=== PATIENT | female | born 1935 | race Hispanic/Latino ===

== ENCOUNTER 2017-09-21 12:01 | Inpatient (IN) | payer OTHER ==
[~2017-09-21] VITALS: Ht 160 cm; Wt 84.8 kg
[2017-09-21] VITALS (33 sets, daily range): BP systolic 59–105; BP diastolic 36–57
[~2017-09-21 12:01] MED LIST: ADVAIR; ADVAIR 250-501 EACH; ALAVERT10 MG PO; AMOXICILLIN500 MG PO; CELEBREX200 MG PO; DILTIAZEM ER240 MG PO; DIOVAN; DIOVAN320 MG PO; FUROSEMIDE20 MG PO; LYRICA; LYRICA150 MG PO; METOPROLOL; METOPROLOL SUC100 MG; METOPROLOL SUCC50 MG PO; MONTELUKAST SOD10 MG; MONTELUKAST SOD10 MG PO; NASONEX17 GM; NORCO 10MG-325MG1 EA PO; PENICILLIN PO; POTASSIUM CHLO10 MEQ PO
--- OUTSIDE RECORDS SUMMARY | 2017-09-21 12:05 | XMS REPORT | Clinical Summary ---
Author Author [facility] [facility] Address Unknown Phone Unavailable Care Team Providers Care Submersible Pilot Name Role Phone Francis Hernandez MD PCP Allergies Active Allergy Reactions Severity Noted Date Comments Ciprofloxacin Rash High 02/20/2016 Current Medications Prescription Sig. Disp. Refills Start End Date Status Date metoprolol tartrate Take 50 mg by mouth 2 Active (LOPRESSOR) 50 MG tablet (two) times a day. pregabalin (LYRICA) 150 Take 150 mg by mouth Active MG capsule once. valsartan (DIOVAN) 320 MG Take 320 mg by mouth Active tablet daily. fluticasone-salmeterol Inhale 1 puff 2 (two) Active (ADVAIR) 100-50 mcg/dose times a day. DISKUS mometasone (NASONEX) 50 2 sprays into each Active mcg/actuation nasal spray nostril daily. montelukast (SINGULAIR) Take 10 mg by mouth Active 10 mg tablet nightly. diltiazem CD (CardIZEM Take 240 mg by mouth Active CD) 240 MG 24 hr capsule daily. Active Problems Problem Noted Date Colon polyps 02/20/2016 Family History Medical History Relation Name Comments Heart disease Mother Relation Name Status Comments Mother Social History Tobacco Use Types Packs/Day Years Used Date Never Smoker Alcohol Use Drinks/Week oz/Week Comments No Sex Assigned at Date Recorded Not on file Last Filed Vital Signs Not on file Plan of Treatment Not on file Implants Implanted Type Area Ambulatory Technologist Device Expiration Model / Identifier Date Serial / Lot Epifix Xl 4 X 10 - [id number] Surgical N/A: N/A [employer] 2020 XL 5410 / Implanted: 02/20/2016 (Quantity not Implants; INC / on file) Expanders; [id number] Extenders; [id number] Surgical Wires Epifix Xl 4 X 10 - [id number] Surgical N/A: N/A [employer] 2020 XL 5410 / Implanted: 02/20/2016 (Quantity not Implants; INC / on file) Expanders; [id number] Extenders; 521-006 Surgical Wires Epifix Xl 4 X 10 - [id number] Surgical N/A: N/A [employer] 2020 XL 5410 / Implanted: 02/20/2016 (Quantity not Implants; INC / on file) Expanders; [id number] Extenders; 384-003 Surgical Wires Results Not on fileafter 09/20/2016 Insurance Payer Benefit Subscriber ID Type Phone Address Plan / Group [employer] TEX[employer] xxxxxxxxx O [facility] [place] [address]
[2017-09-21] MEDS ORDERED: SODIUM CHLORIDE 0.9% 1000ML 1,000 ML IV STA (12:20)
[2017-09-21 12:56] LABS: BASOPHILS % 0.2 % (0.0-1.0); HEMOGLOBIN 12.2 g/dL (12.0-16.0); LYMPHOCYTES # (AUTO) 0.8 (1.0-3.2); MEAN CORPUSCULAR HEMOGLOBIN 27.5 pg (28-32); MEAN CORPUSCULAR HGB CONC 32.1 g/dL (31-35); MEAN CORPUSCULAR VOLUME 85.6 fL (81-99); MONOCYTES # (AUTO) 0.9 (0.2-0.8); MONOCYTES % 4.5 % (4.4-11.3); NEUTROPHILS # (AUTO) 17.9 (2.1-6.9); NEUTROPHILS % 90.8 % (38.7-80.0); PLATELET COUNT 146 x10e3/uL (140-360); RED BLOOD COUNT 4.44 x10e6/uL (3.6-5.1); RED CELL DISTRIBUTION WIDTH 15.7 % (11.7-14.4)
[2017-09-21 13:00] LABS: COLOR,URINE YELLOW (YELLOW)
[2017-09-21 13:01] LABS: BILIRUBIN,URINE NEGATIVE (NEGATIVE); CLARITY,URINE SL CLOUDY (CLEAR); KETONES,URINE NEGATIVE (NEGATIVE); LEUKOCYTE ESTERASE ,URINE NEGATIVE (NEGATIVE); NITRITE,URINE NEGATIVE (NEGATIVE); PROTEIN,URINE DIPSTICK 1+ (NEGATIVE); URINE UROBILINOGEN 0.2 mg/dL (0.2 - 1)
[2017-09-21] MEDS ORDERED: SODIUM CHLORIDE 0.9% 1000ML 1,000 ML ONE (13:06)
[2017-09-21 13:14] LABS: EPITHELIAL CELLS,URINE FEW /LPF; RBC,URINE 0-5 /HPF (0-5); WBC,URINE (MAN) 0-5 /HPF (0-5)
[2017-09-21] MEDS ORDERED: SODIUM CHLORIDE 0.9% 1000ML 1,000 ML IV ONE ×2 (13:15→14:30)
[2017-09-21 13:20] LABS: ALBUMIN/GLOBULIN RATIO 0.9 (0.8-2.0); ANION GAP 13.3 mmol/L (8-16); CALCIUM 8.6 mg/dL (8.4-10.2); CREATININE, SERUM 1.92 mg/dL (0.57-1.11); POTASSIUM 3.3 mmol/L (3.5-5.1)
[2017-09-21 13:27] LABS: CREATINE KINASE MB 1.4 ng/mL (0-5.0)
[2017-09-21] MEDS ORDERED: DIATRIZOATE MEGL/DIATRIZOA SOD 30 ML BTL PO ONE (13:28)
[2017-09-21 13:35] LABS: BAND NEUTROPHILS % (MANUAL) 25 %; MONOCYTES % (MANUAL) 3 % (3.4-9.0); NEUTROPHILS % (MANUAL) 72 % (40-74)
[2017-09-21 13:36] LABS: PLATELET ESTIMATE ADEQUATE; PLATELET MORPHOLOGY COMMENT NORMAL; RBC MORPHOLOGY COMMENT NORMAL
--- NOTE | 2017-09-21 13:41 | Diagnostic Imaging Report ---
EXAMINATION: CHEST SINGLE (PORTABLE) INDICATION: Shortness of breath COMPARISON: None FINDINGS: AP view TUBES and LINES: None. LUNGS: The lungs are mildly hypoinflated in the emphysematous lungs. Left basilar platelike atelectasis. There is no evidence of pneumonia or pulmonary edema. PLEURA: No pleural effusion or pneumothorax. HEART AND MEDIASTINUM: The cardiomediastinal silhouette is unremarkable. BONES AND SOFT TISSUES: No acute osseous lesion. Soft tissues are unremarkable. UPPER ABDOMEN: No free air under the diaphragm. IMPRESSION: No acute thoracic abnormality. Signed by: Dr. Chang Prado M.D. on 09/21/2017 1:37 PM
[2017-09-21] MEDS ORDERED: FENTANYL CITRATE/PF 100MCG/2 ML INJ ONE (14:48)
[2017-09-21] MEDS ORDERED: PIPER-TAZ 3.375 GM 50 ML IV STA (15:23)
--- NOTE | 2017-09-21 15:43 | Diagnostic Imaging Report ---
ADDENDUM #1 Addendum: 1. 2.6 cm right adrenal nodule with density of 9 HU, consistent with benign adenoma. 2. Punctate calcification in the tail of the pancreas, likely prior chronic pancreatitis. Signed by: Dr. Chang Prado M.D. on 09/21/2017 4:18 PM ORIGINAL REPORT EXAM: CT Abdomen and Pelvis WITHOUT contrast INDICATION: \S\ABD PAIN FEVER, DIARRHEA. History of diverticulitis and surgeries. Left lower quadrant abdominal pain. Started 6 weeks ago. COMPARISON: None. TECHNIQUE: Abdomen and pelvis were scanned utilizing a multidetector helical scanner from the lung base to the pubic symphysis without administration of IV contrast. Absence of intravenous contrast decreases sensitivity for detection of focal lesions and vascular pathology. Coronal and sagittal reformations were obtained. Routine protocol was performed. IV CONTRAST: None ORAL CONTRAST: Readicat COMPLICATIONS: None RADIATION DOSE: Total DLP: 666.54 mGy*cm Estimated effective dose: (DLP x 0.015 x size factor) mSv CTDIvol has been reviewed. It is below the limits set by the Radiation Protocol Committee (RPC). FINDINGS: LINES and TUBES: None. LOWER THORAX: Mitral valve annular calcifications. Small sliding hiatal hernia is unchanged. HEPATOBILIARY: New extensive portal venous gas extending to the periphery within the liver. No focal hepatic lesions. There is intra- and extra- hepatic biliary dilation likely post cholecystectomy resevoir effect. GALLBLADDER: There are cholecystectomy clips. SPLEEN: No splenomegaly. PANCREAS: No focal masses or ductal dilatation. ADRENALS: No adrenal nodules KIDNEYS/URETERS: No hydronephrosis. No cystic or solid mass lesions. No stones. GI TRACT: Postoperative changes of right hemicolectomy with ileal transverse anastomosis. There is a significant pneumatosis at the cecum with involvement of the adjacent terminal ileum. The wall thickening extends to the mid transverse colon. There are surrounding inflammatory changes and trace free fluid. Additional small bowel anastomosis in the deep pelvis and in the left abdomen. There are diverticula within the colon without evidence of diverticulitis. PELVIC ORGANS/BLADDER: Sanchez catheter is in place. Uterus is surgically absent. Both ovaries are not well visualized. LYMPH NODES: No lymphadenopathy. VESSELS: There is mild atherosclerotic disease in the aorta and major arterial branches. PERITONEUM / RETROPERITONEUM: Trace free fluid around the transverse colon and intermesenteric fluid. BONES: There are degenerative changes in the lumbar spine. SOFT TISSUES: Unremarkable. IMPRESSION: Right hemicolectomy with ileotransverse anastomosis. Significant pneumatosis involving the bowel loops in this region with surrounding fluid. Extensive portal venous gas within the liver. Recommend surgical consultation. Results were discussed with Dr. Kulkarni by Dr. Prado on 09/21/2017 at 3:33 PM Signed by: Dr. Chang Prado M.D. on 09/21/2017 3:40 PM
[2017-09-21] MEDS ORDERED: SODIUM CHLORIDE 0.9% 1000ML 1,000 ML IV SCH ×2 (15:45→16:21)
[2017-09-21] MEDS ORDERED: METRONIDAZOLE 500MG/NS 100ML 100 ML IV ONE (16:15)
[2017-09-21 16:23] LABS: OCCULT BLOOD STOOL POSITIVE (NEGATIVE)
[2017-09-21] MEDS ORDERED: ONDANSETRON HCL INJ 2 MG/ML VIAL IV PRN (16:30)
[2017-09-21] MEDS ORDERED: HYDROMORPHONE 1MG/1ML INJ IV PRN (16:30)
[2017-09-21] MEDS ORDERED: HYDROMORPHONE 2MG/ML 2 MG/ML ML IV PRN ×2 (16:45→22:30)
[2017-09-21] MEDS ORDERED: ONDANSETRON HCL 4 MG ORAL DISINTEGRATING TAB SL PRN (16:45)
--- OUTSIDE RECORDS SUMMARY | 2017-09-21 17:37 | XMS REPORT ---
[facility] Address Unknown Phone Unavailable Care Team Providers Care Cherry Picker Operator Name Role Phone MARBELLA PEG Unavailable Unavailable Problems This patient has no known problems. Allergies, Adverse Reactions, Alerts This patient has no known allergies or adverse reactions. Medications This patient has no known medications. Results Test Description Test Time Test Comments Text Results Atomic Results Result Comments CT ABDOMEN/PELVIS WO [place] [address] Patient Name: WYATT SHAW MR #: [id number] : 1935 Age/Sex: 81/F Req #: [id number] Adm Physician: Ordered by: CINDY CAZARES MD Report #: [id number] Location: ER Room/Bed: Procedure: [id number] CT/CT ABDOMEN/PELVIS WO Exam Date: 09/21/17 Exam Time: 1441 REPORT STATUS: Signed ADDENDUM #1 Addendum: 1. 2.6 cm right adrenal nodule with density of 9 HU, consistent with benign adenoma. 2. Punctate calcification in the tail of the pancreas, likely prior chronic pancreatitis. Signed by : Dr. Rich Abebe M.D. on 09/21/2017 4:18 PM ORIGINAL REPORT EXAM: CT Abdomen and Pelvis WITHOUT contrast INDICATION: S ABD PAIN FEVER, DIARRHEA. History of diverticulitis and surgeries. Left lower quadrant abdominal pain. Started 6 weeks ago. COMPARISON: None. TECHNIQUE: Abdomen and pelvis were scanned utilizing a multidetector helical scanner from the lung base to the pubic symphysis without administration of IV contrast. Absence of intravenous contrast decreases sensitivity for detection of focal lesions and vascular pathology. Coronal and sagittal reformations were obtained. Routine protocol was performed. IV CONTRAST: None ORAL CONTRAST: Readicat COMPLICATIONS: None RADIATION DOSE : Total DLP: 666.54 mGy*cm Estimated effective dose: (DLP x 0.015 x size factor) mSv CTDIvol has been reviewed. It is below the limits set by the Radiation Protocol Committee (RPC). FINDINGS: LINES and TUBES : None. LOWER THORAX: Mitral valve annular calcifications. Small sliding hiatal hernia is unchanged. HEPATOBILIARY: New extensive portal venous gas extending to the periphery within the liver. No focal hepatic lesions. There is intra- and extra- hepatic biliary dilation likely post cholecystectomy resevoir effect. GALLBLADDER: There are cholecystectomy clips. SPLEEN: No splenomegaly. PANCREAS: No focal masses or ductal dilatation. ADRENALS: No adrenal nodules KIDNEYS/URETERS : No hydronephrosis. No cystic or solid mass lesions. No stones. GI TRACT: Postoperative changes of right hemicolectomy with ileal transverse anastomosis. There is a significant pneumatosis at the cecum with involvement of the adjacent terminal ileum. The wall thickening extends to the mid transverse colon. There are surrounding inflammatory changes and trace free fluid. Additional small bowel anastomosis in the deep pelvis and in the left abdomen. There are diverticula within the colon without evidence of diverticulitis. PELVIC ORGANS/BLADDER: Sanchez catheter is in place. Uterus is surgically absent. Both ovaries are not well visualized. LYMPH NODES: No lymphadenopathy. VESSELS: There is mild atherosclerotic disease in the aorta and major arterial branches. PERITONEUM / RETROPERITONEUM: Trace free fluid around the transverse colon and intermesenteric fluid. BONES: There are degenerative changes in the lumbar spine. SOFT TISSUES: Unremarkable. IMPRESSION: Right hemicolectomy with ileotransverse anastomosis. Significant pneumatosis involving the bowel loops in this region with surrounding fluid. Extensive portal venous gas within the liver. Recommend surgical consultation. Results were discussed with Dr. Cazares by Dr. Abebe on 09/21/2017 at 3:33 PM Signed by: Dr. Rich Abebe M.D. on 3:40 PM Dictated By: RICH ABEBE MD [id number] Transcribed By: AARON on 09/21/17 1540 COPY TO : CINDY CAZARES MD CHEST SINGLE (PORTABLE) [place] [address] Patient Name: WYATT SHAW MR #: [id number] : 1935 Age/Sex: 81/F Req #: [id number] Adm Physician: Ordered by: CINDY CAZARES MD Report #: [id number] Location: ER Room/Bed: Procedure: [id number] DX/CHEST SINGLE (PORTABLE) Exam Date: 09/21/17 Exam Time: 1300 REPORT STATUS: Signed EXAMINATION: CHEST SINGLE (PORTABLE) INDICATION: Shortness of breath COMPARISON: None FINDINGS: AP view TUBES and LINES: None. LUNGS: The lungs are mildly hypoinflated in the emphysematous lungs. Left basilar platelike atelectasis. There is no evidence of pneumonia or pulmonary edema. PLEURA: No pleural effusion or pneumothorax. HEART AND MEDIASTINUM: The cardiomediastinal silhouette is unremarkable. BONES AND SOFT TISSUES: No acute osseous lesion. Soft tissues are unremarkable. UPPER ABDOMEN: No free air under the diaphragm. IMPRESSION: No acute thoracic abnormality. Signed by: Dr. Rich Abebe M.D. on 09/21/2017 1:37 PM Dictated By: RICH ABEBE MD [id number] Transcribed By: AARON on 09/21/17 1337 COPY TO: CINDY CAZARES MD
--- OUTSIDE RECORDS SUMMARY | 2017-09-21 17:37 | XMS REPORT | Clinical Summary ---
Author Author [facility] Address Unknown Phone Unavailable Care Team Providers Care Optical Coating Technician Name Role Phone Francis Hernandez MD PCP [...] Not on file Implants Implanted Type Area Type Proof Reproducer Device Expiration Model / Identifier Date Serial / Lot Epifix Xl 4 X 10 - [id number] Surgical N/A: N/A [employer] 2020 XL 5410 / Implanted: 02/20/2016 (Quantity not Implants; INC / on file) Expanders; [id number] Extenders; [id number] Surgical Wires Epifix Xl 4 X 10 - [id number] Surgical N/A: N/A [employer] 2020 XL 5410 / Implanted: 02/20/2016 (Quantity not Implants; INC / on file) Expanders; [id number] Extenders; [id number] Surgical Wires Epifix Xl 4 X 10 - [id number] Surgical N/A: N/A [employer] 2020 XL 5410 / Implanted: 02/20/2016 (Quantity not Implants; INC / on file) Expanders; [id number] Extenders; [id number] Surgical Wires Results Not on fileafter 09/20/2016 Insurance Payer Benefit Subscriber ID Type Phone Address Plan / Group [employer] TEX[employer] xxxxxxxxx [place] [facility] [place] [address]
[2017-09-21] MEDS ORDERED: PIPER-TAZ 3.375 GM / NS 50ML IV SCH (18:00)
[2017-09-21] MEDS ORDERED: METRONIDAZOLE 500MG/NS 100ML IV SCH (18:00)
[2017-09-21] MEDS ORDERED: ACETAMINOPHEN 1000 MG/100 ML 100 ML IV ONE (18:23)
[2017-09-21] MEDS ORDERED: ACETAMINOPHEN 1000 MG/100 ML IV STA (18:24)
--- OUTSIDE RECORDS SUMMARY | 2017-09-21 18:31 | XMS REPORT | Clinical Summary ---
Author Author [facility] [facility] [facility] [employer] Address Unknown Phone Unavailable Care Team Providers Care Associate Director Of Development Name Role Phone Francis Hernandez MD PCP [...] Not on file Implants Implanted Type Area Bakery Worker Conveyor Line Device Expiration Model / Identifier Date Serial / Lot Epifix Xl 4 X 10 - [id number] Surgical N/A: N/A [employer] 2020 XL 5410 / Implanted: 02/20/2016 (Quantity not Implants; INC / on file) Expanders; [id number] Extenders; [id number] Surgical Wires Epifix Xl 4 X 10 - [id number] Surgical N/A: N/A [employer] 2020 XL 5410 / Implanted: 02/20/2016 (Quantity not Implants; INC / on file) Expanders; [id number] Extenders; 521-006 Surgical Wires Epifix Xl 4 X 10 - [id number] Surgical N/A: N/A [employer] 2020 XL 5410 / Implanted: 02/20/2016 (Quantity not Implants; INC / on file) Expanders; [id number] Extenders; 384-003 Surgical Wires Results Not on fileafter 09/20/2016 Insurance Payer Benefit Subscriber ID Type Phone Address Plan / Group [employer] TEX[employer] xxxxxxxxx O [facility] [place] [address]
[2017-09-21] MEDS ORDERED: HEPARIN SOD/SOD CHLORIDE 1,000 ML ONE (19:02)
[2017-09-21] MEDS ORDERED: SUCCINYLCHOLINE 200 MG/10 ML SYR ONE (19:48)
[2017-09-21] MEDS ORDERED: SEVOFLURANE INHAL SOLN 250 ML PEN BTL ONE (19:48)
[2017-09-21] MEDS ORDERED: ROCURONIUM BROMIDE 10 MG/ML 5ML VIAL ONE (19:48)
[2017-09-21] MEDS ORDERED: PROPOFOL IV EMULSION 10 MG/ML 20 ML VIAL ONE (19:48)
[2017-09-21] MEDS ORDERED: PHENYLEPHRINE HCL 1% 10 MG/ML VIAL ONE (19:48)
[2017-09-21] MEDS ORDERED: PROPOFOL IV EMULSION 10MG/ML 100 ML ONE (19:56)
[2017-09-21] MEDS ORDERED: ACETAMINOPHEN 1000 MG/100 ML IV PRN (22:30)
--- OUTSIDE RECORDS SUMMARY | 2017-09-21 22:37 | XMS REPORT | Clinical Summary ---
Author Author [facility] [employer] [facility] Address Unknown Phone Unavailable Care Team Providers Care Alteration Workroom Supervisor Name Role Phone Francis Hernandez MD PCP [...] Not on file Implants Implanted Type Area Proposal Editor Device Expiration Model / Identifier Date Serial / Lot Epifix Xl 4 X 10 - [id number] Surgical N/A: N/A [employer] 2020 XL 5410 / Implanted: 02/20/2016 (Quantity not Implants; INC / on file) Expanders; [id number] Extenders; [id number] Surgical Wires Epifix Xl 4 X 10 - [id number] Surgical N/A: N/A [employer] 2020 XL 5410 / Implanted: 02/20/2016 (Quantity not Implants; INC / on file) Expanders; [id number] Extenders; 521-006 Surgical Wires Epifix Xl 4 X 10 - [id number] Surgical N/A: N/A [employer] 2020 XL 5410 / Implanted: 02/20/2016 (Quantity not Implants; INC / on file) Expanders; [id number] Extenders; 384-003 Surgical Wires Results Not on fileafter 09/20/2016 Insurance Payer Benefit Subscriber ID Type Phone Address Plan / Group [employer] xxxxxxxxx O [facility] [place] [address]
[2017-09-21] MEDS ORDERED: SODIUM CHLORIDE 0.9% 250ML 250 ML IV ONE (23:15)
--- NOTE | 2017-09-21 23:47 | Diagnostic Imaging Report ---
CHEST SINGLE (PORTABLE), 09/21/2017 10:53 PM Technique: CHEST SINGLE (PORTABLE) Comparison: 09/21/2017 Clinical history: \S\Intubated and central line placement \S\[id number] \S\2309 Findings: See Impression Impression: 1. Lines/Tubes: Placement of ET tube about 5.1 cm above the vanessa. NG tube extends subdiaphragmatically. Right IJ CVC overlies the SVC. 2. Stable prominent cardiomediastinal silhouette. 3. Mild bibasilar opacities may reflect atelectasis/vascular crowding. Attention on follow-up. 4. No pneumothorax. Signed by: Dr Radha Munguia MD on 09/21/2017 11:44 PM
[2017-09-21] MEDS: NITROGLYCERIN 2% OINT 1 GM PKT TOP SCH (23:56)
[2017-09-22] VITALS (170 sets, daily range): BP systolic 47–222; BP diastolic 28–71
[2017-09-22] MEDS ORDERED: PROPOFOL IV EMULSION 10MG/ML 100 ML IV PRN
[2017-09-22] MEDS ORDERED: PROPOFOL IV EMULSION 10 MG/ML 50 ML VIAL IV PRN
[2017-09-22] MEDS: SODIUM CHLORIDE 0.9% 1000ML 1,000 ML IV SCH ×2 (01:40→05:10)
[2017-09-22] MEDS: SODIUM CHLORIDE 0.9% 250ML IRRIG IR SCH ×7 (01:40→22:20)
[2017-09-22] MEDS ORDERED: PIPER-TAZ 3.375 GM 100 ML ONE (01:56)
[2017-09-22] MEDS ORDERED: METRONIDAZOLE 500MG/NS 100ML 100 ML IV ONE (01:56)
[2017-09-22] MEDS: PANTOPRAZOLE 40 MG 10ML VIAL IV SCH ×2 (02:29→23:17)
[2017-09-22] MEDS: PIPER-TAZ 3.375 GM / NS 50ML IV SCH ×5 (05:30→23:17)
[2017-09-22] MEDS: NITROGLYCERIN 2% OINT 1 GM PKT TOP SCH (06:00)
[2017-09-22] MEDS: METRONIDAZOLE 500MG/NS 100ML IV SCH ×4 (06:31→18:00)
--- NOTE | 2017-09-22 06:38 | Diagnostic Imaging Report ---
CHEST SINGLE (PORTABLE), 09/22/2017 5:05 AM Technique: CHEST SINGLE (PORTABLE) Comparison: 09/21/2017 Clinical history: Follow-up Findings: See Impression. Portal venous gas seen on CT not appreciated on limited portable technique. Impression: 1. Lines/Tubes: Placement of ET tube about 3.8 cm above the vanessa. NG tube extends subdiaphragmatically. Right IJ CVC overlies the SVC. 2. Stable prominent cardiomediastinal silhouette. 3. Mild bibasilar opacities, increased at the left lung base, possibly due to atelectasis, aspiration or infection. 4. Small effusions. Signed by: Dr Radha Munguia MD on 09/22/2017 6:35 AM
[2017-09-22 08:09] LABS: BASOPHILS # (AUTO) 0.1 (0.0-0.1); BASOPHILS % 0.5 % (0.0-1.0); HEMOGLOBIN 12.5 g/dL (12.0-16.0); LYMPHOCYTES # (AUTO) 0.4 (1.0-3.2); LYMPHOCYTES % 2.6 % (18.0-39.1); MEAN CORPUSCULAR HEMOGLOBIN 28.2 pg (28-32); MEAN CORPUSCULAR HGB CONC 32.9 g/dL (31-35); MEAN CORPUSCULAR VOLUME 85.8 fL (81-99); MONOCYTES # (AUTO) 0.6 (0.2-0.8); MONOCYTES % 3.7 % (4.4-11.3); NEUTROPHILS # (AUTO) 14.9 (2.1-6.9); NEUTROPHILS % 92.9 % (38.7-80.0); PLATELET COUNT 117 x10e3/uL (140-360); RED BLOOD COUNT 4.43 x10e6/uL (3.6-5.1); RED CELL DISTRIBUTION WIDTH 15.9 % (11.7-14.4)
[2017-09-22 08:22] LABS: ALBUMIN 1.9 g/dL (3.5-5.0); ALBUMIN/GLOBULIN RATIO 0.8 (0.8-2.0); ANION GAP 10.9 mmol/L (8-16); CREATININE, SERUM 1.19 mg/dL (0.57-1.11)
[2017-09-22 08:24] LABS: CALCIUM 6.4 mg/dL (8.4-10.2); POTASSIUM 2.9 mmol/L (3.5-5.1)
[2017-09-22 08:46] LABS: BAND NEUTROPHILS % (MANUAL) 26 %; LYMPHOCYTES % (MANUAL) 2 % (19-48); METAMYELOCYTES % (MANUAL) 6 % (0-0); MONOCYTES % (MANUAL) 5 % (3.4-9.0); NEUTROPHILS % (MANUAL) 61 % (40-74); PLATELET ESTIMATE SLIGHTLY DECREASED; PLATELET MORPHOLOGY COMMENT NORMAL; RBC MORPHOLOGY COMMENT NORMAL
[2017-09-22] MEDS ORDERED: ACETAMINOPHEN 1000 MG/100 ML IV PRN (09:00)
[2017-09-22] MEDS ORDERED: METOPROLOL TARTRATE INJ 1 MG/ML VIAL IV SCH (09:00)
--- NOTE | 2017-09-22 09:54 | History and Physical ---
PCP: Dr. Lila White DOCUMENT IMAGING MANAGER: Dr. Tad Chauhan and Dr. Lew Sofia. CHIEF COMPLAINT: Acute peritonitis associated with ischemic bowel. HISTORY: A 81-year-old female now admitted to the hospital. She is on ventilator support. Patient is status post right hemicolectomy with extensive adhesiolysis. When she came in, her white cell count was 20,000. Patient has acute renal failure with BUN and creatinine of 44 and 1.9. Imaging on the abdominal and pelvic CT showed right hemicolectomy with ileotransverse anastomosis, significant pneumatosis involving the bowel loops in this region with surrounded fluid and extensive portal venous gas within the liver. Consultation with Dr. Tad Chauhan was obtained. She is status post exploratory laparotomy with extensive right colectomy and extensive lysis of adhesions. Procedure was done on September 21, 2017, at 11 p.m. Patient currently on vent support. She is stable at this time. PAST MEDICAL HISTORY: History of right hemicolectomy, left knee replacement, hypertension, asthma, recurrent bronchitis. PAST SURGICAL HISTORY: As above. SOCIAL HISTORY: Patient does not smoke or use alcohol. No regular drugs. ALLERGIES: CIPRO. HOME MEDICATIONS: List reviewed. Diltiazem, Advair, Lasix, Claritin, metoprolol succinate, Singulair, Lyrica, and Valsartan. REVIEW OF SYSTEMS: Unable to obtain. Patient is on vent support. PHYSICAL EXAMINATION VITAL SIGNS: Temperature is 98, blood pressure 128/62, pulse rate 105, respirations 20. GENERAL: The patient is on vent support AC assist control. HEENT: Normocephalic, atraumatic and anicteric. NG tube in place and oral tube. NECK: Supple. PULMONARY: Diminished breath sounds bilaterally. CARDIOVASCULAR: Tachycardia. ABDOMEN: Status post surgery. EXTREMITIES: No cyanosis or edema. NEUROLOGIC: There is no gross focal deficit. Patient is awake and eyes open. LABORATORY: Sodium 138, potassium 2.9, chloride 117, bicarb 13, BUN 29, creatinine 1.1, glucose 149. WBC is 16, hemoglobin 12.5, hematocrit 38, and platelets is 117,000. IMPRESSION 1. Postoperative day late last night and now is day # of extensive further right colon resection with adhesiolysis which are extensive. 2. Acute ischemic bowel with peritonitis. 3. Multiple baseline problems. PLAN: IV fluid support. IV antibiotics. Postoperative care. Replace electrolytes. Ventilator support. Continue with current management. Job#: [id number] RI cc:LILA WHITE MD
[2017-09-22] MEDS: KCL 20MEQ/.9 SOD CHL 1,000 ML IV SCH ×2 (10:00→20:13)
--- NOTE | 2017-09-22 10:13 | Consultation ---
DATE OF CONSULTATION: PULMONARY CRITICAL CARE CONSULTATION REASON FOR CONSULT: ICU management, vent management and history of asthma. CHIEF COMPLAINT: Patient came in with abdominal pain and was found to have ischemic colitis. Underwent right colectomy and extensive lysis of the adhesions by Dr. Chauhan. HPI: Ms. Odom is a 81-year-old female who presented with abdominal pain to the emergency room. Patient was taken to surgery and was found to have ischemic colitis. Patient underwent laparotomy with right colectomy and lysis of the adhesions. Postoperatively, the patient remains intubated. She is on dopamine for blood pressure support. I reviewed her chest x-ray. It is not showing any evidence of pneumonia. It showing some atelectasis on the left lower lobe. She is awake. She is arousable and following commands. On FIO2 of 50%. REVIEW OF SYSTEMS: Unable to elicit any as the patient is intubated and is on sedation. PAST MEDICAL HISTORY: Per the granddaughter, history of hypertension, previous history of knee surgery. Also, has history of asthma. The patient was on Advair. FAMILY AND SOCIAL HISTORY: She does not smoke. Does not drink. PHYSICAL EXAMINATION VITAL SIGNS: Temperature 98, pulse of 102, blood pressure 128/62, respiratory rate of 18, O2 sat 99% on 50% FIO2. HEENT: Atraumatic and normocephalic. NECK: Supple. No JVD. CHEST: Clear to auscultation bilaterally. Occasional wheezing. HEART: S1 and S2 audible. ABDOMEN: Dressed and soft. EXTREMITIES: No pedal edema. NEUROLOGIC: Arousable. Following commands. LABS: White count was 19,000 when she came and now is 16,000, hemoglobin 12.5, platelets 117,000. Chemistries: Sodium 138, potassium 2.9, chloride 117, BUN 29, creatinine 1.19. CT of the abdomen and pelvis done in the emergency room is showing evidence of right hemicolectomy with anastomosis, significant pneumatosis involving the bowel loops. ASSESSMENT AND PLAN: Ms. Odom is a 81-year-old female with a previous history of surgeries presented with ischemic colitis, status post colectomy with colostomy, now on mechanical ventilator. History of asthma. She is in circulatory shock likely septic due to ischemic colitis. CURRENT PROBLEMS 1. Circulatory shock, likely septic: Dopamine is being tapered off. 2. Acute respiratory failure postoperatively: Currently, on FIO2 of 50%. Will gradually wean her from the ventilator. 3. Continue the IV antibiotics per surgery's recommendations. 4. Dilaudid for pain control. Potassium has been replaced. 5. Acute kidney injury, which is resolving: Creatinine is now 1.19. Patient is on intravenous IV hydration, which will be continued. 6. Deep venous thrombosis prophylaxis when okay with surgery. Critical care time spent 45 minutes. Job#: [id number] [facility]
[2017-09-22] MEDS ORDERED: HYDROMORPHONE 2MG/ML 2 MG/ML ML IV PRN (10:30)
[2017-09-22 11:22] LABS: C DIFFICILE TOXIN A&B AMP PROB NEGATIVE (NEGATIVE)
[2017-09-22] MEDS ORDERED: HYDROMORPHONE 0.2MG/ML-SOD CHL 30ML PCA SYRINGE IV PRN (12:00)
[2017-09-22] MEDS ORDERED: NALOXONE HCL INJ 0.4 MG/ML AMP IV PRN (12:00)
[2017-09-22] MEDS ORDERED: HYDROMORPHONE 20MG/ NS 100ML IV PRN (12:15)
--- NOTE | 2017-09-22 15:46 | Operative Report ---
DATE OF PROCEDURE: September 21, 2017 PREOPERATIVE DIAGNOSES 1. Gangrenous bowel with peritonitis. 2. Acute surgical abdomen. POSTOPERATIVE DIAGNOSES 1. Gangrenous colon with peritonitis. 2. Extensive intra-abdominal adhesions. OPERATIONS PERFORMED 1. Exploratory laparotomy. 2. Extended right hemicolectomy. 3. Extensive lysis of adhesions. ANESTHESIA: General. COMPLICATIONS: None. ESTIMATED BLOOD LOSS: 400 mL. DESCRIPTION OF PROCEDURE: With the patient lying in bed in the supine position, under good general endotracheal anesthesia, the abdomen was prepped with Betadine solution and draped in the usual manner. An elliptical incision was made to include all of the previous midline incisions that the patient had and that included the umbilicus. The incision was deepened through the subcutaneous tissue and all of the skin with old scars were resected. The midline fascia was then opened and the abdomen was entered. Immediately upon entering the abdominal cavity, massive adhesions were encountered. The small bowel and colon were massively stuck in all quadrants of the intra-abdominal cavity. Immediately upon opening the abdominal cavity, some blood-tinged fluid was encountered and a typical smell of bowel could be smelt. We then slowly and carefully managed to free the bowel from the anterior abdominal wall so that we could have access to the abdominal wall and it was clear that necrotic bowel was the right colon with extension all the way into the proximal transverse colon. An extensive lysis of adhesion was carried out which probably took at least an hour and a half of adhesions just to be able to free up all of the matted small bowel that the patient had. It was totally sucked in, particularly in the pelvis from the multiple previous surgeries that the patient had had. We had to free up all of the adhesions because we could not tell what part of the bowel was involved and if the small bowel was also involved. So, all of the small bowel had to be freed up except small amount of small bowel that was stuck to the left lateral gutter at the site of a previous anastomosis and we decided to leave this alone. We managed to free up all the small bowel from the pelvis and brought it up. At this point, the splenic flexure of the colon was then mobilized and the colon was brought medially and we could see a line of demarcation of the necrotic bowel to be about the level of the proximal transverse colon. So, we went ahead and divided the colon at the level of the distal transverse colon with an application of the STANTON-75 stapler. The mesentery of the colon was then from the stomach and the lesser sac was entered. The right colon was then mobilized medially with the terminal ileum and the mesentery of the right colon was then slowly and carefully divided with the Enseal device all the way down to the terminal ileum and the terminal ileum was then divided with an application of the STANTON-75 stapler and the specimen was sent for pathological examination. The entire cecum and ascending colon was necrotic. There was good blood flow with arterial bleeding at both ends of the staple line. Once this was done, we had to further mobilize the small bowel to make sure that it reached all the way up into the left upper quadrant and this was slowly and carefully mobilized, taking down some more of the adhesions. Once this was done, we then went ahead and proceeded to do an anastomosis bringing the distal terminal ileum to the distal transverse colon. Another application of STANTON-75 stapler was done. Again, there was bleeding from the staple line. The mucosa of the colon had some mild duskiness, but the colon was briskly bleeding at the staple line. The remaining opening was then closed with an application of the TA-60 stapler. Gloves and instruments were then changed, and the anastomosis was further reinforced with interrupted sutures of 3-0 silk. The mesenteric rent was closed with a running suture of 2-0 Vicryl and the omentum was then used to wrap the anastomosis and it was fixed using interrupted sutures of 3-0 Vicryl totally covering up the ileocolic anastomosis. The abdomen was then copiously irrigated with many liters of saline solution and all of the excess fluid was aspirated. Hemostasis was ascertained. After this was done, the abdomen was then closed in layers. The peritoneum was closed with a running suture of #1 Vicryl. The midline fascia was closed with a running suture of #1 PDS. A 1/4-inch Sawyer drain was left in the subcutaneous tissue. The subcutaneous tissue was approximated with 2-0 chromic and the skin was closed with clips. Dressings were applied. The sponge, lap, and needle counts were correct. The patient tolerated the procedure well and returned to the intensive care unit in critical but stable condition. Job#: [id number] CF
[2017-09-22] MEDS: HYDROMORPHONE 100 ML IV PRN (18:30)
[2017-09-22] MEDS ORDERED: POTASSIUM CHLORIDE 10MEQ/100ML 100 ML IV ONE (19:00)
[2017-09-23] VITALS (91 sets, daily range): BP systolic 73–158; BP diastolic 34–85
[2017-09-23] MEDS: METRONIDAZOLE 500MG/NS 100ML IV SCH ×5 (00:50→23:07)
[2017-09-23] MEDS: SODIUM CHLORIDE 0.9% 250ML IRRIG IR SCH ×6 (02:27→23:14)
[2017-09-23] MEDS: MIDAZOLAM HCL 25 MG in SODIUM CHLORIDE 0.9% 50ML 45 ML IV PRN ×3 (04:11→20:41)
[2017-09-23] MEDS: KCL 20MEQ/.9 SOD CHL 1,000 ML IV SCH ×2 (05:00→08:02)
[2017-09-23] MEDS: PIPER-TAZ 3.375 GM / NS 50ML IV SCH ×3 (05:19→18:16)
[2017-09-23 06:06] LABS: BASOPHILS # (AUTO) 0.1 (0.0-0.1); BASOPHILS % 0.3 % (0.0-1.0); HEMOGLOBIN 11.1 g/dL (12.0-16.0); LYMPHOCYTES # (AUTO) 0.4 (1.0-3.2); LYMPHOCYTES % 2.5 % (18.0-39.1); MEAN CORPUSCULAR HEMOGLOBIN 27.8 pg (28-32); MEAN CORPUSCULAR HGB CONC 33.6 g/dL (31-35); MEAN CORPUSCULAR VOLUME 82.5 fL (81-99); MONOCYTES # (AUTO) 0.9 (0.2-0.8); MONOCYTES % 5.4 % (4.4-11.3); NEUTROPHILS # (AUTO) 15.2 (2.1-6.9); NEUTROPHILS % 91.4 % (38.7-80.0); PLATELET COUNT 115 x10e3/uL (140-360); RED CELL DISTRIBUTION WIDTH 15.9 % (11.7-14.4)
[2017-09-23 06:26] LABS: ALBUMIN 1.8 g/dL (3.5-5.0); ALBUMIN/GLOBULIN RATIO 0.6 (0.8-2.0); ANION GAP 12.3 mmol/L (8-16); CHOL/HDL RATIO 3.7 (3.0-3.6); CREATININE, SERUM 0.91 mg/dL (0.57-1.11); MAGNESIUM 1.3 MG/DL (1.3-2.1); PHOSPHORUS 1.4 MG/DL (2.3-4.7); POTASSIUM 3.3 mmol/L (3.5-5.1)
[2017-09-23 06:30] LABS: CALCIUM 6.8 mg/dL (8.4-10.2)
--- NOTE | 2017-09-23 06:36 | Diagnostic Imaging Report ---
EXAMINATION: CHEST SINGLE (PORTABLE) INDICATION: On ventilation. COMPARISON: 09/22/2017 FINDINGS: TUBES and LINES: Endotracheal, NG tube and right IJ central line catheter are stable in good position. LUNGS: Lungs are not well inflated. There are bibasilar atelectasis. There is mild prominence of the central pulmonary vasculature, consistent with pulmonary venous congestion. PLEURA: No pleural effusion or pneumothorax. HEART AND MEDIASTINUM: The cardiomediastinal silhouette is unremarkable. There are atherosclerotic calcifications within the aorta. BONES AND SOFT TISSUES: No acute osseous lesion. Soft tissues are unremarkable. UPPER ABDOMEN: No free air under the diaphragm. IMPRESSION: 1. Stable chest with evidence of bibasilar atelectasis. 2. Tubes and lines are in good position. Signed by: Dr. Jack Romero M.D. on 09/23/2017 6:33 AM
[2017-09-23 06:48] LABS: THYROID STIMULATING HORMONE 0.102 uIU/mL (0.350-4.940)
[2017-09-23 07:06] LABS: FOLATE 8.4 ng/mL (7.0-15.4)
[2017-09-23 07:46] LABS: ANISOCYTOSIS SLIGHT; BAND NEUTROPHILS % (MANUAL) 6 %; LYMPHOCYTES % (MANUAL) 2 % (19-48); MONOCYTES % (MANUAL) 4 % (3.4-9.0); NEUTROPHILS % (MANUAL) 88 % (40-74); PLATELET ESTIMATE SLIGHTLY DECREASED; PLATELET MORPHOLOGY COMMENT NORMAL; RBC MORPHOLOGY COMMENT NORMAL
[2017-09-23] MEDS ORDERED: CALCIUM GLUCONATE 10% INJ 4.65 MEQ in SODIUM CHLORIDE 0.9% 50ML 50 ML IV PRN (08:30)
[2017-09-23] MEDS ORDERED: POTASSIUM CHLORIDE 20MEQ/100ML 100 ML IV ONE ×2 (08:30→13:30)
[2017-09-23] MEDS ORDERED: POTASSIUM PHOSPHATE 20 MM in SODIUM CHLORIDE 0.9% 250ML 250 ML IV SCH ×2 (08:45→09:00)
[2017-09-23] MEDS ORDERED: MAGNESIUM SULFATE 2GM/50ML IV ONE ×2 (08:45→13:30)
[2017-09-23] MEDS ORDERED: CALCIUM CHLORIDE IV PRN (09:15)
[2017-09-23] MEDS ORDERED: SODIUM CHLORIDE 0.9% IV PRN (09:15)
[2017-09-23] MEDS: LEVALBUTEROL HCL SOLN NEBU 1.25 MG/3 ML NEB INH SCH ×2 (10:30→20:30)
[2017-09-23] MEDS: SODIUM CHLORIDE 0.45% 1,000 ML IV SCH ×2 (14:08→18:30)
[2017-09-23] MEDS: HYDROMORPHONE 100 ML IV PRN (18:29)
[2017-09-23] MEDS: PANTOPRAZOLE 40 MG 10ML VIAL IV SCH (23:07)
[2017-09-24] VITALS (84 sets, daily range): BP systolic 93–127; BP diastolic 45–99
[2017-09-24] MEDS: PIPER-TAZ 3.375 GM / NS 50ML IV SCH ×4 (00:22→17:57)
[2017-09-24] MEDS: LEVALBUTEROL HCL SOLN NEBU 1.25 MG/3 ML NEB INH SCH ×4 (02:30→18:40)
[2017-09-24] MEDS: SODIUM CHLORIDE 0.9% 250ML IRRIG IR SCH ×6 (02:53→22:30)
[2017-09-24] MEDS: SODIUM CHLORIDE 0.45% 1,000 ML IV SCH ×2 (04:22→18:16)
[2017-09-24] MEDS: METRONIDAZOLE 500MG/NS 100ML IV SCH ×3 (05:05→17:57)
[2017-09-24 06:27] LABS: ALANINE AMINOTRANSFERASE 13 IU/L (0-55); ALBUMIN 1.6 g/dL (3.5-5.0); ALBUMIN/GLOBULIN RATIO 0.5 (0.8-2.0); ALKALINE PHOSPHATASE 43 IU/L (40-150); AMYLASE 40 U/L (25-125); ANION GAP 10.3 mmol/L (8-16); BLOOD UREA NITROGEN 24 mg/dL (7-26); BUN/CREATININE RATIO 27 (6-25); CARBON DIOXIDE 16 mmol/L (22-29); CHLORIDE 119 mmol/L (98-107); CREATININE, SERUM 0.88 mg/dL (0.57-1.11); EST GLOMERULAR FILTRATION RATE > 60 ML/MIN (60-); GLUCOSE 132 mg/dL (74-118); MAGNESIUM 2.8 MG/DL (1.3-2.1); PHOSPHORUS 1.9 MG/DL (2.3-4.7); POTASSIUM 3.3 mmol/L (3.5-5.1); SODIUM 142 mmol/L (136-145)
[2017-09-24] MEDS ORDERED: FUROSEMIDE INJ 10 MG/ML 2 ML VIAL IV ONE (09:15)
[2017-09-24 09:26] LABS: BASOPHILS % 0.2 % (0.0-1.0); HEMATOCRIT 31.3 % (34.2-44.1); HEMOGLOBIN 10.5 g/dL (12.0-16.0); LYMPHOCYTES # (AUTO) 0.6 (1.0-3.2); LYMPHOCYTES % 3.4 % (18.0-39.1); MEAN CORPUSCULAR HEMOGLOBIN 28.3 pg (28-32); MEAN CORPUSCULAR HGB CONC 33.5 g/dL (31-35); MEAN CORPUSCULAR VOLUME 84.4 fL (81-99); MONOCYTES # (AUTO) 0.7 (0.2-0.8); MONOCYTES % 3.9 % (4.4-11.3); NEUTROPHILS # (AUTO) 16.5 (2.1-6.9); NEUTROPHILS % 91.9 % (38.7-80.0); PLATELET COUNT 121 x10e3/uL (140-360); RED BLOOD COUNT 3.71 x10e6/uL (3.6-5.1); RED CELL DISTRIBUTION WIDTH 16.1 % (11.7-14.4)
[2017-09-24] MEDS ORDERED: POTASSIUM PHOSPHATE IV SCH ×2 (09:30→09:45)
[2017-09-24] MEDS ORDERED: SODIUM CHLORIDE IV SCH ×2 (09:30→09:45)
[2017-09-24] MEDS ORDERED: POTASSIUM CHLORIDE 20MEQ/100ML 200 ML IV ONE ×2 (09:30→11:30)
--- NOTE | 2017-09-24 09:58 | Diagnostic Imaging Report ---
PROCEDURE:CHEST SINGLE (PORTABLE) TECHNIQUE:Portable AP chest INDICATION:Intubation COMPARISON:[facility], , CHEST SINGLE (PORTABLE), 09/23/2017, 5:32. FINDINGS: See conclusion. CONCLUSION: 1. Endotracheal tube tip about 4 cm from the vanessa. 2. Right internal jugular central venous catheter tip at the mid SVC. 3. Nasogastric tube tip crossing the diaphragm. 4. Mild cardiomegaly with progressive pulmonary edema and vascular congestion relative to September 23. 5. Trace right and small left pleural effusion. 6. Intact skeleton. Dictated by: Waldemar Meade M.D. on 09/24/2017 at 10:00 Electronically approved by: Waldemar Meade M.D. on 09/24/2017 at 10:00
[2017-09-24 10:49] LABS: BAND NEUTROPHILS % (MANUAL) 7 %; LYMPHOCYTES % (MANUAL) 2 % (19-48); METAMYELOCYTES % (MANUAL) 1 % (0-0); MONOCYTES % (MANUAL) 4 % (3.4-9.0); NEUTROPHILS % (MANUAL) 86 % (40-74)
[2017-09-24 10:50] LABS: ANISOCYTOSIS SLIGHT; BURR CELLS SLIGHT; HYPOCHROMASIA SLIGHT; PLATELET ESTIMATE SLIGHTLY DECREASED; RBC MORPHOLOGY COMMENT NORMAL
[2017-09-24 10:51] LABS: PLATELET MORPHOLOGY COMMENT FEW GIANT
[2017-09-24 12:07] LABS: ABG HCO3 16 mmol/L (23-28); ABG PCO2 25 mmHg (41-51); ABG PO2 120 mmHg (80-105)
[2017-09-24] MEDS ORDERED: POTASSIUM CHLORIDE 20MEQ/100ML 200 ML ONE (14:54)
[2017-09-24] MEDS ORDERED: ONDANSETRON HCL INJ 2 MG/ML VIAL IV ONE (19:00)
[2017-09-24] MEDS ORDERED: MORPHINE SULFATE INJ 4 MG/ML INJ IV PRN (19:15)
[2017-09-24] MEDS ORDERED: PROMETHAZINE 12.5MG/ NACL 0.9% 12.5 MG/50 ML BAG IV PRN (19:15)
[2017-09-24] MEDS: MORPHINE SULFATE 2 MG/ML SYR IV PRN (20:06)
[2017-09-24] MEDS: BISACODYL 10 MG SUPP PR SCH (21:01)
[2017-09-24] MEDS ORDERED: AMIODARONE HCL 150MG 100 ML IV SCH (22:30)
[2017-09-24] MEDS ORDERED: AMIODARONE HCL 360MG 200 ML IV SCH (22:30)
[2017-09-24] MEDS ORDERED: DIPHENHYDRAMINE HCL INJ 50 MG/ML VIAL IV PRN (22:35)
[2017-09-25] VITALS (58 sets, daily range): BP systolic 85–127; BP diastolic 44–85
[2017-09-25] MEDS ORDERED: AMIODARONE HCL 360MG 200 ML IV SCH
[2017-09-25] MEDS: PANTOPRAZOLE 40 MG 10ML VIAL IV SCH ×2 (00:30→23:19)
[2017-09-25] MEDS: METRONIDAZOLE 500MG/NS 100ML IV SCH ×4 (00:30→17:54)
[2017-09-25] MEDS: PIPER-TAZ 3.375 GM / NS 50ML IV SCH ×4 (00:30→17:54)
[2017-09-25] MEDS: MORPHINE SULFATE 2 MG/ML SYR IV PRN ×2 (00:36→07:30)
[2017-09-25] MEDS: LEVALBUTEROL HCL SOLN NEBU 1.25 MG/3 ML NEB INH SCH ×4 (01:00→18:23)
[2017-09-25] MEDS: SODIUM CHLORIDE 0.9% 250ML IRRIG IR SCH ×4 (02:30→17:54)
[2017-09-25 05:55] LABS: BASOPHILS % 0.1 % (0.0-1.0); HEMATOCRIT 32.5 % (34.2-44.1); LYMPHOCYTES # (AUTO) 0.7 (1.0-3.2); LYMPHOCYTES % 4.4 % (18.0-39.1); MEAN CORPUSCULAR HEMOGLOBIN 28.1 pg (28-32); MEAN CORPUSCULAR HGB CONC 33.8 g/dL (31-35); MEAN CORPUSCULAR VOLUME 83.1 fL (81-99); MONOCYTES # (AUTO) 0.8 (0.2-0.8); MONOCYTES % 5.1 % (4.4-11.3); NEUTROPHILS # (AUTO) 13.3 (2.1-6.9); NEUTROPHILS % 89.5 % (38.7-80.0); PLATELET COUNT 110 x10e3/uL (140-360); RED BLOOD COUNT 3.91 x10e6/uL (3.6-5.1)
[2017-09-25 06:27] LABS: ANION GAP 10.6 mmol/L (8-16); BLOOD UREA NITROGEN 25 mg/dL (7-26); BUN/CREATININE RATIO 30 (6-25); CALCIUM 7.3 mg/dL (8.4-10.2); CARBON DIOXIDE 17 mmol/L (22-29); CHLORIDE 121 mmol/L (98-107); CREATININE, SERUM 0.82 mg/dL (0.57-1.11); EST GLOMERULAR FILTRATION RATE > 60 ML/MIN (60-); GLUCOSE 102 mg/dL (74-118); PHOSPHORUS 1.7 MG/DL (2.3-4.7); POTASSIUM 3.6 mmol/L (3.5-5.1); SODIUM 145 mmol/L (136-145)
[2017-09-25] MEDS ORDERED: LEVALBUTEROL HCL SOLN NEBU 1.25 MG/3 ML NEB INH PRN (09:30)
[2017-09-25] MEDS ORDERED: FUROSEMIDE INJ 10 MG/ML 4 ML VIAL IV ONE (10:00)
[2017-09-25] MEDS ORDERED: HYDROMORPHONE 1MG/1ML INJ IV PRN (10:00)
[2017-09-25] MEDS: HYDROMORPHONE 2MG/ML 2 MG/ML ML IV PRN ×3 (10:18→22:40)
[2017-09-25] MEDS: KETOROLAC TROMETHAMINE 30 MG/ML VIAL IV PRN ×2 (11:06→21:54)
[2017-09-25] MEDS ORDERED: BISACODYL 10 MG SUPP PR ONE ×2 (15:31→15:32)
[2017-09-25] MEDS: BISACODYL 10 MG SUPP PR SCH (15:52)
[2017-09-25] MEDS ORDERED: DEXTROSE 5%/LACTATED RINGERS 1,000 ML IV ONE (18:39)
[2017-09-25] MEDS: DEXTROSE 5%/LACTATED RINGERS 1,000 ML IV SCH (18:49)
[2017-09-26] VITALS (19 sets, daily range): BP systolic 93–124; BP diastolic 48–64
[2017-09-26] MEDS: PIPER-TAZ 3.375 GM / NS 50ML IV SCH ×4 (00:02→17:04)
[2017-09-26] MEDS: METRONIDAZOLE 500MG/NS 100ML IV SCH ×4 (00:02→18:31)
[2017-09-26] MEDS: LEVALBUTEROL HCL SOLN NEBU 1.25 MG/3 ML NEB INH SCH ×4 (02:34→19:00)
[2017-09-26] MEDS: HYDROMORPHONE 2MG/ML 2 MG/ML ML IV PRN ×5 (02:50→21:01)
[2017-09-26] MEDS: DEXTROSE 5%/LACTATED RINGERS 1,000 ML IV SCH ×2 (05:00→14:45)
[2017-09-26] MEDS: KETOROLAC TROMETHAMINE 30 MG/ML VIAL IV PRN (13:18)
[2017-09-26] MEDS: SOD CHL 0.45%/POT CHL 20MEQ 1,000 ML IV SCH (17:04)
[2017-09-26] MEDS: PANTOPRAZOLE 40 MG 10ML VIAL IV SCH (22:57)
[2017-09-27] VITALS (7 sets, daily range): BP systolic 96–114; BP diastolic 51–59
[2017-09-27] MEDS: METRONIDAZOLE 500MG/NS 100ML IV SCH ×2 (00:07→06:38)
[2017-09-27] MEDS: PIPER-TAZ 3.375 GM / NS 50ML IV SCH ×5 (01:09→23:21)
[2017-09-27] MEDS: HYDROMORPHONE 2MG/ML 2 MG/ML ML IV PRN ×2 (01:19→12:00)
[2017-09-27] MEDS: SOD CHL 0.45%/POT CHL 20MEQ 1,000 ML IV SCH ×4 (05:01→18:10)
[2017-09-27] MEDS: HYDROCODONE/APAP 7.5MG-325MG 1 EA TAB PO PRN ×3 (05:23→21:35)
[2017-09-27 06:58] LABS: BASOPHILS # (AUTO) 0.1 (0.0-0.1); BASOPHILS % 0.3 % (0.0-1.0); HEMATOCRIT 32.1 % (34.2-44.1); HEMOGLOBIN 10.5 g/dL (12.0-16.0); LYMPHOCYTES # (AUTO) 0.3 (1.0-3.2); LYMPHOCYTES % 2.4 % (18.0-39.1); MEAN CORPUSCULAR HEMOGLOBIN 27.4 pg (28-32); MEAN CORPUSCULAR HGB CONC 32.7 g/dL (31-35); MEAN CORPUSCULAR VOLUME 83.8 fL (81-99); MONOCYTES # (AUTO) 0.4 (0.2-0.8); MONOCYTES % 2.9 % (4.4-11.3); NEUTROPHILS # (AUTO) 13.4 (2.1-6.9); NEUTROPHILS % 93.5 % (38.7-80.0); PLATELET COUNT 108 x10e3/uL (140-360); RED BLOOD COUNT 3.83 x10e6/uL (3.6-5.1); RED CELL DISTRIBUTION WIDTH 15.8 % (11.7-14.4)
[2017-09-27 07:24] LABS: ALBUMIN 1.4 g/dL (3.5-5.0); ALBUMIN/GLOBULIN RATIO 0.5 (0.8-2.0); ANION GAP 11.6 mmol/L (8-16); CALCIUM 7.7 mg/dL (8.4-10.2); CREATININE, SERUM 1.5 mg/dL (0.57-1.11); POTASSIUM 3.6 mmol/L (3.5-5.1)
[2017-09-27] MEDS: LEVALBUTEROL HCL SOLN NEBU 1.25 MG/3 ML NEB INH SCH ×4 (07:38→19:05)
[2017-09-27] MEDS ORDERED: SODIUM CHLORIDE 0.9% 1000ML 1,000 ML IV ONE (08:15)
[2017-09-27 10:46] LABS: ANISOCYTOSIS SLIG; BAND NEUTROPHILS % (MANUAL) 2 %; BURR CELLS SLIGHT; LYMPHOCYTES % (MANUAL) 2 % (19-48); METAMYELOCYTES % (MANUAL) 1 % (0-0); MONOCYTES % (MANUAL) 1 % (3.4-9.0); NEUTROPHILS % (MANUAL) 93 % (40-74); PLATELET ESTIMATE ADEQUATE; PLATELET MORPHOLOGY COMMENT FEW LARGE; POIKILOCYTOSIS SLIGHT; RBC MORPHOLOGY COMMENT NORMAL
[2017-09-27] MEDS: PROMETHAZINE 12.5MG/ NACL 0.9% 50 ML IV PRN (11:06)
[2017-09-27] MEDS ORDERED: METRONIDAZOLE 500MG/NS 100ML IV SCH (12:00)
[2017-09-27] MEDS ORDERED: BISACODYL 10 MG SUPP PR NR (14:00)
[2017-09-27 14:59] LABS: BILIRUBIN,URINE 3+ (NEGATIVE); CLARITY,URINE SL CLOUDY (CLEAR); COLOR,URINE AMBER (YELLOW); KETONES,URINE 1+ (NEGATIVE); LEUKOCYTE ESTERASE ,URINE NEGATIVE (NEGATIVE); NITRITE,URINE NEGATIVE (NEGATIVE); PROTEIN,URINE DIPSTICK 2+ (NEGATIVE); URINE UROBILINOGEN 1 mg/dL (0.2 - 1)
[2017-09-27 15:11] LABS: AMORPHOUS SEDIMENT,URINE MODERATE (FEW); BACTERIA,URINE MANY /HPF; EPITHELIAL CELLS,URINE FEW /LPF
[2017-09-27] MEDS ORDERED: BISACODYL 10 MG SUPP PR ONE (17:56)
[2017-09-27] MEDS: PANTOPRAZOLE 40 MG 10ML VIAL IV SCH (23:21)
[2017-09-28] VITALS (12 sets, daily range): BP systolic 77–140; BP diastolic 42–65
[2017-09-28] MEDS: LEVALBUTEROL HCL SOLN NEBU 1.25 MG/3 ML NEB INH SCH ×4 (00:05→20:08)
[2017-09-28] MEDS: HYDROCODONE/APAP 7.5MG-325MG 1 EA TAB PO PRN ×5 (01:12→22:46)
[2017-09-28] MEDS: SOD CHL 0.45%/POT CHL 20MEQ 1,000 ML IV SCH (04:04)
[2017-09-28] MEDS: HYDROMORPHONE 2MG/ML 2 MG/ML ML IV PRN ×5 (04:36→23:50)
[2017-09-28] MEDS: PIPER-TAZ 3.375 GM / NS 50ML IV SCH (06:33)
[2017-09-28 07:10] LABS: BASOPHILS # (AUTO) 0.1 (0.0-0.1); BASOPHILS % 0.3 % (0.0-1.0); EOSINOPHILS % 0.1 % (0.0-6.0); HEMATOCRIT 30.7 % (34.2-44.1); HEMOGLOBIN 10.2 g/dL (12.0-16.0); LYMPHOCYTES # (AUTO) 0.5 (1.0-3.2); LYMPHOCYTES % 2.5 % (18.0-39.1); MEAN CORPUSCULAR HGB CONC 33.2 g/dL (31-35); MEAN CORPUSCULAR VOLUME 84.3 fL (81-99); MONOCYTES # (AUTO) 0.6 (0.2-0.8); MONOCYTES % 3.2 % (4.4-11.3); NEUTROPHILS # (AUTO) 17.6 (2.1-6.9); NEUTROPHILS % 93.3 % (38.7-80.0); PLATELET COUNT 69 x10e3/uL (140-360); RED BLOOD COUNT 3.64 x10e6/uL (3.6-5.1); RED CELL DISTRIBUTION WIDTH 16.5 % (11.7-14.4)
[2017-09-28 07:23] LABS: ALBUMIN 1.3 g/dL (3.5-5.0); ALBUMIN/GLOBULIN RATIO 0.5 (0.8-2.0); ANION GAP 11.3 mmol/L (8-16); CALCIUM 7.5 mg/dL (8.4-10.2); CREATININE, SERUM 1.77 mg/dL (0.57-1.11); MAGNESIUM 1.8 MG/DL (1.3-2.1); PHOSPHORUS 2.8 MG/DL (2.3-4.7); POTASSIUM 4.3 mmol/L (3.5-5.1)
--- NOTE | 2017-09-28 08:40 | Diagnostic Imaging Report ---
CT Abdomen And Pelvis Without IV Contrast INDICATION: Renal insufficiency; history of large bowel ischemia TECHNIQUE: 5 mm collimation axial images obtained from the diaphragm to the level of the pubic symphysis without nonionic intravenous contrast. RADIATION DOSE: Total DLP: 815.4 mGy*cm Estimated effective dose: (DLP x 0.015 x size factor) mSv CTDIvol has been reviewed. It is below the limits set by the Radiation Protocol Committee (RPC). COMPARISON: CT abdomen/pelvis 09/21/2017. ABDOMEN FINDINGS: Lung Bases: Bilateral pleural effusions have developed. Left pleural effusion measures 3.4 cm. Right pleural effusion measures less than 10 mm. There is bibasilar atelectasis. Pericardial effusion measures 7 mm. The distal esophagus is dilated with fluid. Peritoneum: Diffuse pneumoperitoneum. Liver: Mildly decreased in attenuation. No mass. Portal venous air has resolved. Gallbladder: Not visualized and is likely absent. No biliary ductal dilatation. Pancreas: Atrophic. No soft tissue mass or ductal dilatation. Punctate calcification in the tail is stable. Spleen: Normal in size. No mass. Adrenal Glands: Right adrenal adenoma is stable. Left adrenal gland is normal. Kidneys: Right Kidney: No renal calculus. No cortical mass or hydronephrosis. Left Kidney: No renal calculus. No cortical mass or hydronephrosis. Lymph Nodes: No lymphadenopathy. Aorta: Normal in diameter with scattered calcifications. Free fluid throughout the abdomen along the right paracolic gutter and surrounding the spleen. PELVIS FINDINGS: Bowel: Stomach: No dilatation. Small Bowel: 2 areas of chain sutures in the mid small bowel are stable. No significantly dilated small bowel loops. Large Bowel: Postoperative changes from right hemicolectomy. Descending colon is collapsed with scattered diverticula. Bladder: Collapsed around a Sanchez catheter with nondependent air. No ureteral dilatation. Lymph Nodes: No lymphadenopathy. Moderate to large amount of pelvic ascites. Bones: No focal osseous lesion. Soft tissues: Midline abdominal wall rodolfo are present. There is diffuse subcutaneous edema. IMPRESSION: 1. Diffuse pneumoperitoneum, likely postoperative from right hemicolectomy. However, staple line disruption cannot be excluded given the absence of enteric contrast. 2. Moderate to large amount of abdominopelvic ascites. Again, this may be postoperative. Abscess cannot be excluded without the benefit of intravenous contrast. 3. Fluid distention of the distal esophagus may be secondary to vomiting. No evidence of small bowel obstruction. 4. Mild hepatic steatosis. 5. Resolved portal venous air. 6. New small pleural effusions and bibasilar atelectasis. 7. Stable right adrenal adenoma. 8. No evidence of renal calculus or obstructive uropathy. Signed by: Dr. Albina Shah MD on 09/28/2017 8:36 AM
[2017-09-28 10:13] LABS: BAND NEUTROPHILS % (MANUAL) 21 %; LYMPHOCYTES % (MANUAL) 4 % (19-48); MONOCYTES % (MANUAL) 3 % (3.4-9.0); NEUTROPHILS % (MANUAL) 72 % (40-74)
[2017-09-28 10:14] LABS: PLATELET ESTIMATE SLIGHTLY DECREASED; PLATELET MORPHOLOGY COMMENT NORMAL; RBC MORPHOLOGY COMMENT NORMAL
[2017-09-28] MEDS ORDERED: SODIUM BICARBONATE 8.4% 75 ML in DEXTROSE 5% 1,000 ML IV ONE (11:00)
[2017-09-28] MEDS: ALBUMIN 25% 12.5GM 0.25 GM/ML BTL IV SCH ×2 (11:47→22:46)
[2017-09-28] MEDS ORDERED: MEROPENEM 500MG 500 MG in SODIUM CHLORIDE 0.9% 50ML 50 ML IV SCH (14:00)
--- NOTE | 2017-09-28 15:01 | Consultation ---
DATE OF CONSULTATION: September 28, 2017 NEPHROLOGY CONSULTATION REASON FOR CONSULTATION: Acute kidney injury. HISTORY OF PRESENT ILLNESS: This is a pleasant 81-year-old female with a past medical history of hypertension, knee surgery, was admitted for abdominal pain. She was noted to have intestinal ischemia for which she underwent laparotomy with right hemicolectomy and lysis of adhesions. She was doing fair in the last 5 days or so, but then yesterday her serum creatinine went up to 1.5 from 0.8 on September 25, 2017, for which nephrology consultation was obtained for further evaluation and management. At the time of my examination, the patient did not appear to be in any acute distress, and denied any significant headache, blurring of vision, chest pain, shortness of breath, cough, phlegm, or any focal weakness. She did complain of some nausea and abdominal discomfort. PAST MEDICAL AND SURGICAL HISTORY: As above. PERSONAL/SOCIAL HISTORY: No history of alcohol or tobacco. MEDICATIONS: See the medication sheet that was reviewed. She was on ketorolac among other medications, which was discontinued a couple of days ago. I's and O's 3 L in and 350 out. Since this morning, she has made only 50 mL of urine. PHYSICAL EXAMINATION VITALS: Blood pressure was 117/54, respirations 20, heart rate 108, temperature 97.4. HEENT: Head was atraumatic and normocephalic. Pupils reactive to light. Mouth: Oral mucosa was extremely dry. NECK: Supple. There was no significant lymphadenopathy. CHEST: Revealed fair air entry with a few basilar crackles. HEART: S1 and S2 with tachycardia. ABDOMEN: Obese but bandaged. Bowel sounds positive. EXTREMITIES: She had some tissue edema of 1+. SKIN: No redness or rash. CONSULTING SOFTWARE ENGINEER: She was awake, alert and oriented times 3. Cranial nerves were intact. There was no gross motor deficit noted. LABS: Sodium 144, potassium 4.3, chloride 122, CO2 15 and it was 17 yesterday, anion gap 11, BUN 15, creatinine 1.8 from 1.5 yesterday. Albumin 1.3. Magnesium and phosphorus were within the normal range. White cell count 18.8 up from 14 yesterday, hemoglobin 10.2, hematocrit 30.7, and platelets 69,000. Urinalysis with specific gravity 1.020, pH 5, 2+ protein, ketones 1+, blood 1+, 3+ bilirubin, 6-10 rbcs, many bacteria. IMAGING: CT of the abdomen and pelvis without contrast done yesterday did not show any acute pathology or any hydronephrosis of the kidneys. It did show a moderate to large amount of abdominal pelvic ascites. IMPRESSION 1. Acute kidney injury, most likely secondary to prerenal azotemia with an element of acute tubular necrosis thought to be secondary to sepsis/hypotension/decreased p.o. intake: She is oligoanuric now. 2. Normal anion gap metabolic acidosis secondary to acute kidney injury. 3. Intestinal ischemia: Status post right hemicolectomy almost a week ago. 4. Tissue edema with severe hypoalbuminemia. PLAN: Strict I's and O's. Avoid nonsteroidal anti-inflammatory drugs and BAYLEE inhibitors, and IV dye and ARB. CBC, magnesium, phosphorus in a.m. Give albumin 12.5 g IV q.8 h. times 3 and change IV fluids to D5W with 75 mcg of sodium bicarb at 75 mL an hour. No acute indication for dialysis today. I had a long discussion with the family, and informed them that we will be monitoring the kidney function very closely. If urine output does not fruit picker and/or if the creatinine does not improve with worsening of acidosis, she will need dialysis hopefully just temporarily. I answered all of their questions. Further recommendations to follow. Thank you for the consultation. Job#: [id number] [facility]
[2017-09-28] MEDS: MEROPENEM 500 MG VIAL IV SCH ×2 (15:39→22:46)
[2017-09-28] MEDS ORDERED: PIPER-TAZ 3.375 GM 100 ML IV SCH (21:00)
[2017-09-28] MEDS ORDERED: PIPER-TAZ 3.375 GM / NS 50ML IV SCH (21:00)
[2017-09-28] MEDS: PANTOPRAZOLE 40 MG 10ML VIAL IV SCH (22:46)
[2017-09-29] VITALS (42 sets, daily range): BP systolic 69–136; BP diastolic 28–80
[2017-09-29] MEDS: HYDROCODONE/APAP 7.5MG-325MG 1 EA TAB PO PRN (02:42)
[2017-09-29] MEDS ORDERED: SODIUM CHLORIDE 0.9% 50ML 50 ML ONE (05:38)
[2017-09-29] MEDS: ALBUMIN 25% 12.5GM 0.25 GM/ML BTL IV SCH (05:46)
[2017-09-29] MEDS: HYDROMORPHONE 2MG/ML 2 MG/ML ML IV PRN ×2 (05:46→10:24)
[2017-09-29] MEDS: MEROPENEM 500 MG VIAL IV SCH ×2 (05:46→18:00)
[2017-09-29 06:10] LABS: BASOPHILS # (AUTO) 0.1 (0.0-0.1); BASOPHILS % 0.3 % (0.0-1.0); EOSINOPHILS % 0.2 % (0.0-6.0); HEMATOCRIT 28.6 % (34.2-44.1); HEMOGLOBIN 9.3 g/dL (12.0-16.0); LYMPHOCYTES # (AUTO) 0.4 (1.0-3.2); LYMPHOCYTES % 2.5 % (18.0-39.1); MEAN CORPUSCULAR HEMOGLOBIN 27.6 pg (28-32); MEAN CORPUSCULAR HGB CONC 32.5 g/dL (31-35); MEAN CORPUSCULAR VOLUME 84.9 fL (81-99); MONOCYTES # (AUTO) 0.7 (0.2-0.8); MONOCYTES % 3.9 % (4.4-11.3); NEUTROPHILS # (AUTO) 16.3 (2.1-6.9); RED BLOOD COUNT 3.37 x10e6/uL (3.6-5.1); RED CELL DISTRIBUTION WIDTH 16.6 % (11.7-14.4)
[2017-09-29 06:14] LABS: PLATELET COUNT 47 x10e3/uL (140-360)
[2017-09-29 06:36] LABS: ALBUMIN 1.7 g/dL (3.5-5.0); ALBUMIN/GLOBULIN RATIO 0.6 (0.8-2.0); ANION GAP 14.1 mmol/L (8-16); CALCIUM 7.8 mg/dL (8.4-10.2); CREATININE, SERUM 2.07 mg/dL (0.57-1.11); MAGNESIUM 1.8 MG/DL (1.3-2.1); PHOSPHORUS 2.9 MG/DL (2.3-4.7); POTASSIUM 4.1 mmol/L (3.5-5.1)
[2017-09-29] MEDS: LEVALBUTEROL HCL SOLN NEBU 1.25 MG/3 ML NEB INH SCH ×3 (06:36→22:00)
[2017-09-29 07:54] LABS: BAND NEUTROPHILS % (MANUAL) 7 %; EOSINOPHILS % (MANUAL) 2 % (0-7); LYMPHOCYTES % (MANUAL) 3 % (19-48); NEUTROPHILS % (MANUAL) 88 % (40-74)
[2017-09-29 07:56] LABS: RBC MORPHOLOGY COMMENT NORMAL
[2017-09-29 07:57] LABS: ANISOCYTOSIS SLIGHT; HYPOCHROMASIA SLIGHT; PLATELET ESTIMATE MARKEDLY DECREASED; PLATELET MORPHOLOGY COMMENT FEW GIANT
[2017-09-29] MEDS ORDERED: SODIUM BICARBONATE 8.4% INJ 50 ML SYR IV STA (08:45)
[2017-09-29] MEDS ORDERED: SODIUM BICARBONATE 8.4% SYRING 50 ML ONE (08:46)
[2017-09-29 08:51] LABS: ABG PCO2 25 mmHg (41-51); ABG PH 7.35 (7.31-7.41); ABG PO2 90 mmHg (80-105)
[2017-09-29] MEDS ORDERED: NOREPINEPHRINE 8 MG/D5W 250 ML 250 ML ONE (08:51)
[2017-09-29 08:52] LABS: ABG HCO3 14 mmol/L (23-28)
[2017-09-29] MEDS: SODIUM CHLORIDE 0.9% 250ML IRRIG IR SCH ×5 (09:00→22:30)
[2017-09-29] MEDS: NOREPINEPHRINE 8 MG/D5W 250 ML 250 ML IV SCH (09:00)
[2017-09-29] MEDS: FLUCONAZOLE 200 MG/100 ML 100 ML IV SCH (10:45)
--- NOTE | 2017-09-29 11:10 | Diagnostic Imaging Report ---
PROCEDURE: A single AP view of the chest. COMPARISON: 09/24/17 INDICATIONS: SHORTNESS OF BREATH, POST ABDOMINAL SURGERY. FINDINGS: Lines/tubes: Interval extubation and removal of NG tube. Right IJ central line in place with tip overlying the inferior SVC. Lungs: Limited by body habitus and low lung volumes. Mild central vascular congestion. Pleura: There is no pneumothorax. Small left and trace right pleural effusions. Heart and mediastinum: Prominent cardiomediastinal silhouette on this AP view. Bones: No acute bony abnormality. IMPRESSION: Mild central vascular congestion. Small left and trace right pleural effusions. Dictated by: Gary Elise M.D. on 09/29/2017 at 11:13 Electronically approved by: Gary Elise M.D. on 09/29/2017 at 11:13
--- NOTE | 2017-09-29 14:14 | Diagnostic Imaging Report ---
EXAM: Renal Ultrasound INDICATION: \S\atn COMPARISON: None TECHNIQUE: Transverse and longitudinal images of the kidneys and bladder were obtained. FINDINGS: Patient could not follow the breathing instructions, limiting evaluation. Right Kidney: Size: 10 cm Echogenicity: Normal Parenchymal thickness: Normal Collecting system: No hydronephrosis Stones: None Cyst/Mass: None Left Kidney: Size: 10.9 cm Echogenicity: Normal Parenchymal thickness: Normal Collecting system: No hydronephrosis Stones: None Cyst/Mass: None Bladder: Decompressed by a Sanchez catheter, limiting evaluation. IMPRESSION: Normal renal ultrasound exam. Signed by: Dr. Gary Elise MD on 09/29/2017 2:10 PM
[2017-09-29] MEDS: SODIUM BICARBONATE 8.4% SYRING 150 ML in DEXTROSE 5% 1,000 ML IV SCH ×2 (14:15→23:30)
[2017-09-29 14:27] LABS: BODY FLUID TYPE PERITONEAL
[2017-09-29 14:28] LABS: BODY FLUID APPEARANCE TURBID; BODY FLUID COLOR GREEN
[2017-09-29] MEDS ORDERED: SODIUM CHLORIDE 0.9% 500ML 500 ML ONE (14:49)
[2017-09-29] MEDS ORDERED: HEPARIN SOD (PORCINE) 1000 UNIT/ML SDV ONE ×2 (14:50→16:56)
[2017-09-29 15:03] LABS: RBC,BODY FLUID 297 cells/uL; WBC,BODY FLUID 2124 cells/uL
[2017-09-29] MEDS ORDERED: VANCOMYCIN 1GM/NS 250 ML 250 ML IV SCH ×2 (15:30→18:00)
[2017-09-29 15:33] LABS: LYMPHOCYTES,BODY FLUID 84 %; MONO/MACROPHG,BODY FLUID 9 %; NEUTROPHILS,BODY FLUID 7 %
[2017-09-29] MEDS ORDERED: GENTAMICIN 80MG/NS 100 ML 100 ML IV PRN ×2 (15:45→16:00)
[2017-09-29] MEDS ORDERED: VANCOMYCIN 1GM/NS 250 ML 250 ML IV PRN ×3 (15:45→16:15)
--- NOTE | 2017-09-29 16:39 | Consultation ---
DATE OF CONSULTATION: REASON FOR CONSULTATION: Sepsis and septic shock. HISTORY OF PRESENT ILLNESS: This patient is a 81-year-old female who was admitted originally on September 21, 2017, with abdominal pain. The patient originally thought she had gastroenteritis. She was admitted on September 26 with abdominal pain. She was found to have peritonitis. Underwent right hemicolectomy with extensive adhesiolysis. When she came, her white count was 20,000. She had creatinine of 1.9. CAT scan showed right hemicolectomy with ileotransverse anastomosis. The patient underwent exploratory laparotomy and extended right hemicolectomy on September 21 and was transferred to the floor. She has been in the intensive care unit since then. Apparently, the patient is getting septic. She is going into renal failure. She is going to surgery today. Infectious disease was consulted urgently. The patient is currently alert and complaining of abdominal pain. Her family is at the bedside. PAST HISTORY: Patient has history of hypertension, osteoarthritis, knee surgeries, abdominal pain, intestinal ischemia. ALLERGIES: NKA. SOCIAL HISTORY: There is no smoking, drug abuse or alcohol abuse. FAMILY HISTORY: Hypertension. REVIEW OF SYSTEMS GENERAL: Currently is complaining of abdominal pain, not feeling well. HEENT: Negative. PULMONARY: Negative. CARDIAC: Negative. LABORATORY DATA: Reviewed. The urine had yeast. Her cultures showed no salmonella or shigella. PHYSICAL EXAMINATION GENERAL: She is currently alert and oriented. VITAL SIGNS: Afebrile now. She had fever approximately HEENT: She is not icteric. NECK: Supple. CHEST: Clear. ABDOMEN: Soft, distended. EXTREMITIES: Some edema. IMPRESSION: Sepsis and septic shock. Ischemic colon. Patient is going for exploratory laparotomy. She has a drain in the abdomen which is showing stools and fecal type of material. She is going for hemodialysis. I would recommend to put her on vancomycin and meropenem. Will give her a dose after dialysis. This is her 1st dialysis. Continue with Diflucan. Then after the surgery, will continue with vancomycin 1 g after each hemodialysis and meropenem 500 daily. Will reassess again in the morning. The prognosis is guarded. Will follow with you. Job#: [id number]
[2017-09-29] MEDS ORDERED: MIDAZOLAM HCL 25 MG in SODIUM CHLORIDE 0.9% 50ML 45 ML IV PRN (18:30)
[2017-09-29] MEDS ORDERED: ALBUMIN 25% 12.5GM 50 ML IV ONE (19:22)
[2017-09-29] MEDS ORDERED: CALCIUM CHLORIDE 10% SYRINGE 10 ML IV ONE (19:28)
[2017-09-29] MEDS ORDERED: ACETAMINOPHEN 1000 MG/100 ML IV PRN (22:00)
[2017-09-29 23:52] LABS: BASOPHILS # (AUTO) 0.1 (0.0-0.1); BASOPHILS % 0.5 % (0.0-1.0); EOSINOPHILS % 0.2 % (0.0-6.0); HEMATOCRIT 31.7 % (34.2-44.1); HEMOGLOBIN 10.5 g/dL (12.0-16.0); LYMPHOCYTES # (AUTO) 0.4 (1.0-3.2); LYMPHOCYTES % 3.3 % (18.0-39.1); MEAN CORPUSCULAR HGB CONC 33.1 g/dL (31-35); MEAN CORPUSCULAR VOLUME 84.5 fL (81-99); MONOCYTES # (AUTO) 0.6 (0.2-0.8); MONOCYTES % 4.6 % (4.4-11.3); NEUTROPHILS # (AUTO) 11.9 (2.1-6.9); NEUTROPHILS % 90.3 % (38.7-80.0); PLATELET COUNT 67 x10e3/uL (140-360); RED BLOOD COUNT 3.75 x10e6/uL (3.6-5.1); RED CELL DISTRIBUTION WIDTH 15.5 % (11.7-14.4)
[2017-09-30] VITALS (106 sets, daily range): BP systolic 69–146; BP diastolic 43–84
[2017-09-30 00:19] LABS: ALBUMIN 1.9 g/dL (3.5-5.0); ALBUMIN/GLOBULIN RATIO 0.9 (0.8-2.0); ANION GAP 13.3 mmol/L (8-16); CALCIUM 8.3 mg/dL (8.4-10.2); CREATININE, SERUM 1.41 mg/dL (0.57-1.11); POTASSIUM 4.3 mmol/L (3.5-5.1)
--- NOTE | 2017-09-30 00:24 | Diagnostic Imaging Report ---
EXAM: CHEST SINGLE (PORTABLE), AP 1 view INDICATION: Not provided COMPARISON: None FINDINGS: LINES/TUBES: Endotracheal tube terminates 2.4 cm above the vanessa. Nasogastric/orogastric tube courses below the diaphragm out of field of view Right internal jugular vein central line and temporary hemodialysis catheters terminate in expected location of the distal superior vena cava. LUNGS: No consolidations or edema. PLEURA: No effusions or pneumothorax. HEART AND MEDIASTINUM: Normal size and contour. BONES AND SOFT TISSUES: No acute findings. IMPRESSION: Lines and tubes as above. Normal appearance of the heart and lungs. Signed by: Dr. Brianna Bowen M.D. on 09/30/2017 12:20 AM
[2017-09-30 00:56] LABS: ABG PCO2 12 mmHg (41-51); ABG PH 7.24 (7.31-7.41); ABG PO2 242 mmHg (80-105)
[2017-09-30 00:57] LABS: ABG HCO3 5 mmol/L (23-28)
[2017-09-30] MEDS ORDERED: SODIUM BICARBONATE 8.4% INJ 50 ML SYR IV STA (00:58)
[2017-09-30] MEDS ORDERED: SODIUM CHLORIDE 0.9% 1000ML 1,000 ML IV SCH (01:00)
[2017-09-30] MEDS: SODIUM CHLORIDE 0.9% 250ML IRRIG IR SCH ×7 (01:00→22:19)
[2017-09-30] MEDS ORDERED: SODIUM CHLORIDE 0.9% 1000ML 1,000 ML ONE ×2 (01:12→09:39)
[2017-09-30] MEDS ORDERED: SODIUM BICARBONATE 8.4% SYRING 100 ML ONE (01:13)
[2017-09-30 02:29] LABS: BAND NEUTROPHILS % (MANUAL) 18 %; LYMPHOCYTES % (MANUAL) 4 % (19-48); METAMYELOCYTES % (MANUAL) 1 % (0-0); MONOCYTES % (MANUAL) 4 % (3.4-9.0); MYELOCYTES % (MANUAL) 2 % (0-0); NEUTROPHILS % (MANUAL) 71 % (40-74)
[2017-09-30 02:30] LABS: ANISOCYTOSIS SLIGHT; PLATELET ESTIMATE MODERATELY DECREASED; PLATELET MORPHOLOGY COMMENT FEW LARGE; RBC MORPHOLOGY COMMENT NORMAL
[2017-09-30] MEDS: LEVALBUTEROL HCL SOLN NEBU 1.25 MG/3 ML NEB INH SCH ×5 (02:45→19:15)
[2017-09-30] MEDS: MEROPENEM 500 MG VIAL IV SCH (06:00)
[2017-09-30 06:09] LABS: BASOPHILS # (AUTO) 0.1 (0.0-0.1); BASOPHILS % 0.4 % (0.0-1.0); EOSINOPHILS % 0.3 % (0.0-6.0); HEMATOCRIT 27.6 % (34.2-44.1); HEMOGLOBIN 9.5 g/dL (12.0-16.0); LYMPHOCYTES # (AUTO) 0.5 (1.0-3.2); LYMPHOCYTES % 4.4 % (18.0-39.1); MEAN CORPUSCULAR HEMOGLOBIN 27.9 pg (28-32); MEAN CORPUSCULAR HGB CONC 34.4 g/dL (31-35); MEAN CORPUSCULAR VOLUME 81.2 fL (81-99); MONOCYTES # (AUTO) 0.6 (0.2-0.8); NEUTROPHILS # (AUTO) 10.3 (2.1-6.9); NEUTROPHILS % 88.1 % (38.7-80.0); RED CELL DISTRIBUTION WIDTH 15.5 % (11.7-14.4)
[2017-09-30 06:28] LABS: PLATELET COUNT 45 x10e3/uL (140-360)
[2017-09-30 07:07] LABS: ANION GAP 15.9 mmol/L (8-16); CALCIUM 7.6 mg/dL (8.4-10.2); CREATININE, SERUM 1.32 mg/dL (0.57-1.11); POTASSIUM 3.9 mmol/L (3.5-5.1)
[2017-09-30 08:14] LABS: BAND NEUTROPHILS % (MANUAL) 12 %; LYMPHOCYTES % (MANUAL) 4 % (19-48); MONOCYTES % (MANUAL) 4 % (3.4-9.0); NEUTROPHILS % (MANUAL) 77 % (40-74); PLATELET ESTIMATE MODERATELY DECREASED; PLATELET MORPHOLOGY COMMENT FEW LARGE
[2017-09-30 08:16] LABS: ANISOCYTOSIS SLIGHT; HYPOCHROMASIA SLIGHT; RBC MORPHOLOGY COMMENT NORMAL
[2017-09-30] MEDS ORDERED: ALBUMIN 25% 12.5GM 100 ML IV ONE (09:38)
[2017-09-30] MEDS ORDERED: HEPARIN SOD (PORCINE) 1000 UNIT/ML SDV ONE (09:38)
[2017-09-30] MEDS: SODIUM BICARBONATE 8.4% SYRING 150 ML in DEXTROSE 5% 1,000 ML IV SCH ×2 (10:03→22:00)
[2017-09-30] MEDS: FLUCONAZOLE 200 MG/100 ML 100 ML IV SCH (13:30)
[2017-09-30] MEDS: BUMETANIDE INJ 0.25MG/ML 4ML VIAL IV SCH ×2 (15:52→22:19)
--- NOTE | 2017-09-30 17:52 | Diagnostic Imaging Report ---
PROCEDURE: A single AP view of the chest. COMPARISON: [facility], DX, CHEST SINGLE (PORTABLE), 09/29/2017, 23:22. INDICATIONS: S/P INTUBATION, NG TUBE PLACEMENT FINDINGS: Exam limited by rotation. See impression.. IMPRESSION: 1. endotracheal tube has distal tip projecting approximately 3.5 cm above the vanessa. Enteric tube is seen below the left hemidiaphragm, with distal tip projecting at the level of the stomach fundus. Stable right internal jugular vein central line and temporary hemodialysis catheter. 2. Stable left retrocardiac density, likely reflecting atelectasis and less likely consolidation or effusion. 3. Mild central pulmonary venous congestion. Lee Skinner M.D. Dictated by: Lee Skinner M.D. on 09/30/2017 at 17:54 Electronically approved by: Lee Skinner M.D. on 09/30/2017 at 17:54
[2017-09-30] MEDS ORDERED: SUCCINYLCHOLINE 200 MG/10 ML SYR ONE (19:14)
[2017-09-30] MEDS ORDERED: VASOPRESSIN INJ 20 UNIT/ML VIAL ONE (19:14)
[2017-09-30] MEDS ORDERED: PROPOFOL IV EMULSION 10 MG/ML 20 ML VIAL ONE (19:14)
[2017-09-30] MEDS ORDERED: ROCURONIUM BROMIDE 10 MG/ML 5ML VIAL ONE (19:14)
[2017-09-30] MEDS: PANTOPRAZOLE 40 MG 10ML VIAL IV SCH ×2 (22:19)
[2017-10-01] VITALS (95 sets, daily range): BP systolic 80–129; BP diastolic 29–78
[2017-10-01] MEDS: LEVALBUTEROL HCL SOLN NEBU 1.25 MG/3 ML NEB INH SCH ×5 (00:15→19:00)
[2017-10-01] MEDS: NOREPINEPHRINE 8 MG/D5W 250 ML 250 ML IV SCH ×2 (01:07→08:45)
[2017-10-01] MEDS: SODIUM CHLORIDE 0.9% 250ML IRRIG IR SCH ×6 (02:00→21:59)
--- NOTE | 2017-10-01 06:36 | Diagnostic Imaging Report ---
EXAM: CHEST SINGLE (PORTABLE), AP 1 view INDICATION: Postop COMPARISON: AP view of the chest September 29, 2017 FINDINGS: LINES/TUBES: Stable position of lines and tubes. LUNGS: Increasing bibasilar atelectasis. PLEURA: No effusions or pneumothorax. HEART AND MEDIASTINUM: Stable appearance. BONES AND SOFT TISSUES: No acute findings. IMPRESSION: Increasing bibasilar atelectasis. Signed by: Dr. Brianna Bowen M.D. on 10/01/2017 6:32 AM
[2017-10-01] MEDS: BUMETANIDE INJ 0.25MG/ML 4ML VIAL IV SCH ×3 (06:40→21:59)
[2017-10-01 06:42] LABS: BASOPHILS % 0.1 % (0.0-1.0); EOSINOPHILS # (AUTO) 0.1 (0.0-0.4); EOSINOPHILS % 0.8 % (0.0-6.0); HEMATOCRIT 24.8 % (34.2-44.1); HEMOGLOBIN 8.6 g/dL (12.0-16.0); LYMPHOCYTES # (AUTO) 0.8 (1.0-3.2); LYMPHOCYTES % 7.3 % (18.0-39.1); MEAN CORPUSCULAR HEMOGLOBIN 28.2 pg (28-32); MEAN CORPUSCULAR HGB CONC 34.7 g/dL (31-35); MEAN CORPUSCULAR VOLUME 81.3 fL (81-99); MONOCYTES # (AUTO) 0.5 (0.2-0.8); MONOCYTES % 4.5 % (4.4-11.3); NEUTROPHILS # (AUTO) 8.9 (2.1-6.9); NEUTROPHILS % 85.3 % (38.7-80.0); PLATELET COUNT 60 x10e3/uL (140-360); RED BLOOD COUNT 3.05 x10e6/uL (3.6-5.1); RED CELL DISTRIBUTION WIDTH 15.1 % (11.7-14.4)
[2017-10-01 06:55] LABS: ALBUMIN 1.7 g/dL (3.5-5.0); ALBUMIN/GLOBULIN RATIO 0.7 (0.8-2.0); ANION GAP 13.9 mmol/L (8-16); CALCIUM 7.7 mg/dL (8.4-10.2); CREATININE, SERUM 1.02 mg/dL (0.57-1.11); MAGNESIUM 1.3 MG/DL (1.3-2.1); PHOSPHORUS 2.3 MG/DL (2.3-4.7)
[2017-10-01 06:59] LABS: POTASSIUM 2.9 mmol/L (3.5-5.1)
--- NOTE | 2017-10-01 07:25 | Diagnostic Imaging Report ---
Date and Time: 09/29/2017 Procedure: Temporary hemodialysis catheter placement chlorinator operator: Dr. Fields Pre-operative diagnosis: Acute kidney injury Post-operative diagnosis: Acute kidney injury Conscious Sedation: None Additional Medications: Lidocaine 1% for local anesthesia Fluoroscopy time: 0 Dose-area Product: 0 mGycm2. Frontal Air Kerma: 0 Contrast used: 0 Estimated blood loss: Minimal Specimens: None Implants: 13 [place] 15 cm triple-lumen hi flow central venous catheter DISCUSSION: Informed consent was obtained from the next of kin and documented in the medical record. The patient was placed in the supine position. Preliminary sonographic evaluation of the right internal jugular vein confirmed patency evidenced by compressibility. The right cervical region and existing right internal jugular central venous catheter were prepped and draped in standard sterile fashion. A suitable percutaneous approach was identified inferolateral to the indwelling line. 1% lidocaine was infiltrated into the skin and subcutaneous tissues for local anesthesia. Then under continuous sonographic guidance an 18-gauge singlewall needle was advanced into the right internal jugular vein. A 0.0 3 5-in. wire was advanced centrally to a depth of 25 cm with continuous cardiac rhythm monitoring. The needle was then exchanged for a 13 [place], 15 cm triple-lumen hi flow central venous catheter using standard Seldinger technique after tract dilatation. The wire was removed. Each lumen was tested and showed adequate bidirectional flow. The catheter was flushed with sterile saline and secured to the skin with monofilament nylon suture. A sterile dressing was applied. A frontal chest radiograph obtained immediately after the procedure confirmed appropriate line positioning, with the catheter tip at the low superior vena cava. The patient tolerated the procedure well without immediate complication. FINDINGS: Patent right internal jugular vein. IMPRESSION: Successful placement of a 13 [place], 15 cm triple-lumen hi flow central venous catheter by a right internal jugular approach. Signed by: Dr. Lew Fields M.D. on 10/01/2017 7:21 AM
--- NOTE | 2017-10-01 07:25 | Diagnostic Imaging Report ---
Date and Time: 09/29/2017 Procedure: Temporary hemodialysis catheter placement cloth dye range operator: Dr. Fields Pre-operative diagnosis: Acute kidney injury Post-operative diagnosis: Acute kidney injury Conscious Sedation: None Additional Medications: Lidocaine 1% for local anesthesia Fluoroscopy time: 0 Dose-area Product: 0 mGycm2. Frontal Air Kerma: 0 Contrast used: 0 Estimated blood loss: Minimal Specimens: None Implants: 13 Citizen Of [place] 15 cm triple-lumen hi flow central venous catheter DISCUSSION: Informed consent was obtained from the next of kin and documented in the medical record. The patient was placed in the supine position. Preliminary sonographic evaluation of the right internal jugular vein confirmed patency evidenced by compressibility. The right cervical region and existing right internal jugular central venous catheter were prepped and draped in standard sterile fashion. A suitable percutaneous approach was identified inferolateral to the indwelling line. 1% lidocaine was infiltrated into the skin and subcutaneous tissues for local anesthesia. Then under continuous sonographic guidance an 18-gauge singlewall needle was advanced into the right internal jugular vein. A 0.0 3 5-in. wire was advanced centrally to a depth of 25 cm with continuous cardiac rhythm monitoring. The needle was then exchanged for a 13 Citizen [place], 15 cm triple-lumen hi flow central venous catheter using standard Seldinger technique after tract dilatation. The wire was removed. Each lumen was tested and showed adequate bidirectional flow. The catheter was flushed with sterile saline and secured to the skin with monofilament nylon suture. A sterile dressing was applied. A frontal chest radiograph obtained immediately after the procedure confirmed appropriate line positioning, with the catheter tip at the low superior vena cava. The patient tolerated the procedure well without immediate complication. FINDINGS: Patent right internal jugular vein. IMPRESSION: Successful placement of a 13 Citizen [place], 15 cm triple-lumen hi flow central venous catheter by a right internal jugular approach. Signed by: Dr. Lew Fields M.D. on 10/01/2017 7:21 AM
--- NOTE | 2017-10-01 07:30 | Diagnostic Imaging Report ---
Date and Time: 09/29/2017 Procedure: Ultrasound-guided percutaneous drainage of right midabdominal fluid collection hydro operator: Dr. Fields Pre-operative diagnosis: Abdominal fluid collection status post exploratory laparotomy Post-operative diagnosis: Abdominal fluid collection status post exploratory laparotomy Conscious Sedation: None The patient's heart rate and pulse oximetry were continuously monitored by the ICU nurse. Blood pressure was monitored at 5 minute intervals. Additional Medications: Lidocaine 1% for local anesthesia Fluoroscopy time: 0 Dose-area Product: 0 mGycm2. Frontal Air Kerma: 0 Contrast used: 0 Estimated blood loss: Minimal Specimens: 1 L brown, debris laden fluid Implants: 12 Greenlandic locking loop drainage catheter DISCUSSION: Informed consent was obtained from the next of kin and documented in the medical record. The right abdominal wall was prepped and draped in the standard sterile fashion. A suitable percutaneous approach to the complex fluid collection in the right mid abdomen was identified and 1% lidocaine was infiltrated into the skin and subcutaneous tissues for local anesthesia. A 5 Greenlandic MediciNova needle catheter system was advanced into the collection. The catheter was advanced off the wire and brown, debris laden fluid was aspirated. A 0.0 3 5-in. Amplatz wire was advanced through the catheter. The catheter was removed over the wire and the tract was dilated. Then, a 12 Greenlandic locking loop all purpose catheter was advanced over the wire and into the fluid collection with position confirmed by sonography. The wire and cannula of the drain were removed and the locking loop was formed. The catheter was connected to accordion drainage with subsequent evacuation of approximately 1 L of brown debris laden fluid. The catheter was secured to the skin with monofilament nylon suture and a sterile dressing was applied. The patient tolerated the procedure without immediate complication. FINDINGS: Right abdominal complex fluid collection. IMPRESSION: Successful ultrasound-guided percutaneous drainage of a complex right abdominal fluid collection. A specimen of aspirated fluid was submitted to the laboratory for Gram stain, aerobic, and anaerobic cultures. Findings were discussed with Dr. Sebastian Chauhan of the surgical service upon completion of the procedure. Signed by: Dr. Lew Fields M.D. on 10/01/2017 7:27 AM
[2017-10-01] MEDS ORDERED: PROPOFOL IV EMULSION 10MG/ML 100 ML IV PRN (08:00)
[2017-10-01] MEDS ORDERED: POTASSIUM CHLORIDE 20MEQ/100ML 300 ML IV ONE (08:30)
[2017-10-01] MEDS ORDERED: MAGNESIUM SULFATE 2GM/50ML 50 ML IV ONE (08:30)
[2017-10-01 08:32] LABS: BAND NEUTROPHILS % (MANUAL) 7 %; LYMPHOCYTES % (MANUAL) 4 % (19-48); MONOCYTES % (MANUAL) 3 % (3.4-9.0); NEUTROPHILS % (MANUAL) 84 % (40-74)
[2017-10-01 08:33] LABS: ANISOCYTOSIS SLIGHT; PLATELET ESTIMATE MODERATELY DECREASED; PLATELET MORPHOLOGY COMMENT NORMAL; RBC MORPHOLOGY COMMENT NORMAL
[2017-10-01] MEDS: MEROPENEM 500 MG VIAL IV SCH (09:19)
[2017-10-01] MEDS: FLUCONAZOLE 200 MG/100 ML 100 ML IV SCH (09:19)
[2017-10-01] MEDS: SODIUM BICARBONATE 8.4% SYRING 150 ML in DEXTROSE 5% 1,000 ML IV SCH (09:29)
[2017-10-01] MEDS: ACETAMINOPHEN 1000 MG/100 ML IV PRN ×2 (15:57→22:00)
[2017-10-01] MEDS ORDERED: HYDROMORPHONE 1MG/1ML INJ IV PRN (17:45)
[2017-10-01] MEDS: CENTRAL TPN FORMULA 1 BAG IV SCH (20:46)
[2017-10-01] MEDS: PANTOPRAZOLE 40 MG 10ML VIAL IV SCH (21:59)
[2017-10-01] MEDS: HYDROMORPHONE 2MG/ML 2 MG/ML ML IV PRN (22:56)
[2017-10-02] VITALS (100 sets, daily range): BP systolic 61–140; BP diastolic 39–96
[2017-10-02] MEDS: SODIUM CHLORIDE 0.9% 250ML IRRIG IR SCH ×6 (02:06→22:21)
[2017-10-02] MEDS: LEVALBUTEROL HCL SOLN NEBU 1.25 MG/3 ML NEB INH SCH ×4 (02:35→18:50)
[2017-10-02] MEDS: BUMETANIDE INJ 0.25MG/ML 4ML VIAL IV SCH ×2 (05:45→22:21)
[2017-10-02] MEDS: ACETAMINOPHEN 1000 MG/100 ML IV PRN ×3 (05:45→23:15)
[2017-10-02 06:21] LABS: BASOPHILS % 0.2 % (0.0-1.0); EOSINOPHILS # (AUTO) 0.3 (0.0-0.4); EOSINOPHILS % 2.6 % (0.0-6.0); HEMATOCRIT 25.8 % (34.2-44.1); HEMOGLOBIN 8.6 g/dL (12.0-16.0); LYMPHOCYTES # (AUTO) 0.7 (1.0-3.2); LYMPHOCYTES % 6.2 % (18.0-39.1); MEAN CORPUSCULAR HEMOGLOBIN 27.9 pg (28-32); MEAN CORPUSCULAR HGB CONC 33.3 g/dL (31-35); MEAN CORPUSCULAR VOLUME 83.8 fL (81-99); MONOCYTES # (AUTO) 0.4 (0.2-0.8); MONOCYTES % 3.1 % (4.4-11.3); NEUTROPHILS # (AUTO) 9.9 (2.1-6.9); NEUTROPHILS % 86.4 % (38.7-80.0); PLATELET COUNT 117 x10e3/uL (140-360); RED BLOOD COUNT 3.08 x10e6/uL (3.6-5.1); RED CELL DISTRIBUTION WIDTH 14.9 % (11.7-14.4)
[2017-10-02 06:40] LABS: INR 1.4; PROTHROMBIN TIME 16.1 seconds (11.9-14.5)
[2017-10-02 06:41] LABS: PARTIAL THROMBOPLASTIN TIME 29.2 seconds (23.8-35.5)
[2017-10-02 06:45] LABS: ANION GAP 15.3 mmol/L (8-16); CALCIUM 7.8 mg/dL (8.4-10.2); CREATININE, SERUM 0.91 mg/dL (0.57-1.11); MAGNESIUM 1.5 MG/DL (1.3-2.1); PHOSPHORUS 3.3 MG/DL (2.3-4.7); POTASSIUM 3.3 mmol/L (3.5-5.1)
--- NOTE | 2017-10-02 06:54 | Diagnostic Imaging Report ---
EXAM: CHEST SINGLE (PORTABLE), AP 1 view INDICATION: Postop, intubated COMPARISON: AP view of the chest October 01, 2017 FINDINGS: LINES/TUBES: Stable position endotracheal tube, nasal/oral gastric tube, right internal jugular vein central line and temporary hemodialysis catheter. LUNGS: Stable bibasilar atelectasis. PLEURA: Possible small bilateral pleural effusions. HEART AND MEDIASTINUM: Stable appearance. BONES AND SOFT TISSUES: No acute findings. IMPRESSION: Possible small bilateral pleural effusions, otherwise no significant interval change in appearance of the chest. Signed by: Dr. Brianna Bowen M.D. on 10/02/2017 6:51 AM
[2017-10-02 07:32] LABS: FERRITIN 303.58 ng/mL (4.63-204.00)
[2017-10-02 07:53] LABS: BAND NEUTROPHILS % (MANUAL) 8 %; EOSINOPHILS % (MANUAL) 3 % (0-7); LYMPHOCYTES % (MANUAL) 6 % (19-48); MONOCYTES % (MANUAL) 2 % (3.4-9.0); NEUTROPHILS % (MANUAL) 80 % (40-74)
[2017-10-02 07:59] LABS: ANISOCYTOSIS SLIGHT; HYPOCHROMASIA SLIGHT; PLATELET ESTIMATE SLIGHTLY DECREASED; PLATELET MORPHOLOGY COMMENT FEW GIANT; RBC MORPHOLOGY COMMENT NORMAL
[2017-10-02] MEDS ORDERED: POTASSIUM CHLORIDE 20MEQ/100ML 200 ML IV ONE (08:00)
[2017-10-02 08:10] LABS: FOLATE 15.4 ng/mL (7.0-15.4)
[2017-10-02] MEDS ORDERED: DEXTROSE 5% 1,000 ML IV ONE (08:15)
[2017-10-02] MEDS ORDERED: MAGNESIUM SULFATE 2GM/50ML 50 ML IV ONE (08:30)
[2017-10-02] MEDS ORDERED: POTASSIUM CHLORIDE 20MEQ/100ML 100 ML ONE (08:43)
[2017-10-02] MEDS: NOREPINEPHRINE 8 MG/D5W 250 ML 250 ML IV SCH ×2 (08:45→13:39)
[2017-10-02] MEDS: FLUCONAZOLE 200 MG/100 ML 100 ML IV SCH (09:59)
[2017-10-02] MEDS: MEROPENEM 500 MG VIAL IV SCH (09:59)
[2017-10-02] MEDS ORDERED: VANCOMYCIN 1GM/NS 250 ML 250 ML IV ONE (10:45)
[2017-10-02] MEDS ORDERED: DEXTROSE 50% SYRINGE 50 ML IV PRN (13:30)
[2017-10-02] MEDS ORDERED: ALBUMIN 5% 500 ML IV SCH (16:00)
[2017-10-02] MEDS ORDERED: INSULIN LISPRO 100 UNIT/1 ML 3ML VIAL SQ SCH (16:30)
[2017-10-02] MEDS: INSULIN LISPRO 100 UNIT/1 ML 3ML VIAL SQ SCH (17:57)
[2017-10-02] MEDS: HYDROMORPHONE 2MG/ML 2 MG/ML ML IV PRN (18:14)
[2017-10-02] MEDS: CENTRAL TPN FORMULA 1 BAG IV SCH (20:00)
[2017-10-02] MEDS: PANTOPRAZOLE 40 MG 10ML VIAL IV SCH (22:22)
[2017-10-03] VITALS (84 sets, daily range): BP systolic 77–139; BP diastolic 38–81
[2017-10-03] MEDS: HYDROMORPHONE 2MG/ML 2 MG/ML ML IV PRN ×4 (01:40→22:55)
[2017-10-03] MEDS: SODIUM CHLORIDE 0.9% 250ML IRRIG IR SCH ×6 (02:30→23:39)
[2017-10-03] MEDS: LEVALBUTEROL HCL SOLN NEBU 1.25 MG/3 ML NEB INH SCH ×5 (02:50→19:18)
[2017-10-03] MEDS: BUMETANIDE INJ 0.25MG/ML 4ML VIAL IV SCH ×3 (05:53→22:52)
[2017-10-03 06:09] LABS: BASOPHILS % 0.2 % (0.0-1.0); EOSINOPHILS # (AUTO) 0.4 (0.0-0.4); EOSINOPHILS % 3.3 % (0.0-6.0); HEMOGLOBIN 7.6 g/dL (12.0-16.0); LYMPHOCYTES # (AUTO) 0.9 (1.0-3.2); LYMPHOCYTES % 7.1 % (18.0-39.1); MEAN CORPUSCULAR HEMOGLOBIN 28.5 pg (28-32); MEAN CORPUSCULAR HGB CONC 33.3 g/dL (31-35); MEAN CORPUSCULAR VOLUME 85.4 fL (81-99); MONOCYTES # (AUTO) 0.6 (0.2-0.8); MONOCYTES % 4.8 % (4.4-11.3); NEUTROPHILS # (AUTO) 10.4 (2.1-6.9); NEUTROPHILS % 82.1 % (38.7-80.0); PLATELET COUNT 170 x10e3/uL (140-360); RED BLOOD COUNT 2.67 x10e6/uL (3.6-5.1); RED CELL DISTRIBUTION WIDTH 15.1 % (11.7-14.4)
[2017-10-03 06:12] LABS: HEMATOCRIT 22.8 % (34.2-44.1)
--- NOTE | 2017-10-03 06:21 | Diagnostic Imaging Report ---
EXAM: CHEST SINGLE (PORTABLE), AP 1 view INDICATION: Postop COMPARISON: AP view of the chest October 02, 2017 FINDINGS: LINES/TUBES: Stable support lines and tubes LUNGS: Stable bibasilar atelectasis. PLEURA: Suspected small bilateral pleural effusions. HEART AND MEDIASTINUM: Stable appearance. BONES AND SOFT TISSUES: No acute findings. IMPRESSION: Stable appearance of the chest. Signed by: Dr. Brianna Bowen M.D. on 10/03/2017 6:17 AM
[2017-10-03] MEDS: INSULIN LISPRO 100 UNIT/1 ML 3ML VIAL SQ SCH ×4 (06:34→21:14)
[2017-10-03 06:40] LABS: ALANINE AMINOTRANSFERASE 7 IU/L (0-55); ALBUMIN 1.7 g/dL (3.5-5.0); ALBUMIN/GLOBULIN RATIO 0.6 (0.8-2.0); ALKALINE PHOSPHATASE 61 IU/L (40-150); ANION GAP 12.2 mmol/L (8-16); BLOOD UREA NITROGEN 28 mg/dL (7-26); BUN/CREATININE RATIO 33 (6-25); CALCIUM 7.7 mg/dL (8.4-10.2); CARBON DIOXIDE 35 mmol/L (22-29); CHLORIDE 94 mmol/L (98-107); CREATININE, SERUM 0.85 mg/dL (0.57-1.11); EST GLOMERULAR FILTRATION RATE > 60 ML/MIN (60-); GLUCOSE 233 mg/dL (74-118); POTASSIUM 3.2 mmol/L (3.5-5.1); SODIUM 138 mmol/L (136-145)
[2017-10-03] MEDS ORDERED: MICAFUNGIN SODIUM 50 MG/50 ML BAG IV SCH (09:00)
[2017-10-03] MEDS: MEROPENEM 500 MG VIAL IV SCH ×3 (09:23→22:52)
[2017-10-03] MEDS: MICAFUNGIN SODIUM 100 ML IV SCH (09:23)
[2017-10-03] MEDS ORDERED: SODIUM CHLORIDE 0.9% 250ML 250 ML IV ONE (09:30)
[2017-10-03] MEDS ORDERED: POTASSIUM CHLORIDE 20MEQ/100ML 200 ML IV ONE (09:30)
[2017-10-03] MEDS ORDERED: MAGNESIUM SULFATE 2GM/50ML 50 ML IV ONE (09:30)
[2017-10-03] MEDS ORDERED: FUROSEMIDE INJ 10 MG/ML 2 ML VIAL IV ONE ×2 (09:30→13:00)
[2017-10-03] MEDS ORDERED: DIATRIZOATE MEGL/DIATRIZOA SOD 30 ML BTL PO ONE (10:27)
[2017-10-03] MEDS ORDERED: MEROPENEM 500MG 500 MG in SODIUM CHLORIDE 0.9% 50ML 50 ML IV SCH (12:00)
[2017-10-03] MEDS: NOREPINEPHRINE 8 MG/D5W 250 ML 250 ML IV SCH (13:00)
--- NOTE | 2017-10-03 14:18 | Diagnostic Imaging Report ---
EXAM: CT Abdomen and Pelvis WITHOUT contrast INDICATION: \S\oral contrast, concern leakage \[id number] \S\1320 \S\Y COMPARISON: CT dated 09/28/2017 TECHNIQUE: Abdomen and pelvis were scanned utilizing a multidetector helical scanner from the lung base to the pubic symphysis without administration of IV contrast. Absence of intravenous contrast decreases sensitivity for detection of focal lesions and vascular pathology. Coronal and sagittal reformations were obtained. Routine protocol was performed. IV CONTRAST: None ORAL CONTRAST: Gastroview COMPLICATIONS: None RADIATION DOSE: Total DLP: 838.97 mGy*cm Estimated effective dose: (DLP x 0.015 x size factor) mSv CTDIvol has been reviewed. It is below the limits set by the Radiation Protocol Committee (RPC). FINDINGS: LINES and TUBES: Nasogastric tube terminating in gastric body. Bilateral abdominal surgical drains in place terminating in the left upper quadrant and right lower abdomen. LOWER THORAX: Unchanged small bilateral pleural effusions, left more to right, with adjacent compressive atelectasis. Hypodense blood pool, indicative of anemia. Severe calcification of mitral valve. HEPATOBILIARY: Subtle area of high density anterior to the left hepatic lobe (series 2, image 15). Otherwise, unenhanced liver is unremarkable. No biliary ductal dilation. GALLBLADDER: Not visualized. SPLEEN: No splenomegaly. PANCREAS: Atrophic pancreas. Tail calcification, could be vascular. No focal masses or ductal dilatation. ADRENALS: Unchanged right adrenal adenoma. No left adrenal nodule. KIDNEYS/URETERS: No hydronephrosis. No cystic or solid mass lesions. No stones. GI TRACT: Right hemicolectomy. There is sclerosis of the remainder of the colon without evidence of diverticulitis. Oral contrast reaches the rectum without evidence of bowel obstruction. 5.3 x 6.8 cm area of contrast recommendation in mid lower abdomen (series 302, image 47) communicates with small bowel. The right abdominal drain terminates adjacent to this collection (series 2, image 74). Wall thickening of small bowel loops, especially in lower abdomen. PELVIC ORGANS/BLADDER: Bladder is collapsed with Sanchez catheter in place, containing gas bubbles. Hysterectomy. LYMPH NODES: No lymphadenopathy. VESSELS: Limited evaluation without intravenous contrast. Collapsed IVC. No abdominal aortic aneurysm. PERITONEUM / RETROPERITONEUM: Markedly decreased pneumoperitoneum and abdominal situs when compared to prior CT. Interloop mesenteric edema. BONES: Degenerative changes of spine. SOFT TISSUES: Areas of subcutaneous edema. Anterior abdominal wall surgical scar with skin rodolfo in place. IMPRESSION: 1. Significant interval decrease in pneumoperitoneum and abdominal ascites when compared to CT dated 09/28/2017. 2. Not significantly changed bilateral small pleural effusions, left more than right, with adjacent compressive atelectasis. 3. Lower mid abdomen area of contained oral contrast accumulation, communicating with small bowel, may represent a dilated segment of small bowel. The right abdominal drain tip terminates adjacent to this area. Recommend attention on follow-up examination. 4. Oral contrast reaches the rectum without evidence of bowel obstruction or free peritoneal/retroperitoneal leak. 5. Subtle area of hyperdensity, abutting the anterior left hepatic lobe, may represent subcapsular hematoma. Recommend attention on follow-up examination. Signed by: Dr. Gary Elise MD on 10/03/2017 2:14 PM
[2017-10-03] MEDS: VANCOMYCIN 1GM/NS 250 ML 250 ML IV SCH ×2 (14:36→23:39)
[2017-10-03] MEDS ORDERED: ACETAMINOPHEN 1000 MG/100 ML IV PRN (15:30)
[2017-10-03] MEDS ORDERED: SODIUM CHLORIDE 0.9% 250ML 250 ML ONE (19:37)
[2017-10-03] MEDS ORDERED: CENTRAL TPN FORMULA 1 BAG IV SCH (20:00)
[2017-10-03] MEDS: PANTOPRAZOLE 40 MG 10ML VIAL IV SCH (23:43)
[2017-10-04] VITALS (98 sets, daily range): BP systolic 73–138; BP diastolic 43–124
[2017-10-04] MEDS: INSULIN LISPRO 100 UNIT/1 ML 3ML VIAL SQ SCH ×5 (00:07→23:46)
[2017-10-04] MEDS: LEVALBUTEROL HCL SOLN NEBU 1.25 MG/3 ML NEB INH SCH ×4 (01:10→18:50)
[2017-10-04] MEDS: SODIUM CHLORIDE 0.9% 250ML IRRIG IR SCH ×5 (02:00→22:15)
[2017-10-04] MEDS: HYDROMORPHONE 2MG/ML 2 MG/ML ML IV PRN ×3 (02:23→14:24)
[2017-10-04] MEDS: MEROPENEM 500 MG VIAL IV SCH ×4 (03:44→20:32)
[2017-10-04 05:28] LABS: BASOPHILS % 0.1 % (0.0-1.0); EOSINOPHILS # (AUTO) 0.4 (0.0-0.4); EOSINOPHILS % 2.4 % (0.0-6.0); HEMATOCRIT 28.4 % (34.2-44.1); HEMOGLOBIN 9.4 g/dL (12.0-16.0); LYMPHOCYTES % 6.6 % (18.0-39.1); MEAN CORPUSCULAR HEMOGLOBIN 28.1 pg (28-32); MEAN CORPUSCULAR HGB CONC 33.1 g/dL (31-35); MEAN CORPUSCULAR VOLUME 84.8 fL (81-99); MONOCYTES # (AUTO) 0.7 (0.2-0.8); MONOCYTES % 4.8 % (4.4-11.3); NEUTROPHILS # (AUTO) 12.3 (2.1-6.9); NEUTROPHILS % 83.1 % (38.7-80.0); PLATELET COUNT 215 x10e3/uL (140-360); RED BLOOD COUNT 3.35 x10e6/uL (3.6-5.1); RED CELL DISTRIBUTION WIDTH 14.8 % (11.7-14.4)
[2017-10-04 05:49] LABS: ALANINE AMINOTRANSFERASE 10 IU/L (0-55); ALBUMIN 1.5 g/dL (3.5-5.0); ALBUMIN/GLOBULIN RATIO 0.5 (0.8-2.0); ALKALINE PHOSPHATASE 72 IU/L (40-150); ANION GAP 10.7 mmol/L (8-16); BLOOD UREA NITROGEN 24 mg/dL (7-26); BUN/CREATININE RATIO 30 (6-25); CALCIUM 7.8 mg/dL (8.4-10.2); CARBON DIOXIDE 31 mmol/L (22-29); CHLORIDE 93 mmol/L (98-107); CREATININE, SERUM 0.81 mg/dL (0.57-1.11); EST GLOMERULAR FILTRATION RATE > 60 ML/MIN (60-); GLUCOSE 209 mg/dL (74-118); POTASSIUM 3.7 mmol/L (3.5-5.1); SODIUM 131 mmol/L (136-145)
[2017-10-04 05:58] LABS: MAGNESIUM 1.4 MG/DL (1.3-2.1); PHOSPHORUS 4.4 MG/DL (2.3-4.7)
[2017-10-04] MEDS: BUMETANIDE INJ 0.25MG/ML 4ML VIAL IV SCH ×3 (06:25→22:15)
[2017-10-04] MEDS ORDERED: MAGNESIUM SULF 1GRAM/DEXTROSE 100 ML IV ONE (07:15)
[2017-10-04] MEDS: MICAFUNGIN SODIUM 100 ML IV SCH (09:00)
[2017-10-04 10:38] LABS: BAND NEUTROPHILS % (MANUAL) 1 %; EOSINOPHILS % (MANUAL) 4 % (0-7); LYMPHOCYTES % (MANUAL) 9 % (19-48); MONOCYTES % (MANUAL) 4 % (3.4-9.0); NEUTROPHILS % (MANUAL) 82 % (40-74); PLATELET ESTIMATE ADEQUATE; PLATELET MORPHOLOGY COMMENT NORMAL; RBC MORPHOLOGY COMMENT NORMAL
[2017-10-04] MEDS: VANCOMYCIN 1GM/NS 250 ML 250 ML IV SCH ×2 (12:16→21:00)
--- NOTE | 2017-10-04 16:19 | Progress Note ---
DATE: Ms. Odom was admitted to the ICU, intubated and sedated on vasopressors. PHYSICAL EXAMINATION GENERAL: Intubated, sedated, comfortable on vasopressors. HEENT: She is not icteric. NECK: Supple. CHEST: A few crackles. COR: S1 and S2, no murmur. ABDOMEN: Soft, obese. IMPRESSION AND PLAN 1. Sepsis and peritonitis. The patient is on vancomycin, micafungin, and meropenem. The plan is to continue with that. Her prognosis remains guarded. 2. Obesity. 3. Respiratory failure. 4. Will follow. Job#: [id number]
[2017-10-04] MEDS: NOREPINEPHRINE 8 MG/D5W 250 ML 250 ML IV SCH (18:22)
[2017-10-04] MEDS ORDERED: CENTRAL TPN FORMULA 1 BAG IV SCH (20:00)
[2017-10-04] MEDS: ACETAMINOPHEN 1000 MG/100 ML IV PRN (20:47)
[2017-10-04] MEDS: PANTOPRAZOLE 40 MG 10ML VIAL IV SCH (22:15)
[2017-10-05] VITALS (93 sets, daily range): BP systolic 72–140; BP diastolic 41–91
[2017-10-05] MEDS: SODIUM CHLORIDE 0.9% 250ML IRRIG IR SCH ×6 (02:00→21:40)
[2017-10-05] MEDS: LEVALBUTEROL HCL SOLN NEBU 1.25 MG/3 ML NEB INH SCH ×4 (02:40→19:39)
[2017-10-05] MEDS: ACETAMINOPHEN 1000 MG/100 ML IV PRN ×2 (02:45→20:20)
[2017-10-05] MEDS: MEROPENEM 500 MG VIAL IV SCH ×4 (03:00→21:39)
[2017-10-05] MEDS: BUMETANIDE INJ 0.25MG/ML 4ML VIAL IV SCH ×3 (05:42→21:40)
[2017-10-05] MEDS: INSULIN LISPRO 100 UNIT/1 ML 3ML VIAL SQ SCH ×3 (05:43→17:14)
[2017-10-05 06:30] LABS: ALANINE AMINOTRANSFERASE 12 IU/L (0-55); ALBUMIN 1.4 g/dL (3.5-5.0); ALBUMIN/GLOBULIN RATIO 0.4 (0.8-2.0); ALKALINE PHOSPHATASE 85 IU/L (40-150); ANION GAP 12.4 mmol/L (8-16); BLOOD UREA NITROGEN 26 mg/dL (7-26); BUN/CREATININE RATIO 29 (6-25); CARBON DIOXIDE 27 mmol/L (22-29); CHLORIDE 98 mmol/L (98-107); CREATININE, SERUM 0.89 mg/dL (0.57-1.11); EST GLOMERULAR FILTRATION RATE > 60 ML/MIN (60-); GLUCOSE 343 mg/dL (74-118); POTASSIUM 4.4 mmol/L (3.5-5.1); SODIUM 133 mmol/L (136-145)
--- NOTE | 2017-10-05 06:33 | Diagnostic Imaging Report ---
EXAM: CHEST SINGLE (PORTABLE), AP 1 view INDICATION: Intubated COMPARISON: AP view of the chest October 03, 2017 FINDINGS: LINES/TUBES: Stable support lines and tubes LUNGS: Stable bibasilar atelectasis. PLEURA: Suspected small bilateral pleural effusions. HEART AND MEDIASTINUM: Stable appearance. BONES AND SOFT TISSUES: No acute findings. IMPRESSION: No interval change. Signed by: Dr. Brianna Bowen M.D. on 10/05/2017 6:30 AM
[2017-10-05 07:39] LABS: BASOPHILS % 0.2 % (0.0-1.0); EOSINOPHILS # (AUTO) 0.2 (0.0-0.4); EOSINOPHILS % 1.5 % (0.0-6.0); HEMATOCRIT 27.2 % (34.2-44.1); HEMOGLOBIN 8.8 g/dL (12.0-16.0); LYMPHOCYTES # (AUTO) 0.9 (1.0-3.2); LYMPHOCYTES % 7.2 % (18.0-39.1); MEAN CORPUSCULAR HEMOGLOBIN 28.5 pg (28-32); MEAN CORPUSCULAR HGB CONC 32.4 g/dL (31-35); MONOCYTES # (AUTO) 0.7 (0.2-0.8); MONOCYTES % 5.4 % (4.4-11.3); NEUTROPHILS # (AUTO) 10.7 (2.1-6.9); NEUTROPHILS % 82.8 % (38.7-80.0); PLATELET COUNT 321 x10e3/uL (140-360); RED BLOOD COUNT 3.09 x10e6/uL (3.6-5.1); RED CELL DISTRIBUTION WIDTH 14.5 % (11.7-14.4)
[2017-10-05] MEDS: NOREPINEPHRINE 8 MG/D5W 250 ML 250 ML IV SCH (08:45)
[2017-10-05] MEDS: HYDROMORPHONE 2MG/ML 2 MG/ML ML IV PRN ×3 (08:58→22:37)
[2017-10-05] MEDS: MICAFUNGIN SODIUM 100 ML IV SCH (09:03)
[2017-10-05 09:13] LABS: MAGNESIUM 1.7 MG/DL (1.3-2.1)
[2017-10-05] MEDS ORDERED: VANCOMYCIN 750MG/NS 150ML IVPB 150 ML IV SCH (10:00)
[2017-10-05 11:35] LABS: BAND NEUTROPHILS % (MANUAL) 1 %; EOSINOPHILS % (MANUAL) 7 % (0-7); LYMPHOCYTES % (MANUAL) 7 % (19-48); MONOCYTES % (MANUAL) 8 % (3.4-9.0); NEUTROPHILS % (MANUAL) 76 % (40-74); PLATELET ESTIMATE ADEQUATE; PLATELET MORPHOLOGY COMMENT NORMAL; RBC MORPHOLOGY COMMENT NORMAL
[2017-10-05 11:55] LABS: INR 1.43; PROTHROMBIN TIME 16.4 seconds (11.9-14.5)
[2017-10-05 11:56] LABS: PARTIAL THROMBOPLASTIN TIME 38.9 seconds (23.8-35.5)
--- NOTE | 2017-10-05 13:50 | Progress Note ---
DATE: SUBJECTIVE: Ms. Odom is doing better. Today, her overall vitals are better and her requirement from vent is better. She remains on meropenem and insulin. LABORATORY DATA: White count 12.9 and hemoglobin 8.8. Sodium 133, potassium 4.4, and creatinine 0.89. MEDICATIONS: She is on insulin, meropenem, micafungin, Xopenex, Protonix, and vancomycin. Her level was noted and adjusted. Please refer to the orders. PHYSICAL EXAMINATION GENERAL: She is sedated and intubated. VITAL SIGNS: Stable, currently afebrile. HEENT: She is not icteric. NECK: Supple. CHEST: Clear. COR: No murmur. ABDOMEN: Soft. IMPRESSION AND PLAN: Sepsis peritonitis, seems to be slowly better. Continue the current choice of antibiotic adjusting vancomycin as ordered since the trough was high. We will follow. Job#: [id number] MEET
[2017-10-05] MEDS: NYSTATIN 15 GM POWDER UD BTL TOP SCH (17:00)
[2017-10-05] MEDS ORDERED: SODIUM CHLORIDE 0.9% 100 ML ONE (17:02)
[2017-10-05] MEDS: VANCOMYCIN 1GM/NS 250 ML 250 ML IV SCH (17:32)
[2017-10-05] MEDS ORDERED: CENTRAL TPN FORMULA 1 BAG IV SCH (20:00)
[2017-10-05] MEDS: ARGATROBAN 250 MG in SODIUM CHLORIDE 0.9% 250ML 247.5 ML IV SCH (20:30)
[2017-10-05] MEDS: PANTOPRAZOLE 40 MG 10ML VIAL IV SCH (21:40)
[2017-10-06] VITALS (75 sets, daily range): BP systolic 84–155; BP diastolic 43–81
[2017-10-06] MEDS: SODIUM CHLORIDE 0.9% 250ML IRRIG IR SCH ×4 (02:00→14:00)
[2017-10-06] MEDS: LEVALBUTEROL HCL SOLN NEBU 1.25 MG/3 ML NEB INH SCH ×4 (02:24→18:52)
[2017-10-06] MEDS: MEROPENEM 500 MG VIAL IV SCH ×4 (03:00→22:00)
[2017-10-06] MEDS: BUMETANIDE INJ 0.25MG/ML 4ML VIAL IV SCH ×3 (06:01→22:00)
[2017-10-06] MEDS: INSULIN LISPRO 100 UNIT/1 ML 3ML VIAL SQ SCH ×4 (06:08→18:00)
[2017-10-06 06:14] LABS: BASOPHILS % 0.3 % (0.0-1.0); EOSINOPHILS # (AUTO) 0.3 (0.0-0.4); EOSINOPHILS % 2.4 % (0.0-6.0); HEMATOCRIT 25.8 % (34.2-44.1); HEMOGLOBIN 8.4 g/dL (12.0-16.0); LYMPHOCYTES # (AUTO) 1.1 (1.0-3.2); LYMPHOCYTES % 8.5 % (18.0-39.1); MEAN CORPUSCULAR HEMOGLOBIN 28.6 pg (28-32); MEAN CORPUSCULAR HGB CONC 32.6 g/dL (31-35); MEAN CORPUSCULAR VOLUME 87.8 fL (81-99); MONOCYTES # (AUTO) 1.1 (0.2-0.8); NEUTROPHILS # (AUTO) 10.3 (2.1-6.9); NEUTROPHILS % 78.3 % (38.7-80.0); PLATELET COUNT 337 x10e3/uL (140-360); RED BLOOD COUNT 2.94 x10e6/uL (3.6-5.1); RED CELL DISTRIBUTION WIDTH 14.6 % (11.7-14.4)
--- NOTE | 2017-10-06 06:29 | Diagnostic Imaging Report ---
EXAM: CHEST SINGLE (PORTABLE), AP 1 view INDICATION: Intubated, altered mental status COMPARISON: AP view of the chest October 05, 2017 FINDINGS: LINES/TUBES: Stable lines and tubes. LUNGS: Bibasilar atelectasis. PLEURA: Small bilateral pleural effusions. HEART AND MEDIASTINUM: Stable BONES AND SOFT TISSUES: No acute findings. IMPRESSION: No interval change. Signed by: Dr. Brianna Bowen M.D. on 10/06/2017 6:20 AM
[2017-10-06 06:38] LABS: ALANINE AMINOTRANSFERASE 17 IU/L (0-55); ALBUMIN 1.4 g/dL (3.5-5.0); ALBUMIN/GLOBULIN RATIO 0.4 (0.8-2.0); ALKALINE PHOSPHATASE 99 IU/L (40-150); ANION GAP 12.8 mmol/L (8-16); BLOOD UREA NITROGEN 28 mg/dL (7-26); BUN/CREATININE RATIO 35 (6-25); CALCIUM 8.1 mg/dL (8.4-10.2); CARBON DIOXIDE 27 mmol/L (22-29); CHLORIDE 103 mmol/L (98-107); CREATININE, SERUM 0.79 mg/dL (0.57-1.11); EST GLOMERULAR FILTRATION RATE > 60 ML/MIN (60-); GLUCOSE 167 mg/dL (74-118); MAGNESIUM 1.8 MG/DL (1.3-2.1); PHOSPHORUS 4.7 MG/DL (2.3-4.7); POTASSIUM 4.8 mmol/L (3.5-5.1); SODIUM 138 mmol/L (136-145)
[2017-10-06 07:43] LABS: EOSINOPHILS % (MANUAL) 2 % (0-7); LYMPHOCYTES % (MANUAL) 3 % (19-48); MONOCYTES % (MANUAL) 3 % (3.4-9.0); NEUTROPHILS % (MANUAL) 90 % (40-74); PLATELET ESTIMATE ADEQUATE; PLATELET MORPHOLOGY COMMENT NORMAL; RBC MORPHOLOGY COMMENT NORMAL
[2017-10-06] MEDS ORDERED: SODIUM CHLORIDE 0.9% 50ML 50 ML ONE (08:02)
[2017-10-06] MEDS: NOREPINEPHRINE 8 MG/D5W 250 ML 250 ML IV SCH (08:45)
[2017-10-06] MEDS: NYSTATIN 15 GM POWDER UD BTL TOP SCH ×2 (09:10→16:50)
[2017-10-06] MEDS: MICAFUNGIN SODIUM 100 ML IV SCH (09:10)
[2017-10-06] MEDS: ACETAMINOPHEN 1000 MG/100 ML IV PRN (09:11)
[2017-10-06 09:18] LABS: ABG PCO2 34 mmHg (41-51); ABG PH 7.52 (7.31-7.41); ABG PO2 85 mmHg (80-105)
[2017-10-06 09:19] LABS: ABG HCO3 28 mmol/L (23-28)
[2017-10-06] MEDS: VANCOMYCIN 1GM/NS 250 ML 250 ML IV SCH (16:50)
[2017-10-06] MEDS ORDERED: SODIUM CHLORIDE 0.9% 100 ML ONE (19:33)
[2017-10-06] MEDS: PROMETHAZINE 12.5MG/ NACL 0.9% 50 ML IV PRN (19:45)
[2017-10-06] MEDS ORDERED: CENTRAL TPN FORMULA 1 BAG IV SCH (20:00)
[2017-10-06] MEDS: ARGATROBAN 250 MG in SODIUM CHLORIDE 0.9% 250ML 247.5 ML IV SCH (20:30)
[2017-10-06] MEDS: PANTOPRAZOLE 40 MG 10ML VIAL IV SCH (22:00)
[2017-10-07] VITALS (44 sets, daily range): BP systolic 85–133; BP diastolic 51–89
[2017-10-07] MEDS: INSULIN LISPRO 100 UNIT/1 ML 3ML VIAL SQ SCH ×5 (00:14→23:25)
[2017-10-07] MEDS: LEVALBUTEROL HCL SOLN NEBU 1.25 MG/3 ML NEB INH SCH ×4 (02:20→18:30)
[2017-10-07] MEDS: MEROPENEM 500 MG VIAL IV SCH ×4 (03:07→20:49)
[2017-10-07] MEDS: HYDROMORPHONE 2MG/ML 2 MG/ML ML IV PRN ×3 (03:15→22:08)
[2017-10-07] MEDS: BUMETANIDE INJ 0.25MG/ML 4ML VIAL IV SCH ×3 (05:42→21:24)
[2017-10-07 06:15] LABS: BASOPHILS # (AUTO) 0.1 (0.0-0.1); BASOPHILS % 0.4 % (0.0-1.0); EOSINOPHILS # (AUTO) 0.1 (0.0-0.4); EOSINOPHILS % 1.1 % (0.0-6.0); HEMATOCRIT 25.3 % (34.2-44.1); LYMPHOCYTES # (AUTO) 1.2 (1.0-3.2); LYMPHOCYTES % 9.6 % (18.0-39.1); MEAN CORPUSCULAR HEMOGLOBIN 27.9 pg (28-32); MEAN CORPUSCULAR HGB CONC 31.6 g/dL (31-35); MEAN CORPUSCULAR VOLUME 88.2 fL (81-99); MONOCYTES # (AUTO) 1.4 (0.2-0.8); NEUTROPHILS # (AUTO) 9.6 (2.1-6.9); NEUTROPHILS % 76.3 % (38.7-80.0); PLATELET COUNT 419 x10e3/uL (140-360); RED BLOOD COUNT 2.87 x10e6/uL (3.6-5.1); RED CELL DISTRIBUTION WIDTH 14.8 % (11.7-14.4)
[2017-10-07 06:40] LABS: % IRON SATURATION 7 % (15-50); ALANINE AMINOTRANSFERASE 26 IU/L (0-55); ALBUMIN 1.5 g/dL (3.5-5.0); ALBUMIN/GLOBULIN RATIO 0.3 (0.8-2.0); ALKALINE PHOSPHATASE 106 IU/L (40-150); ANION GAP 13.5 mmol/L (8-16); BLOOD UREA NITROGEN 31 mg/dL (7-26); BUN/CREATININE RATIO 39 (6-25); CALCIUM 8.2 mg/dL (8.4-10.2); CARBON DIOXIDE 26 mmol/L (22-29); CHLORIDE 106 mmol/L (98-107); CREATININE, SERUM 0.79 mg/dL (0.57-1.11); EST GLOMERULAR FILTRATION RATE > 60 ML/MIN (60-); GLUCOSE 152 mg/dL (74-118); IRON 11 ug/dL (50-170); MAGNESIUM 1.8 MG/DL (1.3-2.1); PHOSPHORUS 5.6 MG/DL (2.3-4.7); POTASSIUM 4.5 mmol/L (3.5-5.1); SODIUM 141 mmol/L (136-145); TOTAL IRON BINDING CAPACITY 157 ug/dL (261-478); TRANSFERRIN 112 mg/dL (180-382)
[2017-10-07] MEDS: NOREPINEPHRINE 8 MG/D5W 250 ML 250 ML IV SCH (06:54)
[2017-10-07 07:51] LABS: BAND NEUTROPHILS % (MANUAL) 2 %; BLAST CELLS % MANUAL 2; LYMPHOCYTES % (MANUAL) 4 % (19-48); MONOCYTES % (MANUAL) 10 % (3.4-9.0); MYELOCYTES % (MANUAL) 1 % (0-0); NEUTROPHILS % (MANUAL) 74 % (40-74)
[2017-10-07 07:53] LABS: HYPOCHROMASIA MODERATE; PLATELET ESTIMATE SLIGHTLY INCREASED; PLATELET MORPHOLOGY COMMENT NORMAL; RBC MORPHOLOGY COMMENT NORMAL
[2017-10-07 07:54] LABS: ANISOCYTOSIS SLIGHT
[2017-10-07] MEDS: NYSTATIN 15 GM POWDER UD BTL TOP SCH ×2 (09:00→17:00)
[2017-10-07] MEDS: MICAFUNGIN SODIUM 100 ML IV SCH (09:00)
[2017-10-07] MEDS ORDERED: SODIUM CHLORIDE 0.9% 250ML 250 ML ONE (11:31)
[2017-10-07] MEDS ORDERED: CENTRAL TPN FORMULA 1 BAG IV SCH (12:53)
[2017-10-07] MEDS: ACETAMINOPHEN 1000 MG/100 ML IV PRN (15:44)
[2017-10-07] MEDS: VANCOMYCIN 1GM/NS 250 ML 250 ML IV SCH (17:00)
[2017-10-07] MEDS: IRON SUCROSE 200 MG in SODIUM CHLORIDE 0.9% 100 ML 100 ML IV SCH (20:50)
[2017-10-07] MEDS: ARGATROBAN 250 MG in SODIUM CHLORIDE 0.9% 250ML 247.5 ML IV SCH (20:50)
[2017-10-07] MEDS: PANTOPRAZOLE 40 MG 10ML VIAL IV SCH (21:24)
[2017-10-08] VITALS (42 sets, daily range): BP systolic 117–151; BP diastolic 56–112
[2017-10-08] MEDS: LEVALBUTEROL HCL SOLN NEBU 1.25 MG/3 ML NEB INH SCH ×4 (00:40→19:17)
[2017-10-08] MEDS: MEROPENEM 500 MG VIAL IV SCH ×4 (02:05→21:21)
[2017-10-08] MEDS: BUMETANIDE INJ 0.25MG/ML 4ML VIAL IV SCH ×3 (05:39→21:21)
[2017-10-08] MEDS: HYDROMORPHONE 2MG/ML 2 MG/ML ML IV PRN ×2 (05:42→16:24)
[2017-10-08 06:14] LABS: BASOPHILS # (AUTO) 0.1 (0.0-0.1); BASOPHILS % 0.5 % (0.0-1.0); EOSINOPHILS # (AUTO) 0.2 (0.0-0.4); EOSINOPHILS % 1.9 % (0.0-6.0); LYMPHOCYTES % 8.1 % (18.0-39.1); MEAN CORPUSCULAR HEMOGLOBIN 28.3 pg (28-32); MEAN CORPUSCULAR VOLUME 88.3 fL (81-99); MONOCYTES # (AUTO) 1.1 (0.2-0.8); MONOCYTES % 9.4 % (4.4-11.3); NEUTROPHILS # (AUTO) 9.3 (2.1-6.9); NEUTROPHILS % 78.4 % (38.7-80.0); PLATELET COUNT 454 x10e3/uL (140-360); RED BLOOD COUNT 2.83 x10e6/uL (3.6-5.1); RED CELL DISTRIBUTION WIDTH 14.8 % (11.7-14.4)
[2017-10-08 06:39] LABS: ANION GAP 12.6 mmol/L (8-16); BLOOD UREA NITROGEN 32 mg/dL (7-26); BUN/CREATININE RATIO 46 (6-25); CALCIUM 8.3 mg/dL (8.4-10.2); CARBON DIOXIDE 25 mmol/L (22-29); CHLORIDE 109 mmol/L (98-107); CREATININE, SERUM 0.69 mg/dL (0.57-1.11); EST GLOMERULAR FILTRATION RATE > 60 ML/MIN (60-); GLUCOSE 137 mg/dL (74-118); POTASSIUM 4.6 mmol/L (3.5-5.1); SODIUM 142 mmol/L (136-145)
[2017-10-08 06:44] LABS: MAGNESIUM 1.9 MG/DL (1.3-2.1); PHOSPHORUS 4.9 MG/DL (2.3-4.7)
[2017-10-08] MEDS: INSULIN LISPRO 100 UNIT/1 ML 3ML VIAL SQ SCH ×3 (06:49→18:00)
[2017-10-08 08:13] LABS: BAND NEUTROPHILS % (MANUAL) 2 %; HYPOCHROMASIA MODERATE; LYMPHOCYTES % (MANUAL) 6 % (19-48); MONOCYTES % (MANUAL) 6 % (3.4-9.0); MYELOCYTES % (MANUAL) 1 % (0-0); NEUTROPHILS % (MANUAL) 81 % (40-74); RBC MORPHOLOGY COMMENT NORMAL
[2017-10-08 08:14] LABS: ANISOCYTOSIS SLIGHT; PLATELET ESTIMATE SLIGHTLY INCREASED; PLATELET MORPHOLOGY COMMENT NORMAL
[2017-10-08] MEDS: NOREPINEPHRINE 8 MG/D5W 250 ML 250 ML IV SCH (08:45)
[2017-10-08] MEDS: MICAFUNGIN SODIUM 100 ML IV SCH (09:32)
[2017-10-08] MEDS: ACETAMINOPHEN 1000 MG/100 ML IV PRN ×2 (10:09→17:00)
[2017-10-08] MEDS: NYSTATIN 15 GM POWDER UD BTL TOP SCH ×2 (10:37→18:17)
[2017-10-08] MEDS ORDERED: CENTRAL TPN FORMULA 1 BAG IV SCH (13:49)
[2017-10-08] MEDS: VANCOMYCIN 1GM/NS 250 ML 250 ML IV SCH (18:20)
[2017-10-08] MEDS: ARGATROBAN 250 MG in SODIUM CHLORIDE 0.9% 250ML 247.5 ML IV SCH (20:30)
[2017-10-08] MEDS: PANTOPRAZOLE 40 MG 10ML VIAL IV SCH (21:21)
[2017-10-08] MEDS: IRON SUCROSE 200 MG in SODIUM CHLORIDE 0.9% 100 ML 100 ML IV SCH (21:21)
[2017-10-09] VITALS (47 sets, daily range): BP systolic 111–166; BP diastolic 59–105
[2017-10-09] MEDS: INSULIN LISPRO 100 UNIT/1 ML 3ML VIAL SQ SCH ×4 (00:03→18:00)
[2017-10-09] MEDS: LEVALBUTEROL HCL SOLN NEBU 1.25 MG/3 ML NEB INH SCH ×4 (03:30→18:30)
[2017-10-09] MEDS: MEROPENEM 500 MG VIAL IV SCH ×5 (03:42→21:30)
[2017-10-09] MEDS: ACETAMINOPHEN 1000 MG/100 ML IV PRN ×2 (05:14→13:39)
[2017-10-09] MEDS: BUMETANIDE INJ 0.25MG/ML 4ML VIAL IV SCH ×3 (05:29→21:30)
[2017-10-09 06:00] LABS: BASOPHILS # (AUTO) 0.1 (0.0-0.1); BASOPHILS % 0.4 % (0.0-1.0); EOSINOPHILS # (AUTO) 0.3 (0.0-0.4); EOSINOPHILS % 2.1 % (0.0-6.0); HEMATOCRIT 26.7 % (34.2-44.1); HEMOGLOBIN 8.4 g/dL (12.0-16.0); LYMPHOCYTES # (AUTO) 1.1 (1.0-3.2); LYMPHOCYTES % 8.3 % (18.0-39.1); MEAN CORPUSCULAR HGB CONC 31.5 g/dL (31-35); MONOCYTES # (AUTO) 1.4 (0.2-0.8); MONOCYTES % 10.3 % (4.4-11.3); NEUTROPHILS # (AUTO) 10.5 (2.1-6.9); NEUTROPHILS % 77.4 % (38.7-80.0); PLATELET COUNT 545 x10e3/uL (140-360); RED CELL DISTRIBUTION WIDTH 15.1 % (11.7-14.4)
[2017-10-09 06:23] LABS: ALANINE AMINOTRANSFERASE 60 IU/L (0-55); ALBUMIN 1.7 g/dL (3.5-5.0); ALBUMIN/GLOBULIN RATIO 0.4 (0.8-2.0); ALKALINE PHOSPHATASE 147 IU/L (40-150); ANION GAP 14.3 mmol/L (8-16); BLOOD UREA NITROGEN 30 mg/dL (7-26); BUN/CREATININE RATIO 39 (6-25); CALCIUM 8.6 mg/dL (8.4-10.2); CARBON DIOXIDE 23 mmol/L (22-29); CHLORIDE 110 mmol/L (98-107); CREATININE, SERUM 0.76 mg/dL (0.57-1.11); EST GLOMERULAR FILTRATION RATE > 60 ML/MIN (60-); GLUCOSE 145 mg/dL (74-118); MAGNESIUM 2.1 MG/DL (1.3-2.1); PHOSPHORUS 4.5 MG/DL (2.3-4.7); POTASSIUM 4.3 mmol/L (3.5-5.1); SODIUM 143 mmol/L (136-145)
[2017-10-09] MEDS: NOREPINEPHRINE 8 MG/D5W 250 ML 250 ML IV SCH (08:42)
[2017-10-09] MEDS: NYSTATIN 15 GM POWDER UD BTL TOP SCH ×2 (08:43→17:00)
[2017-10-09] MEDS: HYDROMORPHONE 2MG/ML 2 MG/ML ML IV PRN ×3 (08:45→22:07)
[2017-10-09] MEDS: MICAFUNGIN SODIUM 100 ML IV SCH (09:15)
[2017-10-09] MEDS: LINEZOLID 600 MG/D5W 300ML 300 ML IV SCH ×2 (09:45→21:42)
[2017-10-09 09:48] LABS: EOSINOPHILS % (MANUAL) 1 % (0-7); LYMPHOCYTES % (MANUAL) 7 % (19-48); MONOCYTES % (MANUAL) 9 % (3.4-9.0); MYELOCYTES % (MANUAL) 1 % (0-0); NEUTROPHILS % (MANUAL) 82 % (40-74)
[2017-10-09 09:51] LABS: HYPOCHROMASIA SLIGHT; PLATELET ESTIMATE ADEQUATE; PLATELET MORPHOLOGY COMMENT MANY LARGE
[2017-10-09 09:52] LABS: POIKILOCYTOSIS SLIGHT; RBC MORPHOLOGY COMMENT NORMAL
[2017-10-09] MEDS: METRONIDAZOLE 500MG/NS 100ML 100 ML IV SCH ×2 (10:18→18:35)
[2017-10-09] MEDS: PROMETHAZINE 12.5MG/ NACL 0.9% 50 ML IV PRN (13:16)
[2017-10-09 18:01] LABS: INR 1.93; PROTHROMBIN TIME 20.7 seconds (11.9-14.5)
[2017-10-09] MEDS: CENTRAL TPN FORMULA 1 BAG IV SCH (20:00)
[2017-10-09] MEDS: PANTOPRAZOLE 40 MG 10ML VIAL IV SCH (21:30)
[2017-10-09] MEDS: ARGATROBAN 250 MG in SODIUM CHLORIDE 0.9% 250ML 247.5 ML IV SCH (21:41)
[2017-10-09] MEDS: IRON SUCROSE 200 MG in SODIUM CHLORIDE 0.9% 100 ML 100 ML IV SCH (21:44)
[2017-10-10] VITALS (48 sets, daily range): BP systolic 112–165; BP diastolic 65–103
[2017-10-10] MEDS: INSULIN LISPRO 100 UNIT/1 ML 3ML VIAL SQ SCH ×5 (00:30→23:40)
[2017-10-10] MEDS: LEVALBUTEROL HCL SOLN NEBU 1.25 MG/3 ML NEB INH SCH ×4 (01:50→19:11)
[2017-10-10] MEDS: MEROPENEM 500 MG VIAL IV SCH ×2 (02:11→09:25)
[2017-10-10] MEDS: METRONIDAZOLE 500MG/NS 100ML 100 ML IV SCH ×3 (02:11→18:22)
[2017-10-10] MEDS: PROMETHAZINE 12.5MG/ NACL 0.9% 50 ML IV PRN (02:33)
[2017-10-10] MEDS: BUMETANIDE INJ 0.25MG/ML 4ML VIAL IV SCH ×3 (05:53→21:03)
[2017-10-10 06:12] LABS: BASOPHILS # (AUTO) 0.1 (0.0-0.1); BASOPHILS % 0.7 % (0.0-1.0); EOSINOPHILS # (AUTO) 0.5 (0.0-0.4); EOSINOPHILS % 3.4 % (0.0-6.0); HEMATOCRIT 27.8 % (34.2-44.1); HEMOGLOBIN 8.8 g/dL (12.0-16.0); LYMPHOCYTES # (AUTO) 1.3 (1.0-3.2); MEAN CORPUSCULAR HEMOGLOBIN 28.4 pg (28-32); MEAN CORPUSCULAR HGB CONC 31.7 g/dL (31-35); MEAN CORPUSCULAR VOLUME 89.7 fL (81-99); MONOCYTES # (AUTO) 1.3 (0.2-0.8); MONOCYTES % 9.1 % (4.4-11.3); NEUTROPHILS # (AUTO) 10.7 (2.1-6.9); NEUTROPHILS % 76.3 % (38.7-80.0); PLATELET COUNT 587 x10e3/uL (140-360); RED CELL DISTRIBUTION WIDTH 15.1 % (11.7-14.4)
[2017-10-10 06:39] LABS: ANION GAP 13.1 mmol/L (8-16); BLOOD UREA NITROGEN 27 mg/dL (7-26); BUN/CREATININE RATIO 38 (6-25); CALCIUM 8.7 mg/dL (8.4-10.2); CARBON DIOXIDE 23 mmol/L (22-29); CHLORIDE 110 mmol/L (98-107); CREATININE, SERUM 0.71 mg/dL (0.57-1.11); EST GLOMERULAR FILTRATION RATE > 60 ML/MIN (60-); GLUCOSE 101 mg/dL (74-118); POTASSIUM 4.1 mmol/L (3.5-5.1); SODIUM 142 mmol/L (136-145)
[2017-10-10 08:32] LABS: EOSINOPHILS % (MANUAL) 1 % (0-7); LYMPHOCYTES % (MANUAL) 3 % (19-48); MONOCYTES % (MANUAL) 9 % (3.4-9.0); NEUTROPHILS % (MANUAL) 87 % (40-74); PLATELET ESTIMATE SLIGHTLY INCREASED; PLATELET MORPHOLOGY COMMENT NORMAL; RBC MORPHOLOGY COMMENT NORMAL
[2017-10-10] MEDS: NOREPINEPHRINE 8 MG/D5W 250 ML 250 ML IV SCH (08:45)
[2017-10-10] MEDS: NYSTATIN 15 GM POWDER UD BTL TOP SCH ×2 (09:25→18:22)
[2017-10-10] MEDS: VANCOMYCIN 1GM/NS 250 ML 250 ML IV SCH (09:31)
--- NOTE | 2017-10-10 10:31 | Diagnostic Imaging Report ---
PROCEDURE:X-RAY ABDOMEN - KUB COMPARISON:CT abdomen and pelvis without contrast 10/03/2017. INDICATIONS:ABDOMEN PAIN, SEPSIS FINDINGS: The bowel gas pattern shows no dilated, air-filled loops of bowel. Changes related to midline laparotomy with left mid abdominal and right upper quadrant surgical drains. No cherry pneumoperitoneum. Regional skeletal structures are intact. CONCLUSION: Nonobstructive bowel gas pattern. Postsurgical changes of the abdomen. Dictated by: Lew Fields M.D. on 10/10/2017 at 10:34 Electronically approved by: Lew Fields M.D. on 10/10/2017 at 10:34
--- NOTE | 2017-10-10 12:56 | Diagnostic Imaging Report ---
PROCEDURE:ULTRASOUND GUIDANCE FOR VASCULAR ACCESS COMPARISON:None. INDICATIONS:CENTRAL LINE FINDINGS:Left internal jugular vein is noted to be patent. Ultrasound guidance was utilized for access for left internal jugular central line placement. CONCLUSION:Patent left internal jugular vein. Successful ultrasound guidance for central line placement. Dictated by: Lew Fields M.D. on 10/10/2017 at 12:59 Electronically approved by: Lew Fields M.D. on 10/10/2017 at 12:59
--- NOTE | 2017-10-10 12:56 | Diagnostic Imaging Report ---
PROCEDURE:NON-TUNNELLED CVC CATH PLACMNT COMPARISON:None. INDICATIONS: Poor intravenous access, need for total parenteral nutrition COMPLICATIONS: No immediate MEDICATIONS: Lidocaine 1% for local anesthesia BLOOD LOSS: Minimal Blood administered: None Fluoroscopy time: 0.6 minutes Air Kerma: 6.51 mGy PROCEDURE: Informed consent was obtained and documented the medical record. The patient was placed in the supine position on the fluoroscopic table. Preliminary sonographic evaluation confirmed patency of the left internal jugular vein, evidenced by compressibility. One percent lidocaine was infiltrated into the skin and subcutaneous tissues for local anesthesia. Then under continuous sonographic guidance, an 18 gauge single wall needle was used to access the left internal jugular vein. A permanent sonographic image was stored in the medical record. A 0.035 inch J-wire was advanced centrally into the inferior vena cava under fluoroscopic guidance. The needle was then exchanged for a 7 Bangladeshi 20 cm triple-lumen central venous catheter using standard Seldinger technique. Each lumen showed adequate bidirectional flow and the catheter was secured to the skin with monofilament nylon suture after the tip was positioned at the superior cavoatrial junction. A sterile dressing was applied. Patient tolerated the procedure well without immediate complication. Findings: Patent left internal jugular vein. CONCLUSION: Successful placement of a 7 Bangladeshi, 20 cm triple-lumen central venous catheter via a left internal jugular approach under sonographic and fluoroscopic guidance. Dictated by: Lew Fields M.D. on 10/10/2017 at 12:59 Electronically approved by: Lew Fields M.D. on 10/10/2017 at 12:59
[2017-10-10] MEDS: HYDROMORPHONE 2MG/ML 2 MG/ML ML IV PRN ×2 (14:45→23:18)
[2017-10-10] MEDS ORDERED: SODIUM CHLORIDE 0.9% 250ML 250 ML ONE (18:57)
[2017-10-10] MEDS: ACETAMINOPHEN 1000 MG/100 ML IV PRN (19:03)
[2017-10-10] MEDS: ARGATROBAN 250 MG in SODIUM CHLORIDE 0.9% 250ML 247.5 ML IV SCH (20:06)
[2017-10-10] MEDS: CENTRAL TPN FORMULA 1 BAG IV SCH (20:15)
[2017-10-10] MEDS: IRON SUCROSE 200 MG in SODIUM CHLORIDE 0.9% 100 ML 100 ML IV SCH (20:22)
[2017-10-10] MEDS: PANTOPRAZOLE 40 MG 10ML VIAL IV SCH (21:03)
[2017-10-11] VITALS (41 sets, daily range): BP systolic 122–211; BP diastolic 65–139
[2017-10-11] MEDS: PROMETHAZINE 12.5MG/ NACL 0.9% 50 ML IV PRN (01:39)
[2017-10-11] MEDS: METRONIDAZOLE 500MG/NS 100ML 100 ML IV SCH ×3 (02:07→18:00)
[2017-10-11 05:51] LABS: BASOPHILS # (AUTO) 0.1 (0.0-0.1); BASOPHILS % 0.4 % (0.0-1.0); EOSINOPHILS # (AUTO) 1.2 (0.0-0.4); EOSINOPHILS % 8.7 % (0.0-6.0); HEMATOCRIT 28.1 % (34.2-44.1); HEMOGLOBIN 8.6 g/dL (12.0-16.0); LYMPHOCYTES # (AUTO) 1.2 (1.0-3.2); LYMPHOCYTES % 8.7 % (18.0-39.1); MEAN CORPUSCULAR HEMOGLOBIN 28.6 pg (28-32); MEAN CORPUSCULAR HGB CONC 30.6 g/dL (31-35); MEAN CORPUSCULAR VOLUME 93.4 fL (81-99); MONOCYTES # (AUTO) 1.4 (0.2-0.8); MONOCYTES % 9.8 % (4.4-11.3); NEUTROPHILS # (AUTO) 10.2 (2.1-6.9); NEUTROPHILS % 71.3 % (38.7-80.0); PLATELET COUNT 579 x10e3/uL (140-360); RED BLOOD COUNT 3.01 x10e6/uL (3.6-5.1); RED CELL DISTRIBUTION WIDTH 15.4 % (11.7-14.4)
[2017-10-11] MEDS: BUMETANIDE INJ 0.25MG/ML 4ML VIAL IV SCH ×3 (05:51→21:04)
[2017-10-11] MEDS: INSULIN LISPRO 100 UNIT/1 ML 3ML VIAL SQ SCH ×4 (06:00→23:19)
[2017-10-11 06:15] LABS: ALANINE AMINOTRANSFERASE 41 IU/L (0-55); ALBUMIN 1.8 g/dL (3.5-5.0); ALBUMIN/GLOBULIN RATIO 0.4 (0.8-2.0); ALKALINE PHOSPHATASE 151 IU/L (40-150); BLOOD UREA NITROGEN 35 mg/dL (7-26); BUN/CREATININE RATIO 45 (6-25); CALCIUM 8.7 mg/dL (8.4-10.2); CARBON DIOXIDE 23 mmol/L (22-29); CHLORIDE 118 mmol/L (98-107); CREATININE, SERUM 0.77 mg/dL (0.57-1.11); EST GLOMERULAR FILTRATION RATE > 60 ML/MIN (60-); GLUCOSE 134 mg/dL (74-118); MAGNESIUM 2.1 MG/DL (1.3-2.1); SODIUM 149 mmol/L (136-145)
[2017-10-11] MEDS: HYDROMORPHONE 2MG/ML 2 MG/ML ML IV PRN ×2 (06:53→19:32)
[2017-10-11] MEDS: LEVALBUTEROL HCL SOLN NEBU 1.25 MG/3 ML NEB INH SCH ×3 (07:05→19:22)
[2017-10-11] MEDS: NOREPINEPHRINE 8 MG/D5W 250 ML 250 ML IV SCH (07:56)
[2017-10-11] MEDS: NYSTATIN 15 GM POWDER UD BTL TOP SCH ×2 (09:01→15:29)
[2017-10-11] MEDS: VANCOMYCIN 1GM/NS 250 ML 250 ML IV SCH (09:01)
[2017-10-11] MEDS: MEROPENEM 500MG 500 MG in SODIUM CHLORIDE 0.9% 50ML 50 ML IV SCH ×3 (12:00→23:21)
[2017-10-11] MEDS ORDERED: ONDANSETRON HCL 4 MG ORAL DISINTEGRATING TAB PO PRN (17:30)
[2017-10-11] MEDS: IRON SUCROSE 200 MG in SODIUM CHLORIDE 0.9% 100 ML 100 ML IV SCH (20:36)
[2017-10-11] MEDS: CENTRAL TPN FORMULA 1 BAG IV SCH (20:40)
[2017-10-11] MEDS: PANTOPRAZOLE 40 MG 10ML VIAL IV SCH (21:04)
[2017-10-11] MEDS: ARGATROBAN 250 MG in SODIUM CHLORIDE 0.9% 250ML 247.5 ML IV SCH (23:22)
[2017-10-12] VITALS (47 sets, daily range): BP systolic 98–160; BP diastolic 68–121
[2017-10-12] MEDS: LEVALBUTEROL HCL SOLN NEBU 1.25 MG/3 ML NEB INH SCH ×4 (01:15→18:30)
[2017-10-12] MEDS: METRONIDAZOLE 500MG/NS 100ML 100 ML IV SCH ×3 (01:48→17:51)
[2017-10-12] MEDS: INSULIN LISPRO 100 UNIT/1 ML 3ML VIAL SQ SCH ×4 (05:11→23:31)
[2017-10-12] MEDS: MEROPENEM 500MG 500 MG in SODIUM CHLORIDE 0.9% 50ML 50 ML IV SCH ×4 (06:03→23:46)
[2017-10-12] MEDS: BUMETANIDE INJ 0.25MG/ML 4ML VIAL IV SCH (06:03)
[2017-10-12 06:15] LABS: BASOPHILS # (AUTO) 0.1 (0.0-0.1); BASOPHILS % 0.4 % (0.0-1.0); EOSINOPHILS # (AUTO) 0.7 (0.0-0.4); EOSINOPHILS % 4.3 % (0.0-6.0); HEMATOCRIT 30.6 % (34.2-44.1); HEMOGLOBIN 9.4 g/dL (12.0-16.0); LYMPHOCYTES # (AUTO) 1.6 (1.0-3.2); LYMPHOCYTES % 9.7 % (18.0-39.1); MEAN CORPUSCULAR HEMOGLOBIN 28.5 pg (28-32); MEAN CORPUSCULAR HGB CONC 30.7 g/dL (31-35); MEAN CORPUSCULAR VOLUME 92.7 fL (81-99); MONOCYTES # (AUTO) 1.5 (0.2-0.8); MONOCYTES % 8.8 % (4.4-11.3); NEUTROPHILS # (AUTO) 12.6 (2.1-6.9); NEUTROPHILS % 75.4 % (38.7-80.0); PLATELET COUNT 633 x10e3/uL (140-360); RED CELL DISTRIBUTION WIDTH 16.4 % (11.7-14.4)
[2017-10-12 06:33] LABS: ANION GAP 13.1 mmol/L (8-16); BLOOD UREA NITROGEN 36 mg/dL (7-26); BUN/CREATININE RATIO 43 (6-25); CARBON DIOXIDE 20 mmol/L (22-29); CHLORIDE 125 mmol/L (98-107); CREATININE, SERUM 0.84 mg/dL (0.57-1.11); EST GLOMERULAR FILTRATION RATE > 60 ML/MIN (60-); GLUCOSE 151 mg/dL (74-118); POTASSIUM 4.1 mmol/L (3.5-5.1); SODIUM 154 mmol/L (136-145)
[2017-10-12] MEDS: NOREPINEPHRINE 8 MG/D5W 250 ML 250 ML IV SCH (08:45)
[2017-10-12] MEDS: VANCOMYCIN 1GM/NS 250 ML 250 ML IV SCH (09:00)
[2017-10-12] MEDS: NYSTATIN 15 GM POWDER UD BTL TOP SCH (09:00)
[2017-10-12] MEDS: HYDROMORPHONE 2MG/ML 2 MG/ML ML IV PRN ×3 (09:05→23:48)
[2017-10-12] MEDS ORDERED: SODIUM CHLORIDE 0.9% 250ML 250 ML ONE (10:36)
[2017-10-12] MEDS ORDERED: SODIUM CHLORIDE 0.45% 1,000 ML IV ONE (11:30)
[2017-10-12] MEDS ORDERED: HYDROCORTISONE 1% CREAM 30 GM TUBE TOP PRN (12:15)
[2017-10-12] MEDS: DEXTROSE 5% 1,000 ML IV SCH (14:45)
[2017-10-12] MEDS: CENTRAL TPN FORMULA 1 BAG IV SCH (19:49)
[2017-10-12] MEDS: ARGATROBAN 250 MG in SODIUM CHLORIDE 0.9% 250ML 247.5 ML IV SCH (20:10)
[2017-10-12] MEDS: ACETAMINOPHEN 1000 MG/100 ML IV PRN (20:17)
[2017-10-12] MEDS: PANTOPRAZOLE 40 MG 10ML VIAL IV SCH (21:33)
[2017-10-13] VITALS (46 sets, daily range): BP systolic 76–166; BP diastolic 62–109
[2017-10-13] MEDS: LEVALBUTEROL HCL SOLN NEBU 1.25 MG/3 ML NEB INH SCH ×4 (00:05→18:52)
[2017-10-13] MEDS: METRONIDAZOLE 500MG/NS 100ML 100 ML IV SCH ×2 (01:38→10:00)
[2017-10-13] MEDS: DEXTROSE 5% 1,000 ML IV SCH ×3 (04:11→23:21)
[2017-10-13] MEDS: ACETAMINOPHEN 1000 MG/100 ML IV PRN (04:11)
[2017-10-13] MEDS: ONDANSETRON HCL INJ 2 MG/ML VIAL IV PRN ×2 (04:11→07:57)
[2017-10-13 05:48] LABS: BASOPHILS # (AUTO) 0.1 (0.0-0.1); BASOPHILS % 0.3 % (0.0-1.0); EOSINOPHILS # (AUTO) 0.3 (0.0-0.4); LYMPHOCYTES # (AUTO) 1.8 (1.0-3.2); LYMPHOCYTES % 11.7 % (18.0-39.1); MEAN CORPUSCULAR HEMOGLOBIN 28.9 pg (28-32); MEAN CORPUSCULAR VOLUME 96.5 fL (81-99); MONOCYTES # (AUTO) 1.3 (0.2-0.8); MONOCYTES % 8.7 % (4.4-11.3); NEUTROPHILS # (AUTO) 11.2 (2.1-6.9); NEUTROPHILS % 73.9 % (38.7-80.0); PLATELET COUNT 587 x10e3/uL (140-360); RED BLOOD COUNT 3.11 x10e6/uL (3.6-5.1); RED CELL DISTRIBUTION WIDTH 17.5 % (11.7-14.4)
[2017-10-13] MEDS: INSULIN LISPRO 100 UNIT/1 ML 3ML VIAL SQ SCH ×3 (06:00→18:00)
[2017-10-13] MEDS: MEROPENEM 500MG 500 MG in SODIUM CHLORIDE 0.9% 50ML 50 ML IV SCH ×2 (06:06→12:30)
[2017-10-13 06:16] LABS: ALANINE AMINOTRANSFERASE 25 IU/L (0-55); ALBUMIN 1.8 g/dL (3.5-5.0); ALBUMIN/GLOBULIN RATIO 0.4 (0.8-2.0); ALKALINE PHOSPHATASE 134 IU/L (40-150); ANION GAP 10.6 mmol/L (8-16); BLOOD UREA NITROGEN 42 mg/dL (7-26); BUN/CREATININE RATIO 51 (6-25); CALCIUM 8.8 mg/dL (8.4-10.2); CARBON DIOXIDE 17 mmol/L (22-29); CHLORIDE 127 mmol/L (98-107); CREATININE, SERUM 0.83 mg/dL (0.57-1.11); EST GLOMERULAR FILTRATION RATE > 60 ML/MIN (60-); GLUCOSE 143 mg/dL (74-118); POTASSIUM 4.6 mmol/L (3.5-5.1); SODIUM 150 mmol/L (136-145)
[2017-10-13] MEDS: HYDROMORPHONE 2MG/ML 2 MG/ML ML IV PRN ×3 (06:28→17:14)
[2017-10-13 07:42] LABS: EOSINOPHILS % (MANUAL) 2 % (0-7); LYMPHOCYTES % (MANUAL) 9 % (19-48); MONOCYTES % (MANUAL) 5 % (3.4-9.0); NEUTROPHILS % (MANUAL) 84 % (40-74); NUCLEATED RED BLOOD CELLS 1; PLATELET ESTIMATE SLIGHTLY INCREASED; RBC MORPHOLOGY COMMENT NORMAL
[2017-10-13 07:43] LABS: ANISOCYTOSIS MODERATE; HOWELL-JOLLY BODIES FEW; HYPOCHROMASIA SLIGHT; PLATELET MORPHOLOGY COMMENT FEW GIANT; POIKILOCYTOSIS SLIGHT
[2017-10-13] MEDS ORDERED: [UNRECOGNIZED DRUG - OTHER] IV SCH (10:30)
[2017-10-13] MEDS ORDERED: VANCOMYCIN HCL 1.25 GM in SODIUM CHLORIDE 0.9% 250ML 250 ML IV SCH (10:30)
[2017-10-13] MEDS ORDERED: VANCOMYCIN IV SCH (10:30)
[2017-10-13] MEDS ORDERED: VANCOMYCIN HCL 1.25 GM in SODIUM CHLORIDE 0.9% 250ML 300 ML IV SCH ×2 (11:00→13:00)
--- NOTE | 2017-10-13 11:08 | Diagnostic Imaging Report ---
PROCEDURE:ABDOMEN-1VIEW (KUB) TECHNIQUE:Portable supine AP abdomen INDICATION:Nausea postsurgical. COMPARISON:None. FINDINGS: Normal bowel gas pattern. Indwelling multi-fenestrated surgical drains. No gross evidence of ascites. CONCLUSION: No acute abnormality. Dictated by: Waldemar Meade M.D. on 10/13/2017 at 11:11 Electronically approved by: Waldemar Meade M.D. on 10/13/2017 at 11:11
[2017-10-13] MEDS: DIPHENHYDRAMINE HCL INJ 50 MG/ML VIAL IV PRN ×2 (14:35→19:30)
[2017-10-13] MEDS ORDERED: DEXTROSE 5% 1,000 ML IV ONE (18:45)
[2017-10-13] MEDS: CENTRAL TPN FORMULA 1 BAG IV SCH (22:05)
[2017-10-13] MEDS: ARGATROBAN 250 MG in SODIUM CHLORIDE 0.9% 250ML 247.5 ML IV SCH (23:30)
[2017-10-13] MEDS: PANTOPRAZOLE 40 MG 10ML VIAL IV SCH (23:38)
[2017-10-14] VITALS (40 sets, daily range): BP systolic 95–162; BP diastolic 63–153
[2017-10-14] MEDS: INSULIN LISPRO 100 UNIT/1 ML 3ML VIAL SQ SCH ×4 (00:56→17:44)
[2017-10-14] MEDS: LEVALBUTEROL HCL SOLN NEBU 1.25 MG/3 ML NEB INH SCH ×4 (02:30→19:52)
[2017-10-14] MEDS: HYDROMORPHONE 2MG/ML 2 MG/ML ML IV PRN ×2 (02:30→12:25)
[2017-10-14 06:13] LABS: BASOPHILS # (AUTO) 0.1 (0.0-0.1); BASOPHILS % 0.5 % (0.0-1.0); EOSINOPHILS # (AUTO) 0.1 (0.0-0.4); EOSINOPHILS % 0.8 % (0.0-6.0); HEMATOCRIT 31.7 % (34.2-44.1); HEMOGLOBIN 9.3 g/dL (12.0-16.0); LYMPHOCYTES # (AUTO) 2.6 (1.0-3.2); LYMPHOCYTES % 15.2 % (18.0-39.1); MEAN CORPUSCULAR HEMOGLOBIN 28.8 pg (28-32); MEAN CORPUSCULAR HGB CONC 29.3 g/dL (31-35); MEAN CORPUSCULAR VOLUME 98.1 fL (81-99); MONOCYTES # (AUTO) 1.4 (0.2-0.8); MONOCYTES % 8.1 % (4.4-11.3); NEUTROPHILS # (AUTO) 11.8 (2.1-6.9); NEUTROPHILS % 70.1 % (38.7-80.0); PLATELET COUNT 560 x10e3/uL (140-360); RED BLOOD COUNT 3.23 x10e6/uL (3.6-5.1); RED CELL DISTRIBUTION WIDTH 18.2 % (11.7-14.4)
[2017-10-14 06:42] LABS: ALANINE AMINOTRANSFERASE 19 IU/L (0-55); ALBUMIN 1.9 g/dL (3.5-5.0); ALBUMIN/GLOBULIN RATIO 0.4 (0.8-2.0); ALKALINE PHOSPHATASE 122 IU/L (40-150); BLOOD UREA NITROGEN 35 mg/dL (7-26); BUN/CREATININE RATIO 43 (6-25); CALCIUM 8.5 mg/dL (8.4-10.2); CARBON DIOXIDE 15 mmol/L (22-29); CHLORIDE 120 mmol/L (98-107); CREATININE, SERUM 0.82 mg/dL (0.57-1.11); EST GLOMERULAR FILTRATION RATE > 60 ML/MIN (60-); GLUCOSE 112 mg/dL (74-118); MAGNESIUM 2.4 MG/DL (1.3-2.1); PHOSPHORUS 4.1 MG/DL (2.3-4.7)
[2017-10-14 06:44] LABS: SODIUM 141 mmol/L (136-145)
[2017-10-14 08:41] LABS: LYMPHOCYTES % (MANUAL) 14 % (19-48); METAMYELOCYTES % (MANUAL) 2 % (0-0); MONOCYTES % (MANUAL) 9 % (3.4-9.0); MYELOCYTES % (MANUAL) 3 % (0-0); NEUTROPHILS % (MANUAL) 67 % (40-74); PLATELET ESTIMATE SLIGHTLY INCREASED; PLATELET MORPHOLOGY COMMENT FEW GIANT; RBC MORPHOLOGY COMMENT NORMAL
[2017-10-14 08:42] LABS: ANISOCYTOSIS SLIGHT; HYPOCHROMASIA SLIGHT; POLYCHROMASIA FEW
--- NOTE | 2017-10-14 11:14 | Diagnostic Imaging Report ---
PROCEDURE:NON-TUNNELLED CVC CATH PLACMNT COMPARISON:None. INDICATIONS: Poor intravenous access, need for total parenteral nutrition COMPLICATIONS: No immediate MEDICATIONS: Lidocaine 1% for local anesthesia BLOOD LOSS: Minimal Blood administered: None Fluoroscopy time: 0.6 minutes Air Kerma: 6.51 mGy PROCEDURE: Informed consent was obtained and documented the medical record. The patient was placed in the supine position on the fluoroscopic table. Preliminary sonographic evaluation confirmed patency of the left internal jugular vein, evidenced by compressibility. One percent lidocaine was infiltrated into the skin and subcutaneous tissues for local anesthesia. Then under continuous sonographic guidance, an 18 gauge single wall needle was used to access the left internal jugular vein. A permanent sonographic image was stored in the medical record. A 0.035 inch J-wire was advanced centrally into the inferior vena cava under fluoroscopic guidance. The needle was then exchanged for a 7 [place] Islander 20 cm triple-lumen central venous catheter using standard Seldinger technique. Each lumen showed adequate bidirectional flow and the catheter was secured to the skin with monofilament nylon suture after the tip was positioned at the superior cavoatrial junction. A sterile dressing was applied. Patient tolerated the procedure well without immediate complication. Findings: Patent left internal jugular vein. CONCLUSION: Successful placement of a 7 [place] Islander, 20 cm triple-lumen central venous catheter via a left internal jugular approach under sonographic and fluoroscopic guidance. Dictated by: Lew Fields M.D. on 10/10/2017 at 12:59 Electronically approved by: Lew Fields M.D. on 10/10/2017 at 12:59
[2017-10-14] MEDS ORDERED: SALINE 0.65% NAS SOLN 1 SPRAY BTL PRN (12:00)
[2017-10-14] MEDS: DEXTROSE 5% 1,000 ML IV SCH (12:00)
[2017-10-14] MEDS: SODIUM BICARBONATE 8.4% SYRING 150 ML in DEXTROSE 5% 1,000 ML IV SCH (13:30)
[2017-10-14] MEDS ORDERED: CENTRAL TPN FORMULA 1 BAG IV SCH (20:00)
[2017-10-14] MEDS: ARGATROBAN 250 MG in SODIUM CHLORIDE 0.9% 250ML 247.5 ML IV SCH (20:32)
[2017-10-14] MEDS: FLUTICASONE PROPIONATE NASAL SPRAY NS SCH (21:00)
[2017-10-14] MEDS: PANTOPRAZOLE 40 MG 10ML VIAL IV SCH (22:30)
[2017-10-15] VITALS (46 sets, daily range): BP systolic 85–157; BP diastolic 60–84
[2017-10-15] MEDS: INSULIN LISPRO 100 UNIT/1 ML 3ML VIAL SQ SCH ×5 (00:30→23:20)
[2017-10-15] MEDS: VANCOMYCIN 250MG/5ML ORAL SOLN PO SCH ×4 (00:31→18:00)
[2017-10-15] MEDS: ONDANSETRON HCL INJ 2 MG/ML VIAL IV PRN ×2 (00:40→10:05)
[2017-10-15] MEDS: LEVALBUTEROL HCL SOLN NEBU 1.25 MG/3 ML NEB INH SCH ×4 (03:02→19:06)
[2017-10-15] MEDS: HYDROMORPHONE 2MG/ML 2 MG/ML ML IV PRN ×2 (03:15→11:36)
[2017-10-15] MEDS: SODIUM BICARBONATE 8.4% SYRING 150 ML in DEXTROSE 5% 1,000 ML IV SCH (05:50)
[2017-10-15 05:58] LABS: BASOPHILS % 0.2 % (0.0-1.0); EOSINOPHILS # (AUTO) 0.1 (0.0-0.4); EOSINOPHILS % 0.6 % (0.0-6.0); HEMATOCRIT 27.7 % (34.2-44.1); HEMOGLOBIN 8.5 g/dL (12.0-16.0); LYMPHOCYTES # (AUTO) 2.4 (1.0-3.2); LYMPHOCYTES % 19.4 % (18.0-39.1); MEAN CORPUSCULAR HEMOGLOBIN 28.6 pg (28-32); MEAN CORPUSCULAR HGB CONC 30.7 g/dL (31-35); MEAN CORPUSCULAR VOLUME 93.3 fL (81-99); MONOCYTES # (AUTO) 0.9 (0.2-0.8); MONOCYTES % 6.8 % (4.4-11.3); NEUTROPHILS # (AUTO) 8.5 (2.1-6.9); NEUTROPHILS % 68.6 % (38.7-80.0); PLATELET COUNT 466 x10e3/uL (140-360); RED BLOOD COUNT 2.97 x10e6/uL (3.6-5.1); RED CELL DISTRIBUTION WIDTH 18.8 % (11.7-14.4)
[2017-10-15 06:22] LABS: ALANINE AMINOTRANSFERASE 14 IU/L (0-55); ALBUMIN 1.7 g/dL (3.5-5.0); ALBUMIN/GLOBULIN RATIO 0.4 (0.8-2.0); ALKALINE PHOSPHATASE 94 IU/L (40-150); ANION GAP 11.2 mmol/L (8-16); BLOOD UREA NITROGEN 31 mg/dL (7-26); BUN/CREATININE RATIO 37 (6-25); CALCIUM 8.1 mg/dL (8.4-10.2); CARBON DIOXIDE 20 mmol/L (22-29); CHLORIDE 113 mmol/L (98-107); CREATININE, SERUM 0.83 mg/dL (0.57-1.11); EST GLOMERULAR FILTRATION RATE > 60 ML/MIN (60-); GLUCOSE 155 mg/dL (74-118); MAGNESIUM 1.7 MG/DL (1.3-2.1); PHOSPHORUS 4.4 MG/DL (2.3-4.7); POTASSIUM 4.2 mmol/L (3.5-5.1); SODIUM 140 mmol/L (136-145)
--- NOTE | 2017-10-15 06:49 | Diagnostic Imaging Report ---
EXAMINATION: CHEST SINGLE (PORTABLE) INDICATION: Cough. COMPARISON: 10/06/2017 FINDINGS: TUBES and LINES: Interval placement of left IJ central line catheter with tip at the atriocaval junction LUNGS: Lungs are not well inflated. There are bibasilar atelectasis. Consolidation in the left lower lobe may represent atelectasis or developing pneumonia PLEURA: Questionable left pleural effusion HEART AND MEDIASTINUM: The cardiomediastinal silhouette is unremarkable. BONES AND SOFT TISSUES: No acute osseous lesion. Soft tissues are unremarkable. UPPER ABDOMEN: No free air under the diaphragm. IMPRESSION: Consolidation in the left lower lobe is suspicious for atelectasis versus pneumonia associated with small left pleural effusion Signed by: Dr. Jack Romero M.D. on 10/15/2017 6:45 AM
[2017-10-15] MEDS ORDERED: CHLORASEPTIC SPRAY 177 ML BTL MM PRN (07:00)
[2017-10-15 07:52] LABS: ANISOCYTOSIS SLIGHT; HYPOCHROMASIA SLIGHT; LYMPHOCYTES % (MANUAL) 16 % (19-48); METAMYELOCYTES % (MANUAL) 3 % (0-0); MONOCYTES % (MANUAL) 6 % (3.4-9.0); NEUTROPHILS % (MANUAL) 73 % (40-74); RBC MORPHOLOGY COMMENT NORMAL
[2017-10-15 07:53] LABS: PLATELET ESTIMATE SLIGHTLY INCREASED; PLATELET MORPHOLOGY COMMENT FEW GIANT
[2017-10-15] MEDS: CHOLESTYRAMINE 4 GM PACKET PO SCH ×2 (09:00→17:00)
[2017-10-15] MEDS: PROMETHAZINE 12.5MG/ NACL 0.9% 50 ML IV PRN (11:40)
[2017-10-15] MEDS ORDERED: CENTRAL TPN FORMULA 1 BAG IV SCH ×2 (14:13→20:00)
[2017-10-15] MEDS: ARGATROBAN 250 MG in SODIUM CHLORIDE 0.9% 250ML 247.5 ML IV SCH (21:17)
[2017-10-15] MEDS: DIPHENOXYLATE/ATROPINE TAB PO SCH (21:22)
[2017-10-15] MEDS: FLUTICASONE PROPIONATE NASAL SPRAY NS SCH (21:22)
[2017-10-15] MEDS: PANTOPRAZOLE 40 MG 10ML VIAL IV SCH (21:22)
[2017-10-16] VITALS (28 sets, daily range): BP systolic 114–146; BP diastolic 53–79
[2017-10-16] MEDS: LEVALBUTEROL HCL SOLN NEBU 1.25 MG/3 ML NEB INH SCH ×4 (03:10→19:25)
[2017-10-16] MEDS: INSULIN LISPRO 100 UNIT/1 ML 3ML VIAL SQ SCH ×3 (06:00→18:00)
[2017-10-16 07:10] LABS: ALANINE AMINOTRANSFERASE 13 IU/L (0-55); ALBUMIN 1.7 g/dL (3.5-5.0); ALBUMIN/GLOBULIN RATIO 0.5 (0.8-2.0); ALKALINE PHOSPHATASE 97 IU/L (40-150); ANION GAP 10.6 mmol/L (8-16); BLOOD UREA NITROGEN 24 mg/dL (7-26); BUN/CREATININE RATIO 32 (6-25); CALCIUM 7.6 mg/dL (8.4-10.2); CARBON DIOXIDE 24 mmol/L (22-29); CHLORIDE 109 mmol/L (98-107); CREATININE, SERUM 0.74 mg/dL (0.57-1.11); EST GLOMERULAR FILTRATION RATE > 60 ML/MIN (60-); GLUCOSE 95 mg/dL (74-118); MAGNESIUM 1.7 MG/DL (1.3-2.1); PHOSPHORUS 4.1 MG/DL (2.3-4.7); POTASSIUM 3.6 mmol/L (3.5-5.1); SODIUM 140 mmol/L (136-145)
[2017-10-16 07:14] LABS: EOSINOPHILS % 1.8 % (0.0-6.0); HEMATOCRIT 24.9 % (34.2-44.1); HEMOGLOBIN 7.8 g/dL (12.0-16.0); LYMPHOCYTES % 19.3 % (18.0-39.1); MEAN CORPUSCULAR HEMOGLOBIN 29.3 pg (28-32); MEAN CORPUSCULAR HGB CONC 31.3 g/dL (31-35); MEAN CORPUSCULAR VOLUME 93.6 fL (81-99); MONOCYTES % 8.9 % (4.4-11.3); NEUTROPHILS % 65.5 % (38.7-80.0); PLATELET COUNT 374 x10e3/uL (140-360); RED BLOOD COUNT 2.66 x10e6/uL (3.6-5.1)
[2017-10-16 07:15] LABS: BASOPHILS % 0.2 % (0.0-1.0); EOSINOPHILS # (AUTO) 0.2 (0.0-0.4); LYMPHOCYTES # (AUTO) 2.1 (1.0-3.2); NEUTROPHILS # (AUTO) 7.1 (2.1-6.9)
[2017-10-16] MEDS: DIPHENOXYLATE/ATROPINE TAB PO SCH ×3 (09:11→20:34)
[2017-10-16] MEDS: ONDANSETRON HCL INJ 2 MG/ML VIAL IV PRN (09:11)
[2017-10-16] MEDS: HYDROCODONE/APAP 7.5MG-325MG 1 EA TAB PO PRN ×2 (09:37→20:43)
[2017-10-16] MEDS: APIXABAN 5 MG TABLET PO SCH (15:47)
[2017-10-16] MEDS: HYDROMORPHONE 2MG/ML 2 MG/ML ML IV PRN (15:56)
[2017-10-16] MEDS: FLUTICASONE PROPIONATE NASAL SPRAY NS SCH (20:34)
[2017-10-16] MEDS: PANTOPRAZOLE 40 MG 10ML VIAL IV SCH (23:02)
[2017-10-17] VITALS (7 sets, daily range): BP systolic 117–138; BP diastolic 56–69
[2017-10-17] MEDS: HYDROMORPHONE 2MG/ML 2 MG/ML ML IV PRN (02:50)
[2017-10-17 06:05] LABS: BASOPHILS % 0.2 % (0.0-1.0); EOSINOPHILS # (AUTO) 0.4 (0.0-0.4); EOSINOPHILS % 3.7 % (0.0-6.0); HEMATOCRIT 25.4 % (34.2-44.1); HEMOGLOBIN 7.8 g/dL (12.0-16.0); LYMPHOCYTES # (AUTO) 1.3 (1.0-3.2); LYMPHOCYTES % 13.4 % (18.0-39.1); MEAN CORPUSCULAR HEMOGLOBIN 29.4 pg (28-32); MEAN CORPUSCULAR HGB CONC 30.7 g/dL (31-35); MEAN CORPUSCULAR VOLUME 95.8 fL (81-99); MONOCYTES # (AUTO) 0.7 (0.2-0.8); MONOCYTES % 7.8 % (4.4-11.3); NEUTROPHILS # (AUTO) 6.9 (2.1-6.9); NEUTROPHILS % 72.4 % (38.7-80.0); PLATELET COUNT 325 x10e3/uL (140-360); RED BLOOD COUNT 2.65 x10e6/uL (3.6-5.1); RED CELL DISTRIBUTION WIDTH 20.5 % (11.7-14.4)
[2017-10-17 07:01] LABS: ANION GAP 6.2 mmol/L (8-16); BLOOD UREA NITROGEN 15 mg/dL (7-26); BUN/CREATININE RATIO 22 (6-25); CALCIUM 7.7 mg/dL (8.4-10.2); CARBON DIOXIDE 27 mmol/L (22-29); CHLORIDE 106 mmol/L (98-107); CREATININE, SERUM 0.68 mg/dL (0.57-1.11); EST GLOMERULAR FILTRATION RATE > 60 ML/MIN (60-); GLUCOSE 73 mg/dL (74-118); POTASSIUM 3.2 mmol/L (3.5-5.1); SODIUM 136 mmol/L (136-145)
[2017-10-17] MEDS: LEVALBUTEROL HCL SOLN NEBU 1.25 MG/3 ML NEB INH SCH ×4 (07:09→19:06)
[2017-10-17] MEDS: INSULIN LISPRO 100 UNIT/1 ML 3ML VIAL SQ SCH ×5 (07:30→20:45)
[2017-10-17 08:18] LABS: ANISOCYTOSIS SLIGHT; BAND NEUTROPHILS % (MANUAL) 1 %; EOSINOPHILS % (MANUAL) 6 % (0-7); HYPOCHROMASIA MODERATE; LYMPHOCYTES % (MANUAL) 10 % (19-48); MONOCYTES % (MANUAL) 6 % (3.4-9.0); NEUTROPHILS % (MANUAL) 76 % (40-74); POLYCHROMASIA FEW; PROMYELOCYTES % (MANUAL) 1 % (0-0)
[2017-10-17 08:19] LABS: PLATELET ESTIMATE ADEQUATE; PLATELET MORPHOLOGY COMMENT NORMAL; RBC MORPHOLOGY COMMENT NORMAL
[2017-10-17] MEDS: DIPHENOXYLATE/ATROPINE TAB PO SCH ×3 (08:50→20:50)
[2017-10-17] MEDS: APIXABAN 5 MG TABLET PO SCH ×2 (08:50→15:47)
[2017-10-17] MEDS: ONDANSETRON HCL INJ 2 MG/ML VIAL IV PRN (08:50)
[2017-10-17] MEDS ORDERED: POTASSIUM CHLORIDE 20 MEQ TAB CR PO NR (10:00)
[2017-10-17] MEDS: ACETAMINOPHEN 325 MG TAB PO PRN (12:02)
[2017-10-17] MEDS ORDERED: POTASSIUM CHLORIDE 10MEQ/100ML 200 ML IV ONE (15:45)
[2017-10-17] MEDS: HYDROCODONE/APAP 7.5MG-325MG 1 EA TAB PO PRN (19:19)
[2017-10-17] MEDS: FLUTICASONE PROPIONATE NASAL SPRAY NS SCH (20:50)
[2017-10-17] MEDS: PANTOPRAZOLE 40 MG 10ML VIAL IV SCH (23:43)
[2017-10-18] VITALS (8 sets, daily range): BP systolic 105–127; BP diastolic 52–67
[2017-10-18] MEDS: LEVALBUTEROL HCL SOLN NEBU 1.25 MG/3 ML NEB INH SCH ×4 (01:50→19:05)
[2017-10-18] MEDS: HYDROCODONE/APAP 7.5MG-325MG 1 EA TAB PO PRN ×3 (02:40→16:24)
[2017-10-18 06:03] LABS: BASOPHILS % 0.4 % (0.0-1.0); EOSINOPHILS # (AUTO) 0.3 (0.0-0.4); EOSINOPHILS % 4.2 % (0.0-6.0); HEMATOCRIT 25.5 % (34.2-44.1); HEMOGLOBIN 7.8 g/dL (12.0-16.0); LYMPHOCYTES # (AUTO) 1.3 (1.0-3.2); LYMPHOCYTES % 15.8 % (18.0-39.1); MEAN CORPUSCULAR HEMOGLOBIN 29.2 pg (28-32); MEAN CORPUSCULAR HGB CONC 30.6 g/dL (31-35); MEAN CORPUSCULAR VOLUME 95.5 fL (81-99); MONOCYTES # (AUTO) 0.7 (0.2-0.8); MONOCYTES % 8.6 % (4.4-11.3); NEUTROPHILS # (AUTO) 5.5 (2.1-6.9); NEUTROPHILS % 69.5 % (38.7-80.0); PLATELET COUNT 294 x10e3/uL (140-360); RED BLOOD COUNT 2.67 x10e6/uL (3.6-5.1); RED CELL DISTRIBUTION WIDTH 20.7 % (11.7-14.4)
[2017-10-18 06:30] LABS: ALANINE AMINOTRANSFERASE 12 IU/L (0-55); ALBUMIN 1.6 g/dL (3.5-5.0); ALBUMIN/GLOBULIN RATIO 0.5 (0.8-2.0); ALKALINE PHOSPHATASE 88 IU/L (40-150); ANION GAP 7.8 mmol/L (8-16); BLOOD UREA NITROGEN 12 mg/dL (7-26); BUN/CREATININE RATIO 18 (6-25); CALCIUM 7.7 mg/dL (8.4-10.2); CARBON DIOXIDE 24 mmol/L (22-29); CHLORIDE 111 mmol/L (98-107); CREATININE, SERUM 0.68 mg/dL (0.57-1.11); EST GLOMERULAR FILTRATION RATE > 60 ML/MIN (60-); GLUCOSE 80 mg/dL (74-118); MAGNESIUM 1.4 MG/DL (1.3-2.1); POTASSIUM 3.8 mmol/L (3.5-5.1); SODIUM 139 mmol/L (136-145)
[2017-10-18] MEDS: INSULIN LISPRO 100 UNIT/1 ML 3ML VIAL SQ SCH ×4 (07:30→20:40)
[2017-10-18] MEDS: APIXABAN 5 MG TABLET PO SCH ×2 (08:16→16:25)
[2017-10-18] MEDS: FERROUS SULFATE 325 MG TAB PO SCH ×3 (08:16→21:43)
[2017-10-18] MEDS: DIPHENOXYLATE/ATROPINE TAB PO SCH ×3 (08:16→21:43)
[2017-10-18] MEDS: BALSAM PERU/CASTOR OIL 60 GM OINT...G. TP SCH ×2 (10:37→21:43)
--- NOTE | 2017-10-18 15:07 | Progress Note ---
DATE: INFECTIOUS DISEASE PROGRESS NOTE SUBJECTIVE: Ms. Odom is feeling better. There is no new complaint. REVIEW OF SYSTEMS: Otherwise unremarkable. __PHYSICAL EXAMINATION GENERAL: She is currently alert, oriented, does not seem to be in acute distress. VITAL SIGNS: Stable. Afebrile. HEENT: She does not appear icteric. NECK: Supple. CHEST: Clear. HEART: S1 and S2. No S3 or S4, no murmur. ABDOMEN: Soft. Bowel sounds present. No tenderness. EXTREMITIES: No edema. Her laboratory data reviewed. Her white count is 7.9, hemoglobin 7.8, platelet of 294. Sodium 139, potassium 3.8. No new cultures. __PHYSICAL EXAMINATION GENERAL: She is currently alert, oriented, does not seem to be in acute distress. VITAL SIGNS: Stable. Currently afebrile. HEENT: She does not appear icteric. NECK: Supple. CHEST: Clear. HEART: S1 and S2. No S3 or S4, no murmur. ABDOMEN: Soft. IMPRESSION 1. Status post sepsis, status post peritonitis. Stable off antibiotic. 2. Debilitated. Continue with PT/OT. Will follow. Job#: [id number] EV
[2017-10-18] MEDS: FLUTICASONE PROPIONATE NASAL SPRAY NS SCH (21:00)
[2017-10-18] MEDS: PANTOPRAZOLE 40 MG 10ML VIAL IV SCH (21:43)
[2017-10-18] MEDS: HYDROMORPHONE 2MG/ML 2 MG/ML ML IV PRN (21:43)
[2017-10-19] VITALS (8 sets, daily range): BP systolic 113–138; BP diastolic 58–75
[2017-10-19] MEDS: LEVALBUTEROL HCL SOLN NEBU 1.25 MG/3 ML NEB INH SCH ×4 (01:45→19:05)
[2017-10-19] MEDS: ONDANSETRON HCL INJ 2 MG/ML VIAL IV PRN ×2 (03:12→20:42)
[2017-10-19 06:36] LABS: BASOPHILS % 0.4 % (0.0-1.0); EOSINOPHILS # (AUTO) 0.4 (0.0-0.4); EOSINOPHILS % 5.2 % (0.0-6.0); HEMATOCRIT 27.1 % (34.2-44.1); HEMOGLOBIN 8.1 g/dL (12.0-16.0); LYMPHOCYTES # (AUTO) 1.2 (1.0-3.2); LYMPHOCYTES % 17.3 % (18.0-39.1); MEAN CORPUSCULAR HEMOGLOBIN 28.8 pg (28-32); MEAN CORPUSCULAR HGB CONC 29.9 g/dL (31-35); MEAN CORPUSCULAR VOLUME 96.4 fL (81-99); MONOCYTES # (AUTO) 0.7 (0.2-0.8); MONOCYTES % 10.1 % (4.4-11.3); NEUTROPHILS # (AUTO) 4.6 (2.1-6.9); NEUTROPHILS % 66.1 % (38.7-80.0); PLATELET COUNT 263 x10e3/uL (140-360); RED BLOOD COUNT 2.81 x10e6/uL (3.6-5.1); RED CELL DISTRIBUTION WIDTH 19.9 % (11.7-14.4)
[2017-10-19 06:56] LABS: ANION GAP 8.6 mmol/L (8-16); BLOOD UREA NITROGEN 9 mg/dL (7-26); BUN/CREATININE RATIO 15 (6-25); CALCIUM 7.9 mg/dL (8.4-10.2); CARBON DIOXIDE 24 mmol/L (22-29); CHLORIDE 113 mmol/L (98-107); CREATININE, SERUM 0.61 mg/dL (0.57-1.11); EST GLOMERULAR FILTRATION RATE > 60 ML/MIN (60-); GLUCOSE 82 mg/dL (74-118); POTASSIUM 3.6 mmol/L (3.5-5.1); SODIUM 142 mmol/L (136-145)
[2017-10-19 07:06] LABS: MAGNESIUM 1.3 MG/DL (1.3-2.1)
[2017-10-19] MEDS: INSULIN LISPRO 100 UNIT/1 ML 3ML VIAL SQ SCH ×4 (07:30→20:43)
[2017-10-19] MEDS: APIXABAN 5 MG TABLET PO SCH ×2 (08:45→16:00)
[2017-10-19] MEDS: DIPHENOXYLATE/ATROPINE TAB PO SCH ×3 (08:45→21:00)
[2017-10-19] MEDS: FERROUS SULFATE 325 MG TAB PO SCH ×3 (08:45→20:42)
[2017-10-19] MEDS: HYDROMORPHONE 1MG/1ML INJ IV PRN ×2 (08:50→14:50)
[2017-10-19] MEDS ORDERED: HYDROMORPHONE 1MG/1ML INJ ONE (08:54)
[2017-10-19] MEDS: BALSAM PERU/CASTOR OIL 60 GM OINT...G. TP SCH ×2 (09:30→20:42)
[2017-10-19] MEDS: NYSTATIN 15 GM POWDER UD BTL TOP SCH (09:30)
[2017-10-19] MEDS: ACETAMINOPHEN 325 MG TAB PO PRN (20:42)
[2017-10-19] MEDS: FLUTICASONE PROPIONATE NASAL SPRAY NS SCH (23:02)
[2017-10-19] MEDS: PANTOPRAZOLE 40 MG 10ML VIAL IV SCH (23:02)
[2017-10-20] VITALS (8 sets, daily range): BP systolic 103–140; BP diastolic 56–73
[2017-10-20] MEDS: LEVALBUTEROL HCL SOLN NEBU 1.25 MG/3 ML NEB INH SCH ×4 (01:55→19:15)
[2017-10-20 06:08] LABS: BASOPHILS % 0.6 % (0.0-1.0); EOSINOPHILS # (AUTO) 0.3 (0.0-0.4); EOSINOPHILS % 3.8 % (0.0-6.0); HEMATOCRIT 26.7 % (34.2-44.1); HEMOGLOBIN 8.1 g/dL (12.0-16.0); LYMPHOCYTES # (AUTO) 1.3 (1.0-3.2); LYMPHOCYTES % 19.8 % (18.0-39.1); MEAN CORPUSCULAR HEMOGLOBIN 29.3 pg (28-32); MEAN CORPUSCULAR HGB CONC 30.3 g/dL (31-35); MEAN CORPUSCULAR VOLUME 96.7 fL (81-99); MONOCYTES # (AUTO) 0.6 (0.2-0.8); MONOCYTES % 9.5 % (4.4-11.3); NEUTROPHILS # (AUTO) 4.3 (2.1-6.9); NEUTROPHILS % 65.5 % (38.7-80.0); PLATELET COUNT 241 x10e3/uL (140-360); RED BLOOD COUNT 2.76 x10e6/uL (3.6-5.1)
[2017-10-20 06:39] LABS: ANION GAP 9.4 mmol/L (8-16); BLOOD UREA NITROGEN 9 mg/dL (7-26); BUN/CREATININE RATIO 15 (6-25); CALCIUM 7.7 mg/dL (8.4-10.2); CARBON DIOXIDE 24 mmol/L (22-29); CHLORIDE 110 mmol/L (98-107); EST GLOMERULAR FILTRATION RATE > 60 ML/MIN (60-); GLUCOSE 82 mg/dL (74-118); POTASSIUM 3.4 mmol/L (3.5-5.1); SODIUM 140 mmol/L (136-145)
[2017-10-20] MEDS: INSULIN LISPRO 100 UNIT/1 ML 3ML VIAL SQ SCH ×4 (07:30→20:50)
[2017-10-20] MEDS: FERROUS SULFATE 325 MG TAB PO SCH ×3 (08:30→20:50)
[2017-10-20] MEDS: DIPHENOXYLATE/ATROPINE TAB PO SCH (08:30)
[2017-10-20] MEDS: HYDROMORPHONE 1MG/1ML INJ IV PRN ×2 (08:30→12:43)
[2017-10-20] MEDS: APIXABAN 5 MG TABLET PO SCH ×2 (08:30→16:15)
[2017-10-20] MEDS: NYSTATIN 15 GM POWDER UD BTL TOP SCH (11:23)
[2017-10-20] MEDS: BALSAM PERU/CASTOR OIL 60 GM OINT...G. TP SCH ×2 (11:23→12:40)
[2017-10-20] MEDS: VANCOMYCIN 250MG/5ML ORAL SOLN PO SCH ×3 (12:40→23:58)
[2017-10-20] MEDS: CHOLESTYRAMINE 4 GM PACKET PO PRN (14:22)
[2017-10-20] MEDS ORDERED: POTASSIUM CHLORIDE 10 MEQ TABCR PO ONE (15:45)
[2017-10-20] MEDS: HYDROCODONE/APAP 10MG-325MG TAB PO PRN ×2 (16:15→21:33)
[2017-10-20] MEDS: OMEPRAZOLE 20 MG CAP PO SCH (17:28)
[2017-10-20] MEDS: FLUTICASONE PROPIONATE NASAL SPRAY NS SCH (20:50)
[2017-10-21] MEDS: LEVALBUTEROL HCL SOLN NEBU 1.25 MG/3 ML NEB INH SCH ×4 (01:02→19:25)
[2017-10-21 04:00] VITALS: BP 122/67
[2017-10-21] MEDS: VANCOMYCIN 250MG/5ML ORAL SOLN PO SCH ×3 (05:27→18:07)
[2017-10-21] MEDS: INSULIN LISPRO 100 UNIT/1 ML 3ML VIAL SQ SCH ×4 (07:30→20:35)
[2017-10-21] MEDS: FERROUS SULFATE 325 MG TAB PO SCH ×3 (08:26→21:11)
[2017-10-21] MEDS: APIXABAN 5 MG TABLET PO SCH ×2 (08:26→16:48)
[2017-10-21] MEDS: OMEPRAZOLE 20 MG CAP PO SCH ×2 (08:26→16:48)
[2017-10-21] MEDS: NYSTATIN 15 GM POWDER UD BTL TOP SCH (08:39)
[2017-10-21] MEDS: BALSAM PERU/CASTOR OIL 60 GM OINT...G. TP SCH ×2 (08:39→21:11)
[2017-10-21 09:08] VITALS: BP 123/60
[2017-10-21 09:56] VITALS: BP 123/60
[2017-10-21] MEDS: HYDROCODONE/APAP 10MG-325MG TAB PO PRN ×2 (10:40→22:51)
[2017-10-21 12:00] VITALS: BP 107/65
[2017-10-21 12:54] LABS: ALBUMIN 2.1 g/dL (3.5-5.0); BILIRUBIN,DIRECT 0.3 mg/dL (0.0-0.5)
[2017-10-21] MEDS ORDERED: POTASSIUM CHLORIDE 20MEQ/100ML 200 ML IV ONE (15:00)
[2017-10-21 16:00] VITALS: BP 129/63
[2017-10-21] MEDS: ONDANSETRON HCL INJ 2 MG/ML VIAL IV PRN ×2 (16:54→22:51)
--- NOTE | 2017-10-21 17:37 | Diagnostic Imaging Report ---
PROCEDURE:ABDOMINAL ULTRASOUND COMPARISON:[facility], CT, CT ABDOMEN/PELVIS WO, 10/03/2017, 13:20. INDICATIONS:LUQ ABDOMEN PAIN for one year TECHNIQUE: Dickson-scale and color sonographic images were obtained of the abdomen in transverse and sagittal planes. FINDINGS: Exam limited by patient's large body habitus, overlying bowel gas and multiple post surgical bandages which cover the anterior abdomen. Liver: 17.2 in length in right midclavicular line. Increased echogenicity. 3.0 x 2.8 x 3.2 cm heterogeneously hypoechoic structure anterior to the left hepatic lobe, corresponds to the previously visualized hyperdense lesion which may represent a hematoma. No other focal lesions. Main portal vein: 0.8 cm, hepatopetal flow Gallbladder: Absent Common Bile Duct: 1.1 cm, dilated. No intraluminal filling defects Sonographic Poole's sign: Negative Right kidney: 10.8 cm. Left kidney: 10.2 cm. Normal bilateral renal cortical echogenicity. No hydronephrosis, stones, or solid masses. 1.8 x 1.2 x 2.4 cm solid structure anterior to the right kidney, isoechoic to liver, corresponds to the previously visualized right adrenal lipid rich adenoma Spleen: 8.3 cm. No focal lesions. Pancreas: The visualized portions are unremarkable. Inferior vena cava: Patent Aorta: Distal portion is obstructed by bandages. Ascites: None CONCLUSION: 1. Limited exam, as detailed above. 2. Hepatomegaly with fatty infiltration. 3.2 cm heterogeneously hypoechoic structure anterior to the left hepatic lobe likely corresponds to the previously visualized hyperdense lesion on CT, which may represent a subcapsular hematoma. 3. 2.4 cm solid structure anterior to the right kidney corresponds to the previously visualized right adrenal lipid rich adenoma. 4. Dilated common bile duct. No obstructing stone or intrahepatic bile duct dilation is noted. This may be secondary to post cholecystectomy status. Lee Skinner M.D. Dictated by: Lee Skinner M.D. on 10/21/2017 at 17:39 Electronically approved by: Lee Skinner M.D. on 10/21/2017 at 17:39
[2017-10-21 20:12] VITALS: BP 138/65
[2017-10-21] MEDS: FLUTICASONE PROPIONATE NASAL SPRAY NS SCH (21:10)
[2017-10-22] VITALS (7 sets, daily range): BP systolic 108–139; BP diastolic 53–65
[2017-10-22] MEDS: LEVALBUTEROL HCL SOLN NEBU 1.25 MG/3 ML NEB INH SCH ×4 (01:15→19:00)
[2017-10-22] MEDS: ACETAMINOPHEN 325 MG TAB PO PRN (05:06)
[2017-10-22] MEDS: VANCOMYCIN 250MG/5ML ORAL SOLN PO SCH ×4 (05:06→17:37)
[2017-10-22 06:11] LABS: BASOPHILS % 0.7 % (0.0-1.0); EOSINOPHILS # (AUTO) 0.2 (0.0-0.4); EOSINOPHILS % 3.5 % (0.0-6.0); HEMATOCRIT 27.6 % (34.2-44.1); HEMOGLOBIN 8.2 g/dL (12.0-16.0); LYMPHOCYTES # (AUTO) 1.4 (1.0-3.2); LYMPHOCYTES % 24.9 % (18.0-39.1); MEAN CORPUSCULAR HEMOGLOBIN 29.1 pg (28-32); MEAN CORPUSCULAR HGB CONC 29.7 g/dL (31-35); MEAN CORPUSCULAR VOLUME 97.9 fL (81-99); MONOCYTES # (AUTO) 0.4 (0.2-0.8); MONOCYTES % 8.1 % (4.4-11.3); NEUTROPHILS # (AUTO) 3.4 (2.1-6.9); NEUTROPHILS % 62.4 % (38.7-80.0); PLATELET COUNT 209 x10e3/uL (140-360); RED BLOOD COUNT 2.82 x10e6/uL (3.6-5.1); RED CELL DISTRIBUTION WIDTH 19.8 % (11.7-14.4)
[2017-10-22 06:44] LABS: ANION GAP 8.1 mmol/L (8-16); BLOOD UREA NITROGEN 9 mg/dL (7-26); BUN/CREATININE RATIO 15 (6-25); CALCIUM 7.8 mg/dL (8.4-10.2); CARBON DIOXIDE 24 mmol/L (22-29); CHLORIDE 112 mmol/L (98-107); CREATININE, SERUM 0.62 mg/dL (0.57-1.11); EST GLOMERULAR FILTRATION RATE > 60 ML/MIN (60-); GLUCOSE 84 mg/dL (74-118); POTASSIUM 4.1 mmol/L (3.5-5.1); SODIUM 140 mmol/L (136-145)
[2017-10-22] MEDS: INSULIN LISPRO 100 UNIT/1 ML 3ML VIAL SQ SCH ×4 (07:30→21:00)
[2017-10-22] MEDS: OMEPRAZOLE 20 MG CAP PO SCH ×2 (08:00→16:30)
[2017-10-22] MEDS: BALSAM PERU/CASTOR OIL 60 GM OINT...G. TP SCH ×2 (09:41→21:00)
[2017-10-22] MEDS: APIXABAN 5 MG TABLET PO SCH ×2 (09:41→17:00)
[2017-10-22] MEDS: FERROUS SULFATE 325 MG TAB PO SCH ×3 (09:41→21:20)
[2017-10-22] MEDS: NYSTATIN 15 GM POWDER UD BTL TOP SCH (09:41)
[2017-10-22] MEDS: HYDROCODONE/APAP 10MG-325MG TAB PO PRN (13:09)
[2017-10-22] MEDS: MUPIROCIN 2% OINT 22 GM TUBE TOP SCH (17:00)
[2017-10-22] MEDS: FLUTICASONE PROPIONATE NASAL SPRAY NS SCH (21:20)
[2017-10-23] VITALS: BP 121/58
[2017-10-23] MEDS: VANCOMYCIN 250MG/5ML ORAL SOLN PO SCH ×4 (00:50→17:03)
[2017-10-23] MEDS: LEVALBUTEROL HCL SOLN NEBU 1.25 MG/3 ML NEB INH SCH ×4 (01:00→19:20)
[2017-10-23 04:00] VITALS: BP 136/65
[2017-10-23] MEDS: INSULIN LISPRO 100 UNIT/1 ML 3ML VIAL SQ SCH ×3 (07:16→16:24)
[2017-10-23] MEDS: OMEPRAZOLE 20 MG CAP PO SCH ×2 (07:30→16:30)
[2017-10-23 07:37] VITALS: BP 129/70
[2017-10-23 09:00] VITALS: BP 129/70
[2017-10-23] MEDS: NYSTATIN 15 GM POWDER UD BTL TOP SCH (09:00)
[2017-10-23] MEDS: MUPIROCIN 2% OINT 22 GM TUBE TOP SCH ×2 (09:00→17:03)
[2017-10-23] MEDS: FERROUS SULFATE 325 MG TAB PO SCH ×3 (09:00→22:01)
[2017-10-23] MEDS: BALSAM PERU/CASTOR OIL 60 GM OINT...G. TP SCH ×2 (09:00→22:02)
[2017-10-23] MEDS: APIXABAN 5 MG TABLET PO SCH ×2 (09:00→17:03)
[2017-10-23 16:10] VITALS: BP 123/76
[2017-10-23 20:00] VITALS: BP 130/63
[2017-10-23] MEDS: FLUTICASONE PROPIONATE NASAL SPRAY NS SCH (22:01)
[2017-10-23] MEDS: ACETAMINOPHEN 325 MG TAB PO PRN (22:50)
[2017-10-24] VITALS: BP 119/57
[2017-10-24] MEDS: LEVALBUTEROL HCL SOLN NEBU 1.25 MG/3 ML NEB INH SCH ×3 (01:00→12:34)
[2017-10-24] MEDS: VANCOMYCIN 250MG/5ML ORAL SOLN PO SCH ×4 (01:00→18:19)
[2017-10-24 04:00] VITALS: BP 119/57
[2017-10-24 06:17] LABS: BASOPHILS % 0.7 % (0.0-1.0); EOSINOPHILS # (AUTO) 0.2 (0.0-0.4); EOSINOPHILS % 3.9 % (0.0-6.0); HEMATOCRIT 26.2 % (34.2-44.1); HEMOGLOBIN 8.3 g/dL (12.0-16.0); LYMPHOCYTES # (AUTO) 1.7 (1.0-3.2); LYMPHOCYTES % 31.3 % (18.0-39.1); MEAN CORPUSCULAR HEMOGLOBIN 29.2 pg (28-32); MEAN CORPUSCULAR HGB CONC 31.7 g/dL (31-35); MEAN CORPUSCULAR VOLUME 92.3 fL (81-99); MONOCYTES # (AUTO) 0.5 (0.2-0.8); MONOCYTES % 8.5 % (4.4-11.3); PLATELET COUNT 185 x10e3/uL (140-360); RED BLOOD COUNT 2.84 x10e6/uL (3.6-5.1); RED CELL DISTRIBUTION WIDTH 19.5 % (11.7-14.4)
[2017-10-24 06:41] LABS: ANION GAP 7.5 mmol/L (8-16); BLOOD UREA NITROGEN 9 mg/dL (7-26); BUN/CREATININE RATIO 16 (6-25); CALCIUM 7.5 mg/dL (8.4-10.2); CARBON DIOXIDE 23 mmol/L (22-29); CHLORIDE 111 mmol/L (98-107); CREATININE, SERUM 0.57 mg/dL (0.57-1.11); EST GLOMERULAR FILTRATION RATE > 60 ML/MIN (60-); GLUCOSE 79 mg/dL (74-118); POTASSIUM 3.5 mmol/L (3.5-5.1); SODIUM 138 mmol/L (136-145)
[2017-10-24 08:01] VITALS: BP 123/65
[2017-10-24 08:03] LABS: EOSINOPHILS % (MANUAL) 2 % (0-7); LYMPHOCYTES % (MANUAL) 8 % (19-48); METAMYELOCYTES % (MANUAL) 2 % (0-0); MONOCYTES % (MANUAL) 7 % (3.4-9.0); NEUTROPHILS % (MANUAL) 79 % (40-74); PLATELET ESTIMATE ADEQUATE; PLATELET MORPHOLOGY COMMENT NORMAL; RBC MORPHOLOGY COMMENT NORMAL
[2017-10-24] MEDS: MUPIROCIN 2% OINT 22 GM TUBE TOP SCH ×2 (09:22→16:05)
[2017-10-24] MEDS: APIXABAN 5 MG TABLET PO SCH ×2 (09:22→16:25)
[2017-10-24] MEDS: OMEPRAZOLE 20 MG CAP PO SCH ×2 (09:22→16:25)
[2017-10-24] MEDS: BALSAM PERU/CASTOR OIL 60 GM OINT...G. TP SCH (09:22)
[2017-10-24] MEDS: FERROUS SULFATE 325 MG TAB PO SCH ×2 (09:22→16:25)
[2017-10-24] MEDS: HYDROCODONE/APAP 10MG-325MG TAB PO PRN ×2 (09:22→18:19)
[2017-10-24] MEDS: NYSTATIN 15 GM POWDER UD BTL TOP SCH (09:22)
[2017-10-24 09:30] VITALS: BP 123/65
[2017-10-24] MEDS: CHOLESTYRAMINE 4 GM PACKET PO PRN (10:35)
[2017-10-24 12:32] VITALS: BP 116/70
[2017-10-24 16:00] VITALS: BP 123/64
--- NOTE | 2017-12-05 10:01 | Consultation ---
DATE OF CONSULTATION: SURGICAL CONSULTATION REASON FOR CONSULTATION: Peritonitis. HPI: This 81-year-old female was admitted to the hospital presenting in the emergency room complaining of severe dull abdominal pain that had been going on for several days, and had become progressively worse to the point that she could no longer stand it. Therefore, she came to the emergency room. The pain encompassed the entire abdominal cavity. This was associated with nausea and vomiting. PAST MEDICAL HISTORY: Remarkable for COPD and hypertension. Patient also has an extensive history of previous abdominal surgeries, including several bowel resections. ALLERGIES: NONE. MEDICATIONS: Please refer to MAR. REVIEW OF SYSTEMS: Otherwise unremarkable. PHYSICAL EXAMINATION GENERAL: At time that we saw the patient revealed a female lying in bed in acute distress complaining of abdominal pain. VITALS: She was afebrile. She tachycardic and hypotensive. HEENT: Showed no acute inflammation. NECK: No nodes, masses or bruits. LUNGS: Clear to auscultation. HEART: Regular rate and rhythm. ABDOMEN: Was distended and diffusely tender with positive guarding and rebound and rigidity. There were no bowel sounds. EXTREMITIES: Good pulses bilaterally. ASSESSMENT: Peritonitis. Rule out bowel. PLAN: Will be aggressive IV hydration, antibiotics and emergency laparotomy. Thank you very much for asking me to see this patient. Job#: [id number] CHECO
--- NOTE | 2017-12-05 10:02 | Operative Report ---
DATE OF PROCEDURE: September 21, 2017 PREOPERATIVE DIAGNOSIS: Peritonitis, rule out bowel. POSTOPERATIVE DIAGNOSIS: Peritonitis secondary to necrotic right colon. OPERATIONS PERFORMED 1. Exploratory laparotomy. 2. Extensive lysis of adhesions. 3. Extended right colectomy. ANESTHESIA: General endotracheal. COMPLICATIONS: None. ESTIMATED BLOOD LOSS: 400 mL. DESCRIPTION OF PROCEDURE: With the patient lying in bed in the supine position, under good general endotracheal anesthesia, the abdomen was prepped with Betadine solution and draped in the usual manner. A midline incision was made. It was carried down through the subcutaneous tissue down to the midline fascia. The fascia was opened, the peritoneum was opened, and the abdomen was entered. Upon entering the abdominal cavity, very extensive adhesions were encountered. Bowel and colon were all stuck to the anterior abdominal wall on the left lower quadrant. The bowel was also all stuck to the lateral gutter. The patient had had multiple previous surgeries. All of the adhesions were slowly and carefully taken down. We slowly got access to the intra-abdominal cavity. At this point, it became evident the right colon was distended and ischemic and necrotic. We decided to go ahead and proceed with resection. The right colon was then mobilized over the lateral gutter and brought medially. The transverse colon was also mobilized by opening up the lesser sac and bringing it down. At this point, the terminal ileum was then divided with an application of STANTON 75 stapler. The mesentery of the right colon was slowly and carefully taken down using the In-Seal device all the way past the midline of the transverse colon to the point where there appeared to be some colon that was viable which was at the level of the distal transverse colon. At this point, the colon was again divided with an application of STANTON 75 stapler and the specimen was sent for pathological examination. The anastomosis was then performed with an application of STANTON 75 stapler and remaining opening was closed with a TA-60 stapler. Gloves and instruments were then changed. The mesenteric rent was closed with 2-0 Vicryl. There were also some other extensive adhesions on the left side that had to be slowly and carefully taken down where the colon was totally plastered in the left lower quadrant. Once all of this was done, the whole area was thoroughly irrigated. Perfect hemostasis was ascertained. The abdomen was then closed in layers. The peritoneum was closed with running suture of #1 Vicryl. The midline fascia was closed with a running suture of #1 PDS and the skin was closed with clips. A dressing was applied. The sponge, lap, and needle counts were correct. The patient tolerated the procedure well and returned to the recovery room in stable condition. Job#: [id number] CF
== END 2017-10-24 19:16 | DRG 853 ==
LOC: ER 12:01 → ERHOLD 17:34 → UNDOADMIN 17:34 → ER 18:27 → ICU 22:33 → MED/SURG 09-26 13:11 → ICU 09-29 08:40 → MED/SURG2 10-16 16:11 → ACU 10-20 10:40 → MED/SURG2 10-20 10:41
PROVIDERS: ADMIT Internal Medicine; ATTEND Internal Medicine
PROC: 0DN80ZZ Release Small Intestine, Open Approach (ICD-10-PCS; 2017-09-21)
PROC: 30233N1 Transfusion of Nonautologous Red Blood Cells into Peripheral Vein, Percutaneous Approach (ICD-10-PCS; 2017-09-21)
PROC: 0DTF0ZZ Resection of Right Large Intestine, Open Approach (ICD-10-PCS; principal; 2017-09-21 18:00)
PROC: 02HV33Z Insertion of Infusion Device into Superior Vena Cava, Percutaneous Approach (ICD-10-PCS; 2017-09-29)
PROC: 5A1D70Z Performance of Urinary Filtration, Intermittent, Less than 6 Hours Per Day (ICD-10-PCS; 2017-09-29)
PROC: 30233R1 Transfusion of Nonautologous Platelets into Peripheral Vein, Percutaneous Approach (ICD-10-PCS; 2017-09-29)
PROC: 5A1955Z Respiratory Ventilation, Greater than 96 Consecutive Hours (ICD-10-PCS; 2017-09-29)
PROC: 0W9G0ZZ Drainage of Peritoneal Cavity, Open Approach (ICD-10-PCS; 2017-09-29)
PROC: 0DT80ZZ Resection of Small Intestine, Open Approach (ICD-10-PCS; 2017-09-29)
PROC: 02HV33Z Insertion of Infusion Device into Superior Vena Cava, Percutaneous Approach (ICD-10-PCS; 2017-10-10)
PROC: 3E0436Z Introduction of Nutritional Substance into Central Vein, Percutaneous Approach (ICD-10-PCS; 2017-10-14)
DX: A41.9 Sepsis, unspecified organism (principal); K55.049 Acute infarction of large intestine, extent unspecified; R65.21 Severe sepsis with septic shock; N17.0 Acute kidney failure with tubular necrosis; K65.9 Peritonitis, unspecified; K65.1 Peritoneal abscess; J95.821 Acute postprocedural respiratory failure; K55.039 Acute (reversible) ischemia of large intestine, extent unspecified; K56.52 Intestinal adhesions [bands] with complete obstruction; B37.49 Other urogenital candidiasis; J90 Pleural effusion, not elsewhere classified; R18.8 Other ascites; D68.59 Other primary thrombophilia; I82.C11 Acute embolism and thrombosis of right internal jugular vein; E87.0 Hyperosmolality and hypernatremia; K91.2 Postsurgical malabsorption, not elsewhere classified; E66.9 Obesity, unspecified; D69.6 Thrombocytopenia, unspecified; I95.9 Hypotension, unspecified; B96.89 Other specified bacterial agents as the cause of diseases classified elsewhere; Z16.12 Extended spectrum beta lactamase (ESBL) resistance; B96.20 Unspecified Escherichia coli [E. coli] as the cause of diseases classified elsewhere; B95.2 Enterococcus as the cause of diseases classified elsewhere; D64.9 Anemia, unspecified; A41.81 Sepsis due to Enterococcus; Z68.31 Body mass index [BMI] 31.0-31.9, adult
CPT/HCPCS: 36415; 36430; 36556; 36600; 49083; 51700; 71045; 74018; 74176; 74470; 76700; 76770; 76937; 77001; 80048; 80053; 80061; 80076; 80202; 81001; 81241; 81400; 82150; 82270; 82330; 82533; 82550; 82553; 82607; 82728; 82746; 82805; 82948; 83540; 83605; 83690; 83735; 84100; 84132; 84443; 84466; 84484; 85025; 85303; 85306; 85379; 85384; 85597; 85610; 85613; 85730; 86022; 86039; 86146; 86147; 86431; 86704; 86706; 86850; 86900; 86920; 87040; 87045; 87070; 87071; 87075; 87086; 87186; 87205; 87340; 87493; 88307; 89051; 90962; 93005; 93971; 94002; 94003; 94640; 96361; 96365; 96366; 96372; 97139; 99284; C1729; C1751; J0610; J1170; J1200; J1450; J1580; J1644; J1756; J1885; J1940; J2020; J2185; J2248; J2250; J2270; J2370; J2405; J2543; J2550; J3370; J3475; J3480; J7030; J7040; J7050; J7070; J7120; P9016; P9034

== ENCOUNTER 2017-12-13 23:20 | Inpatient (IN) | payer OTHER ==
[~2017-12-13] VITALS: Ht 162.6 cm; Wt 79.9 kg
[2017-12-13] MEDS ORDERED: DIATRIZOATE MEGL/DIATRIZOA SOD 30 ML BTL PO ONE (23:41)
[2017-12-13] MEDS ORDERED: OMEPRAZOLE40 MG PO (23:58)
[2017-12-13] MEDS ORDERED: ELIQUIS PO (23:58)
[2017-12-13] MEDS ORDERED: MIRTAZAPINE15 MG PO (23:58)
[2017-12-14 00:02] LABS: BASOPHILS % 0.3 % (0.0-1.0); EOSINOPHILS # (AUTO) 0.1 (0.0-0.4); EOSINOPHILS % 1.4 % (0.0-6.0); HEMATOCRIT 36.6 % (34.2-44.1); LYMPHOCYTES # (AUTO) 3.4 (1.0-3.2); LYMPHOCYTES % 46.1 % (18.0-39.1); MEAN CORPUSCULAR HEMOGLOBIN 29.8 pg (28-32); MEAN CORPUSCULAR HGB CONC 32.8 g/dL (31-35); MEAN CORPUSCULAR VOLUME 90.8 fL (81-99); MONOCYTES # (AUTO) 0.8 (0.2-0.8); MONOCYTES % 10.6 % (4.4-11.3); NEUTROPHILS % 41.5 % (38.7-80.0); PLATELET COUNT 257 x10e3/uL (140-360); RED BLOOD COUNT 4.03 x10e6/uL (3.6-5.1); RED CELL DISTRIBUTION WIDTH 16.2 % (11.7-14.4)
[2017-12-14 00:20] LABS: ALANINE AMINOTRANSFERASE 16 IU/L (0-55); ALBUMIN 2.2 g/dL (3.5-5.0); ALBUMIN/GLOBULIN RATIO 0.5 (0.8-2.0); ALKALINE PHOSPHATASE 92 IU/L (40-150); AMYLASE 20 U/L (25-125); ANION GAP 11.5 mmol/L (8-16); BLOOD UREA NITROGEN 7 mg/dL (7-26); BUN/CREATININE RATIO 13 (6-25); CALCIUM 8.3 mg/dL (8.4-10.2); CARBON DIOXIDE 21 mmol/L (22-29); CHLORIDE 105 mmol/L (98-107); CREATININE, SERUM 0.55 mg/dL (0.57-1.11); EST GLOMERULAR FILTRATION RATE > 60 ML/MIN (60-); GLUCOSE 97 mg/dL (74-118); LIPASE 14 U/L (8-78); POTASSIUM 3.5 mmol/L (3.5-5.1); SODIUM 134 mmol/L (136-145)
[2017-12-14] MEDS ORDERED: SODIUM CHLORIDE 0.9% 50ML 50 ML ONE (01:57)
[2017-12-14] MEDS ORDERED: IOPAMIDOL 370 MG/ML 200 ML INFUS..BTL INJ ONE (01:58)
--- NOTE | 2017-12-14 02:28 | Diagnostic Imaging Report ---
EXAM: CT ABDOMEN/PELVIS W DATE: 12/13/2017 11:32 PM INDICATION: Abdominal pain, no abdominal wall drainage COMPARISON: 10/03/2017 TECHNIQUE: The abdomen and pelvis were scanned using a multidetector helical scanner. Coronal and sagittal reformations were obtained. IV Contrast: 100 ml Isovue 300/370 FINDINGS: LOWER THORAX: Small left greater than right pleural effusions with associated atelectasis, similar to prior LIVER/BILIARY: Severe hepatic steatosis. Previously seen high density along the anterior left liver has significantly decreased, presumably resolving hematoma. GALLBLADDER: Cholecystectomy SPLEEN: Unremarkable PANCREAS: Unremarkable ADRENALS: Stable right adrenal adenoma. Clips are seen in the region of the left adrenal. KIDNEYS: No suspicious renal masses. No hydronephrosis. GI TRACT: Status post extended right hemicolectomy. Moderate bowel wall thickening with adjacent inflammatory phlegmonous change and mild fluid is seen along small bowel anastomotic suture, which is closely opposed to the anterior abdominal wall. Several contained foci of gas appear extraluminal (axial image 56), likely contained fistula. No extravasated administered oral contrast. VESSELS: Moderate atherosclerotic changes PERITONEUM/RETROPERITONEUM: See above. LYMPH NODES: No lymphadenopathy REPRODUCTIVE ORGANS/BLADDER: Small to moderate gas within the wall of the bladder. No oral contrast within the bladder to suggest fistula. Mild layering debris. SOFT TISSUES: Rim enhancing hazy fat along the midline incision measuring 1.4 x 1.8 x 20 cm, likely evolving postsurgical fat necrosis/changes; no reported drainage to the skin per ordering clinician. BONES: Multilevel degenerative changes. IMPRESSION: 1. Emphysematous cystitis. 2. 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 No drainable collection. Discussed with Dr. Grace at 2:20 AM on 12/14/2017. Signed by: Dr Radha Munguia MD on 12/14/2017 2:25 AM
--- NOTE | 2017-12-14 02:30 | Diagnostic Imaging Report ---
CHEST SINGLE (PORTABLE), 12/13/2017 11:32 PM Technique: CHEST SINGLE (PORTABLE) Comparison: 10/15/2017, 10/06/2017 Clinical history: Pain with breathing Findings: See Impression Impression: Limited by portable technique and body habitus 1. Stable cardiomediastinal silhouette. 2. Stable small left effusion with associated atelectasis. Trace right effusion. Signed by: Dr Radha Munguia MD on 12/14/2017 2:27 AM
[2017-12-14 02:44] LABS: CLARITY,URINE SL CLOUDY (CLEAR); COLOR,URINE COLORLESS (YELLOW); LEUKOCYTE ESTERASE ,URINE NEGATIVE (NEGATIVE)
[2017-12-14 02:45] LABS: BILIRUBIN,URINE NEGATIVE (NEGATIVE); KETONES,URINE NEGATIVE (NEGATIVE); NITRITE,URINE NEGATIVE (NEGATIVE); PROTEIN,URINE DIPSTICK NEGATIVE (NEGATIVE); URINE UROBILINOGEN 0.2 mg/dL (0.2 - 1)
[2017-12-14 02:55] LABS: BACTERIA,URINE MODERATE /HPF; EPITHELIAL CELLS,URINE MANY /LPF; RBC,URINE 0-5 /HPF (0-5); TRANSITIONAL EPI CELLS,URINE RARE
[2017-12-14] MEDS ORDERED: ONDANSETRON HCL INJ 2 MG/ML VIAL IV PRN (03:00)
[2017-12-14] MEDS: CEFTRIAXONE SOD 1 GM VIAL IV SCH ×2 (03:41→15:00)
[2017-12-14] MEDS: SODIUM CHLORIDE 0.9% 1000ML 1,000 ML IV SCH ×2 (03:41→11:05)
[2017-12-14] MEDS: MORPHINE SULFATE 2 MG/ML SYR IV PRN ×2 (03:41→11:05)
[2017-12-14 07:30] VITALS: BP 139/63
[2017-12-14] MEDS ORDERED: LEVAQUIN500 MG PO (07:57)
[2017-12-14 08:19] VITALS: BP 139/63
[2017-12-14] MEDS ORDERED: DILTIAZEM HCL 60 MG TAB PO SCH (09:00)
[2017-12-14] MEDS ORDERED: DILTIAZEM HCL PO SCH (09:00)
[2017-12-14] MEDS: SALMETEROL/FLUTICASONE 250/50 INH SCH ×2 (09:00→17:00)
[2017-12-14] MEDS ORDERED: ACETAMINOPHEN325 M1 PO (09:04)
[2017-12-14] MEDS: DILTIAZEM HCL LA 120MG 120 MG CAP PO SCH (09:54)
[2017-12-14] MEDS ORDERED: ACETAMINOPHEN 325 MG TAB PO PRN (11:00)
[2017-12-14 11:52] VITALS: BP 142/67
--- NOTE | 2017-12-14 14:48 | History and Physical ---
PRIMARY CARE PHYSICIAN: Dr. Lila Cary. BATTERY RECHARGER: Dr. Tad Chauhan. CHIEF COMPLAINT: Abdominal pain. HISTORY: A 81-year-old female with extensive, complicated abdominal surgery. Patient saw Dr. Chauhan last . She complained of some abdominal pain when she had increasing exertion. The patient does have an open wound adhesion in the abdominal area that is stable. No significant drainage. No bleeding. The patient had a normal white cell count of 7300. Chemistry, renal function is stable. Patient is afebrile. On admission, CT scan of the abdomen and pelvis confirmed previous cholecystectomy and extensive abdominal surgery with a right hemicolectomy. The impression is emphysematous cystitis. The clinical is that the patient is urinating well. Urinalysis otherwise unremarkable. There is some urinary bacteria with epithelial cells many, wbc's 10,000, and leukocyte esterase negative. 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 No drainable collection, however. The patient is stable at this time. PAST MEDICAL HISTORY: As above. Complicated abdominal surgery, hypo-coagulation, anticoagulant therapy with Eliquis. SOCIAL HISTORY: Patient does not smoke or use alcohol. No recreational drugs. ALLERGIES: CIPRO. HOME MEDICATIONS: List is reviewed. REVIEW OF SYSTEMS: As mentioned. PHYSICAL EXAMINATION VITAL SIGNS: Temperature is 98, blood pressure 139/63, pulse rate is 72, respirations 18. GENERAL: At this time, the patient is not in acute distress. She is awake. HEENT: Normocephalic, atraumatic. Anicteric. NECK: Supple grossly. PULMONARY: Clear. CARDIOVASCULAR: Regular rate and rhythm. ABDOMEN: Soft. Surgical scar mostly healed. There is a very small area of opening. There is no drainable abscess. There is no redness surrounding the open wound. This is soft and no distention. EXTREMITIES: No cyanosis or edema. NEUROLOGIC: There is no gross focal deficit. LABORATORY DATA: Otherwise unremarkable. IMPRESSION 1. Abdominal pain, most likely chronic. 2. 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 This is still needing further workup or repeat CT scan in the near future. No acute abdomen. 3. Emphysematous cystitis. Patient has pretty much normal urinalysis. No fever. No leukocytosis. May need to continue to monitor closely. PLAN: Hold the Eliquis just in case Dr. Chauhan want to do any other procedures. For now, the patient keep n.p.o. until Dr. Chauhan see the patient today. Continue with IV fluid. Otherwise, the patient is stable. Patient may go home if no surgical intervention. We will discuss with Dr. Chauhan upon his re-evaluation of the patient since last he saw the patient. Job#: [id number] BELL
[2017-12-14 16:09] VITALS: BP 123/63
[2017-12-14 19:55] VITALS: BP 141/61
[2017-12-14 20:00] VITALS: BP 119/58
[2017-12-14] MEDS ORDERED: MIRTAZAPINE 15 MG TAB PO SCH (21:00)
[2017-12-15 00:24] VITALS: BP 119/58
[2017-12-15] MEDS: SODIUM CHLORIDE 0.9% 1000ML 1,000 ML IV SCH ×2 (00:32→13:50)
[2017-12-15] MEDS: CEFTRIAXONE SOD 1 GM VIAL IV SCH ×2 (04:40→17:28)
[2017-12-15 05:04] LABS: BASOPHILS % 0.4 % (0.0-1.0); EOSINOPHILS # (AUTO) 0.2 (0.0-0.4); EOSINOPHILS % 2.7 % (0.0-6.0); HEMATOCRIT 33.5 % (34.2-44.1); HEMOGLOBIN 10.6 g/dL (12.0-16.0); LYMPHOCYTES # (AUTO) 3.4 (1.0-3.2); LYMPHOCYTES % 59.7 % (18.0-39.1); MEAN CORPUSCULAR HEMOGLOBIN 29.5 pg (28-32); MEAN CORPUSCULAR HGB CONC 31.6 g/dL (31-35); MEAN CORPUSCULAR VOLUME 93.3 fL (81-99); MONOCYTES # (AUTO) 0.5 (0.2-0.8); MONOCYTES % 8.7 % (4.4-11.3); NEUTROPHILS # (AUTO) 1.6 (2.1-6.9); NEUTROPHILS % 28.3 % (38.7-80.0); PLATELET COUNT 181 x10e3/uL (140-360); RED BLOOD COUNT 3.59 x10e6/uL (3.6-5.1)
[2017-12-15 05:31] LABS: ALANINE AMINOTRANSFERASE 15 IU/L (0-55); ALBUMIN 1.7 g/dL (3.5-5.0); ALBUMIN/GLOBULIN RATIO 0.6 (0.8-2.0); ALKALINE PHOSPHATASE 74 IU/L (40-150); ANION GAP 10.6 mmol/L (8-16); BLOOD UREA NITROGEN < 5 mg/dL (7-26); CALCIUM 7.8 mg/dL (8.4-10.2); CARBON DIOXIDE 21 mmol/L (22-29); CHLORIDE 110 mmol/L (98-107); CREATININE, SERUM 0.47 mg/dL (0.57-1.11); EST GLOMERULAR FILTRATION RATE > 60 ML/MIN (60-); GLUCOSE 92 mg/dL (74-118); SODIUM 139 mmol/L (136-145)
[2017-12-15 05:57] VITALS: BP 115/53
[2017-12-15 05:59] LABS: BUN/CREATININE RATIO 11 (6-25)
[2017-12-15 06:00] LABS: POTASSIUM 2.6 mmol/L (3.5-5.1)
[2017-12-15] MEDS ORDERED: POTASSIUM CHLORIDE 20 MEQ TAB CR PO ONE ×2 (06:35→11:00)
[2017-12-15 06:49] LABS: PHOSPHORUS 3.3 MG/DL (2.3-4.7)
[2017-12-15] MEDS ORDERED: MAGNESIUM SULFATE 2GM/50ML 50 ML IV ONE ×2 (07:30→12:00)
[2017-12-15] MEDS ORDERED: PANTOPRAZOLE SOD 40 MG TABEC PO SCH (07:30)
[2017-12-15] MEDS ORDERED: MORPHINE SULFATE INJ 4 MG/ML INJ IV PRN (07:30)
[2017-12-15 08:00] VITALS: BP 116/56
[2017-12-15 08:07] VITALS: BP 116/56
[2017-12-15] MEDS: SALMETEROL/FLUTICASONE 250/50 INH SCH ×2 (09:00→17:28)
[2017-12-15] MEDS: MAGNESIUM OXIDE 400 MG TAB PO SCH ×3 (09:21→17:28)
[2017-12-15] MEDS: APIXABAN 5 MG TABLET PO SCH ×2 (09:21→17:28)
[2017-12-15] MEDS: DILTIAZEM HCL LA 120MG 120 MG CAP PO SCH (10:23)
[2017-12-15 12:15] VITALS: BP 126/59
[2017-12-15 14:02] LABS: ANION GAP 10.6 mmol/L (8-16); BLOOD UREA NITROGEN < 5 mg/dL (7-26); CALCIUM 8.1 mg/dL (8.4-10.2); CARBON DIOXIDE 21 mmol/L (22-29); CHLORIDE 109 mmol/L (98-107); CREATININE, SERUM 0.61 mg/dL (0.57-1.11); EST GLOMERULAR FILTRATION RATE > 60 ML/MIN (60-); GLUCOSE 172 mg/dL (74-118); POTASSIUM 3.6 mmol/L (3.5-5.1); SODIUM 137 mmol/L (136-145)
[2017-12-15 14:03] LABS: BUN/CREATININE RATIO 8 (6-25)
[2017-12-15 15:54] VITALS: BP 111/53
[2017-12-15] MEDS ORDERED: K DUR10 MEQ PO (18:28)
[2017-12-15] MEDS ORDERED: MAGNESIUM OXID400 MG PO (18:29)
[2017-12-15] MEDS ORDERED: KEFLEX500 MG (18:32)
[2017-12-16] MEDS ORDERED: DILTIAZEM HCL 120 MG CAP CD PO SCH (09:00)
== END 2017-12-15 19:36 | disposition home or self-care (01) | DRG 395 ==
LOC: ER 23:20 → ERHOLD 12-14 03:02 → MED/SURG 12-14 06:57
PROVIDERS: ADMIT Internal Medicine; ATTEND Internal Medicine
DX: K63.2 Fistula of intestine (principal); N30.80 Other cystitis without hematuria
CPT/HCPCS: 36415; 71045; 74177; 80048; 80053; 81001; 82150; 83690; 83735; 84100; 85025; 87086; 99284; J0696; J2270; J2405; J7030; Q9967

== ENCOUNTER 2017-12-31 13:53 | Inpatient (IN) | payer OTHER ==
[~2017-12-31] VITALS: Ht 162.6 cm; Wt 77.1 kg
[~2017-12-31 13:53] MED LIST changes: +ACETAMINOPHEN325 M1 PO; +ELIQUIS PO; +K DUR10 MEQ PO; +KEFLEX500 MG; +LEVAQUIN500 MG PO; +MAGNESIUM OXID400 MG PO; +MIRTAZAPINE15 MG PO; +OMEPRAZOLE40 MG PO
[2017-12-31] MEDS ORDERED: VANCOMYCIN 1GM/NS 250 ML 250 ML IV STA (14:15)
[2017-12-31] MEDS ORDERED: MORPHINE SULFATE INJ 4 MG/ML INJ IV STA (14:15)
[2017-12-31] MEDS ORDERED: ONDANSETRON HCL INJ 2 MG/ML VIAL IV STA (14:15)
[2017-12-31] MEDS ORDERED: SODIUM CHLORIDE 0.9% 1000ML 1,000 ML IV STA (14:15)
[2017-12-31] MEDS ORDERED: METRONIDAZOLE 500MG/NS 100ML 100 ML IV STA (14:37)
[2017-12-31] MEDS ORDERED: PIPER-TAZ 3.375 GM 50 ML IV STA (14:37)
[2017-12-31 14:46] LABS: BASOPHILS % 0.1 % (0.0-1.0); EOSINOPHILS % 0.1 % (0.0-6.0); HEMOGLOBIN 12.1 g/dL (12.0-16.0); LYMPHOCYTES # (AUTO) 3.1 (1.0-3.2); LYMPHOCYTES % 33.2 % (18.0-39.1); MEAN CORPUSCULAR HEMOGLOBIN 29.7 pg (28-32); MEAN CORPUSCULAR HGB CONC 32.7 g/dL (31-35); MEAN CORPUSCULAR VOLUME 90.7 fL (81-99); MONOCYTES # (AUTO) 0.8 (0.2-0.8); MONOCYTES % 8.7 % (4.4-11.3); NEUTROPHILS # (AUTO) 5.3 (2.1-6.9); NEUTROPHILS % 57.5 % (38.7-80.0); PLATELET COUNT 234 x10e3/uL (140-360); RED BLOOD COUNT 4.08 x10e6/uL (3.6-5.1)
[2017-12-31 15:07] LABS: ALANINE AMINOTRANSFERASE 18 IU/L (0-55); ALBUMIN 2.3 g/dL (3.5-5.0); ALBUMIN/GLOBULIN RATIO 0.6 (0.8-2.0); ALKALINE PHOSPHATASE 102 IU/L (40-150); ANION GAP 12.4 mmol/L (8-16); BLOOD UREA NITROGEN 12 mg/dL (7-26); BUN/CREATININE RATIO 18 (6-25); CALCIUM 8.3 mg/dL (8.4-10.2); CARBON DIOXIDE 20 mmol/L (22-29); CHLORIDE 106 mmol/L (98-107); CREATININE, SERUM 0.65 mg/dL (0.57-1.11); EST GLOMERULAR FILTRATION RATE > 60 ML/MIN (60-); GLUCOSE 113 mg/dL (74-118); LIPASE 16 U/L (8-78); POTASSIUM 3.4 mmol/L (3.5-5.1); SODIUM 135 mmol/L (136-145)
[2017-12-31] MEDS ORDERED: DIATRIZOATE MEGL/DIATRIZOA SOD 30 ML BTL PO ONE (15:57)
--- NOTE | 2017-12-31 18:31 | Diagnostic Imaging Report ---
PROCEDURE:CT ABDOMEN AND PELVIS WITH CONTRAST COMPARISON:[facility], CT, CT ABDOMEN/PELVIS W, 04/18/2016, 9:59. [facility], CT, CT ABDOMEN/PELVIS W, 12/14/2017, 1:22. INDICATIONS:POST SURGICAL INFECTION, SURGICAL SITE DRAINING TECHNIQUE: Multidetector CT scanning of the abdomen and pelvis was performed after the administration of 100 cc of nonionic contrast. Coronal and sagittal reformations were obtained. Routine protocol performed. Radiation dose: Total DLP: 470.21 mGy-cm Estimated effective dose: (DLP x 0.015 x size factor) mSV CTDIvol has been reviewed. It is below the limits set by the radiation protocol committee (RPC) FINDINGS: Lung bases: A small left pleural effusion. Bibasilar atelectasis. Visualized portion of the mediastinum demonstrates a low attenuating lesion, likely lymph node, adjacent to the distal esophagus measuring 2 cm. This is stable. There is a small hiatal hernia. Liver: Significant hepatic steatosis. No hepatic mass. Biliary: The gallbladder is absent. The common bile duct measures 2 mm the pancreas head without intraluminal filling defect. This is stable. Spleen: Normal size and attenuation. No mass Pancreas: Diffuse atrophy without soft tissue mass or ductal dilatation. A punctate calcification in the tail is stable. Adrenal Glands: Nodule in the right adrenal gland measures 2 cm and is stable. The left adrenal gland is absent. Kidneys: Symmetric enhancement of the parenchyma without mass or hydronephrosis. Gastrointestinal: There is enteric contrast in the stomach and small bowel. Chain sutures in several mid small bowel loops are stable. Small bowel loops in the midabdomen are distended, measuring up to 4.2 cm. The transition point is posterior to the umbilicus where there is peritoneal inflammation extending to the anterior abdominal wall towards a fluid collection at the base of the umbilicus containing multiple droplets of air. This air can be traced back to the small bowel on coronal image 31. There is no enteric contrast extending to the fluid collection but there are several droplets of air (axial image 49). Enteric contrast extends past this area into the large bowel. A right hemicolectomy is present with primary anastomosis. The descending colon contains several noninflamed diverticula. Vasculature: Well-opacified and normal in diameter. There are calcifications throughout the aorta and iliac arteries Peritoneum/Retroperitoneum: No intraperitoneal free fluid or fluid collection. Bladder: The small amount of intraluminal air at the dome. No mural thickening. The nondependent air identified the bladder are previous exams no longer visualized. The fistulous communication to the bladder is not identified. Reproductive organs: The uterus is absent. There are no adnexal masses. Musculoskeletal: Air-fluid collection at the umbilicus extends along the linea alba 415.3 cm in craniocaudal dimension. Widest AP dimension is superior to the umbilicus and measures 1.6 x 4.3 cm. The fluid collection at the umbilicus measures 1.4 x 2.0 cm and is associated with peritoneal inflammation as posterior aspect extending to the small bowel mentioned above. Stable degenerative changes of the spine. No lytic or blastic lesions. CONCLUSION: 1. Inflammatory changes surrounding the postoperative mid small bowel extending towards the umbilicus containing several droplets of air. A fistula from the small bowel is suspected but there is no extravasation of enteric contrast at this time. 2. Fluid and air-containing collections along the linea alba including the umbilicus with the largest amount of inflammation at the umbilicus as mentioned above. 3. Small amount of air in the bladder dome. The other air collections the bladder are no longer present. 4. Small left pleural effusion. 5. Stable common bile duct dilatation. 6. Profound steatosis. 7. Stable right adrenal nodule. Dictated by: Albina Shah M.D. on 12/31/2017 at 18:37 Electronically approved by: Albina Shah M.D. on 12/31/2017 at 18:37
[2017-12-31] MEDS ORDERED: LOSARTAN POTASS25 MG PO (19:59)
[2017-12-31] MEDS ORDERED: IOPAMIDOL 370 MG/ML 200 ML INFUS..BTL INJ ONE (22:24)
[2017-12-31] MEDS ORDERED: SODIUM CHLORIDE 0.9% 50ML 50 ML ONE (22:24)
[2017-12-31] MEDS ORDERED: SODIUM CHLORIDE 0.9% 1000ML 1,000 ML IV SCH (23:06)
[2017-12-31] MEDS ORDERED: MORPHINE SULFATE 2 MG/ML SYR IV PRN (23:15)
[2017-12-31] MEDS ORDERED: ONDANSETRON HCL INJ 2 MG/ML VIAL IV PRN (23:15)
[2018-01-01] VITALS (7 sets, daily range): BP systolic 108–153; BP diastolic 57–77
[2018-01-01] MEDS: PIPER-TAZ 3.375 GM 50 ML IV SCH ×4 (00:44→17:38)
[2018-01-01] MEDS: METRONIDAZOLE 500MG/NS 100ML IV SCH ×5 (00:45→23:36)
[2018-01-01 02:02] LABS: CREATINE KINASE 22 IU/L (29-168)
[2018-01-01 05:15] LABS: BASOPHILS % 0.5 % (0.0-1.0); EOSINOPHILS # (AUTO) 0.1 (0.0-0.4); EOSINOPHILS % 1.7 % (0.0-6.0); HEMATOCRIT 31.4 % (34.2-44.1); LYMPHOCYTES # (AUTO) 1.7 (1.0-3.2); LYMPHOCYTES % 28.4 % (18.0-39.1); MEAN CORPUSCULAR HEMOGLOBIN 29.3 pg (28-32); MEAN CORPUSCULAR HGB CONC 31.8 g/dL (31-35); MEAN CORPUSCULAR VOLUME 92.1 fL (81-99); MONOCYTES # (AUTO) 0.6 (0.2-0.8); MONOCYTES % 9.8 % (4.4-11.3); NEUTROPHILS # (AUTO) 3.5 (2.1-6.9); NEUTROPHILS % 59.3 % (38.7-80.0); PLATELET COUNT 187 x10e3/uL (140-360); RED BLOOD COUNT 3.41 x10e6/uL (3.6-5.1); RED CELL DISTRIBUTION WIDTH 14.8 % (11.7-14.4)
[2018-01-01 05:42] LABS: ALANINE AMINOTRANSFERASE 13 IU/L (0-55); ALBUMIN 1.7 g/dL (3.5-5.0); ALBUMIN/GLOBULIN RATIO 0.6 (0.8-2.0); ALKALINE PHOSPHATASE 73 IU/L (40-150); ANION GAP 11.8 mmol/L (8-16); BLOOD UREA NITROGEN 7 mg/dL (7-26); BUN/CREATININE RATIO 13 (6-25); CALCIUM 7.5 mg/dL (8.4-10.2); CARBON DIOXIDE 20 mmol/L (22-29); CHLORIDE 109 mmol/L (98-107); CREATINE KINASE 14 IU/L (29-168); CREATININE, SERUM 0.54 mg/dL (0.57-1.11); EST GLOMERULAR FILTRATION RATE > 60 ML/MIN (60-); GLUCOSE 77 mg/dL (74-118); SODIUM 138 mmol/L (136-145)
[2018-01-01 05:55] LABS: POTASSIUM 2.8 mmol/L (3.5-5.1)
[2018-01-01] MEDS ORDERED: POTASSIUM CHLORIDE 10 MEQ TABCR PO NR (10:30)
[2018-01-01] MEDS: PANTOPRAZOLE SOD 40 MG TABEC PO SCH ×2 (10:30→17:38)
[2018-01-01] MEDS: ENOXAPARIN SOD INJ 60 MG/0.6 ML SYR SC SCH ×2 (12:00→20:51)
[2018-01-01] MEDS: LOSARTAN POTASSIUM 25 MG TAB PO SCH (12:00)
[2018-01-01 13:54] LABS: CREATINE KINASE 14 IU/L (29-168)
--- NOTE | 2018-01-01 16:51 | Consultation ---
DATE OF CONSULTATION: REASON FOR CONSULTATION: Abdominal wall cellulitis, recommendation antibiotic, concerned fistula. HISTORY OF PRESENT ILLNESS: This patient who is a 82-year-old female with history of hemicolectomy, left knee replacement, hypertension, asthma. The patient apparently presented back in September 21, 2017 with acute peritonitis. She was found to have ischemic colon. The patient was admitted. She was on a ventilator. At that time, she was septic. The CAT scan showed pneumatosis involving the bowel in the region. Dr. Tad Chauhan saw the patient, underwent exploratory laparotomy, extensive right colectomy, lyses of adhesions. Procedure was done on September 21, 2017 at 11 pm. The patient on December 14, 2017, came back to the hospital with abdominal pain and the patient had a CAT scan showed post surgical changes, small bowel fistula associated with anastomosis. Patient was admitted and apparently was discharged home. Patient is coming now with worsening drainage. According to family, she was draining clear serosanguineous, now is becoming bad odor with more amount of drainage coming from her abdominal wound that is also do not seem to be red. Patient is being admitted. LABORATORY DATA: White count is 5.9, hemoglobin of 10, hematocrit 31. Sodium 138, potassium 2.8, creatinine 0.54. Liver enzymes are within normal limit. Patient is currently on metronidazole and Zosyn. PHYSICAL EXAMINATION GENERAL: She is currently alert, oriented. Does not seem to be in acute distress. VITALS: Stable, currently afebrile. HEENT: She is not icteric. Normocephalic. NECK: Supple. No JVD. No lymphadenopathy. No thyromegaly. CHEST: Clear bilateral. COR: S1 and S2. No S3, S4, or murmur. ABDOMEN: Soft. She did have a drainage coming from midline of the abdomen, seems like clear liquid stool. There is erythema surrounding the fistula. IMPRESSION: Localized cellulitis from chemical irritation from the stool. Fistula in the patient who had colon surgery, ischemic bowel before. There is inflammation in the mid small bowel, but there is no extravasation. She is currently on Zosyn and Flagyl. Continue with the same. We will suggest local care and perhaps we will discuss with surgery if we can put colostomy bag. She may need gut rest. We will discuss with surgery. Job#: [id number] VAS
[2018-01-01] MEDS: MAGNESIUM OXIDE 400 MG TAB PO SCH (17:38)
[2018-01-01] MEDS: ACETAMINOPHEN 325 MG TAB PO PRN (18:35)
[2018-01-01] MEDS: MIRTAZAPINE 15 MG TAB PO SCH (20:51)
[2018-01-02] VITALS (8 sets, daily range): BP systolic 110–133; BP diastolic 60–69
[2018-01-02] MEDS: PIPER-TAZ 3.375 GM 50 ML IV SCH ×4 (00:42→17:34)
[2018-01-02 05:22] LABS: BASOPHILS % 0.5 % (0.0-1.0); EOSINOPHILS # (AUTO) 0.2 (0.0-0.4); EOSINOPHILS % 3.6 % (0.0-6.0); HEMATOCRIT 33.9 % (34.2-44.1); HEMOGLOBIN 10.9 g/dL (12.0-16.0); LYMPHOCYTES # (AUTO) 1.5 (1.0-3.2); LYMPHOCYTES % 37.3 % (18.0-39.1); MEAN CORPUSCULAR HEMOGLOBIN 29.6 pg (28-32); MEAN CORPUSCULAR HGB CONC 32.2 g/dL (31-35); MEAN CORPUSCULAR VOLUME 92.1 fL (81-99); MONOCYTES # (AUTO) 0.5 (0.2-0.8); MONOCYTES % 12.6 % (4.4-11.3); NEUTROPHILS # (AUTO) 1.9 (2.1-6.9); NEUTROPHILS % 45.8 % (38.7-80.0); PLATELET COUNT 200 x10e3/uL (140-360); RED BLOOD COUNT 3.68 x10e6/uL (3.6-5.1); RED CELL DISTRIBUTION WIDTH 14.7 % (11.7-14.4)
[2018-01-02] MEDS: METRONIDAZOLE 500MG/NS 100ML IV SCH ×4 (05:46→23:49)
[2018-01-02 05:58] LABS: ALANINE AMINOTRANSFERASE 14 IU/L (0-55); ALBUMIN 1.7 g/dL (3.5-5.0); ALBUMIN/GLOBULIN RATIO 0.6 (0.8-2.0); ALKALINE PHOSPHATASE 72 IU/L (40-150); ANION GAP 10.9 mmol/L (8-16); BLOOD UREA NITROGEN 5 mg/dL (7-26); BUN/CREATININE RATIO 9 (6-25); CALCIUM 7.7 mg/dL (8.4-10.2); CARBON DIOXIDE 19 mmol/L (22-29); CHLORIDE 112 mmol/L (98-107); CREATININE, SERUM 0.57 mg/dL (0.57-1.11); EST GLOMERULAR FILTRATION RATE > 60 ML/MIN (60-); GLUCOSE 77 mg/dL (74-118); SODIUM 139 mmol/L (136-145)
[2018-01-02 06:02] LABS: POTASSIUM 2.9 mmol/L (3.5-5.1)
[2018-01-02 06:12] LABS: THYROID STIMULATING HORMONE 1.502 uIU/mL (0.350-4.940)
[2018-01-02] MEDS: PANTOPRAZOLE SOD 40 MG TABEC PO SCH ×2 (07:43→16:47)
[2018-01-02] MEDS ORDERED: POTASSIUM CHLORIDE 10 MEQ TABCR PO SCH (09:00)
[2018-01-02] MEDS: LOSARTAN POTASSIUM 25 MG TAB PO SCH (09:08)
[2018-01-02] MEDS: ENOXAPARIN SOD INJ 60 MG/0.6 ML SYR SC SCH ×2 (09:09→21:00)
[2018-01-02] MEDS: MAGNESIUM OXIDE 400 MG TAB PO SCH ×2 (09:09→16:47)
[2018-01-02] MEDS: POTASSIUM CHLORIDE 10 MEQ TABCR PO SCH ×2 (11:11→14:32)
[2018-01-02] MEDS: MIRTAZAPINE 15 MG TAB PO SCH (21:00)
[2018-01-03] VITALS (10 sets, daily range): BP systolic 94–141; BP diastolic 50–65
[2018-01-03] MEDS ORDERED: SODIUM CHLORIDE 0.9% 250ML 250 ML ONE (00:09)
[2018-01-03 05:47] LABS: ANION GAP 8.5 mmol/L (8-16); BLOOD UREA NITROGEN < 5 mg/dL (7-26); CALCIUM 7.6 mg/dL (8.4-10.2); CARBON DIOXIDE 19 mmol/L (22-29); CHLORIDE 115 mmol/L (98-107); CREATININE, SERUM 0.52 mg/dL (0.57-1.11); EST GLOMERULAR FILTRATION RATE > 60 ML/MIN (60-); GLUCOSE 84 mg/dL (74-118); SODIUM 139 mmol/L (136-145)
[2018-01-03 05:53] LABS: BUN/CREATININE RATIO 10 (6-25); POTASSIUM 3.5 mmol/L (3.5-5.1)
[2018-01-03 05:55] LABS: MAGNESIUM 1.1 MG/DL (1.3-2.1)
[2018-01-03] MEDS: METRONIDAZOLE 500MG/NS 100ML IV SCH ×3 (05:58→18:24)
[2018-01-03] MEDS: PIPER-TAZ 3.375 GM 50 ML IV SCH ×5 (06:00→23:11)
[2018-01-03] MEDS ORDERED: MAGNESIUM SULFATE 2GM/50ML 50 ML IV ONE ×2 (07:15→12:00)
[2018-01-03] MEDS: PANTOPRAZOLE SOD 40 MG TABEC PO SCH ×2 (08:54→17:11)
[2018-01-03] MEDS: LOSARTAN POTASSIUM 25 MG TAB PO SCH (09:00)
[2018-01-03] MEDS ORDERED: POTASSIUM CHLORIDE 20 MEQ TAB CR PO SCH (09:00)
[2018-01-03] MEDS: POTASSIUM CHLORIDE 10 MEQ TABCR PO SCH (09:51)
[2018-01-03] MEDS: ENOXAPARIN SOD INJ 60 MG/0.6 ML SYR SC SCH ×2 (09:51→20:27)
[2018-01-03] MEDS: MAGNESIUM OXIDE 400 MG TAB PO SCH ×2 (09:51→17:11)
[2018-01-03] MEDS: MIRTAZAPINE 15 MG TAB PO SCH (20:27)
[2018-01-04] VITALS (8 sets, daily range): BP systolic 87–118; BP diastolic 45–77
[2018-01-04] MEDS: METRONIDAZOLE 500MG/NS 100ML IV SCH ×4 (00:20→21:28)
[2018-01-04] MEDS: ACETAMINOPHEN 325 MG TAB PO PRN ×2 (02:30→21:28)
[2018-01-04 05:35] LABS: ANION GAP 9.7 mmol/L (8-16); BLOOD UREA NITROGEN < 5 mg/dL (7-26); CALCIUM 7.6 mg/dL (8.4-10.2); CARBON DIOXIDE 19 mmol/L (22-29); CHLORIDE 112 mmol/L (98-107); CREATININE, SERUM 0.57 mg/dL (0.57-1.11); EST GLOMERULAR FILTRATION RATE > 60 ML/MIN (60-); GLUCOSE 96 mg/dL (74-118); POTASSIUM 3.7 mmol/L (3.5-5.1); SODIUM 137 mmol/L (136-145)
[2018-01-04 05:38] LABS: BUN/CREATININE RATIO 9 (6-25)
[2018-01-04] MEDS: PIPER-TAZ 3.375 GM 50 ML IV SCH ×4 (05:39→22:50)
[2018-01-04] MEDS: PANTOPRAZOLE SOD 40 MG TABEC PO SCH ×2 (07:30→17:30)
[2018-01-04] MEDS: LOSARTAN POTASSIUM 25 MG TAB PO SCH (09:00)
[2018-01-04] MEDS: POTASSIUM CHLORIDE 10 MEQ TABCR PO SCH (09:24)
[2018-01-04] MEDS: ENOXAPARIN SOD INJ 60 MG/0.6 ML SYR SC SCH ×2 (09:24→21:28)
[2018-01-04] MEDS: MAGNESIUM OXIDE 400 MG TAB PO SCH ×2 (09:24→17:30)
[2018-01-04] MEDS: MIRTAZAPINE 15 MG TAB PO SCH (21:28)
[2018-01-05 00:15] VITALS: BP 103/69
[2018-01-05 05:17] LABS: ANION GAP 7.5 mmol/L (8-16); BLOOD UREA NITROGEN < 5 mg/dL (7-26); CALCIUM 7.8 mg/dL (8.4-10.2); CARBON DIOXIDE 19 mmol/L (22-29); CHLORIDE 114 mmol/L (98-107); CREATININE, SERUM 0.54 mg/dL (0.57-1.11); EST GLOMERULAR FILTRATION RATE > 60 ML/MIN (60-); GLUCOSE 97 mg/dL (74-118); POTASSIUM 3.5 mmol/L (3.5-5.1); SODIUM 137 mmol/L (136-145)
[2018-01-05 05:18] VITALS: BP 140/73
[2018-01-05 05:24] LABS: BUN/CREATININE RATIO 9 (6-25)
[2018-01-05 05:30] LABS: MAGNESIUM 1.7 MG/DL (1.3-2.1); PHOSPHORUS 2.5 MG/DL (2.3-4.7)
[2018-01-05] MEDS ORDERED: SODIUM CHLORIDE 0.9% 250ML 250 ML ONE (05:41)
[2018-01-05] MEDS: PIPER-TAZ 3.375 GM 50 ML IV SCH ×3 (05:47→18:47)
[2018-01-05] MEDS: METRONIDAZOLE 500MG/NS 100ML IV SCH (06:18)
[2018-01-05] MEDS: PANTOPRAZOLE SOD 40 MG TABEC PO SCH ×2 (07:48→16:40)
[2018-01-05] MEDS: LOSARTAN POTASSIUM 25 MG TAB PO SCH (08:35)
[2018-01-05] MEDS: MAGNESIUM OXIDE 400 MG TAB PO SCH ×2 (08:35→16:40)
[2018-01-05] MEDS: POTASSIUM CHLORIDE 10 MEQ TABCR PO SCH (08:35)
[2018-01-05] MEDS: ENOXAPARIN SOD INJ 60 MG/0.6 ML SYR SC SCH ×2 (08:36→22:20)
[2018-01-05 09:48] VITALS: BP 153/72
[2018-01-05 12:00] VITALS: BP 178/77
[2018-01-05 17:29] VITALS: BP 119/63
[2018-01-05] MEDS: MIRTAZAPINE 15 MG TAB PO SCH (22:20)
[2018-01-06] VITALS: BP 121/59
[2018-01-06] MEDS: PIPER-TAZ 3.375 GM 50 ML IV SCH ×4 (00:55→18:03)
[2018-01-06] MEDS: ACETAMINOPHEN 325 MG TAB PO PRN (02:10)
[2018-01-06] MEDS: PANTOPRAZOLE SOD 40 MG TABEC PO SCH ×2 (07:55→18:02)
[2018-01-06 08:00] VITALS: BP 106/64
[2018-01-06] MEDS: MAGNESIUM OXIDE 400 MG TAB PO SCH ×2 (08:22→18:02)
[2018-01-06] MEDS: POTASSIUM CHLORIDE 10 MEQ TABCR PO SCH (08:22)
[2018-01-06] MEDS: LOSARTAN POTASSIUM 25 MG TAB PO SCH (08:22)
[2018-01-06] MEDS: ENOXAPARIN SOD INJ 60 MG/0.6 ML SYR SC SCH ×2 (08:23→20:50)
[2018-01-06 12:00] VITALS: BP 123/65
[2018-01-06 12:05] VITALS: BP 106/64
[2018-01-06 16:00] VITALS: BP 114/65
[2018-01-06] MEDS ORDERED: ACETAMIN/BUTALBITAL/CAFFEINE TAB PO PRN (16:30)
[2018-01-06] MEDS ORDERED: POTASSIUM CHLORIDE 10 MEQ TABCR PO NR (16:30)
[2018-01-06] MEDS ORDERED: ALBUTEROL/IPRATROPIUM 3 ML NEB NEB PRN (16:30)
[2018-01-06] MEDS: LORATADINE 10 MG TAB PO SCH (18:02)
[2018-01-06] MEDS: FLUTICASONE PROPIONATE NASAL SPRAY NS SCH (18:02)
[2018-01-06 20:48] VITALS: BP 142/83
[2018-01-06] MEDS: MIRTAZAPINE 15 MG TAB PO SCH (20:50)
[2018-01-06] MEDS ORDERED: MONTELUKAST SODIUM 10 MG TAB PO SCH (21:00)
[2018-01-07] VITALS (7 sets, daily range): BP systolic 107–142; BP diastolic 59–74
[2018-01-07] MEDS: PIPER-TAZ 3.375 GM 50 ML IV SCH ×4 (01:00→17:35)
[2018-01-07 05:30] LABS: ANION GAP 10.9 mmol/L (8-16); BLOOD UREA NITROGEN < 5 mg/dL (7-26); CARBON DIOXIDE 20 mmol/L (22-29); CHLORIDE 112 mmol/L (98-107); CREATININE, SERUM 0.55 mg/dL (0.57-1.11); EST GLOMERULAR FILTRATION RATE > 60 ML/MIN (60-); GLUCOSE 72 mg/dL (74-118); POTASSIUM 3.9 mmol/L (3.5-5.1); SODIUM 139 mmol/L (136-145)
[2018-01-07 05:33] LABS: BUN/CREATININE RATIO 9 (6-25)
[2018-01-07] MEDS: PANTOPRAZOLE SOD 40 MG TABEC PO SCH ×2 (07:30→16:51)
[2018-01-07] MEDS: LOSARTAN POTASSIUM 25 MG TAB PO SCH (09:09)
[2018-01-07] MEDS: POTASSIUM CHLORIDE 10 MEQ TABCR PO SCH (09:09)
[2018-01-07] MEDS: ENOXAPARIN SOD INJ 60 MG/0.6 ML SYR SC SCH (09:09)
[2018-01-07] MEDS: LORATADINE 10 MG TAB PO SCH (09:09)
[2018-01-07] MEDS: FLUTICASONE PROPIONATE NASAL SPRAY NS SCH ×2 (09:09→16:51)
[2018-01-07] MEDS: MAGNESIUM OXIDE 400 MG TAB PO SCH ×2 (09:09→16:51)
== END 2018-01-07 19:22 | disposition home health service (06) | DRG 394 ==
LOC: ER 13:53 → ERHOLD 23:24 → MED/SURG2 01-01 00:40
PROVIDERS: ADMIT Internal Medicine; ATTEND Internal Medicine
DX: K63.2 Fistula of intestine (principal); L03.311 Cellulitis of abdominal wall; K21.9 Gastro-esophageal reflux disease without esophagitis; R53.81 Other malaise; I10 Essential (primary) hypertension; J45.909 Unspecified asthma, uncomplicated; Z90.49 Acquired absence of other specified parts of digestive tract; E87.8 Other disorders of electrolyte and fluid balance, not elsewhere classified; L59.8 Other specified disorders of the skin and subcutaneous tissue related to radiation
CPT/HCPCS: 36415; 74177; 80048; 80053; 82550; 82553; 82607; 83036; 83605; 83690; 83735; 84100; 84443; 84484; 85025; 99284; J1650; J2270; J2405; J2543; J3370; J7030; J7050; Q9967

== ENCOUNTER 2018-01-10 17:17 | Inpatient (IN) | payer OTHER ==
[~2018-01-10] VITALS: Ht 152.4 cm; Wt 74.6 kg
[~2018-01-10 17:17] MED LIST changes: +LOSARTAN POTASS25 MG PO
[2018-01-10] MEDS ORDERED: SODIUM CHLORIDE 0.9% 1000ML 1,000 ML IV ONE (19:15)
[2018-01-10 19:18] LABS: BASOPHILS % 0.1 % (0.0-1.0); HEMATOCRIT 39.4 % (34.2-44.1); HEMOGLOBIN 13.1 g/dL (12.0-16.0); LYMPHOCYTES # (AUTO) 4.2 (1.0-3.2); LYMPHOCYTES % 24.1 % (18.0-39.1); MEAN CORPUSCULAR HEMOGLOBIN 29.4 pg (28-32); MEAN CORPUSCULAR HGB CONC 33.2 g/dL (31-35); MEAN CORPUSCULAR VOLUME 88.3 fL (81-99); MONOCYTES # (AUTO) 1.2 (0.2-0.8); MONOCYTES % 6.7 % (4.4-11.3); NEUTROPHILS # (AUTO) 11.9 (2.1-6.9); NEUTROPHILS % 68.8 % (38.7-80.0); PLATELET COUNT 382 x10e3/uL (140-360); RED BLOOD COUNT 4.46 x10e6/uL (3.6-5.1); RED CELL DISTRIBUTION WIDTH 16.1 % (11.7-14.4)
[2018-01-10] MEDS ORDERED: DIATRIZOATE MEGL/DIATRIZOA SOD 30 ML BTL PO ONE (19:23)
[2018-01-10] MEDS ORDERED: MEROPENEM 1GRAM 1 GM in SODIUM CHLORIDE 0.9% 100 ML 100 ML IV SCH (19:30)
[2018-01-10 19:34] LABS: ALANINE AMINOTRANSFERASE 11 IU/L (0-55); ALBUMIN 2.2 g/dL (3.5-5.0); ALBUMIN/GLOBULIN RATIO 0.5 (0.8-2.0); ALKALINE PHOSPHATASE 131 IU/L (40-150); AMYLASE 18 U/L (25-125); BLOOD UREA NITROGEN 8 mg/dL (7-26); BUN/CREATININE RATIO 12 (6-25); CALCIUM 8.3 mg/dL (8.4-10.2); CARBON DIOXIDE 17 mmol/L (22-29); CHLORIDE 102 mmol/L (98-107); CREATININE, SERUM 0.68 mg/dL (0.57-1.11); EST GLOMERULAR FILTRATION RATE > 60 ML/MIN (60-); GLUCOSE 119 mg/dL (74-118); LIPASE 12 U/L (8-78); SODIUM 132 mmol/L (136-145)
[2018-01-10] MEDS ORDERED: ACETAMINOPHEN 1000 MG/100 ML IV ONE (20:00)
[2018-01-10] MEDS ORDERED: SODIUM CHLORIDE 0.9% 50ML 50 ML ONE (20:05)
--- NOTE | 2018-01-10 21:48 | Diagnostic Imaging Report ---
EXAM: CT ABDOMEN AND PELVIS with IV CONTRAST DATE: 01/10/2018 7:17 PM Time stamp on Exam: 6 hours INDICATION: Abdominal pain COMPARISON: CT of the abdomen and pelvis December 31, 2017 TECHNIQUE: The abdomen and pelvis were scanned using a multidetector helical scanner. Coronal and sagittal reformations were obtained. Dose modulation, iterative reconstruction, and/or weight based adjustment of the mA/kV was utilized to reduce the radiation dose to as low as reasonably achievable. Routine protocol performed. IV Contrast: 100 cc Isovue-370 Oral Contrast: Gastrografin FINDINGS: LOWER THORAX: Small bilateral pleural effusions with adjacent atelectasis. LIVER: Diffuse hepatic steatosis. BILIARY: Cholecystectomy. No unexpected biliary dilation. SPLEEN: No masses PANCREAS: Pancreatic atrophy predominantly of the body ADRENALS: Stable 2 cm right adrenal gland nodule. The left atrial gland has been removed. KIDNEYS: Symmetric perfusion. No enhancing masses. No hydronephrosis. GI TRACT: Stable inflammatory changes and punctate foci of air connecting a loop of small bowel to the anterior abdomen at the anastomotic site. No extravasation of oral contrast. Surgical changes of right hemicolectomy. VESSELS: Unremarkable PERITONEUM/RETROPERITONEUM: No free air or fluid LYMPH NODES: No lymphadenopathy REPRODUCTIVE ORGANS: The uterus and ovaries are not visualized. BLADDER: Punctate focus of air in the nondependent portion of the bladder. SOFT TISSUES: Interval increase in size of the fluid and air containing collection involving the anterior abdominal wall subcutaneous tissues, likely related to a fistulous connection to the underlying small bowel. The collection now measures 22 x 5 x 4.5 cm (sagittal x AP x transverse diameter). Underlying thickening and inflammation of the rectus muscles without intra-abdominal abscess formation. BONES: No suspicious bone lesions. IMPRESSION: Interval increase in size of the anterior midline subcutaneous air and fluid collection (mostly air), likely secondary to an underlying small bowel fistulous connection. The collection measures 22 x 5 x 4.5 cm. Signed by: Dr. Brianna Bowen M.D. on 01/10/2018 9:45 PM
[2018-01-10] MEDS ORDERED: ACETAMINOPHEN 1000 MG/100 ML IV PRN (22:15)
[2018-01-10] MEDS ORDERED: MORPHINE SULFATE 2 MG/ML SYR IV PRN (22:15)
[2018-01-10] MEDS ORDERED: ONDANSETRON HCL INJ 2 MG/ML VIAL IV PRN (22:15)
[2018-01-10 22:34] LABS: BILIRUBIN,URINE NEGATIVE (NEGATIVE); CLARITY,URINE CLOUDY (CLEAR); COLOR,URINE STRAW (YELLOW); KETONES,URINE NEGATIVE (NEGATIVE); LEUKOCYTE ESTERASE ,URINE 2+ (NEGATIVE); NITRITE,URINE NEGATIVE (NEGATIVE); PROTEIN,URINE DIPSTICK 2+ (NEGATIVE); URINE UROBILINOGEN 0.2 mg/dL (0.2 - 1)
[2018-01-10] MEDS: MEROPENEM 1 GM VIAL IV SCH (22:35)
[2018-01-10 22:54] LABS: WBC,URINE (MAN) >50 /HPF (0-5)
[2018-01-10 22:55] LABS: AMORPHOUS SEDIMENT,URINE MODERATE (FEW); BACTERIA,URINE MANY /HPF; EPITHELIAL CELLS,URINE MANY /LPF; RBC,URINE >50 /HPF (0-5)
[2018-01-10 23:20] VITALS: BP 114/57
[2018-01-10] MEDS: SODIUM CHLORIDE 0.9% 1000ML 1,000 ML IV SCH (23:40)
[2018-01-11] VITALS (8 sets, daily range): BP systolic 94–138; BP diastolic 44–65
[2018-01-11] MEDS: METRONIDAZOLE 500MG/NS 100ML 100 ML IV SCH ×4 (00:58→17:46)
[2018-01-11 04:49] LABS: BASOPHILS % 0.4 % (0.0-1.0); EOSINOPHILS % 0.4 % (0.0-6.0); HEMATOCRIT 29.4 % (34.2-44.1); HEMOGLOBIN 9.8 g/dL (12.0-16.0); LYMPHOCYTES # (AUTO) 2.1 (1.0-3.2); LYMPHOCYTES % 26.8 % (18.0-39.1); MEAN CORPUSCULAR HEMOGLOBIN 29.8 pg (28-32); MEAN CORPUSCULAR HGB CONC 33.3 g/dL (31-35); MEAN CORPUSCULAR VOLUME 89.4 fL (81-99); MONOCYTES # (AUTO) 0.9 (0.2-0.8); MONOCYTES % 11.1 % (4.4-11.3); NEUTROPHILS # (AUTO) 4.8 (2.1-6.9); NEUTROPHILS % 60.9 % (38.7-80.0); PLATELET COUNT 281 x10e3/uL (140-360); RED BLOOD COUNT 3.29 x10e6/uL (3.6-5.1); RED CELL DISTRIBUTION WIDTH 16.2 % (11.7-14.4)
[2018-01-11 05:07] LABS: ALANINE AMINOTRANSFERASE 7 IU/L (0-55); ALBUMIN 1.5 g/dL (3.5-5.0); ALBUMIN/GLOBULIN RATIO 0.5 (0.8-2.0); ALKALINE PHOSPHATASE 85 IU/L (40-150); ANION GAP 10.2 mmol/L (8-16); BLOOD UREA NITROGEN 7 mg/dL (7-26); BUN/CREATININE RATIO 13 (6-25); CALCIUM 7.7 mg/dL (8.4-10.2); CARBON DIOXIDE 18 mmol/L (22-29); CHLORIDE 109 mmol/L (98-107); CREATININE, SERUM 0.53 mg/dL (0.57-1.11); EST GLOMERULAR FILTRATION RATE > 60 ML/MIN (60-); GLUCOSE 95 mg/dL (74-118); POTASSIUM 3.2 mmol/L (3.5-5.1); SODIUM 134 mmol/L (136-145)
[2018-01-11] MEDS: MEROPENEM 1 GM VIAL IV SCH ×3 (06:03→22:00)
[2018-01-11] MEDS: SODIUM CHLORIDE 0.9% 1000ML 1,000 ML IV SCH ×2 (08:09→11:20)
[2018-01-11] MEDS ORDERED: HYDROCODONE/APAP 5MG-325MG TAB PO PRN (13:30)
[2018-01-11] MEDS ORDERED: ACETAMINOPHEN 325 MG TAB PO PRN (13:30)
--- NOTE | 2018-01-11 16:34 | History and Physical ---
I am covering for Dr. Nance. CHIEF COMPLAINT: Abdominal fistula with pus material and discharge. HPI: This is an 82-year-old female with an extensive complicated abdominal surgery history in which she was recently seen by Dr. Sunni Chauhan and had some complaints of abdominal pain with increasing exertion. Patient was eventually discharged, and she presented back with similar findings on this admission. She now reports having some increased pus discharge coming from her abdominal fistula that has been ongoing for the last several days. Patient denies any fever, cough, congestion, or any other complaints. Patient was seen and evaluated at bedside on the medical floor. Currently, doing well with no complaints. Her fistula was cleaned up by general surgery at bedside. REVIEW OF SYSTEMS: Pertinent positive is abdominal fistula with pus material. Pertinent negative: Denies any chest pain, palpitation, nausea, vomiting, dysuria, hematuria, frequency, urgency, lightheadedness, dizziness, abdominal pain, headache, shortness of breath, cough, congestion, fever, or any other complaints. The rest of the 14-point review of systems have been reviewed with the patient and are negative. ALLERGIES: CIPRO. HOME MEDICATIONS: Please see med reconciliation form. PAST MEDICAL HISTORY: Multiple abdominal surgeries. She also has a history of hypercoagulable state, on Eliquis. SURGICAL HISTORY: Again, multiple abdominal surgeries. FAMILY HISTORY: Hypertension and diabetes. SOCIAL HISTORY: Denies drugs or alcohol. Does not smoke. PHYSICAL EXAMINATION VITAL SIGNS: Temperature is 96.6, pulse 77, respiratory rate 19, blood pressure 119/58, pulse ox 96% on room air. GENERAL: Not in acute distress. Alert and oriented times 3. Cooperative on examination. HEENT: Head is normocephalic and atraumatic. Eyes: Pupils equal, round and reactive to light bilaterally. Extraocular movements intact bilaterally. NECK: Supple. Good range of motion. Throat with no evidence of any erythema or exudates in the posterior pharynx. Has poor dentition. PULMONARY: Clear to auscultation bilaterally. No wheezing. No rales. No rhonchi. No crackles appreciated. CARDIOVASCULAR: Positive S1 and S2. No murmurs, rubs or gallops appreciated. ABDOMEN: Soft, nondistended and nontender to palpation. Bowel sounds present. MUSCULOSKELETAL: Strength is 5/5 throughout. No evidence of any muscle deficit on examination. No weakness appreciated. NEUROLOGICAL: Cranial nerves II-XII are grossly intact. No evidence of any neurological deficits on exam. SKIN: Intact. Warm to touch. Good cap refill. PSYCHIATRIC: Normal affect and mood. EXTREMITIES: No edema. Good range of motion throughout. LAB FINDINGS: White count 7.8. On admission, it was 17, hemoglobin 9.8, hematocrit 29 and platelets of 281,000. Chemistry: Sodium 134 potassium 3.2, chloride 109, bicarb 18, anion gap of 10, BUN 7, creatinine is 0.53. Calcium is 7.7. Albumin 1.5. Urinalysis concerning for underlying UTI. MICROBIOLOGY: Urine culture is positive for gram-negative bacilli. Blood cultures no growth to date. IMAGING STUDIES: CT of abdomen and pelvis shows increasing size of the anterior midline subcutaneous air-fluid collection, mostly air likely secondary to underlying small bowel fistulization connection. Collection measures 22 x 5 x 4.5 cm. IMPRESSION 1. 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 2. Urinary tract infection. 3. Hypertension. 4. Acid reflux. 5. History of hypercoagulable state. PLAN: At this time, general surgery has been consulted. They are currently not recommending any surgery at this time. Primary general surgeon will be available on Friday. At this time, we are going to culture the wound. Continue with IV Merrem for broad-spectrum coverage. We are going to resume her home medications with no changes in her regimen. We are going to encourage PT and OT and ambulation. Continue same plan of care. Dr. Nance will continue to follow this patient starting tomorrow in which I will discuss this case with him. Job#: [id number] ME
[2018-01-11] MEDS: APIXABAN 5 MG TABLET PO SCH (16:53)
[2018-01-11] MEDS ORDERED: ELIQUIS PO SCH (17:00)
[2018-01-11] MEDS: MIRTAZAPINE 15 MG TAB PO SCH (20:48)
[2018-01-12] VITALS (9 sets, daily range): BP systolic 120–166; BP diastolic 58–84
[2018-01-12] MEDS: MEROPENEM 1 GM VIAL IV SCH ×3 (05:49→22:25)
[2018-01-12] MEDS: METRONIDAZOLE 500MG/NS 100ML 100 ML IV SCH ×2 (05:49)
[2018-01-12] MEDS: SODIUM CHLORIDE 0.9% 1000ML 1,000 ML IV SCH ×2 (09:03→20:49)
[2018-01-12] MEDS: APIXABAN 5 MG TABLET PO SCH ×2 (09:03→16:16)
[2018-01-12] MEDS: LOSARTAN POTASSIUM 25 MG TAB PO SCH (09:03)
[2018-01-12] MEDS: PANTOPRAZOLE SOD 40 MG TABEC PO SCH (09:03)
[2018-01-12] MEDS ORDERED: ADVAIR 250-501 EACH INH (12:25)
[2018-01-12] MEDS: MAGNESIUM OXIDE 400 MG TAB PO SCH (16:16)
--- NOTE | 2018-01-12 17:45 | Consultation ---
DATE OF CONSULTATION: REASON FOR CONSULTATION: Fever, fistula. HISTORY OF PRESENT ILLNESS: This patient is known to me from previous admissions. The patient is an 82-year-old female, very pleasant. Several abdominal surgeries--she thinks it is 7, maybe 6 surgeries. With the last 2, she was starting to have problems with forming fistula. The last time she was here she was having fever and chills. She has a newly diagnosed fistula. I have discussed the case with Dr. Tad Chauhan. She is really not a surgical candidate. She has way too much adhesions, and there are only a few feet left in her small intestine. At that time, the patient did not want to go to a skilled care facility to be on TPN. She wanted oral antibiotic, which she did. She was discharged home with oral antibiotic. She did well for a week. Now she is coming back with fever and chills and new formation of fistula and increased opening from the fistula itself. The patient currently is comfortable, alert and oriented. I had a very nice and long discussion with her and her daughter at the bedside. The patient is currently lying in bed. PAST MEDICAL HISTORY: Multiple abdominal surgeries. She did have fistulas before. PAST SURGICAL HISTORY: Multiple abdominal surgeries. ALLERGIES: NKA. SOCIAL HISTORY: There is no smoking, drug abuse or alcohol abuse. FAMILY HISTORY: Noncontributory. REVIEW OF SYSTEMS HEENT: Negative. PULMONARY: Negative. CARDIAC: Negative. : Negative. SKIN: There is no rash. When she first came, her white count was 17.3. Her hemoglobin was 13.1. Sodium 132, potassium 4.0, creatinine 0.68. Her urine was showing E. coli, which was ESBL, but her blood cultures are negative. Patient is currently on magnesium oxide, Eliquis and meropenem. PHYSICAL EXAMINATION GENERAL: She is currently alert and oriented, does not seem to be in acute distress. VITALS: Stable, currently afebrile. HEENT: She is not icteric. NECK: Supple. CHEST: Clear. HEART: S1 and S2. No murmur. ABDOMEN: Soft. She does have a fistula now with draining. IMPRESSION AND PLAN 1. Fistula, probably high output. Discussed about the patient having TPN and n.p.o. She is really not ready to do that yet. Will try a liquid diet, low-fiber diet. 2. Urinary tract infection. Will give her meropenem 500 IV q.8 for 2 weeks. Will get a PICC line. 3. Will discuss with nutrition. Will follow with you. Job#: [id number]
[2018-01-12] MEDS: MIRTAZAPINE 15 MG TAB PO SCH (21:30)
[2018-01-13 00:15] VITALS: BP 120/60
[2018-01-13 05:07] LABS: BASOPHILS % 0.6 % (0.0-1.0); EOSINOPHILS # (AUTO) 0.1 (0.0-0.4); EOSINOPHILS % 2.7 % (0.0-6.0); HEMATOCRIT 36.2 % (34.2-44.1); HEMOGLOBIN 11.9 g/dL (12.0-16.0); LYMPHOCYTES # (AUTO) 2.6 (1.0-3.2); LYMPHOCYTES % 49.3 % (18.0-39.1); MEAN CORPUSCULAR HEMOGLOBIN 29.4 pg (28-32); MEAN CORPUSCULAR HGB CONC 32.9 g/dL (31-35); MEAN CORPUSCULAR VOLUME 89.4 fL (81-99); MONOCYTES # (AUTO) 0.6 (0.2-0.8); MONOCYTES % 10.8 % (4.4-11.3); NEUTROPHILS # (AUTO) 1.9 (2.1-6.9); NEUTROPHILS % 36.2 % (38.7-80.0); PLATELET COUNT 371 x10e3/uL (140-360); RED BLOOD COUNT 4.05 x10e6/uL (3.6-5.1)
[2018-01-13] MEDS: MEROPENEM 1 GM VIAL IV SCH (05:26)
[2018-01-13 05:43] VITALS: BP 133/62
[2018-01-13 05:56] LABS: ALANINE AMINOTRANSFERASE 10 IU/L (0-55); ALBUMIN 1.9 g/dL (3.5-5.0); ALBUMIN/GLOBULIN RATIO 0.5 (0.8-2.0); ALKALINE PHOSPHATASE 96 IU/L (40-150); ANION GAP 13.3 mmol/L (8-16); BLOOD UREA NITROGEN < 5 mg/dL (7-26); CALCIUM 8.1 mg/dL (8.4-10.2); CARBON DIOXIDE 17 mmol/L (22-29); CHLORIDE 112 mmol/L (98-107); CREATININE, SERUM 0.55 mg/dL (0.57-1.11); EST GLOMERULAR FILTRATION RATE > 60 ML/MIN (60-); GLUCOSE 66 mg/dL (74-118); MAGNESIUM 1.7 MG/DL (1.3-2.1); PHOSPHORUS 2.6 MG/DL (2.3-4.7); POTASSIUM 3.3 mmol/L (3.5-5.1); SODIUM 139 mmol/L (136-145)
[2018-01-13 06:00] LABS: BUN/CREATININE RATIO 9 (6-25)
[2018-01-13] MEDS ORDERED: POTASSIUM CHLORIDE 10 MEQ TABCR PO NR (09:45)
[2018-01-13] MEDS: MAGNESIUM OXIDE 400 MG TAB PO SCH ×2 (10:00→17:18)
[2018-01-13] MEDS: LOSARTAN POTASSIUM 25 MG TAB PO SCH (10:00)
[2018-01-13] MEDS: PANTOPRAZOLE SOD 40 MG TABEC PO SCH (10:00)
[2018-01-13] MEDS: APIXABAN 5 MG TABLET PO SCH ×2 (10:00→17:18)
[2018-01-13 12:22] VITALS: BP 135/69
[2018-01-13] MEDS ORDERED: ERTAPENEM 1GM/NS 100ML 100 ML IV SCH (12:30)
[2018-01-13] MEDS: ERTAPENEM 1GM/NS 100ML 100 ML IV SCH (13:48)
[2018-01-13 16:02] VITALS: BP 138/74
[2018-01-13 20:00] VITALS: BP 144/65
[2018-01-13] MEDS: MIRTAZAPINE 15 MG TAB PO SCH (20:05)
[2018-01-13 20:44] VITALS: BP 144/65
--- NOTE | 2018-01-13 21:22 | Diagnostic Imaging Report ---
Examination: Single AP view of the chest. COMPARISON: None. INDICATION: Line placement DISCUSSION: See impression IMPRESSION: Right PICC line with tip at the cavoatrial junction. No complication. Left effusion and atelectasis. Signed by: Dr. Chriss Waldrop M.D. on 01/13/2018 8:53 PM
[2018-01-14 05:22] LABS: BLOOD UREA NITROGEN < 5 mg/dL (7-26); CALCIUM 7.6 mg/dL (8.4-10.2); CARBON DIOXIDE 21 mmol/L (22-29); CHLORIDE 109 mmol/L (98-107); EST GLOMERULAR FILTRATION RATE > 60 ML/MIN (60-); GLUCOSE 83 mg/dL (74-118); SODIUM 136 mmol/L (136-145)
[2018-01-14 05:26] LABS: BUN/CREATININE RATIO 10 (6-25)
[2018-01-14 05:48] VITALS: BP 115/53
[2018-01-14 08:00] VITALS: BP 107/58
[2018-01-14] MEDS: APIXABAN 5 MG TABLET PO SCH ×2 (09:58→16:28)
[2018-01-14] MEDS: PANTOPRAZOLE SOD 40 MG TABEC PO SCH (09:58)
[2018-01-14] MEDS: POTASSIUM CHLORIDE 10 MEQ TABCR PO SCH ×2 (09:58→09:59)
[2018-01-14] MEDS: LOSARTAN POTASSIUM 25 MG TAB PO SCH (09:58)
[2018-01-14] MEDS: MAGNESIUM OXIDE 400 MG TAB PO SCH ×2 (09:58→16:28)
[2018-01-14] MEDS ORDERED: POTASSIUM CHLORIDE 20 MEQ TAB CR PO NR (10:00)
[2018-01-14 12:00] VITALS: BP 142/70
[2018-01-14] MEDS ORDERED: SODIUM CHLORIDE 0.9% 250ML 250 ML ONE (12:58)
[2018-01-14] MEDS: ERTAPENEM 1GM/NS 100ML 100 ML IV SCH (14:00)
[2018-01-14 16:00] VITALS: BP 115/70
[2018-01-14 20:00] VITALS: BP 126/72
[2018-01-14 21:00] VITALS: BP 126/72
[2018-01-14] MEDS: MIRTAZAPINE 15 MG TAB PO SCH (21:20)
[2018-01-15] VITALS (8 sets, daily range): BP systolic 114–125; BP diastolic 65–79
[2018-01-15] MEDS: LOSARTAN POTASSIUM 25 MG TAB PO SCH (08:00)
[2018-01-15] MEDS: APIXABAN 5 MG TABLET PO SCH ×2 (08:00→15:48)
[2018-01-15] MEDS: MAGNESIUM OXIDE 400 MG TAB PO SCH ×2 (08:00→15:48)
[2018-01-15] MEDS: PANTOPRAZOLE SOD 40 MG TABEC PO SCH (08:00)
[2018-01-15] MEDS: ERTAPENEM 1GM/NS 100ML 100 ML IV SCH (13:00)
[2018-01-15] MEDS: MIRTAZAPINE 15 MG TAB PO SCH (21:20)
[2018-01-16] VITALS (8 sets, daily range): BP systolic 113–135; BP diastolic 64–76
[2018-01-16] MEDS: PANTOPRAZOLE SOD 40 MG TABEC PO SCH (07:30)
[2018-01-16] MEDS: MAGNESIUM OXIDE 400 MG TAB PO SCH ×2 (09:00→16:12)
[2018-01-16] MEDS: APIXABAN 5 MG TABLET PO SCH ×2 (09:00→16:11)
[2018-01-16] MEDS: POTASSIUM CHLORIDE 10 MEQ TABCR PO SCH (09:00)
[2018-01-16] MEDS: LOSARTAN POTASSIUM 25 MG TAB PO SCH (09:00)
[2018-01-16] MEDS: ERTAPENEM 1GM/NS 100ML 100 ML IV SCH (14:00)
[2018-01-16] MEDS ORDERED: POTASSIUM CHLORIDE 10 MEQ TABCR PO ONE (15:15)
[2018-01-16] MEDS ORDERED: MAGNESIUM SULFATE 2GM/50ML IV ONE (15:15)
[2018-01-16] MEDS: MIRTAZAPINE 15 MG TAB PO SCH (20:22)
[2018-01-17] VITALS (7 sets, daily range): BP systolic 102–124; BP diastolic 54–70
--- NOTE | 2018-01-17 01:04 | Consultation ---
DATE OF CONSULTATION: January 16, 2018 GI CONSULT NOTE REFERRING PHYSICIAN: Dr. Jessa Gayle REASON FOR CONSULTATION: Enterocutaneous fistula. HISTORY OF PRESENT ILLNESS: An 82-year-old very pleasant female, who has had extensive abdominal surgery in 2016 secondary to intestinal diverticulitis. The initial surgeries were performed in [facility]. She has some enterocutaneous fistula, which has been persistent leaking last few days. Dr. Chauhan is her surgeon. She has no history of Crohn's disease. No abdominal pain. The patient, otherwise, tolerating oral feeds with regular bowel movements. REVIEW OF SYSTEMS: Twelve-point system reviewed. Symptomatology is limited to GI system. PAST MEDICAL HISTORY: Multiple abdominal surgeries. History of hypercoagulable state. She is on Eliquis. SURGICAL HISTORY: Multiple exploratory laparotomies. FAMILY HISTORY: Hypertension, diabetes, negative for any GI or [employer] malignancies. Negative for any inflammatory bowel disease. SOCIAL HISTORY: No smoking, alcohol or any illicit drug use. ALLERGIES: CIPROFLOXACIN. MEDICATIONS: Reviewed as per JUL. She is being given intravenous ertapenem along with other medications. PHYSICAL EXAMINATION VITALS: Temperature 96.4, pulse 93, respirations 17, blood pressure 115/66, oxygen saturation 100% on room air. GENERAL: Not in any acute distress. Oral mucosa is moist. Anicteric sclerae. CVS: S1, S2 regular. LUNGS: Bilaterally grossly clear. ABDOMEN: Soft, multiple midline healed surgical scar with fistula in the lower quadrant draining serous fluid in a bag. Bowel sounds present. EXTREMITIES: Warm. No leg edema. LAB: WBC 5.27, hemoglobin 11.9, hematocrit 36.2, MCV 89.4 platelet count 371,000. Sodium 136, potassium 3.0, chloride 109, bicarb 21, BUN 5, creatinine 0.50. 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 Multiple abdominal surgeries in the past. PLAN: From the GI standpoint, I do not have any treatment to offer. I recommend to use octreotide to decrease intestinal secretions. Surgery is following the patient. I thank, Dr. Gayle, for allowing me to participate in the care of this patient. Job#: [id number]
[2018-01-17] MEDS: PANTOPRAZOLE SOD 40 MG TABEC PO SCH (07:30)
[2018-01-17] MEDS: LOSARTAN POTASSIUM 25 MG TAB PO SCH (09:00)
[2018-01-17] MEDS ORDERED: POTASSIUM CHLORIDE 10 MEQ TABCR PO SCH (09:00)
[2018-01-17] MEDS: MAGNESIUM OXIDE 400 MG TAB PO SCH (09:00)
[2018-01-17] MEDS: APIXABAN 5 MG TABLET PO SCH (09:00)
[2018-01-17] MEDS ORDERED: OCTREOTIDE ACETATE 0.1 MG/ML 100MCG AMP SQ SCH (09:00)
[2018-01-17] MEDS: ERTAPENEM 1GM/NS 100ML 100 ML IV SCH (11:30)
--- NOTE | 2018-01-17 12:50 | Progress Note ---
DATE: January 17, 2018 GI PROGRESS NOTE SUBJECTIVE: Patient reports no abdominal pain. Tolerating oral feeds. No bowel movement today. 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 REVIEW OF SYSTEMS GENERAL: No fever or chills. CV: No chest pain or palpitation. RESPIRATORY: No cough or expectoration. MEDICATIONS: Reviewed as per JUL. PHYSICAL EXAMINATION VITAL SIGNS: Temperature 96.1, pulse 87, respirations 20, blood pressure 124/58, oxygen saturation 97% on room air. GENERAL: Not in any acute distress. HEENT: Oral mucosa is moist. Anicteric sclerae. ABDOMEN: Multiple healed laparotomy scars with a small fistula just below the umbilicus draining liquid feces and getting collected into a bag. Connected to colostomy bag. Nontender abdomen. No rebound, rigidity or guarding. Positive bowel sounds. No apparent incisional hernia. LABS: None today. 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 All of the surgery was performed by colorectal surgeon, Dr. Cary, in the [facility]. PLAN: Dr. Chauhan (surgeon) is following the patient while she is here. Patient has no prior history of any Crohn disease. I do not suspect this fistula is secondary to any penetrating Crohn disease. This fistulous is most likely postsurgical. From GI standpoint, would recommend to put her on antisecretory therapy that includes maximum dose of proton pump inhibitor, as well as simvastatin (octreotide). Per Dr. Chauhan, the patient is allowed to eat by mouth. I have advised the patient's daughter to contact Dr. Cary as he is familiar with her mother's surgery. He is familiar as well as he was the one who performed previous abdominal surgeries. I have also given my business card to the patient's daughter for any questions. Job#: [id number] [employer]
--- NOTE | 2018-01-18 00:09 | Discharge Summary ---
FINAL DIAGNOSES: 1. Complicated urinary tract infection, associated with recurrent hospitalization, associated with extended-spectrum beta-lactamase bacteria. 2. Abdominal wall cellulitis and skin breakdown, associated with colonic abdominal wall fistula. SUMMARY: Patient is a pleasant 82-year-old female who had a very complicated abdominal surgery. Please review consultation from Dr. Tad Chauhan. The patient subsequently developed a small abdominal wall fistula and subsequently with significant output. She was hospitalized multiple times during this past 4 weeks. Patient now has an ostomy bag over the fistula opening area in her abdominal wall and it is draining. She also came in with urinary tract infection with ESBL. She had a PICC line in place and arranged for Invanz IV antibiotic per Dr. Ortiz, and all has been arranged. Wound care and home health also arranged for as well. Education was given to the patient's family, who is very supportive of the patient's medical condition. Suggest the patient to follow with Dr. Cary, her family physician, and refer to Dr. Viveros and possible referral to a second opinion in the medical center. Discussed this with Dr. Chauhan as well. Patient is otherwise stable. Last surgical intervention in abdominal resection was significantly complicated where the patient had a long hospitalization. She also has ischemic colon as well on her last surgical intervention, and currently she is on Eliquis. The patient is stable and discharged home. Resume home medications, supportive measures, and follow with her family doctor, and subsequent referral as planned. Job#: [id number]
== END 2018-01-17 12:54 | disposition home health service (06) | DRG 394 ==
LOC: ER 17:17 → ERHOLD 22:18 → MED/SURG2 23:39
PROVIDERS: ADMIT Internal Medicine; ATTEND Internal Medicine
PROC: 02HV33Z Insertion of Infusion Device into Superior Vena Cava, Percutaneous Approach (ICD-10-PCS; principal; 2018-01-13)
DX: K63.2 Fistula of intestine (principal); N39.0 Urinary tract infection, site not specified; L03.311 Cellulitis of abdominal wall; K55.1 Chronic vascular disorders of intestine; B96.20 Unspecified Escherichia coli [E. coli] as the cause of diseases classified elsewhere; Z16.12 Extended spectrum beta lactamase (ESBL) resistance
CPT/HCPCS: 36415; 36569; 71045; 74177; 80048; 80053; 81001; 82150; 82607; 83690; 83735; 84100; 85025; 87040; 87071; 87086; 87186; 87205; 99284; J2185; J2354; J7030; J7050

== ENCOUNTER 2018-05-14 10:03 | Observation (INO) | payer MEDICARE, OTHER ==
[~2018-05-14] VITALS: Ht 162.6 cm; Wt 67.6 kg
[~2018-05-14 10:03] MED LIST changes: +ADVAIR 250-501 EACH INH
--- OUTSIDE RECORDS SUMMARY | 2018-05-14 10:06 | XMS REPORT | Clinical Summary ---
Author Author [facility] Address Unknown Phone Unavailable Care Team Providers Care Gut Carrier Name Role Phone Patel Hernandez MD PCP Allergies Comments Active Allergy Reactions Severity Noted Date Ciprofloxacin Rash High 02/20/2016 Medications End Date Status Medication Sig Dispensed Refills Start Date Active ELIQUIS 5 mg tablet 0 8 Active losartan-hydrochlorothiaz losartan 100 0 ramiro (HYZAAR) 100-25 mg mg-hydrochlor per tablet othiazide 25 mg tablet 05/07/2018 Discontinued metoprolol tartrate Take 50 mg by 0 (LOPRESSOR) 50 MG tablet mouth 2 (two) times a day. 05/07/2018 Discontinued pregabalin (LYRICA) 150 Take 150 mg 0 MG capsule by mouth once. 05/07/2018 Discontinued valsartan (DIOVAN) 320 MG Take 320 mg 0 tablet by mouth daily. 05/07/2018 Discontinued fluticasone-salmeterol Inhale 1 puff 0 (ADVAIR) 100-50 mcg/dose 2 (two) times DISKUS a day. 05/07/2018 Discontinued mometasone (NASONEX) 50 2 sprays into 0 mcg/actuation nasal spray each nostril daily. 05/07/2018 Discontinued montelukast (SINGULAIR) Take 10 mg by 0 10 mg tablet mouth nightly. 05/07/2018 Discontinued diltiazem CD (CardIZEM Take 240 mg 0 CD) 240 MG 24 hr capsule by mouth daily. Active Problems Problem Noted Date Colon polyps 02/20/2016 Encounters Care Team Description Date Type Specialty Noe Cary MD Abdominal pain, unspecified abdominal location; Mesenteric vascular insufficiency (HCC) 05/07/2018 Hospital Radiology Encounter Noe Cary MD Abdominal pain, unspecified abdominal location (Primary Dx); Mesenteric vascular insufficiency (HCC) 04/29/2018 Transcribe Access Orders Noe Cary MD Intestinal fistula 02/17/2018 Hospital Radiology Encounter oNe Cary MD Intestinal fistula (Primary Dx) 02/09/2018 Transcribe Access Orders after 05/13/2017 Family History Medical History Relation Name Comments Heart disease Mother Relation Name Status Comments Mother Social History Date Tobacco Use Types Packs/Day Years Used Never Smoker Alcohol Use Drinks/Week oz/Week Comments No Sex Assigned at Date Recorded Not on file Industry Job Start Date Occupation Not on file Not on file Not on file Travel End Travel History Travel Start No recent travel history available. Last Filed Vital Signs Time Taken Vital Sign Reading - Blood Pressure - - Pulse - - Temperature - - Respiratory Rate - - Oxygen Saturation - - Inhaled Oxygen - Concentration 05/07/2018 1:29 PM CREDIT PRODUCT ANALYST Weight 74.8 kg (165 lb) 05/07/2018 1:29 PM CREDIT PRODUCT ANALYST Height 162.6 cm (5' 4") 05/07/2018 1:29 PM CREDIT PRODUCT ANALYST Body Mass Index 28.32 Plan of Treatment Health Maintenance Due Date Last Done Comments SHINGLES VACCINES (1 of 12/26/1987 2) PNEUMOCOCCAL-13 2002 INFLUENZA VACCINE 12/10/2017 02/09/2017, 01/10/2016 PNEUMOCOCCAL Completed 05/31/2011 POLYSACCHARIDE VACCINE AGE 65 AND OVER Implants Device Identifier Shelf Expiration Date Model / Serial / Lot Implanted Type Area Manufactur er 10/10/2020 XL 5410 / / [id number] Epifix Xl 4 X 10 - [id number] Surgical N/A: N/A MIMEDX Implanted: 02/20/2016 (Quantity not Implants; [employer] on file) Expanders; Extenders; Surgical Wires 11/09/2020 XL 5410 / / [id number] Epifix Xl 4 X 10 - [id number] Surgical N/A: N/A MIMEDX Implanted: 02/20/2016 (Quantity not Implants; [employer] on file) Expanders; Extenders; Surgical Wires 10/10/2020 XL 5410 / / [id number] Epifix Xl 4 X 10 - [id number] Surgical N/A: N/A MIMEDX Implanted: 02/20/2016 (Quantity not Implants; [employer] on file) Expanders; Extenders; Surgical Wires Procedures Comments Procedure Name Priority Date/Time Associated Diagnosis CT ANGIOGRAM ABDOMEN Routine 05/07/2018 Abdominal pain, PELVIS W AND OR WO 2:35 PM CREDIT PRODUCT ANALYST unspecified abdominal CONTRAST location Mesenteric vascular insufficiency (HCC) ESTIMATED GFR Routine 05/07/2018 2:03 PM CREDIT PRODUCT ANALYST POC CREATININE Routine 05/07/2018 2:03 [address] [address] ABDOMEN PELVIS W Routine 02/17/2018 Intestinal fistula CONTRAST 1:58 PM CDT ESTIMATED GFR Routine 02/17/2018 12:08 PM CDT POC CREATININE Routine 02/17/2018 12:08 PM CDT after 05/13/2017 Results * CTA Abdomen Pelvis W And Or Wo Contrast (05/07/2018 2:35 PM CREDIT PRODUCT ANALYST) Narrative Performed At EXAMINATION:CT ANGIOGRAM ABDOMEN PELVIS W CONTRAST HM [facility] CLINICAL HISTORY:R10.9 Unspecified abdominal pain, K55.1 Chronic vascular disorders of intestine, R10.9 TECHNIQUE: Multiple CT angiographic images of the abdomen and pelvis were obtained following intravenous administration of contrast. Multiple computerized reformatted images as well as 3-D volume rendered images on a dedicated postprocessing workstation at the acquisition scanner under concurrent supervision archived and interpreted per CTA protocol.. ..All CT images were acquired using radiation dose lowering technique with automated exposure control and / or iterative reconstruction. COMPARISON:CT abdomen and pelvis, 02/17/2018 IMPRESSION: CTA: Mild calcified plaque within the abdominal aorta and tortuosity, though no stenosis, or abdominal aortic aneurysm or dissection. Minimal calcified plaque within the right common iliac artery and none on the left. Widely patent bilaterally. Mild calcified plaque within the right internal iliac artery without stenosis. Calcified plaque with a short segment of moderate stenosis in the left internal iliac artery just proximal to its bifurcation. External iliac arteries bilaterally contain no plaque, and are widely patent. Common femoral arteries bilaterally widely patent, as are the visualized portions of profunda femoris and superficial femoral arteries bilaterally. Calcified plaque with a short segment of mild stenosis at the celiac trunk origin and poststenotic dilation, otherwise widely patent. Trifurcation vessels are widely patent throughout. Tiny calcified plaque at the SMA origin without stenosis, otherwise widely patent. MARCOS widely patent and contains no plaque. Small calcified plaque along the undersurface of the proximal right MRA at its origin, without significant stenosis. Early bifurcation of the right MRA 1.5 cm after its origin, perfusing the upper pole, otherwise unremarkable. Calcified plaque in the proximal left MRA at its origin, with a short 1 cm segment of equivocal mild stenosis, otherwise widely patent. ABDOMEN: Fluid and gas containing collection at midline abdominal wall with greater amount of gas than before, indicating persistent fistula, with loss of fat plane and close apposition of a loop of small bowel in the midline lower abdomen, series 2 image 98, though no bridging gas tract is appreciable on today's exam. Multiple staple lines are present within these loops of small bowel, as before. No drainable fluid collection. No intra-abdominal fluid collection. Skin defect with soft tissue loss in the lower midline abdomen. Colonic diverticulosis most pronounced distally. Status post extended right hemicolectomy with primary anastomosis. Small hiatal hernia. Bowel loops otherwise grossly unremarkable without enteric contrast. A benign 2 cm hepatic hemangioma immediately posterior to the hepatic IVC in segment 7, stable. Calcified hepatic and alignment. Liver otherwise grossly unremarkable. Evaluation of solid abdominal organs limited as they are imaged in the arterial phase only per CTA protocol. Mild scarring at the lung bases, and trace left pleural fluid, decreased significantly since prior. Gallbladder not visualized likely removed. Bile ducts are not dilated. Atrophy in the neck and body of pancreas with relative preservation of the tail, similar to prior. This suggests prior pancreatitis, though there is no duct dilation or calcification. Spleen grossly unremarkable. Left adrenal not well seen, with surgical clips in the area suggesting adrenalectomy. Stable indeterminate 2 cm right adrenal nodule, statistically likely a benign adenoma, though can be better assessed with a noncontrast CT abdomen. Kidneys grossly unremarkable for age. PELVIS: No free fluid or lymphadenopathy identified within the pelvis. Urinary bladder distended otherwise unremarkable. Hysterectomy. Bones are demineralized. Visualized bones show no suspicious lesion. SUMMARY: Short segment mild stenosis at the celiac trunk origin with poststenotic dilation, otherwise widely patent, as is the SMA and MARCOS. Incidental vascular and nonvascular findings, see above for details. [facility]-[id number] Procedure Note [facility], Radiology Results Incoming - 05/07/2018 2:55 PM CREDIT PRODUCT ANALYST EXAMINATION: CT ANGIOGRAM ABDOMEN PELVIS W CONTRAST CLINICAL HISTORY: R10.9 Unspecified abdominal pain, K55.1 Chronic vascular disorders of intestine, R10.9 TECHNIQUE: Multiple CT angiographic images of the abdomen and pelvis were obtained following intravenous administration of contrast. Multiple computerized reformatted images as well as 3-D volume rendered images on a dedicated postprocessing workstation at the acquisition scanner under concurrent supervision archived and interpreted per CTA protocol. . .. All CT images were acquired using radiation dose lowering technique with automated exposure control and / or iterative reconstruction. COMPARISON: CT abdomen and pelvis, 02/17/2018 IMPRESSION: CTA: Mild calcified plaque within the abdominal aorta and tortuosity, though no stenosis, or abdominal aortic aneurysm or dissection. Minimal calcified plaque within the right common iliac artery and none on the left. Widely patent bilaterally. Mild calcified plaque within the right internal iliac artery without stenosis. Calcified plaque with a short segment of moderate stenosis in the left internal iliac artery just proximal to its bifurcation. External iliac arteries bilaterally contain no plaque, and are widely patent. Common femoral arteries bilaterally widely patent, as are the visualized portions of profunda femoris and superficial femoral arteries bilaterally. Calcified plaque with a short segment of mild stenosis at the celiac trunk origin and poststenotic dilation, otherwise widely patent. Trifurcation vessels are widely patent throughout. Tiny calcified plaque at the SMA origin without stenosis, otherwise widely patent. MARCOS widely patent and contains no plaque. Small calcified plaque along the undersurface of the proximal right MRA at its origin, without significant stenosis. Early bifurcation of the right MRA 1.5 cm after its origin, perfusing the upper pole, otherwise unremarkable. Calcified plaque in the proximal left MRA at its origin, with a short 1 cm segment of equivocal mild stenosis, otherwise widely patent. ABDOMEN: Fluid and gas containing collection at midline abdominal wall with greater amount of gas than before, indicating persistent fistula, with loss of fat plane and close apposition of a loop of small bowel in the midline lower abdomen, series 2 image 98, though no bridging gas tract is appreciable on today's exam. Multiple staple lines are present within these loops of small bowel, as before. No drainable fluid collection. No intra-abdominal fluid collection. Skin defect with soft tissue loss in the lower midline abdomen. Colonic diverticulosis most pronounced distally. Status post extended right hemicolectomy with primary anastomosis. Small hiatal hernia. Bowel loops otherwise grossly unremarkable without enteric contrast. A benign 2 cm hepatic hemangioma immediately posterior to the hepatic IVC in segment 7, stable. Calcified hepatic and alignment. Liver otherwise grossly unremarkable. Evaluation of solid abdominal organs limited as they are imaged in the arterial phase only per CTA protocol. Mild scarring at the lung bases, and trace left pleural fluid, decreased significantly since prior. Gallbladder not visualized likely removed. Bile ducts are not dilated. Atrophy in the neck and body of pancreas with relative preservation of the tail, similar to prior. This suggests prior pancreatitis, though there is no duct dilation or calcification. Spleen grossly unremarkable. Left adrenal not well seen, with surgical clips in the area suggesting adrenalectomy. Stable indeterminate 2 cm right adrenal nodule, statistically likely a benign adenoma, though can be better assessed with a noncontrast CT abdomen. Kidneys grossly unremarkable for age. PELVIS: No free fluid or lymphadenopathy identified within the pelvis. Urinary bladder distended otherwise unremarkable. Hysterectomy. Bones are demineralized. Visualized bones show no suspicious lesion. SUMMARY: Short segment mild stenosis at the celiac trunk origin with poststenotic dilation, otherwise widely patent, as is the SMA and MARCOS. Incidental vascular and nonvascular findings, see above for details. [facility]-[id number] Performing Organization Address City/State/Zipcode Phone Number [facility] [address] [place] [address] * Estimated GFR (05/07/2018 2:03 PM CREDIT PRODUCT ANALYST) Only the most recent of 2 results within the time period is included. Estimated GFR >=90 mL/min/1.73 m2 [facility] Comment: HOSPITAL CatergoryUnitsInte rpretation G1 >=90 Normal or high G2 60-89Mildly decreased [id number] Mildly to moderately decreased H0x70-41 Moderately to severely decreased G4 15-29Severely decreased G5 <15Kidney failure The eGFR was calculated using the Chronic Kidney Disease Epidemiology Collaboration (CKD-EPI) equation. Interpretation is based on recommendations of the National Kidney Foundation-Kidney Disease Outcomes Quality Initiative (NKF-KDOQI) published in 2014. Specimen Blood Performing Organization Address City/State/Zipcode Phone Number [facility] DEPARTMENT [address] [place] [address] PATHOLOGY [facility] GENOMIC [facility]ICINE [place] [address] HOSPITAL * POC creatinine (05/07/2018 2:03 PM CREDIT PRODUCT ANALYST) Only the most recent of 2 results within the time period is included. POC creatinine 0.5 0.5 - 0.9 mg/dl [facility] Comment: HOSPITAL Meter ID: [id number] Sales Engineer Engineered Products: Hamilton Zaragoza Specimen Blood Performing Organization Address City/State/Zipcode Phone Number [facility] DEPARTMENT OF [address] [place] [address] PATHOLOGY AND GENOMIC MEDICINE [facility] [address] [place] [address] HOSPITAL * CT Abdomen Pelvis W Contrast (02/17/2018 1:58 PM CDT) Narrative Performed At EXAMINATION:CT ABDOMEN PELVIS W CONTRAST [facility] CLINICAL HISTORY:K63.2 Fistula of intestine, K63.2 INTESTINAL FISTULA TECHNIQUE: Multiple axial images of the abdomen and pelvis were obtained following intravenous administration of iodinated contrast. Sagittal and coronal computerized reformatted images were also obtained..All CT images were acquired using radiation dose lowering technique with automated exposure control and / or iterative reconstruction. COMPARISON:No IMPRESSION: ABDOMEN: 1. Small left pleural effusion with adjacent atelectasis. Lung bases otherwise clear. Extensive calcification of the mitral annulus. 2.Extensive inflammatory change along the midline of the abdominal wall extending over 17 cm craniocaudal, with fluid and gas. Loss of the omental fat anteriorly, at and below the level of the umbilicus, with abutment of subjacent small bowel loops. A gas tract is noted at and to left of midline which comes in close proximity to an underlying small bowel loop and staple line, as shown on series 3 images 91 through 93, which equivocally represents site of enterocutaneous fistula, though no fistula tract is directly visualized, and no extraluminal contrast is identified. No drainable fluid collection. 3.Scattered colonic diverticula. Status post extended right hemicolectomy. Multiple small bowel staple lines are present. Bowel loop show no evidence of obstruction. Mild secondary inflammation of mid small bowel in the lower abdomen anteriorly subjacent to the inflammatory change of the abdominal wall discussed above. 4.A segment of small bowel in the midline pelvis, series 3 image 114, demonstrates irregular wall thickening posteriorly, corresponding to site of a staple line. This may be redundancy and scarring postop, though attention on follow-up or further evaluation with CT enterography is advised to exclude underlying neoplasm. 5.Mild peritoneal thickening and stranding anteriorly. No focal fluid collection is identified. 6.Moderate to severe fatty liver. No focal lesion identified. Gallbladder not visualized, removed versus contracted. Bile ducts, spleen, abdominal aorta demonstrates nothing unusual. 7.The pancreas atrophic especially in the body and neck, likely from senescence. There is no pancreatic duct dilation or discrete pancreatic mass identified. This can be followed to ensure ongoing stability. 8.Left adrenal gland not well seen possibly removed, with adjacent surgical clips. 9.Indeterminant 1.7 cm nodule in the right adrenal gland, correlation with noncontrast CT abdomen is advised. Statistically most likely adenoma. 10.Kidneys unremarkable. PELVIS: 1. No free fluid or definite lymphadenopathy identified abdomen or pelvis. 2.Urinary bladder is collapsed. Hysterectomy. 3.Bones are demineralized. Visualized bones show no suspicious lesion. SUMMARY: Phlegmon including soft tissue gas and tiny fluid in the midline abdominal wall, with equivocal fistula tract to a small bowel loop in the mid to lower abdomen just to the left of midline. No extraluminal contrast is identified. No drainable fluid collection. Irregular wall thickening posteriorly, involving a small bowel loop in the midline pelvis, see above for details and follow-up recommendations. Indeterminant right adrenal nodule. Correlation with noncontrast CT abdomen is advised. Focal parenchymal atrophy in the body and neck of pancreas likely from senescence though attention on follow-up to ensure ongoing stability is recommended. [facility]-[id number] Procedure Note [facility], Radiology Results Incoming - 02/17/2018 2:43 PM CDT EXAMINATION: CT ABDOMEN PELVIS W CONTRAST CLINICAL HISTORY: K63.2 Fistula of intestine, K63.2 INTESTINAL FISTULA TECHNIQUE: Multiple axial images of the abdomen and pelvis were obtained following intravenous administration of iodinated contrast. Sagittal and coronal computerized reformatted images were also obtained.. All CT images were acquired using radiation dose lowering technique with automated exposure control and / or iterative reconstruction. COMPARISON: No IMPRESSION: ABDOMEN: 1. Small left pleural effusion with adjacent atelectasis. Lung bases otherwise clear. Extensive calcification of the mitral annulus. 2. Extensive inflammatory change along the midline of the abdominal wall extending over 17 cm craniocaudal, with fluid and gas. Loss of the omental fat anteriorly, at and below the level of the umbilicus, with abutment of subjacent small bowel loops. A gas tract is noted at and to left of midline which comes in close proximity to an underlying small bowel loop and staple line, as shown on series 3 images 91 through 93, which equivocally represents site of enterocutaneous fistula, though no fistula tract is directly visualized, and no extraluminal contrast is identified. No drainable fluid collection. 3. Scattered colonic diverticula. Status post extended right hemicolectomy. Multiple small bowel staple lines are present. Bowel loop show no evidence of obstruction. Mild secondary inflammation of mid small bowel in the lower abdomen anteriorly subjacent to the inflammatory change of the abdominal wall discussed above. 4. A segment of small bowel in the midline pelvis, series 3 image 114, demonstrates irregular wall thickening posteriorly, corresponding to site of a staple line. This may be redundancy and scarring postop, though attention on follow-up or further evaluation with CT enterography is advised to exclude underlying neoplasm. 5. Mild peritoneal thickening and stranding anteriorly. No focal fluid collection is identified. 6. Moderate to severe fatty liver. No focal lesion identified. Gallbladder not visualized, removed versus contracted. Bile ducts, spleen, abdominal aorta demonstrates nothing unusual. 7. The pancreas atrophic especially in the body and neck, likely from senescence. There is no pancreatic duct dilation or discrete pancreatic mass identified. This can be followed to ensure ongoing stability. 8. Left adrenal gland not well seen possibly removed, with adjacent surgical clips. 9. Indeterminant 1.7 cm nodule in the right adrenal gland, correlation with noncontrast CT abdomen is advised. Statistically most likely adenoma. 10. Kidneys unremarkable. PELVIS: 1. No free fluid or definite lymphadenopathy identified abdomen or pelvis. 2. Urinary bladder is collapsed. Hysterectomy. 3. Bones are demineralized. Visualized bones show no suspicious lesion. SUMMARY: Phlegmon including soft tissue gas and tiny fluid in the midline abdominal wall, with equivocal fistula tract to a small bowel loop in the mid to lower abdomen just to the left of midline. No extraluminal contrast is identified. No drainable fluid collection. Irregular wall thickening posteriorly, involving a small bowel loop in the midline pelvis, see above for details and follow-up recommendations. Indeterminant right adrenal nodule. Correlation with noncontrast CT abdomen is advised. Focal parenchymal atrophy in the body and neck of pancreas likely from senescence though attention on follow-up to ensure ongoing stability is recommended. [facility]-[id number] Performing Organization Address City/State/Zipcode Phone Number [facility] [address] [place] [address] after 05/13/2017 Insurance Payer Benefit Subscriber ID Type Phone Address Plan / Group [employer] xxxxxxxxx HMO [facility] Advance Directives For more information, please contact: Shadi Tapia [address] [place] [address] Date Inactivated Comments Code Status Date Activated 02/22/2016 3:18 PM Full Code 02/20/2016 12:49 PM Code Status decision reached by: Patient
[2018-05-14] MEDS ORDERED: ONDANSETRON HCL INJ 2 MG/ML VIAL IV STA (10:19)
[2018-05-14] MEDS ORDERED: SODIUM CHLORIDE 0.9% 1000ML 1,000 ML IV STA (10:19)
[2018-05-14] MEDS ORDERED: MORPHINE SULFATE INJ 4 MG/ML INJ IV ONE (10:30)
[2018-05-14] MEDS ORDERED: DIATRIZOATE MEGL/DIATRIZOA SOD 30 ML BTL PO ONE (10:30)
[2018-05-14] MEDS ORDERED: MORPHINE SULFATE 5 MG/ML VIAL IV ONE (10:30)
[2018-05-14 11:20] LABS: BASOPHILS % 0.3 % (0.0-1.0); EOSINOPHILS # (AUTO) 0.1 (0.0-0.4); EOSINOPHILS % 1.2 % (0.0-6.0); LYMPHOCYTES # (AUTO) 2.4 (1.0-3.2); LYMPHOCYTES % 26.5 % (18.0-39.1); MEAN CORPUSCULAR HEMOGLOBIN 30.7 pg (28-32); MEAN CORPUSCULAR HGB CONC 32.4 g/dL (31-35); MEAN CORPUSCULAR VOLUME 94.6 fL (81-99); MONOCYTES # (AUTO) 0.9 (0.2-0.8); MONOCYTES % 9.9 % (4.4-11.3); NEUTROPHILS # (AUTO) 5.6 (2.1-6.9); NEUTROPHILS % 61.9 % (38.7-80.0); PLATELET COUNT 205 x10e3/uL (140-360); RED BLOOD COUNT 3.91 x10e6/uL (3.6-5.1); RED CELL DISTRIBUTION WIDTH 13.2 % (11.7-14.4)
[2018-05-14 11:46] LABS: ALANINE AMINOTRANSFERASE 11 IU/L (0-55); ALBUMIN 3.1 g/dL (3.5-5.0); ALBUMIN/GLOBULIN RATIO 0.8 (0.8-2.0); ALKALINE PHOSPHATASE 70 IU/L (40-150); AMYLASE 31 U/L (25-125); ANION GAP 14.4 mmol/L (8-16); BLOOD UREA NITROGEN 14 mg/dL (7-26); BUN/CREATININE RATIO 19 (6-25); CARBON DIOXIDE 23 mmol/L (22-29); CHLORIDE 105 mmol/L (98-107); CREATINE KINASE 40 IU/L (29-168); CREATININE, SERUM 0.72 mg/dL (0.57-1.11); EST GLOMERULAR FILTRATION RATE > 60 ML/MIN (60-); GLUCOSE 88 mg/dL (74-118); LIPASE 11 U/L (8-78); MAGNESIUM 2.1 MG/DL (1.3-2.1); POTASSIUM 3.4 mmol/L (3.5-5.1); SODIUM 139 mmol/L (136-145)
[2018-05-14 11:48] LABS: INR 1.69; PROTHROMBIN TIME 21.2 seconds (11.9-14.5)
[2018-05-14 13:19] LABS: CLARITY,URINE SL CLOUDY (CLEAR); COLOR,URINE YELLOW (YELLOW)
[2018-05-14 13:20] LABS: BILIRUBIN,URINE NEGATIVE (NEGATIVE); KETONES,URINE NEGATIVE (NEGATIVE); LEUKOCYTE ESTERASE ,URINE TRACE (NEGATIVE); NITRITE,URINE NEGATIVE (NEGATIVE); PROTEIN,URINE DIPSTICK NEGATIVE (NEGATIVE); URINE UROBILINOGEN 0.2 mg/dL (0.2 - 1)
[2018-05-14 13:26] LABS: BACTERIA,URINE MODERATE /HPF; EPITHELIAL CELLS,URINE MODERATE /LPF; RBC,URINE 0-5 /HPF (0-5); TRANSITIONAL EPI CELLS,URINE FEW; WBC,URINE (MAN) 0-5 /HPF (0-5)
[2018-05-14] MEDS ORDERED: SODIUM CHLORIDE 0.9% 50ML 50 ML ONE (14:19)
[2018-05-14] MEDS ORDERED: IOPAMIDOL 370 MG/ML 200 ML INFUS..BTL INJ ONE (14:19)
--- NOTE | 2018-05-14 14:19 | Diagnostic Imaging Report ---
EXAM: CT ABDOMEN AND PELVIS with IV CONTRAST INDICATION: History of enterocutaneous fistula, now with abdominal pain, bulge in anterior abdomen in area of fistula. COMPARISON: CT of the Abdomen/Pelvis 01/10/2018. TECHNIQUE: The abdomen and pelvis were scanned using a multidetector helical scanner. Coronal and sagittal reformations were obtained. Dose modulation, iterative reconstruction, and/or weight based adjustment of the mA/kV was utilized to reduce the radiation dose to as low as reasonably achievable. Routine protocol performed. IV Contrast: 100 cc Isovue-370 Oral Contrast: Gastrografin FINDINGS: LOWER THORAX: Patchy dependent atelectasis. Interval resolution of prior pleural effusions. Partially seen mitral annular calcifications. LIVER: There is a 1.7 cm heterogeneously peripherally enhancing lesion in the posterior aspect of the right hepatic lobe, immediately adjacent to the intrahepatic IVC on series 2, image 14. Size is overall unchanged compared to CT on 04/18/2016. Diffuse hepatic steatosis. Cholecystectomy. No unexpected biliary dilation. SPLEEN: No masses PANCREAS: Pancreatic atrophy predominantly of the body. Coarse calcification of the pancreatic tail, suggestive of chronic pancreatitis. ADRENALS: Stable 2 cm right adrenal gland nodule. The left atrial gland has been removed. KIDNEYS: Symmetric perfusion. No enhancing masses. No hydronephrosis. Punctate 2 mm left mid pole renal stone. GI TRACT: Stable inflammatory changes and punctate foci of air connecting a loop of small bowel to the anterior abdomen at the anastomotic site on series 2, image 48. No extravasation of oral contrast. Surgical changes of right hemicolectomy. Immediately adjacent to the pelvic anastomosis, there is possible small bowel wall thickening on series 2, image 56, which may partially reflect underdistention. VESSELS: Scattered atherosclerotic changes of the abdominal aorta and branch vessels. PERITONEUM/RETROPERITONEUM: No free air or fluid LYMPH NODES: No lymphadenopathy REPRODUCTIVE ORGANS: The uterus and ovaries are not visualized. BLADDER: Unremarkable in appearance. SOFT TISSUES: Again noted is a fluid and air containing collection along the anterior abdominal wall subcutaneous tissues, likely reflecting a fistulous connection to the underlying small bowel. The superior aspect of the collection is now increasingly air-filled, and the inferior aspect of the collection is overall smaller in size compared to the prior CT. The overall extent of the collection measures up to 18 x 3.1 x 4.5 cm, previously 22 x 5 x 4.5 cm (SI x AP x TV). The maximal fluid containing portion of the collection measures up to 1.9 x 2.8 cm (AP x TV), previously 3.7 x 3.4 cm. Underlying thickening and inflammation of the rectus muscles without intra-abdominal abscess formation. BONES: No suspicious bone lesions. IMPRESSION: Interval partial decrease in size of anterior midline subcutaneous air-fluid collection, predominately containing air. The maximal fluid containing portion of the collection inferiorly measures up to 2.8 cm. 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 No evidence of intra-abdominal abscess. Apparent mild thickening of small bowel loop adjacent to pelvic anastomosis may partially reflect underdistention or adhesions. No evidence of bowel obstruction. Unchanged appearance of 1.7 cm peripherally enhancing lesion in the central liver compared to CT on 04/18/2016. Finding likely represents hemangioma. multiphasic CT or MRI of the abdomen with liver phase protocol may be considered for further evaluation. Signed by: Dr. Carlos Keller MD on 05/14/2018 2:16 PM
[2018-05-14] MEDS ORDERED: POTASSIUM CHLORIDE 20 MEQ TAB CR PO NR (14:39)
[2018-05-14] MEDS ORDERED: ONDANSETRON HCL INJ 2 MG/ML VIAL IV PRN (14:45)
[2018-05-14] MEDS ORDERED: MORPHINE SULFATE INJ 4 MG/ML INJ IV PRN (14:45)
[2018-05-14] MEDS: PIPER-TAZ 3.375 GM 50 ML IV SCH ×2 (14:48→18:35)
--- OUTSIDE RECORDS SUMMARY | 2018-05-14 14:53 | XMS REPORT | Clinical Summary ---
Author Author [facility] Organization [facility] Address Unknown Phone Unavailable Care Team Providers Care Design Assistant Name Role Phone Patel Hernandez MD PCP [...] MD Intestinal fistula 02/17/2018 Hospital Radiology Encounter Noe Cary MD Intestinal fistula (Primary Dx) 02/09/2018 [...] Inhaled Oxygen - Concentration 05/07/2018 1:29 PM DENTAL RESIDENT Weight 74.8 kg (165 lb) 05/07/2018 1:29 PM DENTAL RESIDENT Height 162.6 cm (5' 4") 05/07/2018 1:29 PM DENTAL RESIDENT Body Mass Index 28.32 Plan of Treatment Health Maintenance Due Date Last Done Comments SHINGLES VACCINES (1 of 12/26/1987 2) PNEUMOCOCCAL-13 2002 INFLUENZA VACCINE 12/10/2017 02/09/2017, 01/10/2016 PNEUMOCOCCAL Completed 05/31/2011 POLYSACCHARIDE VACCINE AGE 65 AND OVER Implants Device Identifier Shelf Expiration Date Model / Serial / Lot Implanted Type Area Manufactur er 10/10/2020 XL 5410 / / [id number] Epifix Xl 4 X 10 - [id number] Surgical N/A: N/A MIMEDX Implanted: 02/20/2016 (Quantity not Implants; [employer] on file) Expanders; Extenders; Surgical Wires 11/09/2020 XL 5410 / / [id number] Epifix Xl 4 X 10 - [id number] Surgical N/A: N/A MIMEDX Implanted: 02/20/2016 (Quantity not Implants; [employer] on file) Expanders; Extenders; Surgical Wires 10/10/2020 XL 5410 / / [id number] Epifix Xl 4 X 10 - [id number] Surgical N/A: N/A MIMEDX Implanted: 02/20/2016 (Quantity not Implants; [employer] on file) Expanders; Extenders; Surgical Wires Procedures Comments Procedure Name Priority Date/Time Associated Diagnosis CT ANGIOGRAM ABDOMEN Routine 05/07/2018 Abdominal pain, PELVIS W AND OR WO 2:35 PM DENTAL RESIDENT unspecified abdominal CONTRAST location Mesenteric vascular insufficiency (HCC) ESTIMATED GFR Routine 05/07/2018 2:03 PM DENTAL RESIDENT POC CREATININE Routine 05/07/2018 2:[address] ABDOMEN PELVIS W Routine 02/17/2018 Intestinal fistula CONTRAST 1:58 PM CDT ESTIMATED GFR Routine 02/17/2018 12:08 PM CDT POC CREATININE Routine 02/17/2018 12:08 PM CDT after 05/13/2017 Results * CTA Abdomen Pelvis W And Or Wo Contrast (05/07/2018 2:35 PM DENTAL RESIDENT) Narrative Performed At EXAMINATION:CT ANGIOGRAM ABDOMEN PELVIS [...] and nonvascular findings, see above for details. [facility]-[id number] Procedure Note [facility], Radiology Results Incoming - 05/07/2018 2:55 PM DENTAL RESIDENT EXAMINATION: CT ANGIOGRAM ABDOMEN PELVIS W CONTRAST [...] and nonvascular findings, see above for details. [facility]-[id number] Performing Organization Address City/State/Zipcode Phone Number [facility] [address] [place] [address] * Estimated GFR (05/07/2018 2:03 PM DENTAL RESIDENT) Only the most recent of 2 results within the time period is included. Estimated GFR >=90 mL/min/1.73 m2 [facility] Comment: [facility]OSPITAL CatergoryUnitsInte rpretation G1 >=90 Normal or high G2 60-89Mildly decreased R5p49-91 Mildly to moderately decreased J7c23-34 Moderately to severely decreased G4 15-29Severely decreased G5 <15Kidney failure The eGFR was calculated using the Chronic Kidney Disease Epidemiology Collaboration (CKD-EPI) equation. Interpretation is based on recommendations of the National Kidney Foundation-Kidney Disease Outcomes Quality Initiative (NKF-KDOQI) published in 2014. Specimen Blood Performing Organization Address City/State/Zipcode Phone Number [facility] DEPARTMENT [address] [place] [address] PATHOLOGY AND GENOMIC MEDICINE [place] [address] HOSPITAL * POC creatinine (05/07/2018 2:03 PM DENTAL RESIDENT) Only the most recent of 2 results within the time period is included. POC creatinine 0.5 0.5 - 0.9 mg/dl [facility] Comment: HOSPITAL Meter ID: [id number] Search And Rescue Officer: Hamilton Zaragoza Specimen Blood Performing Organization Address City/State/Zipcode Phone Number [facility] DEPARTMENT OF [address] [place] [address] PATHOLOGY AND GENOMIC MEDICINE [facility] [address] [place] [address] HOSPITAL * CT Abdomen Pelvis W Contrast [...] follow-up to ensure ongoing stability is recommended. [facility]-[id number] Procedure Note [facility], Radiology Results Incoming - 02/17/2018 2:43 [...] follow-up to ensure ongoing stability is recommended. [facility]-[id number] Performing Organization Address City/State/Zipcode Phone Number [facility] [address] [place] [address] after 05/13/2017 Insurance Payer Benefit Subscriber ID Type Phone Address Plan / Group [employer] TEX[employer] xxxxxxxxx HMO [facility] Advance Directives For more information, please contact: Shadi Tapia [address] [place] [address] Date Inactivated Comments Code Status Date Activated 02/22/2016 3:18 PM Full Code 02/20/2016 12:49 PM Code Status decision reached by: Patient
[2018-05-14] MEDS: SODIUM CHLORIDE 0.9% 1000ML 1,000 ML IV SCH (15:20)
[2018-05-14 16:05] VITALS: BP 153/68
--- NOTE | 2018-05-14 16:05 | NUR ---
Patient arrived from ER via stretcher. She is awake and alert x3, and ambulatory to restroom with standby assistance only. POC discussed. Patient instructed to call for assistance as needed and verbalized understanding. Call godoy within reach.
[2018-05-14 17:16] VITALS: BP 153/68
[2018-05-14 17:24] VITALS: BP 153/68
--- NOTE | 2018-05-14 19:13 | NUR ---
REPORT RECEIVED FORM OFF GOING NURSE, PT RESTING IN BED ALERT AND ORIENTED, ON DISTRESS NOTED, CALL LIGHT IN REACH, BED ALARM ACTIVATED, INSTRUCTED TO CALL WITH NEEDS
--- NOTE | 2018-05-14 19:14 | NUR ---
Walking rounds done and report given to oncoming nurse. Call godoy within reach.
[2018-05-14 20:00] VITALS: BP 119/57
[2018-05-14 20:08] VITALS: BP 119/57
[2018-05-15] VITALS (9 sets, daily range): BP systolic 98–156; BP diastolic 51–76
[2018-05-15] MEDS: PIPER-TAZ 3.375 GM 50 ML IV SCH ×5 (00:17→23:26)
[2018-05-15] MEDS: SODIUM CHLORIDE 0.9% 1000ML 1,000 ML IV SCH ×2 (04:12→15:18)
--- NOTE | 2018-05-15 05:03 | NUR ---
PT RESTING IN BED ALERT AND ORIENTED, SHOWER GIVEN ,PT HAS BEEN NPO SINCE MIDNIGHT, IV INFUSING PER ORDER, PT DENIES NEEDS, CALL LIGHT IN REACH, INSTRUCTED TO CALL WITH NEEDS, BED ALARM ACTIVATED
--- NOTE | 2018-05-15 06:45 | NUR ---
WALKING ROUNDS DONE AND REPORT RECEIVED. PT IS CURRENTLY NPO FOR PLANNED PROCEDURE. POC DISCUSSED. PT INSTRUCTED TO CALL FOR ASSISTANCE NEEDED AND VERBALIZED UNDERSTANDING. CALL PRETTY WITHIN REACH.
--- NOTE | 2018-05-15 11:25 | NUR ---
Patient off to OR via bed.
[2018-05-15] MEDS ORDERED: BACITRACIN 50,000 UNIT VIAL ONE (12:20)
[2018-05-15] MEDS ORDERED: BUPIVACAINE 0.5%/EPI 30 ML SDV INJ ONE (12:44)
[2018-05-15] MEDS ORDERED: KETOROLAC TROMETHAMINE 30 MG/ML VIAL ONE (13:23)
[2018-05-15] MEDS ORDERED: HYDROCODONE/APAP 7.5MG-325MG 1 EA TAB PO PRN (13:30)
--- NOTE | 2018-05-15 13:31 | NUR ---
SOCIAL WORK INITIAL ASSESSMENT Feed House Supervisor to bedside to discuss plan of care with patient/family. CM/SW role and care transitions discussed. Anticipated discharge plan discussed along with duration of care. CM/SW discussed patients right to make decisions in care. CM/SW work hours given. Patient lives: HOUSE BY SELF Admit/Transfer: VIA HOME POA/Emergency contact: RUDY HANCOCK [phone] Current/Previous Home Health: HAS HAD [facility] PR[facility] BUT NOT ON SERVICE OF RIGHT NOW. PCP/Follow-up Care: CHRISTOPHER Current/Previous DME: YOLANDA Other Services: NONE Employment Status: RETIRED Areas of Concerns: NONE Referral Needs: NONE Education Needs: NONE IMM/DUBON given and signed (if applicable): DUBON Goal for discharge: RETURN HOME INDEPENDENTLY CM/SW left business card at the bedside with contact information. Name and number was also written on the patients whiteboard. Patient verbalized understanding of discussion. CM will follow-up with ongoing discharge and transition of care needs.
--- NOTE | 2018-05-15 14:00 | NUR ---
Patient returned from PACU. She is fully awake and alert denies any pain. Vital signs are stable. Lunch ordered per patient request. Daughters at bedside. Call godoy within reach.
[2018-05-15] MEDS ORDERED: ONDANSETRON HCL INJ 2 MG/ML VIAL ONE (15:13)
[2018-05-15] MEDS ORDERED: PROPOFOL IV EMULSION 10 MG/ML 20 ML VIAL ONE (15:13)
[2018-05-15] MEDS ORDERED: LIDOCAINE HCL 2% LOCAL INJ 5 ML SDV VIAL INJ ONE (15:13)
[2018-05-15] MEDS ORDERED: SEVOFLURANE INHAL SOLN 250 ML PEN BTL ONE (15:13)
[2018-05-15] MEDS ORDERED: PHENYLEPHRINE HCL 1% 10 MG/ML VIAL ONE (15:13)
[2018-05-15] MEDS ORDERED: DEXAMETHASONE SOD PHOS INJ 4 MG/ML VIAL ONE (15:13)
[2018-05-15] MEDS ORDERED: FENTANYL CITRATE/PF 100MCG/2 ML INJ ONE (15:13)
--- NOTE | 2018-05-15 16:03 | NUR ---
Dr. Chauhan rounding in the room. Patient will be discharged tomorrow morning. Per Dr. Chauhan patient may leave in morning and does not need to see him prior to discharging.
--- NOTE | 2018-05-15 16:37 | Operative Report ---
DATE OF PROCEDURE: May 15, 2018 PREOPERATIVE DIAGNOSIS: Abdominal wall abscess. POSTOPERATIVE DIAGNOSIS: Abdominal wall abscess. OPERATION PERFORMED: Incision and drainage of abdominal wall abscess. ANESTHESIA: General. COMPLICATIONS: None. ESTIMATED BLOOD LOSS: Minimal. DESCRIPTION OF PROCEDURE: With the patient lying in bed in the supine position under good general anesthesia, the abdomen was prepped with Betadine solution and draped in the usual manner. An incision was made in the upper abdomen over the erythematous skin with a bulging abscess. Incision was deepened through the subcutaneous tissue, and immediately an abscess cavity was entered. The plug of skin overlying the area was removed. Once this was done, the abscess cavity was then thoroughly aspirated. All of the subcutaneous tissue was sharply debrided with a knife. Hemostasis was ascertained. This communicated to the previous lower abdominal fistula the patient had. The whole cavity was then thoroughly irrigated with dilute Betadine solution. The wound was then packed with Iodoform gauze. Dressings were applied. The sponge, lap and needle count was correct. Patient tolerated the procedure well and returned to the recovery room in stable condition. Job#: [id number] [facility]
--- NOTE | 2018-05-15 18:59 | NUR ---
Report given to oncoming nurse. Call godoy within reach.
--- NOTE | 2018-05-15 19:00 | NUR ---
REPORT RECEIVED FROM OFF GOING NURSE, PT RESTING IN BED ALERT AND ORIENTED, VISITING WITH SON, NO DISTRESS NOTED, IV INFUSING PER ORDER, DENIES NEEDS, CALL LIGHT IN REACH, INSTRUCTED TO CALL WITH NEEDS
[2018-05-16 05:00] VITALS: BP 99/54
[2018-05-16] MEDS: SODIUM CHLORIDE 0.9% 1000ML 1,000 ML IV SCH (05:52)
[2018-05-16] MEDS: PIPER-TAZ 3.375 GM 50 ML IV SCH (05:52)
--- NOTE | 2018-05-16 06:09 | NUR ---
PT RESTING IN BED ALERT AND ORIENTED, NO DISTRESS NOTED, DENIES NEEDS, DENIES PAIN, PT ASSISTED TO RESTROOM TO VOID WITH WALKER, PT REPOSITIONED IN BED FOR COMFORT, IV INFUSING PER ORDER, ABD DRESSING IN PLACE, C/D/I, OSTOMY BAG IN PLACE WITH NO COMPLICATIONS NOTED, SCANT AMOUNT OF BLOOD PREVIOUSLY NOTED PRIOR TO SHIFT, CALL LIGHT IN REACH, INSTRUCTED TO CALL WITH NEEDS
--- NOTE | 2018-05-16 06:45 | NUR ---
rounded with security shift manager nurse, patient aware of change. Patient in no distress, call godoy within reach.
[2018-05-16 07:40] VITALS: BP 103/57
[2018-05-16 07:41] VITALS: BP 103/51
[2018-05-16 11:19] VITALS: BP 105/56
--- NOTE | 2018-05-16 12:05 | NUR ---
Discharge instructions given to patient, patient verbalized understanding. IV discontinued at this time, catheter in tact, small dressing applied. Patient to be escorted from the floor via wheelchair to personal auto for grandson to take home.
== END 2018-05-16 12:18 | disposition home or self-care (01) ==
LOC: ER 10:03 → ERHOLD 14:47 → IMCU 16:05
PROVIDERS: ADMIT Surgery; ATTEND Surgery
DX: L02.211 Cutaneous abscess of abdominal wall (principal); I10 Essential (primary) hypertension
CPT/HCPCS: 10061; 36415; 74177; 80053; 81001; 82150; 82550; 82553; 83605; 83690; 83735; 84484; 85025; 85610; 85730; 87040; 87086; 93005; 96361; 99284; G0378 ×3; J1100; J1885; J2001; J2370; J2405; J2543 ×3; J2704; J7030 ×3; Q9967

== ENCOUNTER → 2018-08-21 | Outpatient (CLI) | payer MEDICARE ==
[~2018-08-21] MED LIST changes: +DIATRIZOATE MEGL/DIATRIZOA SOD 30 ML BTL PO ONE; +IOPAMIDOL 370 MG/ML 200 ML INFUS..BTL INJ ONE; +SODIUM CHLORIDE 0.9% 50ML 50 ML ONE
[2018-08-21 14:58] LABS: BLOOD UREA NITROGEN 13 mg/dL (7-26); BUN/CREATININE RATIO 22 (6-25); CREATININE, SERUM 0.58 mg/dL (0.57-1.11); EST GLOMERULAR FILTRATION RATE > 60 ML/MIN (60-)
--- NOTE | 2018-08-21 16:11 | Diagnostic Imaging Report ---
EXAM: CT ABDOMEN AND PELVIS WITH IV CONTRAST INDICATION: Left-sided abdominal pain. History of enterocutaneous fistula. COMPARISON: CT of the Abdomen/Pelvis 05/14/2018. TECHNIQUE: The abdomen and pelvis were scanned using a multidetector helical scanner. Coronal and sagittal reformations were obtained. Routine protocol performed. RADIATION DOSE: DLP: 310.9 mGy-cm Dose modulation, iterative reconstruction, and/or weight based adjustment of the mA/kV was utilized to reduce the radiation dose to as low as reasonably achievable. IV Contrast: 100 cc Isovue-370 Oral Contrast: Gastrografin FINDINGS: LOWER THORAX: Patchy dependent atelectasis. Partially seen mitral annular calcifications. LIVER: A 1.7 cm hypodense lesion within the posterior aspect of the right hepatic lobe (series 2, image 8) is better characterized on the prior study as likely hemangioma. Size is overall unchanged compared to CT on 04/18/2016. Diffuse hepatic steatosis. Cholecystectomy. No unexpected biliary dilation. SPLEEN: No masses PANCREAS: Pancreatic atrophy predominantly of the body. Coarse calcification of the pancreatic tail, suggestive of chronic pancreatitis. ADRENALS: Stable 2 cm right adrenal gland nodule. Status post left adrenalectomy. KIDNEYS: No evidence of mass or hydronephrosis. Punctate 2 mm left mid pole renal stone. GI TRACT: Again noted are small bowel loops which demonstrate mild thickening and abut the enterocutaneous fistula in the anterior abdominal wall soft tissues. No extravasation of oral contrast. Surgical changes of right hemicolectomy. Previously noted possible ileal wall thickening in the pelvis is no longer present. No evidence of bowel obstruction. VESSELS: Scattered atherosclerotic changes of the abdominal aorta and branch vessels. PERITONEUM/RETROPERITONEUM: No free air or fluid LYMPH NODES: No lymphadenopathy REPRODUCTIVE ORGANS: The uterus and ovaries are not visualized. BLADDER: Unremarkable in appearance. SOFT TISSUES: There is continued interval decrease in size of a fluid and air containing collection along the anterior abdominal wall soft tissues, likely representing enterocutaneous fistula. The superior aspect of the collection is air-filled and decompressed, previously measuring up to 4 cm TV, now measuring up to 2.1 cm. Inferiorly, there is a small amount of punctate air and fluid, measuring up to 1.3 cm TV, previously 2.8 cm. The largest SI dimension of the collection is 1.3 cm, previously 18 cm. No evidence of residual drainable fluid collection. Underlying thickening and inflammation of the rectus muscles without intra-abdominal abscess formation. BONES: No suspicious bone lesions. IMPRESSION: Continued interval decrease in size of an anterior midline subcutaneous air-fluid collection, likely small bowel enterocutaneous fistula. No evidence of intra-abdominal abscess. Signed by: Dr. Carlos Keller MD on 08/21/2018 4:08 PM
== END ==
LOC: CT 13:43
PROVIDERS: ATTEND Surgery
DX: R10.32 Left lower quadrant pain (principal); R10.2 Pelvic and perineal pain; K76.9 Liver disease, unspecified
CPT/HCPCS: 36415; 74177; 82565; 84520; Q9967

== ENCOUNTER 2019-01-10 16:26 | Inpatient (IN) | payer MEDICARE ==
[~2019-01-10] VITALS: Ht 162.6 cm; Wt 67.6 kg
[~2019-01-10 16:26] MED LIST changes: -DIATRIZOATE MEGL/DIATRIZOA SOD 30 ML BTL PO ONE; -IOPAMIDOL 370 MG/ML 200 ML INFUS..BTL INJ ONE; -SODIUM CHLORIDE 0.9% 50ML 50 ML ONE
--- OUTSIDE RECORDS SUMMARY | 2019-01-10 16:30 | XMS REPORT | Clinical Summary ---
Author Author [facility] Organization [facility] Address Unknown Phone Unavailable Care Team Providers Care Deep Sea Diver Name Role Phone Patel Hernandez MD PCP [...] (Primary Dx) 02/09/2018 Transcribe Access Orders after 01/09/2018 Family History Medical History Relation Name Comments Heart disease Mother Relation Name Status Comments Mother Social History Date Tobacco Use Types Packs/Day Years Used Never Smoker Drinks/Week oz/Week Comments Alcohol Use No Sex Assigned at Date Recorded Not on file Industry Job Start Date Occupation Not on file Not on file Not on file Travel End Travel History Travel Start No recent travel history available. Last Filed Vital Signs Reading Time Taken Comments Vital Sign - - Blood Pressure - - Pulse - - Temperature - - Respiratory Rate - - Oxygen Saturation - - Inhaled Oxygen Concentration 74.8 kg (165 lb) 05/07/2018 1:29 PM STICKER HAND Weight 162.6 cm (5' 4") 05/07/2018 1:29 PM STICKER HAND Height 28.32 05/07/2018 1:29 PM STICKER HAND Body Mass Index Plan of Treatment Health Maintenance Due Date Last Done Comments SHINGLES VACCINES (#1) 12/26/1987 65+ PNEUMOCOCCAL VACCINE 2002 05/31/2011 (2 of 2 - PPSV23) INFLUENZA VACCINE 12/10/2018 02/09/2017, 01/10/2016 Implants Device Identifier Shelf Expiration Date Model / Serial / Lot Implanted Type Area Manufactur er 10/10/2020 XL 5410 / / [id number] Epifix Xl 4 X 10 - [id number] Surgical N/A: N/A MIMEDX Implanted: 02/20/2016 at [facility] Implants; [facility] (Quantity not on file) Expanders; Extenders; Surgical Wires 11/09/2020 XL 5410 / / [id number] Epifix Xl 4 X 10 - [id number] Surgical N/A: N/A MIMEDX [place] [facility] [place] [facility] (Quantity not on file) Expanders; Extenders; Surgical Wires 10/10/2020 XL 5410 / / [id number] Epifix Xl 4 X 10 - [id number] Surgical N/A: N/A MIMEDX Implanted: 02/20/2016 at [facility] Implants; [facility] (Quantity not on file) Expanders; Extenders; Surgical Wires Procedures Comments Procedure Name Priority Date/Time Associated Diagnosis CT ANGIOGRAM ABDOMEN Routine 05/07/2018 Abdominal pain, PELVIS W AND OR WO 2:35 PM STICKER HAND unspecified abdominal CONTRAST location Mesenteric vascular insufficiency (HCC) ESTIMATED GFR Routine 05/07/2018 2:03 PM STICKER HAND POC CREATININE Routine 05/07/2018 2:[address] ABDOMEN PELVIS W Routine 02/17/2018 Intestinal fistula CONTRAST 1:58 PM CDT ESTIMATED GFR Routine 02/17/2018 12:08 PM CDT POC CREATININE Routine 02/17/2018 12:08 PM CDT after 01/09/2018 Results * CTA Abdomen Pelvis W And Or Wo Contrast (05/07/2018 2:35 PM STICKER HAND) Specimen Narrative Performed At EXAMINATION:CT ANGIOGRAM ABDOMEN PELVIS W CONTRAST RADIANT CLINICAL HISTORY:R10.9 Unspecified abdominal pain, K55.1 [...] and nonvascular findings, see above for details. [facility]-[id number] Procedure Note [facility], Radiology Results Incoming - 05/07/2018 2:55 PM STICKER HAND EXAMINATION: CT ANGIOGRAM ABDOMEN PELVIS W CONTRAST [...] and nonvascular findings, see above for details. [facility]-[id number] Performing Organization Address City/[facility]/Zipcode Phone Number [facility] [address] [place] [address] * Estimated GFR (05/07/2018 2:03 PM STICKER HAND) Only the most recent of 2 results within the time period is included. Estimated GFR >=90 mL/min/1.73 m2 [place] Comment: [facility] rpretation G1 >=90 Normal or high G2 60-89Mildly decreased T0y38-23 Mildly to moderately decreased V9o16-04 Moderately to severely decreased G4 15-29Severely decreased G5 <15Kidney failure The eGFR was calculated using the Chronic Kidney Disease Epidemiology Collaboration (CKD-EPI) equation. Interpretation is based on recommendations of the National Kidney Foundation-Kidney Disease Outcomes Quality Initiative (NKF-KDOQI) published in 2014. Specimen Blood Performing Organization Address City/State/Zipcode Phone Number [facility] DEPARTMENT [address] [place] [address] PATHOLOGY AND GENOMIC MEDICINE [place] [facility] [address] [place] [address] * POC creatinine (05/07/2018 2:03 PM STICKER HAND) Only the most recent of 2 results within the time period is included. POC creatinine 0.5 0.5 - 0.9 mg/dl [place] Comment: [facility] Meter ID: [id number] [facility] Pet Caregiver: Hamilton Zaragoza Specimen Blood Performing Organization Address City/State/Zipcode Phone Number [facility] DEPARTMENT OF [address] [place] [address] PATHOLOGY AND GENOMIC MEDICINE [place] [facility] [address] * CT Abdomen Pelvis W Contrast (02/17/2018 1:58 PM CDT) Specimen Narrative Performed At EXAMINATION:CT ABDOMEN PELVIS W [...] follow-up to ensure ongoing stability is recommended. [facility]-[id number] Procedure Note [facility], Radiology Results Incoming - 02/17/2018 2:43 PM [...] follow-up to ensure ongoing stability is recommended. [facility]-[id number] [facility] Organization Address City/State/Zipcode Phone Number [facility] [address] [place] [address] after 01/09/2018 Insurance Type Payer Benefit Subscriber ID Effective Phone Address Plan / Dates Group HMO MARIA VICTORIA IRENE xxxxxxxxx [id number] KIANA leija ([place]) [place] [address] Advance Directives For more information, please contact: [phone] Date Inactivated Comments Code Status Date Activated 02/22/2016 3:18 PM Full Code 02/20/2016 12:49 PM Code Status decision reached by: Patient
--- OUTSIDE RECORDS SUMMARY | 2019-01-10 16:30 | XMS REPORT | Continuity of Care Document ---
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 [facility] Postoperative infection Active Problem 05/16/2018 [facility] Medications Medication Details Route Status Patient Instructions Ordering Provider Order Date Source Cephalexin Monohydrate (Keflex) 500 Mg Capsule, Three Times A Day Active 05/14/2018 [facility] Diltiazem Hcl (Diltiazem Er) 240 Mg Cap.er.deg, 1 Tab Oral Daily Active 12/31/2017 [facility] Levofloxacin (Levaquin) 500 Mg Tablet, 500 Mg Oral Daily Active 12/15/2017 [facility] Fluticasone/Salmeterol (Advair 250-50 Diskus) 1 Each Disk.w.dev, Active 12/14/2017 [facility] Metoprolol Succinate 50 Mg Tab.er.24h, 50 Mg Oral Daily Active 12/14/2017 [facility] Furosemide 20 Mg Tablet, 40 Mg Oral As Needed Active 12/13/2017 [facility] Loratadine (Alavert) 10 Mg Tablet, 10 Mg Oral Daily Active 12/13/2017 [facility] Montelukast Sodium 10 Mg Tablet, 10 Mg Oral Daily Active 12/13/2017 [facility] Pregabalin (Lyrica) 150 Mg Capsule, 150 Mg Oral Twice A Day Active 12/13/2017 [facility] Valsartan (Diovan) 320 Mg Tablet, 320 Mg Oral Daily Active 12/13/2017 [facility] Metoprolol Succinate 100 Mg Tab.er.24h, Active 07/10/2015 [facility] Mometasone Furoate (Nasonex) 17 Gm Sunburst, G Nasal As Needed Active 07/10/2015 [facility] Acetaminophen/Hydrocodone Bitart ([place] 10MG-325MG*) 1 Ea Tab, 10 - 325 Mg Oral Q 4-6 H Prn Active 04/19/2013 [facility] Amoxicillin 500 Mg Capsule, 500 Mg Oral Three Times A Day Active 04/19/2013 [facility] Celecoxib (Celebrex) 200 Mg Capsule, 200 Mg Oral Daily Active 04/19/2013 [facility] Penicillin , 5 Mg Oral Twice A Day Active 04/19/2013 [facility] Advair , Active 07/11/2012 [facility] Diovan , Active 07/11/2012 [facility] Lyrica , Active 07/11/2012 [facility] Metoprolol , Active 07/11/2012 [facility] Acetaminophen 325 Mg Tablet Every 4 Hours as needed for Pain Active [facility] Eliquis 5 Mg Twice A Day Active [facility] Fluticasone/Salmeterol ([facility] 250-50 Diskus) 1 Each Disk.w.dev Every 12 Hours Active [facility] Losartan Potassium 25 Mg Tablet Active [facility] Magnesium Oxide 400 Mg Tablet Twice A Day Active [facility] Mirtazapine 15 Mg Tab Bedtime Active [facility] Omeprazole 40 Mg Capsule.dr Twice A Day Active [facility] Potassium Chloride (K Dur*) 10 Meq Tabcr Daily Active [facility] Allergies, Adverse Reactions, Alerts Substance Category Reaction Severity Reaction type Status Date Reported Comments Source ciprofloxacin HCl Unknown Allergy to Substance Active 05/14/2018 [facility] Immunizations No Data Provided for This Section Results Order Name Results Value Reference Range Date Interpretation Comments Source Urine color determination YELLOW YELLOW 05/14/2018 [facility] Urine clarity SL CLOUDY CLEAR 05/14/2018 [facility] Specific gravity of Urine by Test strip 1.005 1.010 - 1.025 05/14/2018 [facility] Urine pH measurement by automated test strip 6 5 - 7 05/14/2018 [facility] Urine leukocyte esterase detection by dipstick TRACE NEGATIVE 05/14/2018 [facility] Urine nitrite detection NEGATIVE NEGATIVE 05/14/2018 [facility] Urine protein measurement by test strip (mass/volume) NEGATIVE NEGATIVE 05/14/2018 [facility] Urine glucose detection NEGATIVE NEGATIVE 05/14/2018 [facility] Urine ketones detection by automated test strip NEGATIVE NEGATIVE 05/14/2018 [facility] Urine urobilinogen measurement by test strip (mass/volume) 0.2 0.2 - 1 05/14/2018 [facility] Urine total bilirubin measurement (mass/volume) NEGATIVE NEGATIVE 05/14/2018 [facility] Urine erythrocytes detection TRACE NEGATIVE 05/14/2018 [facility] Automated urine sediment leukocyte count by microscopy (number/high power field) 0-5 0 - 5 05/14/2018 [facility] Erythrocytes detection in urine sediment by light microscopy 0-5 0 - 5 05/14/2018 [facility] Bacteria detection in urine sediment by light microscopy MODERATE NONE 05/14/2018 [facility] Epithelial cells detection in urine sediment by light microscopy MODERATE NONE 05/14/2018 [facility] Transitional cells detection in urine sediment by light microscopy FEW NONE 05/14/2018 [facility] Blood leukocytes automated count (number/volume) 9.02 4.8 - 10.8 05/14/2018 [facility] Blood erythrocytes automated count (number/volume) 3.91 3.6 - 5.1 05/14/2018 [facility] Blood hemoglobin measurement (moles/volume) 12.0 12.0 - 16.0 05/14/2018 [facility] Automated blood hematocrit (volume fraction) 37.0 34.2 - 44.1 05/14/2018 [facility] Automated erythrocyte mean corpuscular volume 94.6 81 - 99 05/14/2018 [facility] Automated erythrocyte mean corpuscular hemoglobin (mass per erythrocyte) 30.7 28 - 32 05/14/2018 [facility] Automated erythrocyte mean corpuscular hemoglobin concentration measurement (mass/volume) 32.4 31 - 35 05/14/2018 [facility] RDW BldCo-Rto 13.2 11.7 - 14.4 05/14/2018 [facility] Automated blood platelet count (count/volume) 205 140 - 360 05/14/2018 [facility] Automated blood segmented neutrophil count as percentage of total leukocytes 61.9 38.7 - 80.0 05/14/2018 [facility] Automated blood lymphocyte count as percentage ot total leukocytes 26.5 18.0 - 39.1 05/14/2018 [facility] Automated blood monocyte count as percentage of total leukocytes 9.9 4.4 - 11.3 05/14/2018 [facility] Automated blood eosinophil count as percentage of total leukocytes 1.2 0.0 - 6.0 05/14/2018 [facility] Automated blood basophil count as percentage of total leukocytes 0.3 0.0 - 1.0 05/14/2018 [facility] IM GRANULOCYTES % 0.2 0.0 - 1.0 05/14/2018 [facility] Automated blood neutrophil count 5.6 2.1 - 6.9 05/14/2018 [facility] Blood lymphocytes count (number/volume) 2.4 1.0 - 3.2 05/14/2018 [facility] Blood monocytes automated count (number/volume) 0.9 0.2 - 0.8 05/14/2018 [facility] Automated blood eosinophil count 0.1 0.0 - 0.4 05/14/2018 [facility] Automated blood basophil count (count/volume) 0.0 0.0 - 0.1 05/14/2018 [facility] Absolute Immature Granulocyte (auto 0.02 0 - 0.1 05/14/2018 [facility] Prothrombin time (PT) in platelet poor plasma by coagulation assay 21.2 11.9 - 14.5 05/14/2018 [facility] INR in Platelet poor plasma by Coagulation assay 1.69 05/14/2018 [facility] Activated partial thromboplastin time (aPTT) in platelet poor plasma bycoagulation assay 36.0 23.8 - 35.5 05/14/2018 [facility] Serum or plasma sodium measurement (moles/volume) 139 136 - 145 05/14/2018 [facility] Serum or plasma potassium measurement (moles/volume) 3.4 3.5 - 5.1 05/14/2018 [facility] Serum or plasma chloride measurement (moles/volume) 105 98 - 107 05/14/2018 [facility] Serum or plasma carbon dioxide, total measurement (moles/volume) 23 22 - 29 05/14/2018 [facility] Serum or plasma anion gap 14.4 8 - 16 05/14/2018 [facility] Serum or plasma urea nitrogen measurement (mass/volume) 14 7 - 26 05/14/2018 [facility] Serum or plasma creatinine measurement (mass/volume) 0.72 0.57 - 1.11 05/14/2018 [facility] Serum or plasma urea nitrogen/creatinine mass ratio 19 6 - 25 05/14/2018 [facility] Estimated glomerular filtration rate (GFR) determination > 60 60 05/14/2018 [facility] Glucose measurement 88 74 - 118 05/14/2018 [facility] Serum or plasma calcium measurement (mass/volume) 9.0 8.4 - 10.2 05/14/2018 [facility] Lactic Acid Level 9.4 4.5 - 19.8 05/14/2018 [facility] Serum or plasma magnesium measurement (mass/volume) 2.1 1.3 - 2.1 05/14/2018 [facility] Serum or plasma total bilirubin measurement (mass/volume) 1.4 0.2 - 1.2 05/14/2018 [facility] Aspartate Amino Transf (AST/SGOT) 20 5 - 34 05/14/2018 [facility] Serum or plasma alanine aminotransferase measurement (enzymatic activity/volume) 11 0 - 55 05/14/2018 [facility] Serum or plasma protein measurement (mass/volume) 7.0 6.5 - 8.1 05/14/2018 [facility] Serum or plasma albumin measurement (mass/volume) 3.1 3.5 - 5.0 05/14/2018 [facility] Plasma globulin measurement (mass/volume) 3.9 2.3 - 3.5 05/14/2018 [facility] Serum or plasma albumin/globulin mass ratio 0.8 0.8 - 2.0 05/14/2018 [facility] Serum or plasma alkaline phosphatase measurement (enzymatic activity/volume) 70 40 - 150 05/14/2018 [facility] Serum or plasma creatine kinase measurement (enzymatic activity/volume) 40 29 - 168 05/14/2018 [facility] Serum or plasma creatine kinase MB measurement (mass/volume) 0.40 0 - 5.0 05/14/2018 [facility] Troponin I measurement by highly sensitive enzyme immunoassay 0.012 0 - 0.300 05/14/2018 [facility] Serum or plasma amylase measurement (enzymatic activity/volume) 31 25 - 125 05/14/2018 [facility] Serum or plasma lipase measurement (enzymatic activity/volume) 11 8 - 78 05/14/2018 [facility] Blood culture NO GROWTH AFTER 48 HOURS 05/14/2018 [facility] Bacteria identification in wound by culture Organism: BALJEET TROPICALIS 01/13/2018 [facility] Phosphorus measurement 2.6 2.3 - 4.7 01/13/2018 [facility] Blood cobalamin (vitamin B12) measurement (mass/volume) 447 213 - 816 01/13/2018 [facility] Amorphous sediment detection in urine sediment by light microscopy MODERATE FEW 01/10/2018 [facility] Hemoglobin A1c Percent 5.1 4.0 - 7.0 01/02/2018 [facility] Serum or plasma thyrotropin measurement by detection limit <=0.005 miu/l (units/volume) 1.502 0.350 - 4.940 01/02/2018 [facility] Capillary blood glucose measurement by glucometer (mass/volume) 104 70 - 120 10/24/2017 [facility] Differential Total Cells Counted 100 10/24/2017 [facility] Manual blood neutrophils/100 leukocytes 79 40 - 74 10/24/2017 [facility] Manual blood lymphocytes/100 leukocytes 8 19 - 48 10/24/2017 [facility] Manual blood monocytes/100 leukocytes 7 3.4 - 9.0 10/24/2017 [facility] Manual blood eosinophil count as percentage of total leukocytes 2 0 - 7 10/24/2017 [facility] Manual blood metamyelocytes/100 leukocytes 2 0 - 0 10/24/2017 [facility] Blood lymphocytes variant count (number/volume) 2 10/24/2017 [facility] Blood platelets count by estimate (number/volume) ADEQUATE 10/24/2017 [facility] Platelet morphology NORMAL 10/24/2017 [facility] RBC morphology NORMAL 10/24/2017 [facility] Serum or plasma conjugated bilirubin measurement (mass/volume) 0.3 0.0 - 0.5 10/21/2017 [facility] Clostridium difficile A and B toxin assay NEGATIVE NEGATIVE 10/20/2017 [facility] Manual blood band neutrophils form/100 leukocytes 1 10/17/2017 [facility] Blood promyelocytes/100 leukocytes 1 0 - 0 10/17/2017 [facility] Blood polychromasia detection by light microscopy FEW 10/17/2017 [facility] Blood hypochromia detection by light microscopy MODERATE 10/17/2017 [facility] Blood anisocytosis detection by light microscopy SLIGHT 10/17/2017 [facility] Manual blood myelocytes/100 leukocytes 3 0 - 0 10/14/2017 [facility] Blood nucleated erythrocytes count (number/volume) 1 10/13/2017 [facility] Blood poikilocytosis detection by light microscopy SLIGHT 10/13/2017 [facility] Blood [place] bodies detection by light microscopy FEW 10/13/2017 [facility] Serum or plasma trough vancomycin level at trough (mass/volume) 10.9 5.0 - 10.0 10/12/2017 [facility] Serum cardiolipin IgG antibody assay by immunoassay (units/volume) 10 0 - 14 10/08/2017 [facility] Serum cardiolipin IgM antibody assay by immunoassay (units/volume) 24 0 - 12 10/08/2017 [facility] Serum cardiolipin IgA antibody assay by immunoassay (units/volume) <9 0 - 11 10/08/2017 [facility] Manual basophil percentage 1 0 - 1.5 10/08/2017 [facility] Random serum or plasma vancomycin measurement (mass/volume) 16.2 10/08/2017 [facility] Blood blasts/100 leukocytes 2 10/07/2017 [facility] Serum or plasma iron measurement (mass/volume) 11 50 - 170 10/07/2017 [facility] Serum or plasma iron binding capacity measurement (mass/volume) 157 261 - 478 10/07/2017 [facility] Serum or plasma iron saturation measurement (mass fraction) 7 15 - 50 10/07/2017 [facility] Serum or plasma transferrin measurement (mass/volume) 112 180 - 382 10/07/2017 [facility] Serum or plasma ferritin measurement (mass/volume) 555.70 4.63 - 204.00 10/07/2017 [facility] Arterial blood pH measurement 7.52 7.31 - 7.41 10/06/2017 [facility] pCO2 BldA 34 41 - 51 10/06/2017 [facility] pCO2 BldA 85 80 - 105 10/06/2017 [facility] Arterial blood bicarbonate measurement (moles/volume) 28 - 10/06/2017 [facility] Arterial blood base excess by calculation 5.0 -2 - 3 - 2 10/06/2017 [facility] Arterial blood oxygen saturation measurement 97.0 95 - 98 10/06/2017 [facility] FiO2 35 10/06/2017 [facility] Bacterial blood culture Organism: ENTEROCOCCUS FAECALIS 10/06/2017 [facility] Bacteria identification in wound by culture Organism: BALJEET TROPICALIS 10/03/2017 [facility] Antithrombin measurement (units/volume) in platelet poor plasma by chromogenic method 66 75 - 135 10/02/2017 [facility] Serum beta 2 glycoprotein 1 IgG antibody assay (units/volume) <9 0 - 20 10/02/2017 [facility] Serum beta 2 glycoprotein 1 IgM antibody assay (units/volume) <9 0 - 32 10/02/2017 [facility] Serum beta 2 glycoprotein 1 IgA antibody assay (units/volume) <9 0 - 25 10/02/2017 [facility] Serum or plasma homocysteine measurement (moles/volume) 8.5 0.0 - 15.0 10/02/2017 [facility] Protein C measurement (units/volume) in platelet poor plasma by coagulation assay 40 73 - 180 10/02/2017 [facility] Protein S free measurement in platelet poor plasma by coagulation assay(units/volume) 50 57 - 157 10/02/2017 [facility] Activated protein C resistance in platelet poor plasma by coagulation assay (time ratio) 2.7 2.2 - 3.5 10/02/2017 [facility] Plasminogen measurement (units/volume) in platelet poor plasma by chromogenic method 83 70 - 150 10/02/2017 [facility] Blood or tissue coagulation factor II mutation detection by molecular genetics method Comment . 10/02/2017 [facility] Lupus anticoagulant neutralization platelet time in platelet poor plasma by coagulation assay 38.5 0.0 - 51.9 10/02/2017 [facility] Lupus anticoagulant interpretation in platelet poor plasma Comment: . 10/02/2017 [facility] Fibrin D-dimer DDU measurement in platelet poor plasma (mass/volume) 3.67 0.00 - 0.45 10/02/2017 [facility] Fibrinogen measurement in platelet poor plasma by coagulation assay (mass/volume) 594 204 - 462 10/02/2017 [facility] Serum or plasma folate measurement (mass/volume) 15.4 7.0 - 15.4 10/02/2017 [facility] Fibrin+fibrinogen fragments measurement (units/volume) in platelet poor plasma by latex agglutination 40 <5 10/02/2017 [facility] Serum nuclear antibody titer by immunofluorescence Negative . 10/02/2017 [facility] Serum or plasma rheumatoid factor measurement (units/volume) 11.2 0.0 - 13.9 10/02/2017 [facility] Serum platelet ab.heparin induced detection 0.468 0.000 - 0.400 09/30/2017 [facility] Specimen source identification of body fluid PERITONEAL 09/29/2017 [facility] Evaluation of color of body fluid GREEN 09/29/2017 [facility] Determination of appearance of body fluid TURBID 09/29/2017 [facility] Manual body fluid leukocytes count (number/volume) 2124 09/29/2017 [facility] Manual body fluid erythrocytes count (number/volume) 297 09/29/2017 [facility] Manual body fluid neutrophils/100 leukocytes 7 09/29/2017 [facility] Body fluid lymphocyte count 84 09/29/2017 [facility] Body fluid monocyte count 9 09/29/2017 [facility] Total cell count 100 09/29/2017 [facility] Bacterial body fluid culture Organism: BALJEET TROPICALIS 09/29/2017 [facility] Serum hepatitis B virus surface antibody assay by radioimmunoassay (units/volume) 23.3 Immunity>9.9 09/29/2017 [facility] Serum or plasma hepatitis B virus core antibody detection by immunoassay Negative Negative 09/29/2017 [facility] Serum or plasma hepatitis B virus surface antigen detection by immunoassay Negative Negative 09/29/2017 [facility] Serum or plasma cortisol measurement on morning peak specimen (mass/volume) 27.5 6.2 - 19.4 09/29/2017 [facility] Blood [place] cells detection by light microscopy SLIGHT 09/27/2017 [facility] Serum or plasma triglyceride measurement (mass/volume) 70 0 - 149 09/23/2017 [facility] Serum or plasma cholesterol measurement (mass/volume) 74 0 - 199 09/23/2017 [facility] Serum or plasma cholesterol in LDL measurement (mass/volume) 40 60 - 130 09/23/2017 [facility] Serum or plasma cholesterol in HDL measurement (mass/volume) 20 40 - 60 09/23/2017 [facility] Serum or plasma total cholesterol/cholesterol in HDL mass ratio 3.7 3.0 - 3.6 09/23/2017 [facility] Stool gastrointestinal hemoglobin detection POSITIVE NEGATIVE 09/21/2017 [facility] Bacterial urine culture Urine Culture [facility] Pathology Reports No Data Provided for This Section Diagnostic Reports Report Value Date Source Venous blood ionized calcium measurement (mass/volume) Ionized Calcium [facility] Consultation Notes No Data Provided for This Section Discharge Summaries No Data Provided for This Section History and Physicals No Data Provided for This Section Vital Signs No Data Provided for This Section Encounters Location Location Details Encounter Type Encounter Number Reason For Visit Attending Provider ADM Date DC Date Status Source Discharged Inpatient [id number] LUCY YOUNGER MD 09/21/2017 10/24/2017 [facility] Discharged Inpatient [id number] LUCY YOUNGER MD 12/14/2017 12/15/2017 [facility] Discharged Inpatient [id number] LUCY YOUNGER MD 12/31/2017 01/07/2018 [facility] Discharged Inpatient [id number] LUCY YOUNGER MD 01/10/2018 01/17/2018 [facility] Discharged Inpatient (obs) [id number] PEG TYSON MD 05/14/2018 05/16/2018 [facility] Procedures Procedure Code Date Perfomer Comments Source Incision and drainage [id number] 05/15/2018 [facility] Computed tomography of abdomen and pelvis with contrast [id number] 12/13/2017 [facility] US abdomen complete [id number] 10/21/2017 [facility] INTRODUCTION OF NUTRITIONAL INTO CENTRAL VEIN, PERC APPROACH [id number] 10/14/2017 [facility] INSERTION OF INFUSION DEV INTO SUP VENA CAVA, PERC APPROACH [id number] 10/10/2017 [facility] PERFORMANCE OF URINARY FILTRATION, <6 HRS/DAY [id number] 09/29/2017 [facility] TRANSFUSE NONAUT PLATELETS IN PERIPH VEIN, PERC [id number] 09/29/2017 [facility] RESPIRATORY VENTILATION, GREATER THAN 96 CONSECUTIVE HOURS [id number] 09/29/2017 [facility] DRAINAGE OF PERITONEAL CAVITY, OPEN APPROACH [id number] 09/29/2017 [facility] RESECTION OF SMALL INTESTINE, OPEN APPROACH [id number] 09/29/2017 [facility] Ultrasound, renal [id number] 09/29/2017 [facility] US guided paracentesis [id number] 09/29/2017 [facility] Ultrasound guidance for vascular access [id number] 09/29/2017 [facility] RESECTION OF RIGHT LARGE INTESTINE, OPEN APPROACH [id number] 09/21/2017 [facility] RELEASE SMALL INTESTINE, OPEN APPROACH [id number] 09/21/2017 [facility] TRANSFUSE NONAUT RED BLOOD CELLS IN PERIPH VEIN, PERC [id number] 09/21/2017 [facility] CT of abdomen and pelvis without contrast [id number] 09/21/2017 [facility] Assessment and Plan No Data Provided for This Section Plan of Care Plan of Care Date Source Discharge Date 05/16/18 12:18pm Disposition HOME, SELF-CARE Instructions/Education Provided Post Operative Pain Prescriptions See Medication Section Referrals (Cardiology) Entered Date: 05/16/2018 9:18am PEG TYSON MD (Surgery) Order Date: 2 Days Entered Date: 05/16/2018 9:19am Address: [address] [place] [address] [place] [id number] Additional Instructions/Education REGULAR DIET OOB TYLENOL#3 F/U FRIDAY HOLD ELIQUIS - BEGIN Friday05/16/2018 [facility] [place] Social History Social History Date Source Social History Problem Response Recorded Date/Time Onset Date Status Hx Psychiatric Problems No 09/22/2017 12:08am Not Applicable Not Applicable Hx Eating Disorder No 09/22/2017 12:08am Not Applicable Not Applicable Hx Substance Use Disorder No 09/22/2017 12:08am Not Applicable Not Applicable Hx Depression No 09/22/2017 12:08am Not Applicable Not Applicable Hx Alcohol Use No 09/22/2017 12:08am Not Applicable Not Applicable Hx Substance Use Treatment No 09/22/2017 12:08am Not Applicable Not Applicable Hx Physical Abuse No 09/22/2017 12:08am Not Applicable Not Applicable Smoking Status Start Date Stop Date Never Smoker 05/16/2018 [facility] [place] Family History No Data Provided for This Section Advance Directives Order Name Results Value Date Source Advance Directives Advance Directives Directive Response Recorded Date/Time Does the patient have an advance directive? No 05/14/18 5:00pm If yes, is advance directive on file with [facility]? No 05/14/18 5:00pm If not on file with [facility] will patient provide a copy? No 05/14/18 5:00pm Do you have a Directive to Physician? No 05/14/18 11:32am Do you have a Medical Power of Gauger Delivery? No 05/14/18 11:32am Do you have an out of hospital Do Not Resuscitate Order? No 05/14/18 11:32am Do you have any special needs we should be aware of? No 05/14/18 11:32am Do you have a support person here with you today? Yes 05/14/18 11:32am Did patient receive Notice of Privacy Practices? Yes 05/14/18 11:32am Did patient receive patient rights and responsibilities? Yes 05/14/18 11:32am 05/16/2018 [facility] [place] Functional Status No Data Provided for This Section
[2019-01-10] MEDS ORDERED: AZITHROMYCIN 500MG/NS 250 ML 250 ML IV ONE (16:51)
[2019-01-10] MEDS ORDERED: ALBUTEROL SULF 0.083% NEB SOLN 3 ML NEB NEB STA (16:51)
[2019-01-10] MEDS ORDERED: ACETAMINOPHEN 325 MG TAB PO ONE (17:30)
[2019-01-10] MEDS ORDERED: ACETAMINOPHEN 325 MG TAB PO PRN ×2 (17:30→21:45)
[2019-01-10] MEDS ORDERED: IPRATROPIUM BROMIDE 0.02% 2.5 ML NEB NEB ONE (17:30)
[2019-01-10] MEDS ORDERED: CEFTRIAXONE SOD 1 GM/NS 50 ML 50 ML IV ONE (17:30)
--- NOTE | 2019-01-10 18:08 | Diagnostic Imaging Report ---
A single frontal view of the chest. HISTORY: Fever, chills COMPARISON: Chest radiograph January 13, 2018 DISCUSSION: Portable technique, limits sensitivity of the exam. Soft tissue attenuation partially limits sensitivity of the exam. Overlying artifacts. Tubes/Lines: None Lungs and pleura: The left pleural effusion and adjacent atelectasis appears slightly decreased. Prominence of the peribronchial interstitial markings. No evidence of a consolidative pneumonia or pulmonary alveolar edema. Heart and mediastinum: The cardiomediastinal silhouette appear(s) unremarkable. Bones and soft tissues: Appear unremarkable, given this limited exam. IMPRESSION: 1. Findings which could be seen in the setting of a nonspecific bronchitis. 2. Interval decrease in the small left pleural effusion and adjacent atelectasis, superimposed pneumonia may be a consideration given the provided history. Recommend short term follow up routine PA and lateral chest radiographs, in 6 to 8 weeks, to evaluate for resolution. Signed by: Dr. John Fulton D.O., M.M.M. on 01/10/2019 6:05 PM
--- NOTE | 2019-01-10 18:30 | NUR ---
EDUCATED PATIENT AND FAMILY ON THE CURRENT PLAN OF CARE, NEED TO BLOOD DRAW AND IV ACCESS FOR ORDERED MEDICATIONS, X5 [id number] PERIPHERIAL ATTEMPTS, VERBALIZED UNDERSTANDING. PATIENT TACHYCARDIC AND FEBRILE. PATIENT AND FAMILY INFOMRED ON POOR VENOUS ACCESS. OK PER DR HOLLOWAY TO OBTAIN EJ ACCESS IF UNABLE TO OBTAIN PERIPHERIAL ACCESS. NO SIGNS OF ACUTE DISTRESS NOTED AT THIS TIME.
[2019-01-10 18:59] LABS: BASOPHILS % 0.1 % (0.0-1.0); EOSINOPHILS # (AUTO) 0.1 (0.0-0.4); EOSINOPHILS % 0.3 % (0.0-6.0); HEMATOCRIT 32.7 % (34.2-44.1); HEMOGLOBIN 9.8 g/dL (12.0-16.0); LYMPHOCYTES # (AUTO) 2.5 (1.0-3.2); LYMPHOCYTES % 13.2 % (18.0-39.1); MEAN CORPUSCULAR VOLUME 76.6 fL (81-99); MONOCYTES # (AUTO) 0.8 (0.2-0.8); MONOCYTES % 4.5 % (4.4-11.3); NEUTROPHILS % 80.8 % (38.7-80.0); PLATELET COUNT 176 x10e3/uL (140-360); RED BLOOD COUNT 4.27 x10e6/uL (3.6-5.1); RED CELL DISTRIBUTION WIDTH 20.8 % (11.7-14.4)
--- NOTE | 2019-01-10 19:03 | NUR ---
PATIENT REPORTS PAIN AT IV SITE AFTER STARTING AZRITHROMYCIN, MEDICATION STOPPED. C/O LEFT PAIN R/T IV SITE. SITE WITHOUT REDNESS, SWELLING OR DRAINAGE. DRESSING DRY AND INTACT, + BLOOD RETURN, IV PATENT, FLUSHES WITHOUT DIFFICULTY. EDUCATED PATIENT AND FAMILY ON S/S OF INFILTRATION, IV PATENCY,VERBALIZED UNDERSTANDING. C/O "BURNING" NECK PAIN AND HEADACHE. NOTIFIED DR HOLLOWAY AND OSCAR. PATIENT AND DAUGHTER REQUESTING EJ IV TO BE D/C, EDUCATED PATIENT AND FAMILY ON POOR PERIPHERIAL ACCESS AND NEED FOR IV ACCESS. NOTIFIED ONCOMING NURSE LISA GILES. PATIENT ANXIOUS, HYPERVENTILATING. SKIN WARM AND DRY.
[2019-01-10 19:08] LABS: INR 1.31; PROTHROMBIN TIME 16.9 seconds (11.9-14.5)
[2019-01-10 19:09] LABS: PARTIAL THROMBOPLASTIN TIME 32.6 seconds (23.8-35.5)
[2019-01-10] MEDS ORDERED: SODIUM CHLORIDE 0.9% 1000ML 1,000 ML IV STA (19:10)
[2019-01-10 19:15] LABS: ALANINE AMINOTRANSFERASE 10 IU/L (0-55); ALBUMIN 3.5 g/dL (3.5-5.0); ALBUMIN/GLOBULIN RATIO 1.1 (0.8-2.0); ALKALINE PHOSPHATASE 87 IU/L (40-150); ANION GAP 15.2 mmol/L (8-16); BLOOD UREA NITROGEN 11 mg/dL (7-26); BUN/CREATININE RATIO 16 (6-25); CALCIUM 8.9 mg/dL (8.4-10.2); CARBON DIOXIDE 22 mmol/L (22-29); CHLORIDE 104 mmol/L (98-107); CREATINE KINASE 42 IU/L (29-168); CREATININE, SERUM 0.67 mg/dL (0.57-1.11); EST GLOMERULAR FILTRATION RATE > 60 ML/MIN (60-); GLUCOSE 112 mg/dL (74-118); POTASSIUM 3.2 mmol/L (3.5-5.1); SODIUM 138 mmol/L (136-145)
--- NOTE | 2019-01-10 19:15 | NUR ---
DR MOORE AT BEDSIDE EDUCATING PATIENT AND FAMILY ON THE CURRENT PLAN OF CARE, NEED FOR IV ACCESS.
[2019-01-10 19:16] LABS: BILIRUBIN,URINE NEGATIVE (NEGATIVE); CLARITY,URINE CLEAR (CLEAR); COLOR,URINE YELLOW (YELLOW); KETONES,URINE NEGATIVE (NEGATIVE); LEUKOCYTE ESTERASE ,URINE NEGATIVE (NEGATIVE); NITRITE,URINE NEGATIVE (NEGATIVE); PROTEIN,URINE DIPSTICK NEGATIVE (NEGATIVE); URINE UROBILINOGEN 0.2 mg/dL (0.2 - 1)
[2019-01-10] MEDS ORDERED: SODIUM CHLORIDE 0.9% 50ML 0 ML ONE (19:25)
[2019-01-10] MEDS ORDERED: IOPAMIDOL 370 MG/ML 200 ML INFUS..BTL INJ ONE (19:25)
[2019-01-10] MEDS ORDERED: TRAMADOL HCL 50 MG TAB PO ONE (19:30)
[2019-01-10] MEDS ORDERED: MORPHINE SULFATE 2 MG/ML SYR 1ML ONE (19:39)
[2019-01-10 19:43] LABS: EPITHELIAL CELLS,URINE MODERATE /LPF; WBC,URINE (MAN) 21-50 /HPF (0-5)
[2019-01-10 19:44] LABS: BACTERIA,URINE RARE /HPF
[2019-01-10] MEDS ORDERED: MORPHINE SULFATE 2 MG/ML SYR 1ML IV ONE (19:45)
--- NOTE | 2019-01-10 20:55 | NUR ---
IV ABX STARTED IN LT HAND 20G IV. PT DENIES PAIN AT SITE. IV SITE CLEAN, PATENT AND INTACT. NO ACUTE DISTRESS NOTED. Addendum: 01/10/19 at 2058 by GODFREY IV ABX STARTED IN LT HAND 20G IV. PT DENIES PAIN AT SITE. NO SIGNS OF INFILTRATION NOTED. IV SITE CLEAN, PATENT AND INTACT. NO ACUTE DISTRESS NOTED.
[2019-01-10] MEDS ORDERED: SODIUM CHLORIDE 0.9% 1000ML 1,000 ML IV ONE ×2 (21:00→23:15)
--- NOTE | 2019-01-10 21:00 | Diagnostic Imaging Report ---
EXAMINATION: CT of the abdomen and pelvis with contrast. TECHNIQUE: Spiral CT images of the abdomen and pelvis were performed from the lung bases to the lesser trochanters after the intravenous administration of 100 cc Isovue-370. Coronal and sagittal reformatted images were obtained. COMPARISON: 08/21/2018 CLINICAL HISTORY:Fever, chills DISCUSSION: ABDOMEN/PELVIS: LOWER THORAX:Fluid-filled distal esophagus unchanged. HEPATOBILIARY: Previously described right hepatic lobe lesion is again noted, compatible with hemangioma, immediately adjacent to the intrahepatic IVC. Unchanged mild intrahepatic and extrahepatic biliary ductal dilatation status post cholecystectomy. SPLEEN: No splenomegaly. PANCREAS: No focal masses or ductal dilatation. ADRENALS: Unchanged nodule medial limb right adrenal gland. Postsurgical changes in the region of the left adrenal. KIDNEYS/URETERS: No hydronephrosis, stones, or solid mass lesions. PELVIC ORGANS/BLADDER: The bladder is normal. PERITONEUM/RETROPERITONEUM: Skin defect with subcutaneous gas and peritoneal thickening/inflammation continues to evolve with absence of gas within the inferior part of the collection, which measures approximately 40 Hounsfield units in attenuation. No ascites or pneumoperitoneum. LYMPH NODES: No pelvic sidewall, retroperitoneal, or mesenteric lymphadenopathy. VESSELS: Abdominal aorta, major branch vessels, and iliac arterial systems are notable for calcified and noncalcified atherosclerotic plaque without aneurysmal dilatation. GI TRACT: Large bowel diverticula without adjacent inflammatory change. Status post partial colectomy with intact lower abdominal and pelvic anastomoses. No proximal small bowel dilatation to suggest obstruction. BONES AND SOFT TISSUE: No osseous destructive lesions. Diffuse osteopenia. Multilevel degenerative disc changes and facet arthropathy of the lumbar spine. Soft tissues as above. IMPRESSION: Continued evolution of postsurgical/post inflammatory change of the superficial soft tissues of the low anterior abdominal wall. No new abscess. Extensive postsurgical change of the bowel without evidence of obstruction. Signed by: Dr. Lew Fields M.D. on 01/10/2019 8:56 PM
[2019-01-10] MEDS: AZITHROMYCIN 500MG/SOD CHL 0.9% 250ML BAG IV SCH (21:42)
[2019-01-10] MEDS: CEFTRIAXONE SOD 1 GRAM/0.9% SOD CHL 50ML BAG IV SCH (21:42)
--- OUTSIDE RECORDS SUMMARY | 2019-01-10 21:47 | XMS REPORT | Clinical Summary ---
Author Author [facility] Organization [facility] Address Unknown Phone Unavailable Care Team Providers Care Cutting Table Operator Name Role Phone Patel Hernandez MD PCP [...] 74.8 kg (165 lb) 05/07/2018 1:29 PM BINDERY PRODUCTION MANAGER Weight 162.6 cm (5' 4") 05/07/2018 1:29 PM BINDERY PRODUCTION MANAGER Height 28.32 05/07/2018 1:29 PM BINDERY PRODUCTION MANAGER Body Mass Index Plan of Treatment Health Maintenance Due Date Last Done Comments SHINGLES VACCINES (#1) 12/26/1987 65+ PNEUMOCOCCAL VACCINE 2002 05/31/2011 (2 of 2 - PPSV23) INFLUENZA VACCINE 12/10/2018 02/09/2017, 01/10/2016 Implants Device Identifier Shelf Expiration Date Model / Serial / Lot Implanted Type Area Manufactur er 10/10/2020 XL 5410 / / [id number] Epifix Xl 4 X 10 - [id number] Surgical N/A: N/A MIMEDX Implanted: 02/20/2016 at [facility] Implants; [facility] (Quantity not on file) Expanders; Extenders; Surgical Wires 11/09/2020 XL 5410 / / [id number] Epifix Xl 4 X 10 - [id number] Surgical N/A: N/A MIMEDX [place] [facility] [place] [facility] (Quantity not on file) Expanders; Extenders; Surgical Wires 10/10/2020 XL 5410 / / [id number] Epifix Xl 4 X 10 - [id number] Surgical N/A: N/A MIMEDX Implanted: 02/20/2016 at [facility] Implants; [facility] (Quantity not on file) Expanders; Extenders; Surgical Wires Procedures Comments Procedure Name Priority Date/Time Associated Diagnosis CT ANGIOGRAM ABDOMEN Routine 05/07/2018 Abdominal pain, PELVIS W AND OR WO 2:35 PM BINDERY PRODUCTION MANAGER unspecified abdominal CONTRAST location Mesenteric vascular insufficiency (HCC) ESTIMATED GFR Routine 05/07/2018 2:03 PM BINDERY PRODUCTION MANAGER POC CREATININE Routine 05/07/2018 2:[address] ABDOMEN PELVIS W Routine 02/17/2018 Intestinal fistula CONTRAST 1:58 PM CDT ESTIMATED GFR Routine 02/17/2018 12:08 PM CDT POC CREATININE Routine 02/17/2018 12:08 PM CDT after 01/09/2018 Results * CTA Abdomen Pelvis W And Or Wo Contrast (05/07/2018 2:35 PM BINDERY PRODUCTION MANAGER) Specimen Narrative Performed At EXAMINATION:CT ANGIOGRAM ABDOMEN [...] and nonvascular findings, see above for details. [id number] Procedure Note [facility], Radiology Results Incoming - 05/07/2018 2:55 PM BINDERY PRODUCTION MANAGER EXAMINATION: CT ANGIOGRAM ABDOMEN PELVIS W CONTRAST [...] and nonvascular findings, see above for details. [id number] Performing Organization Address City/[facility]/Zipcode Phone Number [facility] [address] [place] [address] * Estimated GFR (05/07/2018 2:03 PM BINDERY PRODUCTION MANAGER) Only the most recent of 2 results within the time period is included. Estimated GFR >=90 mL/min/1.73 m2 [place] Comment: [facility] rpretation G1 >=90 Normal or high G2 60-89Mildly decreased [id number] Mildly to moderately decreased [id number] Moderately to severely decreased G4 15-29Severely decreased G5 <15Kidney failure The eGFR was calculated using the Chronic Kidney Disease Epidemiology Collaboration (CKD-EPI) equation. Interpretation is based on recommendations of the National Kidney Foundation-Kidney Disease Outcomes Quality Initiative (NKF-KDOQI) published in 2014. Specimen Blood Performing Organization Address City/State/Zipcode Phone Number [facility] DEPARTMENT [address] [place] [address] PATHOLOGY AND GENOMIC MEDICINE [place] MANDA[facility] [address] [place] [address] * POC creatinine (05/07/2018 2:03 PM BINDERY PRODUCTION MANAGER) Only the most recent of 2 results within the time period is included. POC creatinine 0.5 0.5 - 0.9 mg/dl [place] Comment: MANDAEN Meter ID: [id number] [facility] Concert Manager: Hamilton Zaragoza Specimen Blood Performing Organization Address City/State/Zipcode Phone Number [facility] DEPARTMENT OF [address] [place] [address] PATHOLOGY AND GENOMIC MEDICINE [place] [facility] [address] * CT Abdomen Pelvis W Contrast [...] follow-up to ensure ongoing stability is recommended. [id number] Procedure Note [facility], Radiology Results Incoming - 02/17/2018 2:43 PM [...] follow-up to ensure ongoing stability is recommended. [id number] [place] Organization Address City/State/Zipcode Phone Number [facility] [address] [place] [address] after 01/09/2018 Insurance Type Payer Benefit Subscriber ID Effective Phone Address Plan / Dates Group HMO MARIA VICTORIA IRENE xxxxxxxxx 2013-P KIANA leija ([place]) [place] [address] Advance Directives For more information, please contact: [phone] Date Inactivated Comments Code Status Date Activated 02/22/2016 3:18 PM Full Code 02/20/2016 12:49 PM Code Status decision reached by: Patient
--- OUTSIDE RECORDS SUMMARY | 2019-01-10 21:47 | XMS REPORT | Continuity of Care Document ---
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 [facility] Postoperative infection Active Problem 05/16/2018 [facility] Medications Medication Details Route Status Patient Instructions Ordering Provider Order Date Source Cephalexin Monohydrate (Keflex) 500 Mg Capsule, Three Times A Day Active 05/14/2018 [facility] Diltiazem Hcl (Diltiazem Er) 240 Mg Cap.er.deg, 1 Tab Oral Daily Active 12/31/2017 [facility] Levofloxacin (Levaquin) 500 Mg Tablet, 500 Mg Oral Daily Active 12/15/2017 [facility] Fluticasone/Salmeterol (Advair 250-50 Diskus) 1 Each Disk.w.dev, Active 12/14/2017 [facility] Metoprolol Succinate 50 Mg Tab.er.24h, 50 Mg Oral Daily Active 12/14/2017 [facility] Furosemide 20 Mg Tablet, 40 Mg Oral As Needed Active 12/13/2017 [facility] Loratadine (Alavert) 10 Mg Tablet, 10 Mg Oral Daily Active 12/13/2017 [facility] Montelukast Sodium 10 Mg Tablet, 10 Mg Oral Daily Active 12/13/2017 [facility] Pregabalin (Lyrica) 150 Mg Capsule, 150 Mg Oral Twice A Day Active 12/13/2017 [facility] Valsartan (Diovan) 320 Mg Tablet, 320 Mg Oral Daily Active 12/13/2017 [facility] Metoprolol Succinate 100 Mg Tab.er.24h, Active 07/10/2015 [facility] Mometasone Furoate (Nasonex) 17 Gm [place], G Nasal As Needed Active 07/10/2015 [facility] Acetaminophen/Hydrocodone Bitart ([place] 10MG-325MG*) 1 Ea Tab, 10 - 325 Mg Oral Q 4-6 H Prn Active 04/19/2013 [facility] Amoxicillin 500 Mg Capsule, 500 Mg Oral Three Times A Day Active 04/19/2013 [facility] Celecoxib (Celebrex) 200 Mg Capsule, 200 Mg Oral Daily Active 04/19/2013 [facility] Penicillin , 5 Mg Oral Twice A Day Active 04/19/2013 [facility] Advair , Active 07/11/2012 [facility] Diovan , Active 07/11/2012 [facility] Lyrica , Active 07/11/2012 [facility] Metoprolol , Active 07/11/2012 [facility] Acetaminophen 325 Mg Tablet Every 4 Hours as needed for Pain Active [facility] Eliquis 5 Mg Twice A Day Active [facility] Fluticasone/Salmeterol ([facility] Diskus) 1 Each Disk.w.dev Every 12 Hours Active [facility] Losartan Potassium 25 Mg Tablet Active [facility] Magnesium Oxide 400 Mg Tablet Twice A Day Active [facility] Mirtazapine 15 Mg Tab Bedtime Active [facility] Omeprazole 40 Mg Capsule.dr Twice A Day Active [facility] Potassium Chloride (K Dur*) 10 Meq Tabcr Daily Active [facility] Allergies, Adverse Reactions, Alerts Substance Category Reaction Severity Reaction type Status Date Reported Comments Source ciprofloxacin HCl Unknown Allergy to Substance Active 05/14/2018 [facility] Immunizations No Data Provided for This Section Results Order Name Results Value Reference Range Date Interpretation Comments Source Urine color determination YELLOW YELLOW 05/14/2018 [facility] Urine clarity SL CLOUDY CLEAR 05/14/2018 [facility] Specific gravity of Urine by Test strip 1.005 1.010 - 1.025 05/14/2018 [facility] Urine pH measurement by automated test strip 6 5 - 7 05/14/2018 [facility] Urine leukocyte esterase detection by dipstick TRACE NEGATIVE 05/14/2018 [facility] Urine nitrite detection NEGATIVE NEGATIVE 05/14/2018 [facility] Urine protein measurement by test strip (mass/volume) NEGATIVE NEGATIVE 05/14/2018 [facility] Urine glucose detection NEGATIVE NEGATIVE 05/14/2018 [facility] Urine ketones detection by automated test strip NEGATIVE NEGATIVE 05/14/2018 [facility] Urine urobilinogen measurement by test strip (mass/volume) 0.2 0.2 - 1 05/14/2018 [facility] Urine total bilirubin measurement (mass/volume) NEGATIVE NEGATIVE 05/14/2018 [facility] Urine erythrocytes detection TRACE NEGATIVE 05/14/2018 [facility] Automated urine sediment leukocyte count by microscopy (number/high power field) 0-5 0 - 5 05/14/2018 [facility] Erythrocytes detection in urine sediment by light microscopy 0-5 0 - 5 05/14/2018 [facility] Bacteria detection in urine sediment by light microscopy MODERATE NONE 05/14/2018 [facility] Epithelial cells detection in urine sediment by light microscopy MODERATE NONE 05/14/2018 [facility] Transitional cells detection in urine sediment by light microscopy FEW NONE 05/14/2018 [facility] Blood leukocytes automated count (number/volume) 9.02 4.8 - 10.8 05/14/2018 [facility] Blood erythrocytes automated count (number/volume) 3.91 3.6 - 5.1 05/14/2018 [facility] Blood hemoglobin measurement (moles/volume) 12.0 12.0 - 16.0 05/14/2018 [facility] Automated blood hematocrit (volume fraction) 37.0 34.2 - 44.1 05/14/2018 [facility] Automated erythrocyte mean corpuscular volume 94.6 81 - 99 05/14/2018 [facility] Automated erythrocyte mean corpuscular hemoglobin (mass per erythrocyte) 30.7 28 - 32 05/14/2018 [facility] Automated erythrocyte mean corpuscular hemoglobin concentration measurement (mass/volume) 32.4 31 - 35 05/14/2018 [facility] RDW BldCo-Rto 13.2 11.7 - 14.4 05/14/2018 [facility] Automated blood platelet count (count/volume) 205 140 - 360 05/14/2018 [facility] Automated blood segmented neutrophil count as percentage of total leukocytes 61.9 38.7 - 80.0 05/14/2018 [facility] Automated blood lymphocyte count as percentage ot total leukocytes 26.5 18.0 - 39.1 05/14/2018 [facility] Automated blood monocyte count as percentage of total leukocytes 9.9 4.4 - 11.3 05/14/2018 [facility] Automated blood eosinophil count as percentage of total leukocytes 1.2 0.0 - 6.0 05/14/2018 [facility] Automated blood basophil count as percentage of total leukocytes 0.3 0.0 - 1.0 05/14/2018 [facility] IM GRANULOCYTES % 0.2 0.0 - 1.0 05/14/2018 [facility] Automated blood neutrophil count 5.6 2.1 - 6.9 05/14/2018 [facility] Blood lymphocytes count (number/volume) 2.4 1.0 - 3.2 05/14/2018 [facility] Blood monocytes automated count (number/volume) 0.9 0.2 - 0.8 05/14/2018 [facility] Automated blood eosinophil count 0.1 0.0 - 0.4 05/14/2018 [facility] Automated blood basophil count (count/volume) 0.0 0.0 - 0.1 05/14/2018 [facility] Absolute Immature Granulocyte (auto 0.02 0 - 0.1 05/14/2018 [facility] Prothrombin time (PT) in platelet poor plasma by coagulation assay 21.2 11.9 - 14.5 05/14/2018 [facility] INR in Platelet poor plasma by Coagulation assay 1.69 05/14/2018 [facility] Activated partial thromboplastin time (aPTT) in platelet poor plasma bycoagulation assay 36.0 23.8 - 35.5 05/14/2018 [facility] Serum or plasma sodium measurement (moles/volume) 139 136 - 145 05/14/2018 [facility] Serum or plasma potassium measurement (moles/volume) 3.4 3.5 - 5.1 05/14/2018 [facility] Serum or plasma chloride measurement (moles/volume) 105 98 - 107 05/14/2018 [facility] Serum or plasma carbon dioxide, total measurement (moles/volume) 23 22 - 29 05/14/2018 [facility] Serum or plasma anion gap 14.4 8 - 16 05/14/2018 [facility] Serum or plasma urea nitrogen measurement (mass/volume) 14 7 - 26 05/14/2018 [facility] Serum or plasma creatinine measurement (mass/volume) 0.72 0.57 - 1.11 05/14/2018 [facility] Serum or plasma urea nitrogen/creatinine mass ratio 19 6 - 25 05/14/2018 [facility] Estimated glomerular filtration rate (GFR) determination > 60 60 05/14/2018 [facility] Glucose measurement 88 74 - 118 05/14/2018 [facility] Serum or plasma calcium measurement (mass/volume) 9.0 8.4 - 10.2 05/14/2018 [facility] Lactic Acid Level 9.4 4.5 - 19.8 05/14/2018 [facility] Serum or plasma magnesium measurement (mass/volume) 2.1 1.3 - 2.1 05/14/2018 [facility] Serum or plasma total bilirubin measurement (mass/volume) 1.4 0.2 - 1.2 05/14/2018 [facility] Aspartate Amino Transf (AST/SGOT) 20 5 - 34 05/14/2018 [facility] Serum or plasma alanine aminotransferase measurement (enzymatic activity/volume) 11 0 - 55 05/14/2018 [facility] Serum or plasma protein measurement (mass/volume) 7.0 6.5 - 8.1 05/14/2018 [facility] Serum or plasma albumin measurement (mass/volume) 3.1 3.5 - 5.0 05/14/2018 [facility] Plasma globulin measurement (mass/volume) 3.9 2.3 - 3.5 05/14/2018 [facility] Serum or plasma albumin/globulin mass ratio 0.8 0.8 - 2.0 05/14/2018 [facility] Serum or plasma alkaline phosphatase measurement (enzymatic activity/volume) 70 40 - 150 05/14/2018 [facility] Serum or plasma creatine kinase measurement (enzymatic activity/volume) 40 29 - 168 05/14/2018 [facility] Serum or plasma creatine kinase MB measurement (mass/volume) 0.40 0 - 5.0 05/14/2018 [facility] Troponin I measurement by highly sensitive enzyme immunoassay 0.012 0 - 0.300 05/14/2018 [facility] Serum or plasma amylase measurement (enzymatic activity/volume) 31 25 - 125 05/14/2018 [facility] Serum or plasma lipase measurement (enzymatic activity/volume) 11 8 - 78 05/14/2018 [facility] Blood culture NO GROWTH AFTER 48 HOURS 05/14/2018 [facility] Bacteria identification in wound by culture Organism: BALJEET TROPICALIS 01/13/2018 [facility] Phosphorus measurement 2.6 2.3 - 4.7 01/13/2018 [facility] Blood cobalamin (vitamin B12) measurement (mass/volume) 447 213 - 816 01/13/2018 [facility] Amorphous sediment detection in urine sediment by light microscopy MODERATE FEW 01/10/2018 [facility] Hemoglobin A1c Percent 5.1 4.0 - 7.0 01/02/2018 [facility] Serum or plasma thyrotropin measurement by detection limit <=0.005 miu/l (units/volume) 1.502 0.350 - 4.940 01/02/2018 [facility] Capillary blood glucose measurement by glucometer (mass/volume) 104 70 - 120 10/24/2017 [facility] Differential Total Cells Counted 100 10/24/2017 [facility] Manual blood neutrophils/100 leukocytes 79 40 - 74 10/24/2017 [facility] Manual blood lymphocytes/100 leukocytes 8 19 - 48 10/24/2017 [facility] Manual blood monocytes/100 leukocytes 7 3.4 - 9.0 10/24/2017 [facility] Manual blood eosinophil count as percentage of total leukocytes 2 0 - 7 10/24/2017 [facility] Manual blood metamyelocytes/100 leukocytes 2 0 - 0 10/24/2017 [facility] Blood lymphocytes variant count (number/volume) 2 10/24/2017 [facility] Blood platelets count by estimate (number/volume) ADEQUATE 10/24/2017 [facility] Platelet morphology NORMAL 10/24/2017 [facility] RBC morphology NORMAL 10/24/2017 [facility] Serum or plasma conjugated bilirubin measurement (mass/volume) 0.3 0.0 - 0.5 10/21/2017 [facility] Clostridium difficile A and B toxin assay NEGATIVE NEGATIVE 10/20/2017 [facility] Manual blood band neutrophils form/100 leukocytes 1 10/17/2017 [facility] Blood promyelocytes/100 leukocytes 1 0 - 0 10/17/2017 [facility] Blood polychromasia detection by light microscopy FEW 10/17/2017 [facility] Blood hypochromia detection by light microscopy MODERATE 10/17/2017 [facility] Blood anisocytosis detection by light microscopy SLIGHT 10/17/2017 [facility] Manual blood myelocytes/100 leukocytes 3 0 - 0 10/14/2017 [facility] Blood nucleated erythrocytes count (number/volume) 1 10/13/2017 [facility] Blood poikilocytosis detection by light microscopy SLIGHT 10/13/2017 [facility] Blood [place] bodies detection by light microscopy FEW 10/13/2017 [facility] Serum or plasma trough vancomycin level at trough (mass/volume) 10.9 5.0 - 10.0 10/12/2017 [facility] Serum cardiolipin IgG antibody assay by immunoassay (units/volume) 10 0 - 14 10/08/2017 [facility] Serum cardiolipin IgM antibody assay by immunoassay (units/volume) 24 0 - 12 10/08/2017 [facility] Serum cardiolipin IgA antibody assay by immunoassay (units/volume) <9 0 - 11 10/08/2017 [facility] Manual basophil percentage 1 0 - 1.5 10/08/2017 [facility] Random serum or plasma vancomycin measurement (mass/volume) 16.2 10/08/2017 [facility] Blood blasts/100 leukocytes 2 10/07/2017 [facility] Serum or plasma iron measurement (mass/volume) 11 50 - 170 10/07/2017 [facility] Serum or plasma iron binding capacity measurement (mass/volume) 157 261 - 478 10/07/2017 [facility] Serum or plasma iron saturation measurement (mass fraction) 7 15 - 50 10/07/2017 [facility] Serum or plasma transferrin measurement (mass/volume) 112 180 - 382 10/07/2017 [facility] Serum or plasma ferritin measurement (mass/volume) 555.70 4.63 - 204.00 10/07/2017 [facility] Arterial blood pH measurement 7.52 7.31 - 7.41 10/06/2017 [facility] pCO2 BldA 34 41 - 51 10/06/2017 [facility] pCO2 BldA 85 80 - 105 10/06/2017 [facility] Arterial blood bicarbonate measurement (moles/volume) 28 - 10/06/2017 [facility] Arterial blood base excess by calculation 5.0 -2 - 3 - 2 10/06/2017 [facility] Arterial blood oxygen saturation measurement 97.0 95 - 98 10/06/2017 [facility] FiO2 35 10/06/2017 [facility] Bacterial blood culture Organism: ENTEROCOCCUS FAECALIS 10/06/2017 [facility] Bacteria identification in wound by culture Organism: BALJEET TROPICALIS 10/03/2017 [facility] Antithrombin measurement (units/volume) in platelet poor plasma by chromogenic method 66 75 - 135 10/02/2017 [facility] Serum beta 2 glycoprotein 1 IgG antibody assay (units/volume) <9 0 - 20 10/02/2017 [facility] Serum beta 2 glycoprotein 1 IgM antibody assay (units/volume) <9 0 - 32 10/02/2017 [facility] Serum beta 2 glycoprotein 1 IgA antibody assay (units/volume) <9 0 - 25 10/02/2017 [facility] Serum or plasma homocysteine measurement (moles/volume) 8.5 0.0 - 15.0 10/02/2017 [facility] Protein C measurement (units/volume) in platelet poor plasma by coagulation assay 40 73 - 180 10/02/2017 [facility] Protein S free measurement in platelet poor plasma by coagulation assay(units/volume) 50 57 - 157 10/02/2017 [facility] Activated protein C resistance in platelet poor plasma by coagulation assay (time ratio) 2.7 2.2 - 3.5 10/02/2017 [facility] Plasminogen measurement (units/volume) in platelet poor plasma by chromogenic method 83 70 - 150 10/02/2017 [facility] Blood or tissue coagulation factor II mutation detection by molecular genetics method Comment . 10/02/2017 [facility] Lupus anticoagulant neutralization platelet time in platelet poor plasma by coagulation assay 38.5 0.0 - 51.9 10/02/2017 [facility] Lupus anticoagulant interpretation in platelet poor plasma Comment: . 10/02/2017 [facility] Fibrin D-dimer DDU measurement in platelet poor plasma (mass/volume) 3.67 0.00 - 0.45 10/02/2017 [facility] Fibrinogen measurement in platelet poor plasma by coagulation assay (mass/volume) 594 204 - 462 10/02/2017 [facility] Serum or plasma folate measurement (mass/volume) 15.4 7.0 - 15.4 10/02/2017 [facility] Fibrin+fibrinogen fragments measurement (units/volume) in platelet poor plasma by latex agglutination 40 <5 10/02/2017 [facility] Serum nuclear antibody titer by immunofluorescence Negative . 10/02/2017 [facility] Serum or plasma rheumatoid factor measurement (units/volume) 11.2 0.0 - 13.9 10/02/2017 [facility] Serum platelet ab.heparin induced detection 0.468 0.000 - 0.400 09/30/2017 [facility] Specimen source identification of body fluid PERITONEAL 09/29/2017 [facility] Evaluation of color of body fluid GREEN 09/29/2017 [facility] Determination of appearance of body fluid TURBID 09/29/2017 [facility] Manual body fluid leukocytes count (number/volume) 2124 09/29/2017 [facility] Manual body fluid erythrocytes count (number/volume) 297 09/29/2017 [facility] Manual body fluid neutrophils/100 leukocytes 7 09/29/2017 [facility] Body fluid lymphocyte count 84 09/29/2017 [facility] Body fluid monocyte count 9 09/29/2017 [facility] Total cell count 100 09/29/2017 [facility] Bacterial body fluid culture Organism: BALJEET TROPICALIS 09/29/2017 [facility] Serum hepatitis B virus surface antibody assay by radioimmunoassay (units/volume) 23.3 Immunity>9.9 09/29/2017 [facility] Serum or plasma hepatitis B virus core antibody detection by immunoassay Negative Negative 09/29/2017 [facility] Serum or plasma hepatitis B virus surface antigen detection by immunoassay Negative Negative 09/29/2017 [facility] Serum or plasma cortisol measurement on morning peak specimen (mass/volume) 27.5 6.2 - 19.4 09/29/2017 [facility] Blood frederick cells detection by light microscopy SLIGHT 09/27/2017 [facility] Serum or plasma triglyceride measurement (mass/volume) 70 0 - 149 09/23/2017 [facility] Serum or plasma cholesterol measurement (mass/volume) 74 0 - 199 09/23/2017 [facility] Serum or plasma cholesterol in LDL measurement (mass/volume) 40 60 - 130 09/23/2017 [facility] Serum or plasma cholesterol in HDL measurement (mass/volume) 20 40 - 60 09/23/2017 [facility] Serum or plasma total cholesterol/cholesterol in HDL mass ratio 3.7 3.0 - 3.6 09/23/2017 [facility] Stool gastrointestinal hemoglobin detection POSITIVE NEGATIVE 09/21/2017 [facility] Bacterial urine culture Urine Culture [facility] Pathology Reports No Data Provided for This Section Diagnostic Reports Report Value Date Source Venous blood ionized calcium measurement (mass/volume) Ionized Calcium [facility] Consultation Notes No Data Provided for This Section Discharge Summaries No Data Provided for This Section History and Physicals No Data Provided for This Section Vital Signs No Data Provided for This Section Encounters Location Location Details Encounter Type Encounter Number Reason For Visit Attending Provider ADM Date DC Date Status Source Discharged Inpatient [id number] LUCY YOUNGER MD 09/21/2017 10/24/2017 [facility] Discharged Inpatient [id number] LUCY YOUNGER MD 12/14/2017 12/15/2017 [facility] Discharged Inpatient [id number] LUCY YOUNGER MD 12/31/2017 01/07/2018 [facility] Discharged Inpatient [id number] LUCY YOUNGER MD 01/10/2018 01/17/2018 [facility] Discharged Inpatient (obs) [id number] PEG TYSON MD 05/14/2018 05/16/2018 [facility] Procedures Procedure Code Date Perfomer Comments Source Incision and drainage [id number] 05/15/2018 [facility] Computed tomography of abdomen and pelvis with contrast [id number] 12/13/2017 [facility] US abdomen complete [id number] 10/21/2017 [facility] INTRODUCTION OF NUTRITIONAL INTO CENTRAL VEIN, PERC APPROACH [id number] 10/14/2017 [facility] INSERTION OF INFUSION DEV INTO SUP VENA CAVA, PERC APPROACH [id number] 10/10/2017 [facility] PERFORMANCE OF URINARY FILTRATION, <6 HRS/DAY [id number] 09/29/2017 [facility] TRANSFUSE NONAUT PLATELETS IN PERIPH VEIN, PERC [id number] 09/29/2017 [facility] RESPIRATORY VENTILATION, GREATER THAN 96 CONSECUTIVE HOURS [id number] 09/29/2017 [facility] DRAINAGE OF PERITONEAL CAVITY, OPEN APPROACH [id number] 09/29/2017 [facility] RESECTION OF SMALL INTESTINE, OPEN APPROACH [id number] 09/29/2017 [facility] Ultrasound, renal [id number] 09/29/2017 [facility] US guided paracentesis [id number] 09/29/2017 [facility] Ultrasound guidance for vascular access [id number] 09/29/2017 [facility] RESECTION OF RIGHT LARGE INTESTINE, OPEN APPROACH [id number] 09/21/2017 [facility] RELEASE SMALL INTESTINE, OPEN APPROACH [id number] 09/21/2017 [facility] TRANSFUSE NONAUT RED BLOOD CELLS IN PERIPH VEIN, PERC [id number] 09/21/2017 [facility] CT of abdomen and pelvis without contrast [id number] 09/21/2017 [facility] Assessment and Plan No Data Provided for This Section Plan of Care Plan of Care Date Source Discharge Date 05/16/18 12:18pm Disposition HOME, SELF-CARE Instructions/Education Provided Post Operative Pain Prescriptions See Medication Section Referrals (Cardiology) Entered Date: 05/16/2018 9:18am PEG TYSON MD (Surgery) Order Date: 2 Days Entered Date: 05/16/2018 9:19am Address: [address] [place] [address] [place] [id number] Additional Instructions/Education REGULAR DIET OOB TYLENOL#3 F/U FRIDAY HOLD ELIQUIS - BEGIN Friday05/16/2018 [facility] Social History Social History Date Source Social [...] Start Date Stop Date Never Smoker 05/16/2018 [facility] Family History No Data Provided for This Section Advance Directives Order Name Results Value Date Source Advance Directives Advance Directives Directive Response Recorded Date/Time Does the patient have an advance directive? No 05/14/18 5:00pm If yes, is advance directive on file with [facility]? No 05/14/18 5:00pm If not on file with [facility] will patient provide a copy? No 05/14/18 5:00pm Do you have a Directive to Physician? No 05/14/18 11:32am Do you have a Medical Power of Paid Internship? No 05/14/18 11:32am Do you have an [...] rights and responsibilities? Yes 05/14/18 11:32am 05/16/2018 [facility] Functional Status No Data Provided for This Section
[2019-01-10] MEDS: SODIUM CHLORIDE 0.9% 1000ML 1,000 ML IV SCH (22:46)
[2019-01-10] MEDS ORDERED: ONDANSETRON HCL INJ 2MG/ML 2ML 2 MG/ML VIAL IV STA (23:00)
[2019-01-10] MEDS: ALBUTEROL SULF 0.083% NEB SOLN 3 ML NEB NEB SCH (23:25)
[2019-01-10] MEDS: IPRATROPIUM BROMIDE 0.02% 2.5 ML NEB NEB SCH (23:25)
[2019-01-10] MEDS ORDERED: VITAMIN D250000 UNIT PO (23:58)
[2019-01-10] MEDS ORDERED: MONTELUKAST SOD10 MG PO (23:58)
[2019-01-11] VITALS (9 sets, daily range): BP systolic 96–150; BP diastolic 50–66
--- NOTE | 2019-01-11 00:24 | NUR ---
Received report from ER nurse.
[2019-01-11] MEDS: ALBUTEROL SULF 0.083% NEB SOLN 3 ML NEB NEB SCH ×3 (03:01→11:20)
[2019-01-11 05:51] LABS: CREATINE KINASE MB 0.4 ng/mL (0-5.0)
--- NOTE | 2019-01-11 06:16 | NUR ---
Patient continue to get pain meds q4 hours. Grimaldo leaking but patient c/o to painful to touch. Patient states he will wait for Dr Antunez to adjust the grimaldo.
--- NOTE | 2019-01-11 07:00 | NUR ---
Patient appear to have remove grimaldo. He states it just fell out.
[2019-01-11] MEDS: IPRATROPIUM BROMIDE 0.02% 2.5 ML NEB NEB SCH (07:05)
--- NOTE | 2019-01-11 07:24 | NUR ---
PATIENT IN BED WITH HEAD OF BED ELEVATED RECEIVING NEB TREATMENT, NO DISTRESS NOTED. IV FLUID INFUSING ORDERED. BED IN LOWER POSITION, CALL LIGHT AT REACH.
[2019-01-11 11:20] LABS: CREATINE KINASE MB 0.5 ng/mL (0-5.0)
[2019-01-11] MEDS: SODIUM CHLORIDE 0.9% 1000ML 1,000 ML IV SCH (11:34)
--- NOTE | 2019-01-11 11:42 | NUR ---
PATIENT ASSISTED WITH SHOWER AND BACK TO CHAIR. ALL PERSONAL ITEMS CLOSE TO PATIENT. CALL LIGHT AT REACH.
--- NOTE | 2019-01-11 13:17 | Consultation ---
DATE OF CONSULTATION: Pulmonary Consultation REASON FOR THE CONSULT: Cough, history of asthma. HISTORY OF PRESENT ILLNESS: Ms. Odom is an 83-year-old female. She came into the emergency room with complaints of cough productive of clear phlegm going on for last 3 weeks, progressively getting worse. She is denying any complaints of fever or chills. 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 Chauhan on a regular basis. She has a history of asthma for which she sees Dr. Sofia. She is on Advair 250 two times a day. The patient is denying any complaints of nausea, vomiting, or diarrhea. REVIEW OF SYSTEMS: GENERAL: Denies any fever or chills. HEAD: Denies any head trauma. ENT: Denies any earache. CVS: Denies any chest pain. RESPIRATORY: Denies any shortness of breath. The rest of the review of systems are negative except as in HPI. PAST MEDICAL HISTORY: Hypertension, knee surgery, history of asthma. FAMILY AND SOCIAL HISTORY: She does not smoke. Does not drink. PHYSICAL EXAMINATION: VITAL SIGNS: Temperature 97.7, pulse of 65, blood pressure 123/58, respiratory rate of 18, O2 saturation 99%. HEENT: Head is atraumatic, normocephalic. NECK: Supple. CHEST: Clear to auscultation bilaterally. No wheezing. HEART: S1, S2 audible. ABDOMEN: Soft. She has a dressing to the lower abdomen where she has a fistula. NEUROLOGIC: She is awake, alert. No focal neurologic deficits. EXTREMITIES: No pedal edema. [place] [address], hemoglobin 9.8, platelets 176. Chemistry is within normal limits. She underwent a CT scan of the abdomen and pelvis, which showed postsurgical post inflammatory changes. ASSESSMENT: Ms. Odom is an 83-year-old female, who has been having cough productive of white phlegm, possibility of asthma exacerbation. Chest x-ray is not showing any evidence of pneumonia. Small area of atelectasis on the left side. PLAN: I will continue the patient on azithromycin and Rocephin. Send off the sputum culture. Continue nebulizer treatment. We will start low-dose of steroids for possible asthma exacerbation causing her to have cough. Thank you for this consult. MD ANGELO Santos/ANNITA /[id number]
[2019-01-11] MEDS: ALBUTEROL/IPRATROPIUM 3 ML NEB NEB SCH ×2 (14:05→19:20)
[2019-01-11] MEDS ORDERED: POTASSIUM CHLORIDE 20 MEQ TAB CR PO NR (14:30)
--- NOTE | 2019-01-11 16:45 | NUR ---
PATIENT ASSISTED TO THE RESTROOM. BACK TO BED TALKING TO FAMILY MEMBERS VISITING. CALL LIGHT AT REACH.
--- NOTE | 2019-01-11 17:17 | History and Physical ---
CHIEF COMPLAINT: Cough, congestion, fever 103 at home. 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 Chauhan on a weekly basis, history of asthma, comes into the ED with complaints of cough and congestion ongoing for several weeks as well as fever of 103 that occurred at home. The patient reports having some productive cough, clear phlegm in nature. She reports she was feeling very weak and tired. She came into the emergency room for further evaluation and management. She does see Dr. Sofia Pulmonary, in his office. She is on Advair for underlying asthma. The patient was seen and evaluated at bedside on the medical floor. She is currently doing well with no other complaints at this time. REVIEW OF SYSTEMS: Pertinent positive cough, congestion, fever, generalized weakness. Pertinent negative: Denies any chest pain, palpitations, nausea, vomiting, diarrhea, dysuria, hematuria, frequency, urgency, lightheadedness, dizziness, abdominal pain, headaches, shortness of breath, no any other complaints. The rest of 14-point review of systems are reviewed with the patient and are negative. ALLERGIES: 1. CIPRO. 2. LEVAQUIN. 3. MORPHINE. 4. BACTRIM. PAST MEDICAL HISTORY: Hypertension and history of asthma. PAST SURGICAL HISTORY: Had knee surgery in past. PAST FAMILY HISTORY: Hypertension and diabetes. SOCIAL HISTORY: No drugs. No alcohol. She was a smoker when she was young, but that was several years ago. She has good family support. She has children. PHYSICAL EXAMINATION: VITAL SIGNS: Temperature is 97.7, pulse 65, respiratory rate 18, blood pressure 123/58, pulse ox 99% on room air. HEENT: Head is normocephalic and atraumatic. Eyes; pupils are reactive to light bilaterally. Extraocular movements are intact bilaterally. Throat; no evidence of erythema or exudates in the posterior pharynx. Has poor dentition. NECK: Supple. Good range of motion throughout. PULMONARY: Clear to auscultation bilaterally. No wheezing, no rales, no rhonchi. No crackles appreciated. CARDIOVASCULAR: Positive S1 and S2. No murmurs, rubs, or gallops appreciated. ABDOMEN: Soft, nondistended, and nontender to palpation. Bowel sounds present. MUSCULOSKELETAL: Strength is 5/5 throughout. No evidence of any muscle deficits on examination. No weakness appreciated. NEUROLOGICAL: Cranial nerves II through XII grossly intact. No evidence of any neurological deficits on exam. SKIN: Intact. Warm to touch. Good cap refill. PSYCHIATRIC: Normal affect and mood. EXTREMITIES: No edema. Good range of motion throughout. LAB FINDINGS: Show white count 18.5, hemoglobin 9.8, hematocrit 32, and platelets of 176. Coagulation: PT 16, INR 1.3, PTT 32. Chemistries: Sodium 138, potassium 3.2, chloride 104, bicarb 22, anion gap of 15, BUN is 11, creatinine 0.67, glucose 112. Lactic acid 13, but normal. Calcium 8.9, total bilirubin is 0.7, AST 20, ALT 10, alkaline phosphatase 87. CK is 42. Troponins were all negative. BNP 137, total protein is 6.8, albumin 3.5. Urinalysis seems to be negative. MICROBIOLOGY: Urine culture shows positive for gram-negative bacilli, pending identification. Blood cultures, no growth to date. Chest x-ray showed some findings consistent with nonspecific bronchitis. There is some small left pleural effusion, could be underlying pneumonia as well. CT abdomen and pelvis shows impression continued evolution of postsurgical postinflammatory change of the superficial soft tissues of the lower abdominal wall. No new abscess. Extensive postsurgical changes of the bowel without evidence of obstruction. IMPRESSION: 1. Ftnen-ep-ummhnkb bronchitis. 2. Community-acquired pneumonia. 3. History of asthma, possible underlying exacerbation. 4. Hypertension. 5. Urinary tract infection. PLAN: At this time, continue with IV antibiotics, azithromycin and Rocephin. She was started on low-dose steroids per Pulmonary. She is also on Advair for inhalers, DuoNebs as well as needed. Resume same home medications with no changes. We will continue to monitor urine culture. Continue with IV antibiotics. Discontinue IV fluids that she is tolerating diet well. Lovenox for DVT prophylaxis. Replace potassium. MD MARÍA Lora/ANNITA /[id number]
[2019-01-11] MEDS: ENOXAPARIN 30 MG/0.3 ML SYR SC SCH (17:22)
[2019-01-11] MEDS: APIXABAN 5 MG TABLET PO SCH (17:22)
[2019-01-11] MEDS: PREDNISONE 20 MG TAB PO SCH (17:22)
[2019-01-11] MEDS: SALMETEROL/FLUTICASONE 250/50 INH SCH (19:20)
--- NOTE | 2019-01-11 19:30 | NUR ---
RECEIVED PT IN BED AOX3 .DENIES PAIN FAMILY AT THE BEDSIDE .CALL LIGHT WITH IN REACH .CONTINUE TO MONITOR
[2019-01-11] MEDS: CEFTRIAXONE SOD 1 GRAM/0.9% SOD CHL 50ML BAG IV SCH (21:45)
[2019-01-11] MEDS: AZITHROMYCIN 500MG/SOD CHL 0.9% 250ML BAG IV SCH (21:45)
[2019-01-11] MEDS: BENZONATATE 100 MG CAP PO PRN (21:45)
[2019-01-12] VITALS (8 sets, daily range): BP systolic 116–151; BP diastolic 56–69
[2019-01-12] MEDS: ALBUTEROL/IPRATROPIUM 3 ML NEB NEB SCH ×4 (01:05→21:15)
--- NOTE | 2019-01-12 04:47 | NUR ---
PT C/O COUGH GIVEN TENSILON PEAR AND RESTING .CALL LIGHT WITH IN REACH .CONTINUE TO MONITOR
[2019-01-12 06:15] LABS: BASOPHILS % 0.1 % (0.0-1.0); LYMPHOCYTES # (AUTO) 1.5 (1.0-3.2); LYMPHOCYTES % 13.1 % (18.0-39.1); MEAN CORPUSCULAR HEMOGLOBIN 23.1 pg (28-32); MEAN CORPUSCULAR HGB CONC 29.6 g/dL (31-35); MEAN CORPUSCULAR VOLUME 77.8 fL (81-99); MONOCYTES # (AUTO) 0.4 (0.2-0.8); MONOCYTES % 3.5 % (4.4-11.3); NEUTROPHILS # (AUTO) 9.7 (2.1-6.9); NEUTROPHILS % 82.9 % (38.7-80.0); PLATELET COUNT 134 x10e3/uL (140-360); RED BLOOD COUNT 3.47 x10e6/uL (3.6-5.1); RED CELL DISTRIBUTION WIDTH 21.1 % (11.7-14.4)
--- NOTE | 2019-01-12 06:30 | NUR ---
LAB CALLED AND TOLD ESBL OF THE URINE .NOTED DR COOK AND NO NEW ORDER.CONTINUE TO MONITOR
[2019-01-12 06:36] LABS: ANION GAP 10.6 mmol/L (8-16); BLOOD UREA NITROGEN 8 mg/dL (7-26); BUN/CREATININE RATIO 13 (6-25); CALCIUM 8.6 mg/dL (8.4-10.2); CARBON DIOXIDE 20 mmol/L (22-29); CHLORIDE 115 mmol/L (98-107); CREATININE, SERUM 0.61 mg/dL (0.57-1.11); EST GLOMERULAR FILTRATION RATE > 60 ML/MIN (60-); GLUCOSE 117 mg/dL (74-118); POTASSIUM 3.6 mmol/L (3.5-5.1); SODIUM 142 mmol/L (136-145)
--- NOTE | 2019-01-12 06:53 | NUR ---
BEDSIDE REPORT GIVEN TO THE ONCOMING NURSE
[2019-01-12] MEDS: SALMETEROL/FLUTICASONE 250/50 INH SCH ×2 (06:56→21:15)
--- NOTE | 2019-01-12 07:13 | NUR ---
PATIENT ASSISTED TO THE RESTROOM AND BACK TO BED. ALL PERSONAL ITEMS CLOSE TO PATIENT. BED IN LOWER POSITION, CALL LIGHT AT REACH.
[2019-01-12] MEDS ORDERED: POTASSIUM CHLORIDE 20 MEQ TAB CR PO ONE (08:30)
[2019-01-12] MEDS: PREDNISONE 20 MG TAB PO SCH (09:57)
[2019-01-12] MEDS: APIXABAN 5 MG TABLET PO SCH ×2 (09:57→17:47)
[2019-01-12] MEDS: FAMOTIDINE 20 MG/2 ML VIAL IV SCH ×2 (11:05→17:47)
--- NOTE | 2019-01-12 11:18 | NUR ---
PATIENT ASSISTED WITH SHOWER. WOUND TO ABDOMEN COVERED WITH GAUZE AND PAPER TAPE. IN CHAIR WATCHING TV. CALL LIGHT AT REACH.
[2019-01-12] MEDS: MEROPENEM 500MG/ NS 50ML 50 ML IV SCH ×2 (15:00→18:45)
--- NOTE | 2019-01-12 15:03 | Progress Note ---
DATE: 01/12/2019 Medicine Progress Note SUBJECTIVE: The patient is doing well today with no complaints. Urine culture consistent with ESBL E coli. PHYSICAL EXAMINATION: VITAL SIGNS: Temperature 97.5, pulse 70, respiratory rate is 16, blood pressure 125/58, pulse ox 99% on room air. GENERAL: Not in acute distress. Alert and oriented x3. Cooperative on exam. HEENT: Head; normocephalic and atraumatic. Eyes; pupils are equal, round and reactive to light bilaterally. Extraocular movements are intact bilaterally. Throat; no evidence of erythema or exudates in the posterior pharynx. Has poor dentition. NECK: Supple. Good range of motion throughout. PULMONARY: Clear to auscultation bilaterally. No wheezing, no rales, no rhonchi. No crackles appreciated. CARDIOVASCULAR: Positive S1 and S2. No murmurs, rubs, or gallops appreciated. ABDOMEN: Soft, nondistended, and nontender to palpation. Bowel sounds present. MUSCULOSKELETAL: Strength is 5/5 throughout. No evidence of any muscle deficits on examination. No weakness appreciated. NEUROLOGICAL: Cranial nerves II through XII grossly intact. No evidence of any neurological deficits on exam. SKIN: Intact. Warm to touch. Good cap refill. PSYCHIATRIC: Normal affect and mood. EXTREMITIES: No edema. Good range of motion throughout. LABORATORY DATA: Lab findings show white count of 11.7, hemoglobin 8, hematocrit is 27, and platelets of 134. Coagulation; PT 16.9, INR 1.3, PTT 32. Chemistry; sodium 142, potassium 3.6, chloride 115, bicarb 20, anion gap of 10, BUN is 8, and creatinine is 0.61, glucose is 117, calcium 8.6. MICROBIOLOGY: Urine culture shows E coli ESBL. Blood cultures, no growth. Sputum cultures are pending. IMAGING STUDIES: None new today. IMPRESSION: 1. Acute on chronic bronchitis. 2. Community-acquired pneumonia. 3. Extended-spectrum B-lactamase Escherichia coli urinary tract infection. 4. History of asthma with possible underlying exacerbation. 5. Hypertension. PLAN: At this time, I changed antibiotics to IV Merrem due to underlying urinary tract infection. Discontinue azithromycin and Rocephin. We will consult with ID as well. Pulmonary is following. She is on low-dose steroids per Pulmonary. She is also on Advair and DuoNeb. She is currently doing very well right now with no other issues. I encourage ambulation. Lovenox for DVT prophylaxis. Her electrolytes are stable today. Otherwise, we will get repeat labs in the morning. MD MARÍA Lora/MODPrincess /[id number]
--- NOTE | 2019-01-12 15:13 | NUR ---
MD IN TO SEE PATIENT NEW ORDERS RECEIVED.
[2019-01-12] MEDS: ENOXAPARIN 30 MG/0.3 ML SYR SC SCH (17:47)
--- NOTE | 2019-01-12 19:57 | NUR ---
RECEIVED PT SITTING ON THE CHAIR .NO ACUTE DISTRESS NOTED .PT IS IN ISO FOR ESBL OF THE URINE.CALL LIGHT WITH IN REACH .CONTINUE TO MONITOR
[2019-01-12] MEDS: MONTELUKAST SODIUM 10 MG TAB PO SCH (21:02)
[2019-01-13] VITALS (8 sets, daily range): BP systolic 116–167; BP diastolic 54–73
[2019-01-13] MEDS: ALBUTEROL/IPRATROPIUM 3 ML NEB NEB SCH ×4 (02:05→20:00)
[2019-01-13 05:50] LABS: BASOPHILS % 0.3 % (0.0-1.0); EOSINOPHILS # (AUTO) 0.1 (0.0-0.4); EOSINOPHILS % 0.5 % (0.0-6.0); HEMATOCRIT 26.2 % (34.2-44.1); LYMPHOCYTES % 21.4 % (18.0-39.1); MEAN CORPUSCULAR HEMOGLOBIN 23.4 pg (28-32); MEAN CORPUSCULAR HGB CONC 30.5 g/dL (31-35); MEAN CORPUSCULAR VOLUME 76.6 fL (81-99); MONOCYTES # (AUTO) 0.5 (0.2-0.8); MONOCYTES % 5.8 % (4.4-11.3); NEUTROPHILS # (AUTO) 6.7 (2.1-6.9); NEUTROPHILS % 71.7 % (38.7-80.0); PLATELET COUNT 143 x10e3/uL (140-360); RED BLOOD COUNT 3.42 x10e6/uL (3.6-5.1); RED CELL DISTRIBUTION WIDTH 21.1 % (11.7-14.4)
[2019-01-13] MEDS: MEROPENEM 500MG/ NS 50ML 50 ML IV SCH ×4 (06:00→17:41)
[2019-01-13 06:24] LABS: ANION GAP 10.4 mmol/L (8-16); BLOOD UREA NITROGEN 10 mg/dL (7-26); BUN/CREATININE RATIO 15 (6-25); CALCIUM 8.8 mg/dL (8.4-10.2); CARBON DIOXIDE 22 mmol/L (22-29); CHLORIDE 111 mmol/L (98-107); CREATININE, SERUM 0.66 mg/dL (0.57-1.11); EST GLOMERULAR FILTRATION RATE > 60 ML/MIN (60-); GLUCOSE 88 mg/dL (74-118); POTASSIUM 3.4 mmol/L (3.5-5.1); SODIUM 140 mmol/L (136-145)
[2019-01-13] MEDS: SALMETEROL/FLUTICASONE 250/50 INH SCH ×2 (07:12→20:00)
--- NOTE | 2019-01-13 07:19 | NUR ---
BEDSIDE REPORT GIVEN TO THE ONCOMING NURSE
[2019-01-13] MEDS: FAMOTIDINE 20 MG/2 ML VIAL IV SCH ×2 (09:42→17:41)
[2019-01-13] MEDS: PREDNISONE 20 MG TAB PO SCH (09:43)
[2019-01-13] MEDS: APIXABAN 5 MG TABLET PO SCH ×2 (09:43→17:41)
[2019-01-13] MEDS ORDERED: POTASSIUM CHLORIDE 20 MEQ TAB CR PO ONE (14:37)
--- NOTE | 2019-01-13 15:10 | NUR ---
IMM LETTER EXPLAINED TO PT. PT VERBALIZED UNDERSTANDING. IMM LETTER SIGNED. COPY TO PT AND COPY TO CHART.
--- NOTE | 2019-01-13 15:24 | Progress Note ---
DATE: 01/13/2019 Medicine Progress Note SUBJECTIVE: The patient is doing well today with no complaints. She was seen at the edge of the bed in her chair with no issues at this time. PHYSICAL EXAMINATION: VITAL SIGNS: Temperature 97.8, pulse 71, respiration rate is 18, blood pressure 141/63, pulse ox 99% on room air. GENERAL: Not in acute distress. Alert and oriented x3. Cooperative on exam. HEENT: Head; normocephalic and atraumatic. Eyes; pupils are equal, round and reactive to light bilaterally. Extraocular movements are intact bilaterally. Throat; no evidence of erythema or exudates in the posterior pharynx. Has poor dentition. NECK: Supple. Good range of motion throughout. PULMONARY: Clear to auscultation bilaterally. No wheezing, no rales, no rhonchi. No crackles appreciated. CARDIOVASCULAR: Positive S1 and S2. No murmurs, rubs, or gallops appreciated. ABDOMEN: Soft, nondistended, and nontender to palpation. Bowel sounds present. MUSCULOSKELETAL: Strength is 5/5 throughout. No evidence of any muscle deficits on examination. No weakness appreciated. NEUROLOGICAL: Cranial nerves II through XII grossly intact. No evidence of any neurological deficits on exam. SKIN: Intact. Warm to touch. Good cap refill. PSYCHIATRIC: Normal affect and mood. EXTREMITIES: No edema. Good range of motion throughout. LABORATORY DATA: Lab findings show white count 9.3, hemoglobin 8, hematocrit 26, platelets of 143. Coagulation; PT 16, INR 1.3, PTT 32. Chemistry; sodium 140, potassium is 3.4, chloride 111, bicarb 22, anion gap of 10, BUN is 10, creatinine is 0.66, glucose is 88, calcium is 8.8. MICROBIOLOGY: Blood cultures are negative. Sputum cultures were negative. ESBL E coli. Sue tropicalis but less than 10,000 colonies of Sue tropicalis. IMAGING STUDIES: None. IMPRESSION: 1. Acute on chronic bronchitis. 2. Community-acquired pneumonia. 3. Extended-spectrum B-lactamase Escherichia coli, urinary tract infection. 4. History of asthma and possible underlying exacerbation. 5. Hypertension. PLAN: At this time, continue with IV Merrem, antibiotics, awaiting ID recommendations. Pulmonary is following as well. Continue with same medications with no changes. Lovenox for DVT prophylaxis. Replace potassium. MD MARÍA Lora/ANNITA /[id number]
[2019-01-13] MEDS: ENOXAPARIN 30 MG/0.3 ML SYR SC SCH (17:41)
--- NOTE | 2019-01-13 19:00 | NUR ---
RECEIVED PATIENT IN BEDSIDE REPORT. PATIENT SITTING IN CHAIR AT BEDSIDE. NO PAIN REPORTED. NO S&S OF DISTRESS NOTED. BED LOCKED IN LOWEST POSITION, SIDE RAILS UPX2, CALL LIGHT IN REACH.
[2019-01-13] MEDS: MONTELUKAST SODIUM 10 MG TAB PO SCH (20:44)
[2019-01-14] VITALS (10 sets, daily range): BP systolic 133–168; BP diastolic 63–83
[2019-01-14] MEDS: ALBUTEROL/IPRATROPIUM 3 ML NEB NEB SCH ×5 (00:15→23:00)
[2019-01-14] MEDS: MEROPENEM 500MG/ NS 50ML 50 ML IV SCH ×4 (00:16→17:41)
[2019-01-14] MEDS: BENZONATATE 100 MG CAP PO PRN (01:45)
--- NOTE | 2019-01-14 01:45 | NUR ---
PATIENT REPORTED COUGHING, REQUESTED MEDICATION. GIVEN. NO PAIN REPORTED. NO S&S OF DISTRESS NOTED. BED LOCKED IN LOWEST POSITION, SIDE RAILS UPX2, CALL LIGHT IN REACH.
[2019-01-14] MEDS: SALMETEROL/FLUTICASONE 250/50 INH SCH ×2 (07:28→19:00)
[2019-01-14] MEDS: PREDNISONE 20 MG TAB PO SCH (09:00)
[2019-01-14] MEDS: FAMOTIDINE 20 MG/2 ML VIAL IV SCH ×2 (11:01→17:41)
[2019-01-14] MEDS: LORATADINE 10 MG TAB PO SCH (11:01)
[2019-01-14] MEDS ORDERED: GUAIFENESIN/CODEINE 10 ML CUP PO PRN (16:00)
--- NOTE | 2019-01-14 16:51 | NUR ---
Received order for home IV abx and home health. Spoke to pt at bedside and she signed choice for [facility]. Pt agrees to have IV infusion company set up home health. Referral was faxed to [facility] Maxine Hernandez with [facility] was informed of referral. Maxine's cell [phone] PICC line placement pending.
[2019-01-14] MEDS: ENOXAPARIN 30 MG/0.3 ML SYR SC SCH (17:41)
--- NOTE | 2019-01-14 18:58 | Progress Note ---
DATE: 01/14/2019 Medicine Progress Note SUBJECTIVE: The patient is doing well today with only complaint of coughing. No overnight events. She is sitting at the edge of the bed with no issues. Awaiting on ID recommendations. PHYSICAL EXAMINATION: VITAL SIGNS: Temperature is 96.7, pulse 74, respiratory rate is 20, blood pressure 148/67, and pulse ox 97% on 2 L nasal cannula. GENERAL: Not in acute distress. Alert and oriented x3. Cooperative on examination. HEENT: Head; normocephalic and atraumatic. Eyes; pupils are equal, round, and reactive to light bilaterally. Extraocular movements are intact bilaterally. Throat; no evidence of erythema or exudate in the posterior pharynx. Has poor dentition. NECK: Supple. Good range of motion. PULMONARY: Clear to auscultation bilaterally. No wheezing, rales, or rhonchi. No crackles appreciated. CARDIOVASCULAR: Positive S1 and S2. No murmurs, rubs, or gallops appreciated. ABDOMEN: Soft, nondistended, and nontender to palpation. Bowel sounds present. MUSCULOSKELETAL: Strength is 5/5 throughout. No evidence of any muscle deficits on examination. No weakness appreciated. NEUROLOGIC: Cranial nerve II through XII grossly intact. No evidence of any neurological deficits on exam. SKIN: Intact. Warm to touch. Good cap refill. PSYCHIATRIC: Normal affect and mood. EXTREMITIES: No edema. Good range of motion throughout. LABORATORY FINDINGS: Show white count 9.3, hemoglobin 8, hematocrit 26, platelets of 143. Coagulation PT 16, INR 1.3, PTT 32. Chemistry; sodium 140, potassium 3.4, chloride 111, bicarb 22, anion gap of 10, BUN 10, creatinine is 0.66, glucose 88, calcium is 8.8. MICROBIOLOGY: Urine culture shows ESBL E coli, shows also Sue tropicalis, but less than 10,000 colonies. Blood cultures, no growth. Sputum cultures were negative. IMPRESSION: 1. Qofqe-qr-fozssvi bronchitis. 2. Community-acquired pneumonia. 3. ESBL E coli urinary tract infection. 4. History of asthma with possible underlying exacerbation. 5. Hypertension. PLAN: At this time, I am still waiting on ID recommendations for a couple days now. I will go ahead and just put her on IV Merrem for home 500 mg IV q.8 hours x10 more days. PICC line has been ordered. We will continue with IV Merrem while here. Pulmonary is following as well. No changes. Electrolytes are stable. Continue with same plan of care. Monitor closely. A.m. labs. I will also add Robitussin with codeine for cough. MD MARÍA Lora/ANNITA /[id number]
--- NOTE | 2019-01-14 19:05 | NUR ---
Completed BS rounds with morning nurse. Pt alert to name. Pt seen walking from bathroom with steady gait. Denies pain at this time. Call godoy within reach. Will continue to monitor.
--- NOTE | 2019-01-14 20:21 | Diagnostic Imaging Report ---
Examination: Single AP view of the chest. COMPARISON: None. INDICATION: Line placement DISCUSSION: Lines/tubes: Line placement with tip over the SVC. Lungs: The lungs are well inflated and clear. No pneumonia or pulmonary edema. Pleura: Left effusion. Heart and mediastinum: The heart and the mediastinum are unremarkable. Bones and soft tissues: No acute bony abnormalities. IMPRESSION: 1. Line placement with tip over the SVC. Signed by: Dr. Chriss Waldrop M.D. on 01/14/2019 8:18 PM
[2019-01-14] MEDS: MONTELUKAST SODIUM 10 MG TAB PO SCH (20:50)
--- NOTE | 2019-01-15 01:04 | Consultation ---
DATE OF CONSULTATION: REASON FOR CONSULTATION: UTI. HISTORY OF PRESENT ILLNESS: This patient is well known to me from before. She is a very pleasant 83-year-old white female with history of hemicolectomy, small bowel fistula to anterior abdominal wall. The patient has history of asthma, comes to emergency room with congestion, coughing, not feeling well, fever and chills. The patient was allergic to Cipro and Levaquin. The patient was admitted. She used to be smoker when young. Her urine culture showed E coli ESBL. Blood cultures negative. LABORATORY DATA: When she first came was white count 18.57, came down to 9.3. Sodium 140, potassium 3.4. When she first came, she was having fever. PHYSICAL EXAMINATION: GENERAL: She is currently alert, oriented, does not seem to be in acute distress. VITAL SIGNS: Stable, currently afebrile. HEENT: She is not icteric. NECK: Supple. CHEST: Clear. HEART: No murmur. ABDOMEN: Soft. Bowel sounds present. EXTREMITIES: No edema. SKIN: No rash. MEDICATIONS: The patient is currently on meropenem, which was started on January 12. IMPRESSION AND PLAN: Pneumonia, community acquired, resolved. Did well with Rocephin, azithromycin, with ESBL. The patient with fistula. There is no need for treatment. We will discuss with attending. Other medical problems as above. We will follow. MD LARISA Salguero/ANNITA /[id number]
[2019-01-15 03:50] VITALS: BP 122/72
[2019-01-15] MEDS: MEROPENEM 500MG/ NS 50ML 50 ML IV SCH ×3 (05:27→12:02)
[2019-01-15] MEDS: ALBUTEROL/IPRATROPIUM 3 ML NEB NEB SCH ×2 (07:00→13:00)
[2019-01-15] MEDS: SALMETEROL/FLUTICASONE 250/50 INH SCH (07:02)
--- NOTE | 2019-01-15 07:23 | NUR ---
Pt handed off to morning nurse. BS report given. No acute distress noted.
[2019-01-15 07:34] VITALS: BP 152/67
[2019-01-15] MEDS: LORATADINE 10 MG TAB PO SCH (09:22)
[2019-01-15] MEDS: FAMOTIDINE 20 MG/2 ML VIAL IV SCH (09:22)
[2019-01-15] MEDS: PREDNISONE 20 MG TAB PO SCH (09:22)
[2019-01-15 11:19] VITALS: BP 138/78
--- NOTE | 2019-01-15 11:31 | NUR ---
EDUCATED ABOUT IMM, SIGNED, FILED IN CHART, WITH COPY LEFT WITH FAMILY AT BEDSIDE.
[2019-01-15 12:48] VITALS: BP 138/78
--- NOTE | 2019-01-15 14:27 | NUR ---
Nutrition LOS Note RD Recommendation(s) for Physician / Nutrition Prescription: continue with diet as prescribed Plan of Care: Patient has been screened and assessed for nutrition risk. At this time, the patient does not pose any nutrition risk. No further nutrition intervention is warranted at this time. Will re-evaluate if consulted by medical staff. 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 Visited pt in the room. Pt reported good appetite. PCT recorded ~100% meal intake during hospital stay. No complains of nausea or vomiting. LBM 01/14. Pt denied any chewing or swallowing difficulty. Weight has been stable. Pt requested for Ensure Vanilla with dinner (ordered). Will continue to monitor and follow. Malnutrition Evaluation (01/15/2019) The patient does not meet criteria for a specified degree of malnutrition at this time. Will re-evaluate at follow-up as appropriate. Diet Education Needs Assessment: Diet education not indicated. Nutrition Care Level: Low Signed by Brittnee Daley, MS, RD, LD
[2019-01-15 15:27] VITALS: BP 128/65
--- NOTE | 2019-01-15 15:55 | NUR ---
PICC line removed at this time. Line measuring at 38, intact. Pressure dressing applied and intact.
[2019-01-15] MEDS ORDERED: PREDNISONE10 MG PO (16:45)
[2019-01-15] MEDS ORDERED: AUGMENTIN 875-1 EACH PO (16:46)
[2019-01-16] MEDS ORDERED: PREDNISONE 10 MG TAB PO SCH (09:00)
--- NOTE | 2019-01-16 15:28 | Discharge Summary ---
FINAL DISCHARGE DIAGNOSES: 1. Acute on chronic bronchitis. 2. Community-acquired pneumonia. 3. Extended-spectrum b-lactamase Escherichia coli urinary tract infection, found to be normal colonization according to the Infectious Disease with no further treatment needed. 4. History of asthma with possible underlying exacerbation. 5. Hypertension. CONSULTANTS: Pulmonary and Infectious Disease. PHYSICAL EXAMINATION: VITAL SIGNS: Temperature is 97.1, pulse 75, respirations 18, blood pressure 120/65, pulse ox 97% on room air. LABORATORY FINDINGS: Show white count 9.3, hemoglobin 8, hematocrit 26, platelets of 143. Coagulation: PT 16, INR 1.3, PTT is 32. Chemistry: Sodium 140, potassium 3.4, chloride 111, bicarb 22, anion gap of 10, BUN 10, creatinine is 0.66. Lactic acid 8.8, which is normal at this hospital. Troponins were all negative. BNP 137. Albumin was 3.5. Urinalysis noted. Chest x-ray shows finding consistent with having a bronchitis. Interval decrease in the small left pleural effusion with associated atelectasis present or maybe because of . CT abdomen and pelvis showed continued evolution of post inflammatory changes of the superficial soft tissues of the lower anterior abdominal wall. No new abscess. Extensive postsurgical change of the bowel without evidence of obstruction. MICROBIOLOGY: Urine culture shows Sue tropicalis, but less than 10,000 colonies, ESBL E coli, found to be normal colonization. No further treatment needed according to Infectious Disease. Blood cultures were negative and sputum cultures were found to be negative as well with normal respiratory allie. HOSPITAL COURSE: An 83-year-old female, who came into the emergency room with complaints of underlying cough, congestion for the last several weeks and a fever 103. The patient was admitted and Pulmonary and ID were consulted. As per Pulmonary, the patient was being treated for acute on chronic bronchitis as well as community-acquired pneumonia. She was on IV antibiotics while here in the hospital stay. Blood cultures were negative. Urine culture showed evidence of ESBL E coli as well as Sue tropicalis. ID was consulted and after further discussion with him, it was felt that the patient likely has normal colonization of the urine, leading to the ESBL. Per ID, Dr. Ortiz, he recommends no further treatment in terms of the underlying UTI, but instead discharged on oral Augmentin, which was written for prescription bernal, it was given to the patient. Per ID, no further antibiotics IV needed except for the oral Augmentin. The patient improved tremendously while here in the hospital stay. She was on low-dose steroids as well as IV antibiotics and neb treatments. The patient was cleared for discharge by both consultants, Pulmonary, as well as Infectious Disease. On the day of discharge, vital signs were stable, labs reviewed and stable. The patient is seen and evaluated, examined thoroughly on the day of discharge. No other complaints. The patient verbalized understanding and agrees to plan of care to follow up as an outpatient with the PCP in 1 week and Infectious Disease and Pulmonary in 2 weeks' time. MEDICATIONS: See med reconciliation form. DISPOSITION: Home. CONDITION: Stable. DIET: Heart healthy. In the event of any worsening symptoms, the patient is advised to come back to the emergency room department for further evaluation and care. Discharge summary took greater than 35 minutes. MD MARÍA Lora/ANNITA /[id number]
== END 2019-01-15 18:28 | disposition home or self-care (01) | DRG 871 ==
LOC: ER 16:26 → ERHOLD 21:43 → MED/SURG3 01-11 01:10
PROVIDERS: ADMIT Internal Medicine; ATTEND Internal Medicine
PROC: 02HV33Z Insertion of Infusion Device into Superior Vena Cava, Percutaneous Approach (ICD-10-PCS; principal; 2019-01-14)
DX: A41.9 Sepsis, unspecified organism (principal); J18.9 Pneumonia, unspecified organism; N39.0 Urinary tract infection, site not specified; J45.901 Unspecified asthma with (acute) exacerbation; B37.49 Other urogenital candidiasis; J20.9 Acute bronchitis, unspecified; B96.20 Unspecified Escherichia coli [E. coli] as the cause of diseases classified elsewhere; R05 Cough; Z90.49 Acquired absence of other specified parts of digestive tract; I10 Essential (primary) hypertension; Z16.12 Extended spectrum beta lactamase (ESBL) resistance
CPT/HCPCS: 36415; 36569; 71045; 74177; 80048; 80053; 81001; 82550; 82553; 83605; 83880; 84484; 85025; 85610; 85730; 87040; 87070; 87086; 87186; 87205; 93005; 94640; 94664; 96365; 99284; J0456; J0696; J1650; J2270; J7030; J7512; Q9967

== ENCOUNTER 2019-03-03 10:24 | Inpatient (IN) | payer MEDICARE ==
[~2019-03-03] VITALS: Ht 157.5 cm; Wt 67.6 kg
[~2019-03-03 10:24] MED LIST changes: +AUGMENTIN 875-1 EACH PO; +PREDNISONE10 MG PO; +VITAMIN D250000 UNIT PO
[2019-03-03] MEDS ORDERED: SODIUM CHLORIDE 0.9% 1000ML 1,000 ML IV STA (10:58)
[2019-03-03] MEDS ORDERED: SODIUM CHLORIDE 0.9% 1000ML 1,000 ML IV SCH (10:58)
[2019-03-03] MEDS ORDERED: ONDANSETRON HCL INJ 2MG/ML 2ML 2 MG/ML VIAL IV PRN ×2 (11:00→19:00)
[2019-03-03] MEDS ORDERED: DIATRIZOATE MEGL/DIATRIZOA SOD 30 ML BTL PO ONE (11:24)
[2019-03-03 11:27] LABS: BASOPHILS % 0.3 % (0.0-1.0); EOSINOPHILS # (AUTO) 0.1 (0.0-0.4); EOSINOPHILS % 0.8 % (0.0-6.0); HEMATOCRIT 32.7 % (34.2-44.1); HEMOGLOBIN 9.8 g/dL (12.0-16.0); LYMPHOCYTES # (AUTO) 1.4 (1.0-3.2); LYMPHOCYTES % 16.2 % (18.0-39.1); MEAN CORPUSCULAR HEMOGLOBIN 23.1 pg (28-32); MEAN CORPUSCULAR VOLUME 77.1 fL (81-99); MONOCYTES # (AUTO) 0.9 (0.2-0.8); MONOCYTES % 10.4 % (4.4-11.3); NEUTROPHILS # (AUTO) 6.3 (2.1-6.9); NEUTROPHILS % 71.8 % (38.7-80.0); PLATELET COUNT 215 x10e3/uL (140-360); RED BLOOD COUNT 4.24 x10e6/uL (3.6-5.1); RED CELL DISTRIBUTION WIDTH 21.1 % (11.7-14.4)
[2019-03-03 11:43] LABS: INR 1.31; PARTIAL THROMBOPLASTIN TIME 37.3 seconds (23.8-35.5); PROTHROMBIN TIME 16.9 seconds (11.9-14.5)
[2019-03-03 12:00] LABS: ALANINE AMINOTRANSFERASE 10 IU/L (0-55); ALBUMIN/GLOBULIN RATIO 0.9 (0.8-2.0); ALKALINE PHOSPHATASE 69 IU/L (40-150); ANION GAP 14.2 mmol/L (8-16); BLOOD UREA NITROGEN 18 mg/dL (7-26); BUN/CREATININE RATIO 24 (6-25); CALCIUM 9.7 mg/dL (8.4-10.2); CARBON DIOXIDE 21 mmol/L (22-29); CHLORIDE 104 mmol/L (98-107); CREATINE KINASE 58 IU/L (29-168); CREATININE, SERUM 0.74 mg/dL (0.57-1.11); EST GLOMERULAR FILTRATION RATE > 60 ML/MIN (60-); GLUCOSE 111 mg/dL (74-118); POTASSIUM 3.2 mmol/L (3.5-5.1); SODIUM 136 mmol/L (136-145)
[2019-03-03] MEDS ORDERED: METRONIDAZOLE 500MG/NS 100ML 100 ML IV SCH (12:00)
[2019-03-03] MEDS ORDERED: FAMOTIDINE 20 MG/2 ML VIAL IV SCH (12:00)
[2019-03-03 12:23] LABS: BILIRUBIN,URINE NEGATIVE (NEGATIVE); CLARITY,URINE CLEAR (CLEAR); COLOR,URINE YELLOW (YELLOW); KETONES,URINE NEGATIVE (NEGATIVE); LEUKOCYTE ESTERASE ,URINE NEGATIVE (NEGATIVE); NITRITE,URINE NEGATIVE (NEGATIVE); PROTEIN,URINE DIPSTICK NEGATIVE (NEGATIVE); URINE UROBILINOGEN 0.2 mg/dL (0.2 - 1)
[2019-03-03] MEDS: FENTANYL CITRATE/PF 100MCG/2 ML INJ IV SCH ×3 (12:32→18:00)
[2019-03-03 12:33] LABS: LIPASE 18 U/L (8-78)
[2019-03-03 12:35] LABS: BACTERIA,URINE MANY /HPF; EPITHELIAL CELLS,URINE MODERATE /LPF
[2019-03-03 12:36] LABS: YEAST,URINE MANY
[2019-03-03] MEDS ORDERED: POTASSIUM CHLORIDE 20 MEQ TAB CR PO STA (13:02)
--- NOTE | 2019-03-03 14:03 | Diagnostic Imaging Report ---
CT of the abdomen and pelvis, with contrast, 03/03/2019. History: Postop. Comparison: 01/10/2019. Technique: Multidetector CT scanning of the abdomen and pelvis was performed from the level of the lung bases to the inferior pubic rami after intravenous and oral administration of contrast. Coronal and sagittal multiplanar reformations were obtained. RADIATION DOSE: Total DLP: 432 mGy*cm Dose modulation, iterative reconstruction, and/or weight based adjustment of the mA/kV was utilized to reduce the radiation dose to as low as reasonably achievable. Discussion: LUNG BASES: No visualized abnormalities. ABDOMEN: 1.5 cm enhancing hepatic lesion adjacent to the IVC is unchanged. The liver, biliary tree, spleen, pancreas, and kidneys are otherwise normal. 2 cm right adrenal nodule is unchanged. 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 Cholecystectomy clips are noted. The hepatic vein, portal vein, and splenic vein are patent. The abdominal aorta is within normal limits for size. Anterior abdominal wall subcutaneous collection is again noted with increased air measuring 6.4 cm transversely, and decrease in the inferior fluid/soft tissue component of the collection. No contrast is seen within this collection and no communication to bowel is visible. Suture material is present in the lower abdomen in the region of small bowel. Contrast passes through this region to reach the colon. There is no bowel dilatation. Diverticuli are scattered throughout the colon without evidence of adjacent inflammation. There is no evidence of adenopathy or free fluid. PELVIS: The bladder is distended. The uterus and adnexa are absent. There is no evidence of free fluid or adenopathy. BONES AND SOFT TISSUES: Advanced degenerative changes are present throughout the lumbar spine without evidence of lytic or sclerotic lesion. IMPRESSION: 1. Anterior abdominal wall subcutaneous collection with increase in air and decrease in fluid/soft tissue density. No visible connection to the bowel. 2. Postsurgical changes of the bowel without evidence of obstruction. Colonic diverticulosis is noted without evidence of diverticulitis. 3. Distention of the urinary bladder. 4. Small right hepatic hemangioma and right adrenal nodule without change. 5. Status post cholecystectomy, left adrenalectomy, and hysterectomy. Signed by: Wisam Pepe on 03/03/2019 2:00 PM
[2019-03-03 14:20] VITALS: BP 133/63
--- NOTE | 2019-03-03 15:40 | NUR ---
report to LISA Coyle
[2019-03-03] MEDS ORDERED: IOPAMIDOL 370 MG/ML 200 ML INFUS..BTL INJ ONE (16:08)
[2019-03-03] MEDS ORDERED: SODIUM CHLORIDE 0.9% 50ML 50 ML ONE (16:08)
--- NOTE | 2019-03-03 16:20 | NUR ---
RCD PT FROM ER BY WHEEL CHAIR PT IS ALERT AND ORIENTED PT RESTING ON BED VITALS CHECKED ADMISSION ASSESSMENT DONE PT ON COLOSTOMY BAG ON THE MEDDLE OF ABDOMEN IV PATENT FAMILY AT BED SIDE INSTRUCTED PT AND FAMILY REGARDING HOSPITAL POLICY AND ROUTINE BED LOW AND LOCKED CALL LIGHT IN REACH
[2019-03-03 17:57] VITALS: BP 133/63
[2019-03-03] MEDS: METRONIDAZOLE 500MG/NS 100ML 100 ML IV SCH (18:00)
[2019-03-03] MEDS: PIPER-TAZ 3.375 GM 50 ML IV SCH (18:00)
[2019-03-03 18:05] VITALS: BP 133/63
[2019-03-03] MEDS: SODIUM CHLORIDE 0.9% 1000ML 1,000 ML IV SCH (19:00)
--- NOTE | 2019-03-03 19:03 | NUR ---
PT RESTING ON BED BED SIDE REPORT GIVEN TO ONCOMING NURSE
[2019-03-03 20:00] VITALS: BP 126/57
[2019-03-03] MEDS: FAMOTIDINE 20 MG/2 ML VIAL IV SCH (20:30)
[2019-03-03 21:19] VITALS: BP 126/57
[2019-03-04] VITALS (8 sets, daily range): BP systolic 109–144; BP diastolic 53–68
[2019-03-04] MEDS: PIPER-TAZ 3.375 GM 50 ML IV SCH ×4 (00:20→17:57)
[2019-03-04] MEDS: METRONIDAZOLE 500MG/NS 100ML 100 ML IV SCH ×4 (01:00→17:57)
[2019-03-04] MEDS: FENTANYL CITRATE/PF 100MCG/2 ML INJ IV SCH ×2 (06:00)
--- NOTE | 2019-03-04 07:00 | NUR ---
RCD PT AT BED PT IS ALERT AND ORIENTED PT RESTING ON BED IV PATENT BED LOW AND LOCKED CALL LIGHT IN REACH
[2019-03-04] MEDS: SODIUM CHLORIDE 0.9% 1000ML 1,000 ML IV SCH (07:05)
[2019-03-04] MEDS: FAMOTIDINE 20 MG/2 ML VIAL IV SCH (09:00)
[2019-03-04] MEDS ORDERED: HYDROMORPHONE HCL 2 MG TAB PO PRN (11:15)
[2019-03-04] MEDS ORDERED: ALBUTEROL/IPRATROPIUM 3 ML NEB NEB PRN (11:15)
[2019-03-04] MEDS: SALMETEROL/FLUTICASONE 250/50 INH SCH ×2 (13:00→19:52)
[2019-03-04] MEDS ORDERED: SINGULAIR10 MG PO (13:05)
[2019-03-04] MEDS ORDERED: LOSARTAN-HCTZ1 EAC2 PO (13:05)
[2019-03-04] MEDS: LOSARTAN POTASSIUM 100 MG TAB PO SCH (15:00)
[2019-03-04] MEDS: HYDROCHLOROTHIAZIDE 25 MG TAB PO SCH (15:00)
--- NOTE | 2019-03-04 15:52 | NUR ---
PT DISCUSSED IN BARRIER ROUNDS HAS COLOSTOMY ON 2 IV ABX, CLEAR LIQUIDS
--- NOTE | 2019-03-04 16:03 | History and Physical ---
PRIMARY CARE PHYSICIAN: Lila Cary MD. CORRUGATOR OPERATOR: Tad Chauhan MD. CHIEF COMPLAINT: Abdominal drain with enterocutaneous fistula. HISTORY OF PRESENT ILLNESS: The patient is an 83-year-old female with abdominal surgery in the past. The patient has a history of incision and drainage of abdominal abscess. The patient has a postop diagnosis of enterocutaneous fistula. The procedure was done by Dr. Tad Chauhan that was back in May 15, 2018. The patient has now [address], one in the suprapubic area and the other one in the mid abdominal higher up area. The patient has some drainage in the area. The patient was seen by Dr. Tad Chauhan as an outpatient and presented to the emergency room for admission for antibiotics. The patient is otherwise stable at this time. She is comfortable. No fever. No significant pain. PAST MEDICAL HISTORY: Abdominal enterocutaneous fistula, history of hypertension, asthma, osteoarthritis with knee surgery in the past, history of previous pneumonia, and history of ESBL infection in the urine. SOCIAL HISTORY: The patient does not smoke or use alcohol. No regular drug. ALLERGIES: TO CIPRO, LEVAQUIN, BACTRIM, AND MORPHINE. HOME MEDICATIONS: List reviewed. REVIEW OF SYSTEMS: Abdominal drain 2 placed, suprapubic and in the posterior epigastric area. PHYSICAL EXAMINATION: VITAL SIGNS: Temperature is 98, blood pressure 113/57, pulse rate 59, and respirations 18. GENERAL: The patient is not in acute distress. She is awake. HEENT: Normocephalic and atraumatic. Anicteric. NECK: Supple grossly. PULMONARY: Clear. CARDIOVASCULAR: Regular rate and rhythm. ABDOMEN: Soft. Generalized discomfort with drain 2 placed as mentioned above. EXTREMITIES: No cyanosis or edema. NEUROLOGIC: No focal deficit. LABORATORY DATA: Sodium 136, potassium 3.2, chloride 104, bicarb 21, BUN 18, creatinine 0.7, and glucose 111. WBC is 8.8, hemoglobin 9.8, hematocrit 32.7, and platelets 215. CT abdomen and pelvis show anterior abdominal wall subcutaneous collection with increase in air and decrease in fluid, soft tissue density. Distention of the urinary bladder. Small right hepatic hemangioma. Status post cholecystectomy, left adrenalectomy and hysterectomy. IMPRESSION: Abdominal enterocutaneous fistula. PLAN: Continue with the recommendation from Dr. Chauhan. Antibiotics. Home medication resumed. We will continue to monitor the patient. Repeat the lab work. We will continue with the patient monitoring and adjust the medication, replace electrolytes. MD DORA Magana/ANNITA /[id number]
--- NOTE | 2019-03-04 16:11 | NUR ---
PAGED DR ZUNIGA TO KNOW HE IS OK WITH DOING THE FISTULOGRAM ON TOMORROW
--- NOTE | 2019-03-04 16:40 | NUR ---
dr le returned the call he is ok to do fistulogram on tomorrow
[2019-03-04] MEDS: APIXABAN 5 MG TABLET PO SCH (16:50)
[2019-03-04] MEDS ORDERED: ELIQUIS PO SCH (17:00)
--- NOTE | 2019-03-04 18:39 | NUR ---
PT RESTING ON BED BED SIDE REPORT GIVEN TO ONCOMING NURSE
[2019-03-04] MEDS: MONTELUKAST SODIUM 10 MG TAB PO SCH (21:17)
--- NOTE | 2019-03-04 22:08 | NUR ---
changed dressings to abdominal wounds
--- NOTE | 2019-03-04 22:15 | Consultation ---
DATE OF CONSULTATION: HISTORY OF PRESENT ILLNESS: Ms. 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 Chauhan on a weekly basis, history of asthma, comes into the emergency room with drainage from the upper part of her abdomen. She says there was copious amount of drainage. The patient currently lying in bed. The patient who does have a history of multiple abdominal surgeries. The patient has a small bowel fistula to the abdominal wall. She is well known to Dr. Sofia and well known to Dr. Jaylen Chauhan. She also have history of pneumonia before she is coming with copious amount of drainage from the abdomen. The patient did not follow up with me as an outpatient. She has been following with Dr. Chauhan in May 15, 2018. She had incision and drainage of abdominal wall abscess by Dr. Chauhan. The patient was admitted. I am asked to see her. PAST MEDICAL HISTORY: As above. PAST SURGICAL HISTORY: As above. ALLERGIES: CIPROFLOXACIN AND SULFAMETHOXAZOLE. SOCIAL HISTORY: There is no smoking, drug abuse, or alcohol abuse. FAMILY HISTORY: Hypertension. LABORATORY DATA: White count 8.78, hemoglobin 9.8. Her sodium 136, potassium 3.2, creatinine 0.74. The patient had abdominal CAT scan, which showed anterior abdominal subcutaneous collection with air. Postsurgical changes in bowel without evidence of obstruction, diverticulosis. MEDICATION LIST: She is currently on Zosyn, metronidazole, Eliquis, she is also on Cozaar. PHYSICAL EXAMINATION: GENERAL: She is currently alert, oriented, does not seem to be in acute distress. VITAL SIGNS: Stable, afebrile. HEENT: She is not icteric. NECK: Supple. No JVD. No carotid bruit. No thyromegaly. CHEST: Clear bilateral. HEART: S1, S2. No S3, S4, or murmur. EXTREMITIES: No edema. SKIN: There is no rash. ABDOMEN: At present time, soft. She have old scar, minimum drainage noted on dressing on the upper and lower part. IMPRESSION: Fistula, probably obstruction with abscess, now draining. I would recommend to obtain a fistulogram, consult Dr. Chauhan. We will put her on cefepime 1 g q.12, Flagyl 500 q.8. Further recommendations to follow. Discussed with the patient. We will discuss with medical team. MD LARISA Salguero/ANNITA /[id number]
[2019-03-05] VITALS (8 sets, daily range): BP systolic 104–154; BP diastolic 63–80
[2019-03-05] MEDS: PIPER-TAZ 3.375 GM 50 ML IV SCH ×2 (00:20→05:36)
[2019-03-05] MEDS: METRONIDAZOLE 500MG/NS 100ML 100 ML IV SCH ×4 (01:17→18:00)
[2019-03-05] MEDS: HYDROCHLOROTHIAZIDE 25 MG TAB PO SCH (08:33)
[2019-03-05] MEDS: APIXABAN 5 MG TABLET PO SCH ×2 (08:33→16:06)
[2019-03-05] MEDS: PREDNISONE 10 MG TAB PO SCH (08:34)
[2019-03-05] MEDS: LOSARTAN POTASSIUM 100 MG TAB PO SCH (08:34)
[2019-03-05] MEDS: POTASSIUM CHLORIDE 10MEQ EA PO SCH (08:34)
[2019-03-05] MEDS ORDERED: DIATRIZOATE MEGL/DIATRIZOA SOD 120 ML BTL PO ONE (08:49)
[2019-03-05] MEDS ORDERED: HYDROCHLOROTHIAZIDE PO SCH (09:00)
[2019-03-05] MEDS ORDERED: [UNRECOGNIZED DRUG - OTHER] PO SCH (09:00)
[2019-03-05] MEDS ORDERED: LOSARTAN PO SCH (09:00)
[2019-03-05] MEDS: SALMETEROL/FLUTICASONE 250/50 INH SCH ×2 (09:37→19:00)
[2019-03-05] MEDS ORDERED: CEFEPIME HCL 1 GM VIAL IV SCH (10:30)
[2019-03-05] MEDS ORDERED: SODIUM CHLORIDE 0.9% 250ML 250 ML ONE (10:58)
[2019-03-05] MEDS: CEFEPIME 1GM/NS 0.9% 50 ML 50 ML IV SCH ×2 (11:10→23:59)
--- NOTE | 2019-03-05 15:58 | NUR ---
DISCUSSED IN BARRIER ROUNDS DIET IS UPGRADED, 2 ABX, WAITING FOR RESULTS FOR FISTULA, CONTINUE CARE
[2019-03-05] MEDS: ACETAMINOPHEN 325 MG TAB PO PRN (16:06)
--- NOTE | 2019-03-05 19:06 | NUR ---
Report given to oncoming nurse of patient's status. Resting in bed.No s/s of acute distress noted.
[2019-03-05] MEDS: MONTELUKAST SODIUM 10 MG TAB PO SCH (21:02)
[2019-03-06] VITALS (8 sets, daily range): BP systolic 115–154; BP diastolic 52–70
[2019-03-06] MEDS: METRONIDAZOLE 500MG/NS 100ML 100 ML IV SCH ×4 (00:55→17:58)
[2019-03-06 05:21] LABS: BASOPHILS % 1.1 % (0.0-1.0); EOSINOPHILS # (AUTO) 0.1 (0.0-0.4); EOSINOPHILS % 2.4 % (0.0-6.0); HEMATOCRIT 28.8 % (34.2-44.1); HEMOGLOBIN 8.4 g/dL (12.0-16.0); LYMPHOCYTES # (AUTO) 1.1 (1.0-3.2); LYMPHOCYTES % 30.5 % (18.0-39.1); MEAN CORPUSCULAR HEMOGLOBIN 22.6 pg (28-32); MEAN CORPUSCULAR HGB CONC 29.2 g/dL (31-35); MEAN CORPUSCULAR VOLUME 77.6 fL (81-99); MONOCYTES # (AUTO) 0.4 (0.2-0.8); MONOCYTES % 9.9 % (4.4-11.3); NEUTROPHILS # (AUTO) 2.1 (2.1-6.9); NEUTROPHILS % 56.1 % (38.7-80.0); PLATELET COUNT 232 x10e3/uL (140-360); RED BLOOD COUNT 3.71 x10e6/uL (3.6-5.1); RED CELL DISTRIBUTION WIDTH 20.6 % (11.7-14.4)
[2019-03-06] MEDS: SALMETEROL/FLUTICASONE 250/50 INH SCH ×2 (07:05→19:31)
--- NOTE | 2019-03-06 07:06 | NUR ---
pt alert resp even and unlabored at this time, no distress noted, call light in reach will cont to monitor.
[2019-03-06] MEDS: POTASSIUM CHLORIDE 10MEQ EA PO SCH (08:25)
[2019-03-06] MEDS: HYDROCHLOROTHIAZIDE 25 MG TAB PO SCH (08:25)
[2019-03-06] MEDS: APIXABAN 5 MG TABLET PO SCH ×2 (08:25→17:51)
[2019-03-06] MEDS: LOSARTAN POTASSIUM 100 MG TAB PO SCH (08:26)
[2019-03-06] MEDS: PREDNISONE 10 MG TAB PO SCH (08:26)
--- NOTE | 2019-03-06 13:44 | Progress Note ---
DATE: SUBJECTIVE: Ms. Odom is doing better. REVIEW OF SYSTEMS: At the present time, HEENT: Negative. PULMONARY: Negative. CARDIAC: Negative. The drainage has subsided significantly. Review of systems otherwise unremarkable. The patient had a CT scan of abdomen with contrast, which showed anterior abdominal wall subcutaneous collection. Fistulogram was ordered. I do not have the report yet and verbally I was told that there was no fistula. MEDICATIONS: She is on Cozaar, Eliquis, metronidazole, and cefepime. She is also on prednisone 10 mg daily. Her blood cultures are negative. Urine cultures are negative. PHYSICAL EXAMINATION: GENERAL: She is currently alert, oriented, does not seem to be in acute distress: VITAL SIGNS: Stable. Currently afebrile. HEENT: She is not icteric. Normocephalic. NECK: Supple. No JVD. No carotid bruits. No thyromegaly. CHEST: Clear bilateral. HEART: S1, S2. No S3, S4, or murmur. ABDOMEN: Soft. Bowel sounds present. No tenderness. Drainage from fistula subsided. IMPRESSION: Fistula, subcutaneous abdominal wall abscess. Clinically, seems to be doing well. Continue with IV antibiotic as ordered. Can change to oral antibiotic, Keflex and Flagyl. We will follow. Thank you for asking us to see this patient. MD LARISA Salguero/ANNITA /[id number]
[2019-03-06] MEDS: CEFEPIME 1GM/NS 0.9% 50 ML 50 ML IV SCH ×2 (13:59→23:00)
[2019-03-06] MEDS: ACETAMINOPHEN 325 MG TAB PO PRN ×2 (15:34→21:15)
--- NOTE | 2019-03-06 19:35 | NUR ---
Completed bedside reporting with morning nurse. Patient alert to name. Lying in bed HOB 30 degrees. Denies pain at this time. Call godoy within reach. Bed low and locked. Will continue to monitor.
--- NOTE | 2019-03-06 19:41 | NUR ---
report given to oncoming nurse . pt stable at shift change.
[2019-03-06] MEDS: MONTELUKAST SODIUM 10 MG TAB PO SCH (20:59)
[2019-03-07] VITALS (8 sets, daily range): BP systolic 115–153; BP diastolic 53–73
[2019-03-07] MEDS: METRONIDAZOLE 500MG/NS 100ML 100 ML IV SCH ×4 (01:01→21:28)
[2019-03-07 05:37] LABS: BASOPHILS % 0.5 % (0.0-1.0); EOSINOPHILS # (AUTO) 0.2 (0.0-0.4); EOSINOPHILS % 4.8 % (0.0-6.0); HEMATOCRIT 30.7 % (34.2-44.1); LYMPHOCYTES # (AUTO) 1.5 (1.0-3.2); LYMPHOCYTES % 39.7 % (18.0-39.1); MEAN CORPUSCULAR HEMOGLOBIN 22.8 pg (28-32); MEAN CORPUSCULAR HGB CONC 29.3 g/dL (31-35); MEAN CORPUSCULAR VOLUME 77.7 fL (81-99); MONOCYTES # (AUTO) 0.5 (0.2-0.8); MONOCYTES % 12.4 % (4.4-11.3); NEUTROPHILS # (AUTO) 1.6 (2.1-6.9); NEUTROPHILS % 42.3 % (38.7-80.0); PLATELET COUNT 247 x10e3/uL (140-360); RED BLOOD COUNT 3.95 x10e6/uL (3.6-5.1); RED CELL DISTRIBUTION WIDTH 20.5 % (11.7-14.4)
[2019-03-07 06:02] LABS: ANION GAP 12.4 mmol/L (8-16); BLOOD UREA NITROGEN < 5 mg/dL (7-26); CALCIUM 8.5 mg/dL (8.4-10.2); CARBON DIOXIDE 23 mmol/L (22-29); CHLORIDE 108 mmol/L (98-107); CREATININE, SERUM 0.61 mg/dL (0.57-1.11); EST GLOMERULAR FILTRATION RATE > 60 ML/MIN (60-); GLUCOSE 82 mg/dL (74-118); MAGNESIUM 1.8 MG/DL (1.3-2.1); PHOSPHORUS 3.2 MG/DL (2.3-4.7); POTASSIUM 3.4 mmol/L (3.5-5.1); SODIUM 140 mmol/L (136-145)
[2019-03-07 06:05] LABS: BUN/CREATININE RATIO 8 (6-25)
--- NOTE | 2019-03-07 06:28 | NUR ---
Pt lying right side in bed with eyes closed. RR even and nonlabored. No acute distress noted
[2019-03-07] MEDS: SALMETEROL/FLUTICASONE 250/50 INH SCH ×2 (07:15→20:23)
[2019-03-07 07:17] LABS: EOSINOPHILS % (MANUAL) 7 % (0-7); LYMPHOCYTES % (MANUAL) 31 % (19-48); MONOCYTES % (MANUAL) 10 % (3.4-9.0); NEUTROPHILS % (MANUAL) 50 % (40-74); PLATELET ESTIMATE ADEQUATE; PLATELET MORPHOLOGY COMMENT NORMAL; RBC MORPHOLOGY COMMENT NORMAL
[2019-03-07] MEDS: PREDNISONE 10 MG TAB PO SCH (09:00)
[2019-03-07] MEDS: POTASSIUM CHLORIDE 10MEQ EA PO SCH (09:00)
[2019-03-07] MEDS: LOSARTAN POTASSIUM 100 MG TAB PO SCH (09:00)
[2019-03-07] MEDS: APIXABAN 5 MG TABLET PO SCH ×2 (09:00→17:36)
[2019-03-07] MEDS: HYDROCHLOROTHIAZIDE 25 MG TAB PO SCH (09:00)
[2019-03-07] MEDS ORDERED: POTASSIUM CHLORIDE 10MEQ EA PO ONE (11:00)
[2019-03-07] MEDS: CEFEPIME 1GM/NS 0.9% 50 ML 50 ML IV SCH ×2 (12:41→23:00)
--- NOTE | 2019-03-07 15:20 | NUR ---
Visit made by the Spiritual Care Department Pastoral Visitor, Jose Gonzalez. PV provided pastoral presence, prayer, communion, a Bible, and supportive listening. Pastoral Visitor informed pt/family of the scope of Senior Construction Project Manager Services and availability. AMANDA BHAKTA [facility] Spiritual Care Department O: [phone] Pager: [phone] ([phone] number calling from)
--- NOTE | 2019-03-07 20:15 | NUR ---
Report given to oncoming nurse, pt stable at this time.
[2019-03-07] MEDS: MONTELUKAST SODIUM 10 MG TAB PO SCH (21:00)
[2019-03-08] VITALS (7 sets, daily range): BP systolic 120–155; BP diastolic 57–73
[2019-03-08] MEDS: METRONIDAZOLE 500MG/NS 100ML 100 ML IV SCH ×3 (05:56→21:00)
[2019-03-08] MEDS: SALMETEROL/FLUTICASONE 250/50 INH SCH ×2 (06:48→19:32)
--- NOTE | 2019-03-08 07:00 | NUR ---
BEDSIDE SHIFT REPORT RECEIVED FROM THE SOFT WORK WRAPPER EXAMINER RN. PT DENIES NEEDS AT THIS TIME.
--- NOTE | 2019-03-08 07:30 | NUR ---
EDUCATED PT ABOUT FALL PRECAUTIONS. CALL LIGHT WITH IN EASY REACH. INSTRUCTED PT TO USE CALL LIGHT FOR ALL NEEDS. PT VERBALIZED UNDERSTANDING. BED IS LOCKED AND LOW. SIDE RAILS X2. BED ALARM IS ON. DENIES NEEDS AT THIS TIME.
[2019-03-08] MEDS: PREDNISONE 10 MG TAB PO SCH (09:00)
[2019-03-08] MEDS: LOSARTAN POTASSIUM 100 MG TAB PO SCH (09:45)
[2019-03-08] MEDS: POTASSIUM CHLORIDE 10MEQ EA PO SCH (09:45)
[2019-03-08] MEDS: HYDROCHLOROTHIAZIDE 25 MG TAB PO SCH (09:45)
[2019-03-08] MEDS: APIXABAN 5 MG TABLET PO SCH ×2 (09:46→17:09)
--- NOTE | 2019-03-08 10:00 | NUR ---
ESBL IN URINE PER THE TILTING HEAD BAND SAWYER. INFORMED THE SAME TO DR. YOUNGER. NEW ORDER FOR ISOLATION.
[2019-03-08] MEDS: CEFEPIME 1GM/NS 0.9% 50 ML 50 ML IV SCH ×2 (11:32→23:00)
[2019-03-08] MEDS ORDERED: ONDANSETRON HCL 4 MG ORAL DISINTEGRATING TAB PO PRN (15:30)
--- NOTE | 2019-03-08 17:35 | NUR ---
DR. Celia TYSON AT BEDSIDE.
--- NOTE | 2019-03-08 19:00 | NUR ---
BEDSIDE SHIFT REPORT GIVEN TO THE PRIMER ASSEMBLER RN. PT DENIED FURTHER NEEDS.
[2019-03-08] MEDS: MONTELUKAST SODIUM 10 MG TAB PO SCH (21:00)
[2019-03-09] VITALS (7 sets, daily range): BP systolic 111–152; BP diastolic 58–70
[2019-03-09] MEDS: METRONIDAZOLE 500MG/NS 100ML 100 ML IV SCH ×3 (06:20→21:32)
--- NOTE | 2019-03-09 07:00 | NUR ---
BEDSIDE SHIFT REPORT RECEIVED FROM THE BIOINFORMATICS SPECIALIST RN. PT IS AAOX4. PT IS ON NPO FOR PROCEDURE. EDUCATED PT ABOUT FALL PRECAUTIONS. CALL LIGHT WITH IN EASY REACH. INSTRUCTED PT TO CALL FOR ANY NEEDS. PT VERBALIZED UNDERSTANDING. BED IS LOW AND LOCKED. SIDE RAILS X2. PT DENIES NEEDS AT THIS TIME.
--- NOTE | 2019-03-09 07:15 | NUR ---
REPORT GIVEN TO ONCOMING NURSE.WALKING ROUNDS MADE.PT RESTING IN BED WITH NO S/S OF DISTRESS.
[2019-03-09] MEDS: SALMETEROL/FLUTICASONE 250/50 INH SCH (07:18)
--- NOTE | 2019-03-09 08:30 | NUR ---
PAGED DR. TYSON AND INFORMED PT K LEVEL. PT IS HAVING PROCEDURE TODAY. NO NEW ORDERS RECEIVED.
[2019-03-09] MEDS: PREDNISONE 10 MG TAB PO SCH (09:00)
[2019-03-09] MEDS: POTASSIUM CHLORIDE 10MEQ EA PO SCH (09:00)
[2019-03-09] MEDS: LOSARTAN POTASSIUM 100 MG TAB PO SCH (09:00)
[2019-03-09] MEDS: HYDROCHLOROTHIAZIDE 25 MG TAB PO SCH (09:00)
[2019-03-09] MEDS: CEFEPIME 1GM/NS 0.9% 50 ML 50 ML IV SCH ×2 (11:00→23:00)
[2019-03-09] MEDS ORDERED: BUPIVACAINE 0.25%/EPI 30ML SDV INJ ONE (12:10)
--- NOTE | 2019-03-09 12:15 | NUR ---
PT OFF UNIT FOR PROCEDURE IN SAFE CONDITION.
[2019-03-09] MEDS ORDERED: SUGAMMADEX SODIUM 200 MG/2 ML VIAL IV ONE (14:07)
[2019-03-09] MEDS ORDERED: ACETAMINOPHEN 1000 MG/100 ML IV PRN (14:30)
[2019-03-09] MEDS ORDERED: FENTANYL CITRATE/PF 100MCG/2 ML INJ ONE (14:56)
--- NOTE | 2019-03-09 15:20 | NUR ---
CALL FROM PACU. PT TRANSFERRING TO RM 112. INFORMED PT FAMILY.
--- NOTE | 2019-03-09 16:00 | NUR ---
TRANSFER REPORT GIVEN TO THE RN.
--- NOTE | 2019-03-09 17:00 | NUR ---
pt arrived to unit resp even and unlabored at this time no distress noted, pt able to make needs known, iv site patent left hand, pt bed in lowest position, bed rails up x2, call light in reach, oriented to room and call light
--- NOTE | 2019-03-09 18:19 | Progress Note ---
DATE: SUBJECTIVE: The patient was seen and examined. Chart reviewed. Discussed with Surgery, Dr. Chauhan, underwent an I and D today. There is no fistula. LABORATORY DATA: Reviewed. Chart reviewed. REVIEW OF SYSTEMS: HEENT: Negative. PULMONARY: Negative. CARDIAC: Negative. PHYSICAL EXAMINATION: GENERAL: She is currently alert, oriented, does not seem to be in acute distress. VITAL SIGNS: Stable. Currently afebrile. HEENT: She is not icteric. NECK: Supple. CHEST: Clear. HEART: S1, S2. No murmurs. ABDOMEN: Soft. Bowel sounds present. No tenderness. EXTREMITIES: No edema. SKIN: No rash. IMPRESSION AND PLAN: 1. Subcutaneous abscess, resolved. 2. History of fistula, resolved. 3. Abscess of subcutaneous, underwent debridement. No culture sent. Currently on cefepime and Flagyl, doing well. Can discharge home tomorrow with Augmentin 875 p.o. b.i.d. for 2 weeks. Follow up as outpatient in addition to local care. Discussed with the patient. Discussed with medical team. MD LARISA Salguero/ANNITA /[id number]
--- NOTE | 2019-03-09 18:24 | Operative Report ---
DATE OF PROCEDURE: 03/09/2019 SURGEON: Tad Chauhan MD PREOPERATIVE DIAGNOSIS: Abdominal wall abscess with multiple fistulas POSTOPERATIVE DIAGNOSIS: Abdominal wall abscess with multiple fistulas OPERATION PERFORMED: Debridement of abdominal wall with fistulectomy. ANESTHESIA: General endotracheal. COMPLICATIONS: None. ESTIMATED BLOOD LOSS: Minimal. DESCRIPTION OF PROCEDURE: With the patient lying in bed in the supine position under good general endotracheal anesthesia, the abdomen was prepped with Betadine solution and draped in the usual manner. The lower abdominal fistula tract was then probed and it was seen extended to about the mid upper abdomen. An incision was then made in the mid upper abdomen all the way down to the area of the fistula tract. There was a lot of inflammatory reaction in the area. The fistula in some places was actually deep to the fascia and the fascia was sharply resected with a knife and the third opening at the top of the abdomen was the skin was again debrided. All of this connected underneath with the fistulous tract and this was all connected to be a single tract that was totally unroofed. After this was done, the fistula tract tunnel was totally sharply debrided with the knife and scissors, and once all the loculations were broken up, the fistula tract was then curetted and all of the necrotic material was removed. After this was done, the wound was then copiously irrigated with dilute Betadine solution. Hemostasis was ascertained. All the wounds were then packed with iodoform gauze. The dressing was applied. The sponge, lap, and needle count was correct. The patient tolerated the procedure well and returned to the recovery room in stable condition. MD AMADA Chavez/MODL /[id number]
[2019-03-09] MEDS ORDERED: PROPOFOL IV EMULSION 10 MG/ML 20 ML VIAL ONE (18:42)
[2019-03-09] MEDS ORDERED: ROCURONIUM BROMIDE 10 MG/ML 5ML VIAL ONE (18:42)
[2019-03-09] MEDS ORDERED: ACETAMINOPHEN 1000 MG/100 ML IV ONE (18:42)
[2019-03-09] MEDS ORDERED: LIDOCAINE HCL 2% LOCAL INJ 5 ML SDV VIAL INJ ONE (18:42)
[2019-03-09] MEDS ORDERED: SEVOFLURANE INHAL SOLN 250 ML PEN BTL ONE (18:42)
[2019-03-09] MEDS ORDERED: ONDANSETRON HCL INJ 2MG/ML 2ML 2 MG/ML VIAL ONE (18:42)
[2019-03-09] MEDS ORDERED: DEXAMETHASONE SOD PHOS INJ 4 MG/ML VIAL ONE (18:42)
--- NOTE | 2019-03-09 19:37 | NUR ---
Report given to oncoming nurse, pt stable at shift change.
[2019-03-09] MEDS: MONTELUKAST SODIUM 10 MG TAB PO SCH (21:32)
[2019-03-09] MEDS ORDERED: SODIUM CHLORIDE 0.9% 50ML 50 ML ONE (21:50)
[2019-03-10] VITALS (8 sets, daily range): BP systolic 102–137; BP diastolic 58–74
[2019-03-10 06:26] LABS: BASOPHILS % 0.1 % (0.0-1.0); HEMATOCRIT 29.7 % (34.2-44.1); HEMOGLOBIN 8.9 g/dL (12.0-16.0); LYMPHOCYTES # (AUTO) 1.2 (1.0-3.2); LYMPHOCYTES % 17.5 % (18.0-39.1); MEAN CORPUSCULAR HEMOGLOBIN 23.3 pg (28-32); MEAN CORPUSCULAR VOLUME 77.7 fL (81-99); MONOCYTES # (AUTO) 0.4 (0.2-0.8); MONOCYTES % 5.7 % (4.4-11.3); NEUTROPHILS # (AUTO) 5.3 (2.1-6.9); NEUTROPHILS % 76.3 % (38.7-80.0); PLATELET COUNT 259 x10e3/uL (140-360); RED BLOOD COUNT 3.82 x10e6/uL (3.6-5.1); RED CELL DISTRIBUTION WIDTH 20.5 % (11.7-14.4)
[2019-03-10] MEDS: METRONIDAZOLE 500MG/NS 100ML 100 ML IV SCH ×3 (06:39→22:00)
[2019-03-10 06:47] LABS: BLOOD UREA NITROGEN 13 mg/dL (7-26); BUN/CREATININE RATIO 20 (6-25); CALCIUM 8.7 mg/dL (8.4-10.2); CARBON DIOXIDE 21 mmol/L (22-29); CHLORIDE 108 mmol/L (98-107); CREATININE, SERUM 0.65 mg/dL (0.57-1.11); EST GLOMERULAR FILTRATION RATE > 60 ML/MIN (60-); GLUCOSE 117 mg/dL (74-118); SODIUM 136 mmol/L (136-145)
--- NOTE | 2019-03-10 07:43 | NUR ---
Patient endorsed to next shift for continuity.
[2019-03-10] MEDS: HYDROCHLOROTHIAZIDE 25 MG TAB PO SCH (08:49)
[2019-03-10] MEDS: LOSARTAN POTASSIUM 100 MG TAB PO SCH (08:49)
[2019-03-10] MEDS: PREDNISONE 10 MG TAB PO SCH (08:49)
[2019-03-10] MEDS: POTASSIUM CHLORIDE 10MEQ EA PO SCH (08:49)
[2019-03-10] MEDS: HYDROCODONE/APAP 5MG-325MG TAB PO PRN ×2 (08:50→15:02)
--- NOTE | 2019-03-10 10:25 | NUR ---
Visit made by the Spiritual Care Department Pastoral Visitor, Alize Mitchell. PV provided prayer, hospitality, and communion. Pastoral Visitor informed pt/family of the scope of Trimmer Sorter Services and availability. AMANDA BHAKTA [employer] Spiritual Care Department O: [phone] Pager: [phone] ([phone] number calling from)
[2019-03-10] MEDS: CEFEPIME 1GM/NS 0.9% 50 ML 50 ML IV SCH ×2 (11:00→23:00)
--- NOTE | 2019-03-10 11:13 | NUR ---
Call to Dr. Chauhan regarding request to place patient on Isolation precautions and transfer upstairs and waiting for call back
--- NOTE | 2019-03-10 13:40 | NUR ---
Second call to Dr. Sunni Chauhan regarding isolation request and waiting for call back
--- NOTE | 2019-03-10 13:53 | NUR ---
Call back from Dr. Mishra and states there is no indication for patient to be on Isolation at this time and that patient is to remain on the floor.
[2019-03-10] MEDS: ACETAMINOPHEN 325 MG TAB PO PRN (15:16)
--- NOTE | 2019-03-10 17:25 | NUR ---
Patient OOB and ambulated several times, c/o abdl pain and medicated per orders, no N/V, dressing in place to abd, will monitor.
[2019-03-10] MEDS: MONTELUKAST SODIUM 10 MG TAB PO SCH (21:00)
[2019-03-11] VITALS: BP 159/70
[2019-03-11] MEDS: HYDROCODONE/APAP 5MG-325MG TAB PO PRN (02:13)
[2019-03-11 04:00] VITALS: BP 125/60
[2019-03-11] MEDS: METRONIDAZOLE 500MG/NS 100ML 100 ML IV SCH ×3 (04:43→14:14)
--- NOTE | 2019-03-11 06:52 | NUR ---
patient condition throughout the night was stable, patient endorsed to next shift for continuity of care.
--- NOTE | 2019-03-11 07:44 | NUR ---
Patient received this morning, a/ox3, pleasant and no resp distress, will monitor.
[2019-03-11 08:00] VITALS: BP 119/66
[2019-03-11] MEDS: HYDROCHLOROTHIAZIDE 25 MG TAB PO SCH (09:00)
[2019-03-11] MEDS: LOSARTAN POTASSIUM 100 MG TAB PO SCH (09:00)
[2019-03-11] MEDS: PREDNISONE 10 MG TAB PO SCH (09:00)
[2019-03-11] MEDS: POTASSIUM CHLORIDE 10MEQ EA PO SCH (09:00)
[2019-03-11 10:25] VITALS: BP 119/66
[2019-03-11] MEDS: ACETAMINOPHEN 325 MG TAB PO PRN ×2 (11:37→19:45)
[2019-03-11 12:00] VITALS: BP 114/59
[2019-03-11] MEDS: CEFEPIME 1GM/NS 0.9% 50 ML 50 ML IV SCH (12:02)
--- NOTE | 2019-03-11 14:37 | NUR ---
Call to Dr. Chauhan and will see patient and take off dressing prior to discharge.
[2019-03-11 16:00] VITALS: BP 109/58
[2019-03-11] MEDS ORDERED: AUGMENTIN 500-1 EACH PO (19:10)
--- NOTE | 2019-03-11 19:45 | NUR ---
The patient was aaox4 able to ambulate with assistance. She was sitting in the room with two family members. Patient was in no distress, but requested for her Tylenol to help with discomfort in her abdomen with moving around. Respirations were even and unlabored, abdomen was soft and non distended. Left AC IV was removed, had to hold pressure for a few minutes. No complications, IV intact. Patient left via wheelchair to her private car.
--- NOTE | 2019-03-12 06:37 | Discharge Summary ---
PRIMARY CARE PHYSICIAN: Lila Cary MD CONSULTANTS: 1. Navid Ortiz MD. 2. Tad Chauhan MD. FINAL DIAGNOSES: 1. Abdominal fistula and abdominal wound, status post debridement of abdominal wall done by Dr. Tad Chauhan on March 09, 2019. 2. Abdominal wall abscess with fistula. 3. Baseline multiple abdominal surgery. SUMMARY: The patient is an 83 years old female, status post abdominal wall abscess debridement. She has a fistula. The patient has stayed stable. She is postoperative day #2. She is stable. She is eating solid food. Good bowel movement. The patient will be cleared by Dr. Tad Chauhan and then subsequently going home. The patient will be discharged with doxycycline 100 mg twice a day for 14 days and Cipro 500 mg twice a day for two weeks, 14 days. The patient is to follow up with Dr. Tad Chauhan and family physician Dr. Cary in approximately 1 to 2 weeks for medication reconciliation. The patient is stable, discharged home today. The patient will follow up as planned. Resume home medication. She will continue with a bland diet for now. MD DORA Magana/ANNITA /[id number]
== END 2019-03-11 20:08 | disposition home or self-care (01) | DRG 357 ==
LOC: ER 10:24 → ERHOLD 15:21 → UNDODISIN 16:20 → MED/SURG2 16:27 → MED/SURG 03-09 16:20
PROVIDERS: ADMIT Internal Medicine; ATTEND Internal Medicine
PROC: 0JB80ZZ Excision of Abdomen Subcutaneous Tissue and Fascia, Open Approach (ICD-10-PCS; principal; 2019-03-09 13:07)
DX: K63.2 Fistula of intestine (principal); L02.211 Cutaneous abscess of abdominal wall; D64.9 Anemia, unspecified; I10 Essential (primary) hypertension; J45.998 Other asthma
CPT/HCPCS: 36415; 74177; 80048; 80053; 81001; 82550; 82553; 83605; 83690; 83735; 83880; 84100; 84484; 85025; 85610; 85730; 87040; 87086; 94640; 94664; 99284; J0692; J1100; J2001; J2405; J2543; J3010; J7030; J7050; J7512; Q9963; Q9967

== ENCOUNTER 2019-04-12 10:08 | Inpatient (IN) | payer MEDICARE ==
[~2019-04-12] VITALS: Ht 162.6 cm; Wt 64.4 kg
[~2019-04-12 10:08] MED LIST changes: +AUGMENTIN 500-1 EACH PO; +LOSARTAN-HCTZ1 EAC2 PO; +SINGULAIR10 MG PO
[2019-04-12] MEDS ORDERED: PANTOPRAZOLE 40 MG 10ML VIAL IV STA (10:26)
[2019-04-12] MEDS ORDERED: SODIUM CHLORIDE 0.9% 1000ML 1,000 ML IV STA ×2 (10:26)
[2019-04-12] MEDS ORDERED: ONDANSETRON HCL INJ 2MG/ML 2ML 2 MG/ML VIAL IV STA (10:26)
[2019-04-12] MEDS ORDERED: METRONIDAZOLE 500MG/NS 100ML 100 ML IV STA (10:26)
[2019-04-12] MEDS ORDERED: CEFTRIAXONE SOD 1 GM/NS 50 ML 50 ML IV STA (10:26)
[2019-04-12] MEDS ORDERED: MORPHINE SULFATE 2 MG/ML SYR 1ML IV STA (10:26)
[2019-04-12] MEDS ORDERED: SODIUM CHLORIDE 0.9% 1000ML 1,000 ML IV SCH (10:34)
[2019-04-12] MEDS ORDERED: MORPHINE SULFATE 2 MG/ML SYR 1ML IV PRN (10:45)
[2019-04-12] MEDS ORDERED: ONDANSETRON HCL INJ 2MG/ML 2ML 2 MG/ML VIAL IV PRN (10:45)
--- NOTE | 2019-04-12 11:01 | NUR ---
pt ambu with cane to toilet for UA sample. no acute distress noted. pt ambu back from toilet with cane.
[2019-04-12] MEDS ORDERED: DIATRIZOATE MEGL/DIATRIZOA SOD 30 ML BTL PO ONE (11:04)
[2019-04-12 11:20] LABS: BILIRUBIN,URINE NEGATIVE (NEGATIVE); CLARITY,URINE CLEAR (CLEAR); COLOR,URINE YELLOW (YELLOW); KETONES,URINE NEGATIVE (NEGATIVE); LEUKOCYTE ESTERASE ,URINE NEGATIVE (NEGATIVE); NITRITE,URINE NEGATIVE (NEGATIVE); PROTEIN,URINE DIPSTICK NEGATIVE (NEGATIVE); URINE UROBILINOGEN 0.2 mg/dL (0.2 - 1)
[2019-04-12 11:30] LABS: INR 1.13; PROTHROMBIN TIME 15.1 seconds (11.9-14.5)
--- NOTE | 2019-04-12 11:30 | NUR ---
Warm blankets and comfort measures provided. pt in no acute distress. updated pt on plan of care.
[2019-04-12 11:36] LABS: BACTERIA,URINE FEW /HPF; EPITHELIAL CELLS,URINE FEW /LPF; MUCUS,URINE RARE (RARE); RBC,URINE 0-5 /HPF (0-5); YEAST,URINE MODERATE
--- NOTE | 2019-04-12 11:38 | Diagnostic Imaging Report ---
Chest, portable AP view History: Shortness of breath, wheezing Comparison: 01/14/2019 IMPRESSION: The heart is within normal limits of size. There are prominent peribronchial markings in the bilateral lower lobes which may be secondary to bronchitis. No focal consolidation, sizable pleural effusion, or pneumothorax. Signed by: Henok Olvera MD on 04/12/2019 11:35 AM
[2019-04-12 11:41] LABS: ALANINE AMINOTRANSFERASE 11 IU/L (0-55); ALBUMIN 3.2 g/dL (3.5-5.0); ALBUMIN/GLOBULIN RATIO 1.1 (0.8-2.0); ALKALINE PHOSPHATASE 66 IU/L (40-150); ANION GAP 10.7 mmol/L (8-16); BLOOD UREA NITROGEN 13 mg/dL (7-26); BUN/CREATININE RATIO 20 (6-25); CARBON DIOXIDE 25 mmol/L (22-29); CHLORIDE 105 mmol/L (98-107); CREATINE KINASE 30 IU/L (29-168); CREATININE, SERUM 0.66 mg/dL (0.57-1.11); EST GLOMERULAR FILTRATION RATE > 60 ML/MIN (60-); GLUCOSE 95 mg/dL (74-118); LIPASE 27 U/L (8-78); POTASSIUM 3.7 mmol/L (3.5-5.1); SODIUM 137 mmol/L (136-145)
[2019-04-12 12:01] LABS: THYROID STIMULATING HORMONE 0.126 uIU/mL (0.350-4.940)
--- NOTE | 2019-04-12 12:45 | NUR ---
assisted pt onto and off bedpan.
--- NOTE | 2019-04-12 13:42 | Diagnostic Imaging Report ---
CT of the abdomen and pelvis, with contrast, 04/12/2019 History: Open incision, status post surgery 5 weeks air. Comparison: 03/03/2019 Technique: Multidetector CT scanning of the abdomen and pelvis was performed from the level of the lung bases to the inferior pubic rami after intravenous and oral administration of contrast. Coronal and sagittal multiplanar reformations were obtained. RADIATION DOSE: Total DLP: 323 mGy*cm Dose modulation, iterative reconstruction, and/or weight based adjustment of the mA/kV was utilized to reduce the radiation dose to as low as reasonably achievable. Discussion: The lung bases are clear. There is no consolidation or pleural effusion. A 1.5 cm peripherally enhancing hepatic lesion is again seen adjacent to the inferior vena cava, unchanged and most likely a hemangioma. No new focal hepatic lesions are identified. The gallbladder is surgically absent. There is no intrahepatic or extrahepatic dilatation. The spleen is within normal limits. Patient is status post left adrenalectomy. There is an unchanged 2 cm nodule in right adrenal gland. The pancreas is homogeneous in attenuation. There is no pancreatic ductal dilatation. The kidneys are normal in size and enhance symmetrically. No hydroureteronephrosis is present bilaterally. No renal calculi are identified. The stomach, small, and large bowel are nondistended. Patient is status post partial colectomy. Oral contrast passes freely into the colon. No extraluminal contrast is identified to suggest leak. There are scattered colonic diverticula without evidence of acute diverticulitis. There are inflammatory changes of the anterior abdominal wall along the midline incision. No drainable fluid collection is identified. There is no free intraperitoneal air or ascites. No abdominopelvic fluid collections are identified. The abdominal aorta is of normal course and caliber the urinary bladder is within normal limits. There are multilevel degenerative changes throughout the thoracolumbar spine. No acute osseous abnormalities are identified. IMPRESSION: 1. Anterior abdominal wall inflammatory changes along the midline incision. No drainable fluid collection identified. No extravasation of oral contrast to suggest enterocutaneous fistula or leak. 2. Status post partial colectomy. No evidence of obstruction. 3. Unchanged right hepatic hemangioma and right adrenal nodule. 4. Status post left adrenalectomy, cholecystectomy, and hysterectomy. Signed by: Henok Olvera MD on 04/12/2019 1:39 PM
[2019-04-12] MEDS: METRONIDAZOLE 500MG/NS 100ML 100 ML IV SCH ×3 (14:03→23:05)
--- NOTE | 2019-04-12 14:33 | NUR ---
stoker erector at bedside
--- NOTE | 2019-04-12 15:18 | NUR ---
WOUND CARE CONSULT 83 YO FEMALE HX OF FISTULA REPAIR IN ER WITH C/O INCREASED DRAINAGE AND PAIN TO ABDOMEN PATIENT PRESENTS WITH THREE DRAINING FULL THICKNESS WOUNDS TO ABDOMEN DRAINAGE GREENISH IN COLOR AND RESEMBLES BILE EFFLUENT FIRST WOUND IS UPPER PART OF LOWER ABDOMEN MEASURES .5CM X .5CM X 2CM SECOND IS MIDDLE LOCATION 1.5CM X1CM X 3CM THIRD IS LOWER LOCATION .6CM X.6CM. X2CM RECOMMENDATIONS: FISTULOGRAM MAY BE NEEDED IN ORDER TO RULE OUT FISTULA INVOLVEMENT ABSORPTIVE DRESSING NEEDED FOLLOWS NURSING TO APPLY SKIN BARRIER WIPE KP MID FULL THICKNESS WOUND THEN PLACE TEGADERM KP WOUND TO PROTECT PK SKIN FROM EFFLUENT ONLY REPLACE PRN WHEN NO LONGER PROTECTIVE NURSING TO APPLY SILVER ALGINATE PACKING TO ABDOMINAL WOUNDS X3 DAILY COVER WITH 4X4S AND ABD PAD SECURE WITH HYPAFIX TAPE Addendum: 04/12/19 at 1530 by Ajith Loja RN Amended: Links added.
--- NOTE | 2019-04-12 15:47 | NUR ---
REC PT FROM ER VIA W/C AAOX3,DENIES PAIN ,GAVINO TO ABD CD&I.HOB ELEVATED CALL PRETTY IN REACH,,SPOKE WITH DR TYSON,ORDERS WRITTEN
[2019-04-12] MEDS ORDERED: IOPAMIDOL 370 MG/ML 200 ML INFUS..BTL INJ ONE (15:51)
[2019-04-12] MEDS ORDERED: SODIUM CHLORIDE 0.9% 50ML 50 ML ONE (15:51)
[2019-04-12 16:30] VITALS: BP 136/62
[2019-04-12 16:59] LABS: BASOPHILS % 0.5 % (0.0-1.0); EOSINOPHILS # (AUTO) 0.3 (0.0-0.4); HEMATOCRIT 30.5 % (34.2-44.1); LYMPHOCYTES # (AUTO) 2.1 (1.0-3.2); LYMPHOCYTES % 33.8 % (18.0-39.1); MEAN CORPUSCULAR HEMOGLOBIN 22.7 pg (28-32); MEAN CORPUSCULAR HGB CONC 29.5 g/dL (31-35); MEAN CORPUSCULAR VOLUME 76.8 fL (81-99); MONOCYTES # (AUTO) 0.6 (0.2-0.8); MONOCYTES % 10.1 % (4.4-11.3); NEUTROPHILS # (AUTO) 3.2 (2.1-6.9); NEUTROPHILS % 51.4 % (38.7-80.0); PLATELET COUNT 204 x10e3/uL (140-360); RED BLOOD COUNT 3.97 x10e6/uL (3.6-5.1); RED CELL DISTRIBUTION WIDTH 18.4 % (11.7-14.4)
[2019-04-12] MEDS ORDERED: ERGOCALCIFEROL 50,000 UNIT CAP PO SCH (17:00)
[2019-04-12] MEDS: SODIUM CHLORIDE 0.9% 1000ML 1,000 ML IV SCH (17:00)
[2019-04-12] MEDS: FAMOTIDINE 20 MG/2 ML VIAL IV SCH (17:00)
--- NOTE | 2019-04-12 18:09 | NUR ---
PT RESTING NO DISTRES NTOED,DENIES PAIN
--- NOTE | 2019-04-12 19:05 | NUR ---
Received report from day nurse. Patient is resting comfortably in bed. Bed is in lowest position and call godoy is within reach. Will continue to monitor patient.
[2019-04-12 20:00] VITALS: BP 124/60
[2019-04-12] MEDS: MONTELUKAST SODIUM 10 MG TAB PO SCH (20:14)
[2019-04-12] MEDS: ACETAMINOPHEN 325 MG TAB PO PRN (20:33)
[2019-04-12 20:38] VITALS: BP 124/60
[2019-04-13] VITALS: BP 117/58
[2019-04-13 04:00] VITALS: BP 154/77
[2019-04-13] MEDS: METRONIDAZOLE 500MG/NS 100ML 100 ML IV SCH ×2 (04:59→12:00)
[2019-04-13 06:11] LABS: BASOPHILS % 0.6 % (0.0-1.0); EOSINOPHILS # (AUTO) 0.4 (0.0-0.4); EOSINOPHILS % 7.2 % (0.0-6.0); HEMATOCRIT 29.9 % (34.2-44.1); HEMOGLOBIN 8.7 g/dL (12.0-16.0); LYMPHOCYTES # (AUTO) 1.5 (1.0-3.2); LYMPHOCYTES % 28.4 % (18.0-39.1); MEAN CORPUSCULAR HGB CONC 29.1 g/dL (31-35); MEAN CORPUSCULAR VOLUME 79.1 fL (81-99); MONOCYTES # (AUTO) 0.6 (0.2-0.8); MONOCYTES % 10.4 % (4.4-11.3); NEUTROPHILS # (AUTO) 2.9 (2.1-6.9); PLATELET COUNT 189 x10e3/uL (140-360); RED BLOOD COUNT 3.78 x10e6/uL (3.6-5.1); RED CELL DISTRIBUTION WIDTH 18.4 % (11.7-14.4)
[2019-04-13 06:39] LABS: ALANINE AMINOTRANSFERASE 12 IU/L (0-55); ALBUMIN 2.8 g/dL (3.5-5.0); ALBUMIN/GLOBULIN RATIO 1.1 (0.8-2.0); ALKALINE PHOSPHATASE 55 IU/L (40-150); ANION GAP 9.3 mmol/L (8-16); BLOOD UREA NITROGEN 8 mg/dL (7-26); BUN/CREATININE RATIO 14 (6-25); CALCIUM 8.3 mg/dL (8.4-10.2); CARBON DIOXIDE 23 mmol/L (22-29); CHLORIDE 109 mmol/L (98-107); CREATININE, SERUM 0.57 mg/dL (0.57-1.11); EST GLOMERULAR FILTRATION RATE > 60 ML/MIN (60-); GLUCOSE 76 mg/dL (74-118); LIPASE 15 U/L (8-78); POTASSIUM 3.3 mmol/L (3.5-5.1); SODIUM 138 mmol/L (136-145)
--- NOTE | 2019-04-13 06:59 | NUR ---
report given to day nurse. patient is resting comfortably in bed. bed is in lowest position and call light is within reach.
[2019-04-13 08:02] VITALS: BP 136/60
[2019-04-13] MEDS: POTASSIUM CHLORIDE 10MEQ EA PO SCH (09:00)
[2019-04-13] MEDS ORDERED: [UNRECOGNIZED DRUG - OTHER] PO SCH (09:00)
[2019-04-13] MEDS: HYDROCHLOROTHIAZIDE 25 MG TAB PO SCH (09:00)
[2019-04-13] MEDS: FAMOTIDINE 20 MG/2 ML VIAL IV SCH ×2 (09:00→17:00)
[2019-04-13] MEDS ORDERED: LOSARTAN PO SCH (09:00)
[2019-04-13] MEDS: LOSARTAN POTASSIUM 100 MG TAB PO SCH (09:00)
[2019-04-13] MEDS ORDERED: HYDROCHLOROTHIAZIDE PO SCH (09:00)
[2019-04-13] MEDS: CEFTRIAXONE SOD 1 GM/NS 50 ML 50 ML IV SCH (11:00)
[2019-04-13 11:46] VITALS: BP 124/58
[2019-04-13] MEDS: ACETAMINOPHEN 325 MG TAB PO PRN (13:15)
--- NOTE | 2019-04-13 15:31 | NUR ---
WOUND CARE CONSULT F/U FOR 83 YO FEMALE PATIENT HX OF FISTULA REPAIR FOLLOW UP FOR PROPER FUNCTION OF PROTECTIVE ABSORPTIVE DRESSING APPLIED 04/12/2019 (PT STATES COMFORT AND DECREASED BREAKTHROUGH SATURATION OF DRESSING PATIENT TEACHING DONE FOR SKIN PROTECTION AND PRODUCT USAGE AROUND DRAINING ABDOMINAL WOUNDS NURSING TO CONTINUE TO MAINTAIN MODERATE PUP STATUS AND INTERVENTIONS NURSING TO CONTINUE TO ASSIST PATIENT OUT OF BED FOR MEALS AND MUCH TOLERATED Addendum: 04/13/19 at 1536 by Ajith Loja RN Amended: Links added.
[2019-04-13] MEDS ORDERED: INFLUENZA VIRUS VAC SPLIT INJ 0.5 ML SYR IM NR (15:45)
[2019-04-13 16:00] VITALS: BP 133/60
--- NOTE | 2019-04-13 16:17 | History and Physical ---
PRIMARY CARE PHYSICIAN: Lila Cary MD RADIO MAINTAINER: Tad Chauhan MD The patient is sent into the emergency room by Dr. Tad Chauhan for abdominal wound infection. HISTORY OF PRESENT ILLNESS: The patient is an 83-year-old female with abdominal pain. The patient has a periumbilical area pain. The patient has previous abdominal wall infection, status post debridement by Dr. Tad Chauhan. The patient was stable, was discharged recently. She had exploratory laparotomy with repair of the enterocutaneous fistula. The patient is otherwise stable at this time. She is having pain and is infected in abdominal wall and the patient is on antibiotics. PAST MEDICAL HISTORY: Enterocutaneous fistula, status post repair back in March 10, 2019. The patient was discharged on March 12, 2019, at that time. She has had hypertension. She is on anticoagulant therapy for previous DVT. ALLERGIES: TO LEVAQUIN, TRIMETHOPRIM, SULFA DRUGS, AND CIPRO. PHYSICAL EXAMINATION: VITAL SIGNS: Temperature is 97, blood pressure 136/60, pulse rate 63, respirations 18. GENERAL: The patient is not in acute distress. She is awake. HEENT: Normocephalic, atraumatic. Anicteric. NECK: Supple grossly. PULMONARY: Clear. CARDIOVASCULAR: Regular rate and rhythm. ABDOMEN: Abdominal wound. EXTREMITIES: No cyanosis or edema. NEUROLOGIC: No focal deficit. LABORATORY DATA: Sodium is 138, potassium 3.3, chloride 109, bicarb 23, BUN 8, creatinine 0.6, glucose 76. WBC is 5, hemoglobin 8.7, hematocrit 29.9, platelets 29. IMPRESSION: 1. Status post previous enterocutaneous abdominal wall repair that was approximately 1 month ago. 2. Abdominal pain with recurrent infection. PLAN: Continue with current antibiotics. Home medication. We will follow up with Dr. Tad Chauhan on abdominal wound plan. MD DORA Magana/ANNITA /[id number]
[2019-04-13] MEDS ORDERED: MAGNESIUM/ALUMINUM/SIMETHICONE 30 ML UDC PO ONE (18:15)
[2019-04-13] MEDS ORDERED: MAGNESIUM/ALUMINUM/SIMETHICONE 30 ML UDC ONE (18:46)
--- NOTE | 2019-04-13 19:12 | NUR ---
Received change of shift report from AM nurse. Walking rounds completed.
[2019-04-13 20:00] VITALS: BP 145/67
[2019-04-13] MEDS: MONTELUKAST SODIUM 10 MG TAB PO SCH (20:01)
[2019-04-14] VITALS (7 sets, daily range): BP systolic 126–163; BP diastolic 58–69
--- NOTE | 2019-04-14 04:43 | NUR ---
Patient resting quitly with no c/o at this time.
--- NOTE | 2019-04-14 07:32 | NUR ---
PATIENT IN BED RESTING WITH NO DISTRESS. DRESSING DRY AND INTACT TO MID ABDOMEN. BED IN LOWER POSITION, CALL LIGHT AT REACH.
[2019-04-14] MEDS: PANTOPRAZOLE SOD 40 MG TABEC PO SCH (07:49)
[2019-04-14] MEDS: HYDROCHLOROTHIAZIDE 25 MG TAB PO SCH (09:19)
[2019-04-14] MEDS: FAMOTIDINE 20 MG/2 ML VIAL IV SCH ×2 (09:19→17:15)
[2019-04-14] MEDS: POTASSIUM CHLORIDE 10MEQ EA PO SCH (09:20)
[2019-04-14] MEDS: LOSARTAN POTASSIUM 100 MG TAB PO SCH (09:21)
[2019-04-14] MEDS ORDERED: POTASSIUM CHLORIDE 10MEQ EA PO NR (10:00)
--- NOTE | 2019-04-14 10:46 | NUR ---
PT HAS A PROVIDER THOUGH [facility] 4 HOURS A DAY TIMES 5 DAYS A WEEK
[2019-04-14] MEDS: CEFTRIAXONE SOD 1 GM/NS 50 ML 50 ML IV SCH (11:00)
[2019-04-14] MEDS: SODIUM CHLORIDE 0.9% 1000ML 1,000 ML IV SCH ×2 (11:00→11:37)
--- NOTE | 2019-04-14 12:13 | NUR ---
DRESSING CHANGED TO ABDOMINAL WOUND ORDERED. PATIENT TOLERATED PROCEDURE WELL. IN BED WITH CALL LIGHT AT REACH.
--- NOTE | 2019-04-14 15:05 | NUR ---
PATIENT ASSISTED WITH SHOWER. BED LINENS CHANGED. OUT OF BED TO CHAIR WATCHING TV. CALL LIGHT AT REACH.
--- NOTE | 2019-04-14 19:12 | NUR ---
RECEIVED PT IN BED AOX3 .RESPIRATIONS ARE EVEN AND UNLABORED .ABD WITH DRESSING .CALL LIGHT WITH IN REACH .CONTINUE TO MONITOR
[2019-04-14] MEDS: MONTELUKAST SODIUM 10 MG TAB PO SCH (21:50)
[2019-04-15] VITALS (9 sets, daily range): BP systolic 114–138; BP diastolic 58–69
[2019-04-15] MEDS: ACETAMINOPHEN 325 MG TAB PO PRN (00:55)
[2019-04-15] MEDS: SODIUM CHLORIDE 0.9% 1000ML 1,000 ML IV SCH (00:55)
--- NOTE | 2019-04-15 06:08 | NUR ---
PT RESTED DURING THE NIGHT AND DRESSING AT THE [id number] DRY AND INTACT .CALL LIGHT WITH IN REACH .CONTINUE TO MONITOR
--- NOTE | 2019-04-15 06:52 | NUR ---
BEDSIDE REPORT GIVEN TOT HE ONCOMING NURSE
--- NOTE | 2019-04-15 07:30 | NUR ---
PATIENT IN BED RESTING WITH EYES CLOSED, NO DISTRESS NOTED. DRESSING DRY AND INTACT TO MID ABDOMEN. BED IN LOWER POSITION, CALL LIGHT AT REACH.
[2019-04-15] MEDS: PANTOPRAZOLE SOD 40 MG TABEC PO SCH (07:52)
[2019-04-15] MEDS: LOSARTAN POTASSIUM 100 MG TAB PO SCH (09:00)
[2019-04-15] MEDS: HYDROCHLOROTHIAZIDE 25 MG TAB PO SCH (09:01)
[2019-04-15] MEDS: FAMOTIDINE 20 MG/2 ML VIAL IV SCH ×2 (09:01→17:25)
[2019-04-15] MEDS: POTASSIUM CHLORIDE 10MEQ EA PO SCH (09:02)
[2019-04-15] MEDS ORDERED: FLUCONAZOLE 100 MG TAB PO ONE (10:15)
[2019-04-15] MEDS: METRONIDAZOLE 500MG/NS 100ML 100 ML IV SCH ×2 (10:31→18:02)
[2019-04-15] MEDS: CEFTRIAXONE SOD 1 GM/NS 50 ML 50 ML IV SCH (11:00)
--- NOTE | 2019-04-15 11:24 | NUR ---
MD IN TO SEE PATIENT, NEW ORDERS RECEIVED.
--- NOTE | 2019-04-15 15:15 | NUR ---
PATIENT ASSISTED TO THE RESTROOM AND BACK TO BED. C/O COLD, WARM BLANKET PROVIDED. CALL LIGHT AT REACH.
--- NOTE | 2019-04-15 19:07 | NUR ---
Received bedside report from day nurse. Patient resting in bed, no s/s of distress or c/o pain at this time. All safety measures in place. Will continue to monitor.
[2019-04-15] MEDS: SALMETEROL/FLUTICASONE 250/50 INH SCH (19:38)
--- NOTE | 2019-04-15 20:09 | NUR ---
Dr. Sunni Chauhan at bedside, performing dressing change. Received orders for regular diet and case management consult for home health.
[2019-04-15] MEDS: MONTELUKAST SODIUM 10 MG TAB PO SCH (20:16)
[2019-04-16] VITALS (8 sets, daily range): BP systolic 119–143; BP diastolic 58–63
[2019-04-16] MEDS: METRONIDAZOLE 500MG/NS 100ML 100 ML IV SCH ×3 (01:57→18:07)
[2019-04-16 06:59] LABS: BASOPHILS % 0.8 % (0.0-1.0); EOSINOPHILS # (AUTO) 0.3 (0.0-0.4); EOSINOPHILS % 5.5 % (0.0-6.0); HEMATOCRIT 32.5 % (34.2-44.1); HEMOGLOBIN 9.9 g/dL (12.0-16.0); LYMPHOCYTES # (AUTO) 1.8 (1.0-3.2); MEAN CORPUSCULAR HEMOGLOBIN 23.4 pg (28-32); MEAN CORPUSCULAR HGB CONC 30.5 g/dL (31-35); MEAN CORPUSCULAR VOLUME 76.8 fL (81-99); MONOCYTES # (AUTO) 0.5 (0.2-0.8); MONOCYTES % 10.3 % (4.4-11.3); NEUTROPHILS # (AUTO) 2.3 (2.1-6.9); NEUTROPHILS % 46.2 % (38.7-80.0); PLATELET COUNT 223 x10e3/uL (140-360); RED BLOOD COUNT 4.23 x10e6/uL (3.6-5.1); RED CELL DISTRIBUTION WIDTH 19.1 % (11.7-14.4)
--- NOTE | 2019-04-16 07:10 | NUR ---
Gave bedside report to day nurse. Patient awake and resting in bed, no s/s of distress or c/o pain at this time. All safety measures in place.
[2019-04-16 07:13] LABS: ANION GAP 12.7 mmol/L (8-16); BLOOD UREA NITROGEN 6 mg/dL (7-26); BUN/CREATININE RATIO 9 (6-25); CALCIUM 9.3 mg/dL (8.4-10.2); CARBON DIOXIDE 21 mmol/L (22-29); CHLORIDE 105 mmol/L (98-107); CREATININE, SERUM 0.64 mg/dL (0.57-1.11); EST GLOMERULAR FILTRATION RATE > 60 ML/MIN (60-); GLUCOSE 96 mg/dL (74-118); POTASSIUM 3.7 mmol/L (3.5-5.1); SODIUM 135 mmol/L (136-145)
--- NOTE | 2019-04-16 07:14 | NUR ---
walking rounds completed, change of shift report received from carpenter wooden tank erecting RN, pt in stable condition, no signs of distress.
[2019-04-16] MEDS: SALMETEROL/FLUTICASONE 250/50 INH SCH ×2 (07:32→19:40)
[2019-04-16] MEDS: PANTOPRAZOLE SOD 40 MG TABEC PO SCH (08:44)
[2019-04-16] MEDS: FLUCONAZOLE 100 MG TAB PO SCH (08:44)
[2019-04-16] MEDS: POTASSIUM CHLORIDE 10MEQ EA PO SCH (08:44)
--- NOTE | 2019-04-16 08:45 | NUR ---
IV infiltrated; will attempt to obtain other IV access for pt's IV Abx.
[2019-04-16] MEDS: FAMOTIDINE 20 MG/2 ML VIAL IV SCH ×2 (08:53→18:09)
--- NOTE | 2019-04-16 11:08 | NUR ---
still unable to get IV access with other RN; will speak with Generator Repairer about getting access
--- NOTE | 2019-04-16 11:15 | NUR ---
ORDER RECEIVED FOR HOME HEALTH MET W THE PT AT THE BEDSIDE. STATES DR. YOUNGER TOLD HER IT WOULD BE 2-3MORE DAYS BEFORE SHE DISCHARGES HOME, DISCUSSED CHOICE. STATES SHE WOULD LIKE TO USE AN [place]. SIGNED CHOICE LETTER FOR [facility]. STATES SHE WILL SIGN THE IMM IN A COUPLE OF DAYS. WILL F/U.
--- NOTE | 2019-04-16 12:20 | NUR ---
dressing completed per MD order to pt's abdomen; packed with silver alginate, covered with 4x4's and ABD pads with foam tape. pt tolerated well.
[2019-04-16] MEDS: CEFTRIAXONE SOD 1 GM/NS 50 ML 50 ML IV SCH (13:20)
--- NOTE | 2019-04-16 15:36 | NUR ---
HOME HEALTH REFERRAL FAXED TO [facility] @ OFF: [phone] / FAX: [phone].
[2019-04-16] MEDS: ACETAMINOPHEN 325 MG TAB PO PRN (18:11)
--- NOTE | 2019-04-16 19:21 | NUR ---
Received bedside report from day nurse. Patient resting in bed, no s/s of distress or c/o pain at this time. All safety measures in place. Family at bedside. Will continue to monitor.
[2019-04-16] MEDS: MONTELUKAST SODIUM 10 MG TAB PO SCH (20:43)
[2019-04-17] VITALS: BP 110/52
[2019-04-17] MEDS: METRONIDAZOLE 500MG/NS 100ML 100 ML IV SCH ×2 (01:24→08:58)
[2019-04-17 04:00] VITALS: BP 104/53
--- NOTE | 2019-04-17 06:54 | NUR ---
Bedside report given to day nurse. Patient resting in bed, no s/s of distress or c/o pain at this time. All safety measures in place.
--- NOTE | 2019-04-17 06:57 | NUR ---
walking rounds completed, change of shift report received from warehouse worker 2nd shift RN. pt in stable condition.
[2019-04-17] MEDS: PANTOPRAZOLE SOD 40 MG TABEC PO SCH (07:30)
[2019-04-17 07:36] VITALS: BP 122/58
[2019-04-17] MEDS: FAMOTIDINE 20 MG/2 ML VIAL IV SCH (08:50)
[2019-04-17] MEDS: FLUCONAZOLE 100 MG TAB PO SCH (08:51)
[2019-04-17] MEDS: POTASSIUM CHLORIDE 10MEQ EA PO SCH (08:52)
[2019-04-17 09:25] VITALS: BP 122/58
[2019-04-17] MEDS ORDERED: INFLUENZA VIRUS VAC SPLIT INJ 0.5 ML SYR IM ONE (10:00)
[2019-04-17] MEDS: CEFTRIAXONE SOD 1 GM/NS 50 ML 50 ML IV SCH (10:13)
[2019-04-17 12:28] VITALS: BP 155/65
--- NOTE | 2019-04-17 12:43 | NUR ---
Nutrition Screen Note RD Recommendation for Physician:Continue regular diet Plan of Care: RD following, monitoring for tolerance and adequacy Nutrition reason for involvement: LOS Primary Diagnose(s):Abdominal pain, colocutaneous fistula PMH: enterocutaneous fistula, HTN Ht: 64in Wt:142lb BMI: 24.4kg/m2 IBW:120lb +/-10% RD Assessment: (04/17/19) Chart reviewed. Labs and meds reviewed. Initial encounter with patient. Pt denies any difficulty chewing or swallowing or N,V,D. Pt has no known food allergies. Pt is eating well Current Diet:Regular diet Malnutrition Evaluation 04/17/19) The patient does not meet criteria for a specified degree of malnutrition at this time. Will re-evaluate at follow-up as appropriate. Diet Education Needs Assessment: Diet education not indicated. Nutrition Care Level: Low Signed: Pedrito Farfan RD, LD, [facility]
--- NOTE | 2019-04-17 13:43 | NUR ---
wound dressing change completed per Dr. Chauhan's orders.
[2019-04-17] MEDS ORDERED: FLUCONAZOLE100 MG PO (15:08)
[2019-04-17] MEDS ORDERED: ZOFRAN4 MG PO (15:09)
[2019-04-17] MEDS ORDERED: FLAGYL250 MG PO (15:09)
--- NOTE | 2019-04-18 09:43 | Discharge Summary ---
PRIMARY CARE PHYSICIAN: Dr. Lila Cary. ASSISTANT STATISTICIAN: Dr. Tad Chauhan. 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 SUMMARY: The patient is an 83-year-old female with yeast in the urine, treated with Diflucan. 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 The patient has this problem quite some time, has not healed. Dr. Tad Chauhan is following the patient. Plan of care per Dr. Chauhan. The patient did not want bowel rest and TPN as planned for the healing of the fistula. The patient had extensive abdominal surgery in the past. She has partial colectomy and partial small bowel resection, lot of scarring going on in the abdomen and at high risk for any surgical intervention at this time. The patient will go home with fluconazole for 7 days, Flagyl 5 mg t.i.d. for 7 days, and Zofran ODT every 4 hours as needed. The patient is otherwise stable, discharged home today. Follow up with Dr. Tad Chauhan as planned. MD DORA Magana/ANNITA /[id number]
[2019-04-19] MEDS ORDERED: ERGOCALCIFEROL 50,000 UNIT CAP PO SCH (09:00)
== END 2019-04-17 15:25 | disposition home health service (06) | DRG 863 ==
LOC: ER 10:08 → ERHOLD 10:34 → MED/SURG3 16:09
PROVIDERS: ADMIT Internal Medicine; ATTEND Internal Medicine
DX: T81.43XA Infection following a procedure, organ and space surgical site, initial encounter (principal); K63.2 Fistula of intestine; Z90.49 Acquired absence of other specified parts of digestive tract
CPT/HCPCS: 36415; 71045; 74177; 80048; 80053; 81001; 82550; 82553; 83690; 83735; 83880; 84443; 84484; 85025; 85610; 85730; 87086; 94664; 96360; 99284; J0696; J7030; Q9967

== ENCOUNTER 2019-06-29 11:31 | Inpatient (IN) | payer MEDICARE ==
[~2019-06-29] VITALS: Ht 162.6 cm; Wt 64.0 kg
[~2019-06-29 11:31] MED LIST changes: +FLAGYL250 MG PO; +FLUCONAZOLE100 MG PO; +ZOFRAN4 MG PO
--- OUTSIDE RECORDS SUMMARY | 2019-06-29 11:36 | XMS REPORT | Encounter Summary ---
Author Organization Unknown Address [address] [place] [address] Phone [phone] Care Team Providers Care Tire Adjuster Name Role Phone Dr. Gabriela Taylor 3 [phone] Tad Chauhan MD 102 [phone] Lew Sofia MD 114 [phone] Reason for Visit other - see typed reason Instructions 1. Colonic fistula general surgery referral CBC w/ auto diff CMP, serum or plasma 2. Benign essential hypertension cardiology referral TSH, serum or plasma lipid panel, serum 3. Body mass index 25-29 - overweight aprenda acerca del peso saludable - [learning about healthy weight] 4. Chronic obstructive lung disease beater lead referral 5. Long-term current use of anticoagulant PT/PTT, plasma Discussion Note: None recorded. Plan of Care Reminders Provider Appointments Est Patient 07/13/2019 9:45AM Gabriela Taylor MD Lab CBC W/ Auto Diff 06/15/2019 [facility] CMP, Serum or Plasma 06/15/2019 [facility] TSH, Serum or Plasma 06/15/2019 [facility] Lipid Panel, Serum 06/15/2019 [facility] PT/PTT, Plasma 06/15/2019 [facility] Referral Cardiology Referral 06/15/2019 Lew Barahona MD General Surgery Referral 06/15/2019 Arleen Prater MD Manager Coding Referral 06/15/2019 Lew Sofia MD Procedures None recorded. Surgeries None recorded. Imaging None recorded. Medications Name Start Date Advair Diskus 250 mcg-50 mcg/dose powder for inhalation Inhale 1 puff twice a day by inhalation route as needed for 30 days. albuterol sulfate 1.25 mg/3 mL solution for nebulization Inhale 3 mL 3 times a day by inhalation route as needed for 30 days. amoxicillin 250 mg capsule Take 1 capsule every 8 hours by oral route for 10 days. Eliquis 5 mg tablet Take 1 tablet twice a day by oral route for 90 days. fluticasone propionate 50 mcg/actuation nasal spray,suspension [place] 2 sprays twice a day by nasal route as needed for 90 days. losartan 100 mg-hydrochlorothiazide 25 mg tablet Take 1 tablet every day by oral route as needed. montelukast 10 mg tablet Take 1 tablet every day by oral route for 90 days. prednisone 10 mg tablet Take 1 tablet every day by oral route as needed for 5 days. Medications Administered None recorded. Vitals Height Weight BMI Blood Pressure 5 ft 1 in 144 lbs 27.2 kg/m2 118/58 mm[Hg] Results Lab Results None recorded. Allergies Code Code System Name Reaction Severity Status Onset 20341012 RxNorm Cipro Rash Active Problems Name Status Onset Date Source Hypertensive Disorder Active 06/15/2019 Asthma Active 06/15/2019 Diverticulitis Active 06/15/2019 Benign Essential Hypertension Active 06/17/2019 Chronic Obstructive Lung Disease Active 06/17/2019 Colonic Fistula Active 06/17/2019 Long-term Current Use of Anticoagulant Active 06/17/2019 Procedures Date Name Performed by 05/12/2018 Gastrointestinal Surgery Information not available Vaccine List Vaccine Type zoster, unspecified formulation 10/20/2018 Social History Tobacco Smoking Status Never Smoker Past Encounters 06/15/2019 Colonic Fistula; Benign Essential Hypertension; Body Mass Index 25-29 - Overweight; Chronic Obstructive Lung Disease; Long-term Current Use of Anticoagulant Gabriela Taylor MD: [address] [place] [phone], Ph. History of Present Illness Note:83yo female presents to become established in our office. New to [facility]. Here with granddaughter. [place] Croatian-speaker, but does speak Latvian. 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 In August 2016, had continued left abd pain & had CT abdomen. Was hospitalized in September 2016 for six months & had another flare of diverticulitis. 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 Never felt well after that. In Jan 2019 had another surgery for skin incision draining by Dr Chauhan. Was hospitalized for a week at [facility] in Jan 2019 after visiting daughter in [place].</div><div>In Feb 2019, had "little surgery".</div>< div>Since Jan 2019 pt has had two open abdominal wounds that are draining. Has had home health nurse coming to change dressings. Sees Dr Chauhan twice a week on Fri & for wound care.</div><div>Is scheduled this next Friday06/21/19 at [facility] to get a second opinion regarding fistula to abdominal wounds with Dr Arleen Prater.</div><div>
</div><div>Needs cardiac clearance - has seen cardiology, Dr Barahona in past, needs referral for palpitations. No prior CT, stents, CAD.</div><div>Is on anticoagulation, Eliquis 5mg bid for blood clots in intestine since September 2016.</div><div>
</div><div>PMHx:</div>< div>Hypertension - on losartan/hctz 100/25mg qd</div><div>COPD - never smoked. On prednisone 10mg as needed from pulm, Dr Sofia. Sees Dr Sofia every three months.</div><div>Uterine cancer - had MAKENZIE/BSO about 47yo. No chemo/XRT. </div> Review of Systems:ROS as noted in the HPI Review of Systems Comprehensive Adult Problem ROS Reported By: Patient Constitutional: Constitutional: no significant weight change, good appetite, no fever, normal activity level, no fatigue Eyes: Eyes: no eye pain, no blurry vision ENMT: ENMT: no ear pain, no hearing loss, no sinus pressure, no congestion, no sore throat Cardiovascular: Cardiovascular: no chest pain Chest/Breasts: Breasts: no lumps, no tenderness, no discharge Respiratory: Respiratory: no cough, no wheezing Gastrointestinal: GI: no nausea, no vomiting, no diarrhea, no constipation, abdominal pain; draining colonic fistula through prior scar from diverticulitis Genitourinary: : no discharge, no blood in urine, no pain with urination, no increase in frequency of urination, no vaginal discharge Musculoskeletal: Musculoskeletal: no soft tissue swelling, no joint swelling, moves all extremities well Skin: Skin: no redness, no rash, no skin lesions Neurological symptoms: Neuro: no numbness, no weakness, no tingling, no headache Psychiatric: Psych: no depression, no anxiety Physical Exam General Adult Exam (Female) Reported By: Patient Constitutional: General Appearance: healthy-appearing, well-nourished, well-developed. Level of Distress: NAD Psychiatric: Mental Status: active and alert, normal mood, normal affect Eyes: Lids and Conjunctivae: non-injected. Pupils: PERRLA. EOM: EOMI. Sclerae: non-icteric ENMT: Hearing: no hearing loss. Oropharynx: moist mucous membranes Neck: Thyroid: non-tender, no nodules Lungs: Respiratory effort: no dyspnea. Auscultation: breath sounds normal, good air movement, no wheezing, no rales/crackles Cardiovascular: Heart Auscultation: RRR, normal S1, normal S2, no murmurs. Neck vessels: no carotid bruits Abdomen: Bowel Sounds: normal. Inspection and Palpation: soft, non-distended, no tenderness, no guarding, no rebound tenderness; two draining wounds in prior vertical abd scar below umbilicus from fistulas Musculoskeletal:: Joints, Bones, and Muscles: normal movement of all extremities. Extremities: no edema Neurologic: Gait and Station: normal gait Skin: Inspection and palpation: no rash, lesion; two abdominal wounds
--- OUTSIDE RECORDS SUMMARY | 2019-06-29 11:36 | XMS REPORT | Encounter Summary ---
Author Organization Unknown Address [address] [place] [address] Phone [phone] Care Team Providers Care Sugarcane Planter Name Role Phone Dr. Gabriela Taylor 3 [phone] Tad Chauhan MD 102 [phone] Lew Sofia MD 114 [phone] Reason for Visit lab follow-up; fever Instructions 1. Anemia iron + TIBC + ferritin, serum vitamin B12 + folate, serum or blood CBC w/ auto diff ferrous sulfate 300 mg (60 mg iron)/5 mL oral liquid 2. Body mass index 25-29 - overweight learning about healthy weight 3. Heart murmur cardiology referral 4. Fever rapid flu (A+B) 5. Colonic fistula 6. Screening for malignant neoplasm of colon colon cancer screening, stool Discussion Note: None recorded. Plan of Care Reminders Provider Appointments Est Patient 07/13/2019 9:45AM Gabriela Taylor MD Lab Rapid Flu (A+B) 06/24/2019 [facility] Iron + TIBC + Ferritin, Serum 06/24/2019 [facility] Vitamin B12 + Folate, Serum or Blood 06/24/2019 [facility] CBC W/ Auto Diff 06/24/2019 [facility] Colon Cancer Screening, Stool 06/24/2019 [facility] (Cologuard Orders Only) Referral Cardiology Referral 06/24/2019 Lew Barahona MD Procedures None recorded. Surgeries None recorded. Imaging None recorded. Medications Name Start Date Advair Diskus 250 mcg-50 mcg/dose powder for inhalation Inhale 1 puff twice a day by inhalation route as needed for 30 days. albuterol sulfate 1.25 mg/3 mL solution for nebulization Inhale 3 mL 3 times a day by inhalation route as needed for 30 days. amoxicillin 500 mg-potassium clavulanate 125 mg tablet Take 1 tablet 3 times a day by oral route. Eliquis 5 mg tablet Take 1 tablet twice a day by oral route for 90 days. ferrous sulfate 300 mg (60 mg iron)/5 mL oral liquid Take 5 mL twice a day by oral route for 90 days. fluticasone propionate 50 mcg/actuation nasal spray,suspension [place] 2 sprays twice a day by nasal route as needed for 90 days. losartan 100 mg-hydrochlorothiazide 25 mg tablet Take 1 tablet every day by oral route as needed. Lyrica 150 mg capsule Take 1 capsule twice a day by oral route. 06/24/2019 montelukast 10 mg tablet Take 1 tablet every day by oral route for 90 days. Medications Administered None recorded. Vitals Height Weight BMI Blood Pressure 5 ft 1 in 144.2 lbs 27.2 kg/m2 120/52 mm[Hg] Results Lab Results Date Name Specimen Result Interpretation Description Value Range Status Address 06/24/2019 Rapid Flu (A+B) Type Flu a negative [facility]: [address] [place] [address] Type Flu B negative [facility]: [address] [facility] 06/15/2019 PT/PTT, Plasma Normal Partial Thromboplastin Time, Activated 32 sec 22-34 sec Final [facility]: [address] [place] [address] [place] Normal Inr 1.1 Final [facility]: [address] [place] [address] Normal Pt 11.0 sec 9.0-11.5 sec Final [facility]: [address] [place] 06/15/2019 CBC W/ Auto Diff Wbc 8.79 x10*3/L 3.98-10.04 x10*3/L Final [facility]: [address] [place] [address] Rbc 4.02 10*12/L 3.93-5.22 10*12/L Final [facility]: [address] [place] [address] [place] Low Hemoglobin 9.90 g/dL 11.20-15.70 g/dL Final [facility]: [address] [place] Low Hematocrit 33.3 % 34.1-44.9 % Final [facility]: [address] [place] [address] [place] Mcv 82.8 fL 80.0-100.0 fL Final [facility]: [address] Low Mch 24.6 pg 25.6-32.2 pg Final [facility]: [address] Low Mchc 29.7 g/dL 32.2-35.5 g/dL Final [facility]: [address] High RDW-SD 58.2 fL 36.4-46.3 fL Final [facility]: [address] [facility] Platelet Count 274.0 k/uL 182.0-369.0 k/uL Final [facility]: [address] Mpv 10.7 fL 7.5-11.5 fL Final [facility]: [address] Neut% 68.1 % 34.0-71.1 % Final [facility]: [address] Lymph% 21.0 % 19.3-51.7 % Final [facility]: [address] Mon% 9.4 % 4.7-12.5 % Final [facility]: [address] [place] Eos% 1.3 % 0.7-5.8 % Final [facility]: [address] [place] Baso% 0.2 % 0.1-1.2 % Final [facility]: [address] Neut# 6.0 x10*3/L 1.6-6.1 x10*3/L Final [facility]: [address] [place] Lymph# 1.9 x10*3/L 1.2-3.7 x10*3/L Final [facility]: [address] [place] Mon# 0.8 x10*3/L 0.2-0.9 x10*3/L Final [facility]: [address] [place] Eos# 0.11 x10*3/L 0.04-0.36 x10*3/L Final [facility]: [address] [place] Baso# 0.02 x10*3/L 0.01-0.08 x10*3/L Final [facility]: [address] [facility] 06/15/2019 CMP, Serum or Plasma Alt 9 U/L 0-55 U/L Final [facility]: [address] Ast 12 U/L 5-34 U/L Final [facility]: [address] Bun 11.0 mg/dL 9.8-25.0 mg/dL Final [facility]: [address] Alk Phos 65 unit/L 40-150 unit/L Final [facility]: [address] Glucose 95 mg/dL 70-99 mg/dL Final [facility]: [address] Low Albumin 3.3 g/dL 3.4-5.1 g/dL Final [facility]: [address] Creatinine 0.67 mg/dL 0.57-1.11 mg/dL Final [facility]: [address] eGFR Non- >60 mL/min/1.73m2 Final [facility]: [address] Total Bilirubin 0.6 mg/dL 0.2-1.2 mg/dL Final [facility]: [address] eGFR - >60 mL/min/1.73m2 Final [facility]: [address] Sodium 141 mEq/L 135-145 mEq/L Final [facility]: [address] Potassium 4.1 mEq/L 3.5-5.3 mEq/L Final [facility]: [address] Chloride 108 mmol/L 98-110 mmol/L Final [facility]: [address] Total Protein 6.4 g/dL 6.1-8.2 g/dL Final [facility]: [address] Calcium 8.9 mg/dL 8.6-10.4 mg/dL Final [facility]: [address] [place] [address] [place] Co2 27.6 mmol/L 20.0-32.0 mmol/L Final [facility]: [address] [place] [address], [place] Anion Gap 5 calc Final [facility]: [address], [place] 06/15/2019 Lipid Panel, Serum Low Hdl 39 mg/dL Final [facility]: [address] [place] [address], [place] Triglyceride 101 mg/dL <150 mg/dL Final [facility]: [address] [place] [address], [place] VLDL (Calculated) 20 mg/dL Final [facility]: [address] [place] [address], [place] cholesterol/HDL Ratio 3.6 mg/dL Final [facility]: [address] [place] [address], [place] non-HDL Cholesterol (Calculated) 100 mg/dL <160 mg/dL Final [facility]: [address] [place] [address], [place] Cholesterol 139 mg/dL <200 mg/dL Final [facility]: [address] LDL (Calculated) 80 mg/dL <130 mg/dL Final [facility]: [address] [place] [address], [place] 06/15/2019 TSH, Serum or Plasma Tsh 0.652 uIU/mL 0.350-4.940 uIU/mL Final [facility]: [address] [place] [address], [place] Allergies Code Code System Name Reaction Severity [...] Tobacco Smoking Status Never Smoker Past Encounters 06/24/2019 Anemia; Body Mass Index 25-29 - Overweight; Heart Murmur; Fever; Colonic Fistula; Screening for Malignant Neoplasm of Colon Kendy Peterson [facility]: [address] [place] [address], Ph. 06/15/2019 Colonic Fistula; Benign Essential Hypertension; Body Mass Index 25-29 - Overweight; Chronic Obstructive Lung Disease; Long-term Current Use of Anticoagulant Gabriela Taylor MD: [facility] [place] [address], Ph. History of Present Illness Note:<div>Sick visit: Started with 102.6F fever last night, 101.8 this morning. Denies any other associated sx.
</div><div>
</div><div>Pt just picked up Augmentin tid from Dr. Tad Chauhan (surgeon) for leaky fistula opening, has an appt with surgeon today. Has colonic fistula and noticed to have watery drainage since jan 2019. seen at [facility] for second opinion and plans to have colonic repair. </div><div>
</div><div>2. DVT and on eliquis. </div><div>
</div><div>3. Hx of anemia. h&h: 9.9/33 anemia. denies blood in stool. patient has trouble taking iron tablets prefers liquid form. </div><div>
< /div> Review of Systems Comprehensive Adult Problem ROS Reported By: Patient Constitutional: Constitutional: no significant weight change, fatigue Eyes: Eyes: ; denies vision disturbances Cardiovascular: Cardiovascular: no chest pain, normal heart rate; no pedal edema Respiratory: Respiratory: no cough, no wheezing, no chest tightness, normal respiration Gastrointestinal: GI: no abdominal pain, no vomiting, no diarrhea, no constipation; lower abdominal pain around the site of fistulas Musculoskeletal: Musculoskeletal: no soft tissue swelling, no joint swelling Skin: Skin: no rash Neurological symptoms: Neuro: no numbness, no tingling, no headache, no dizziness Psychiatric: Psych: no depression, no anxiety Physical Exam General Adult Exam (Female) Reported By: Patient Constitutional: General Appearance: healthy-appearing, well-developed, overweight. Level of Distress: NAD. Ambulation: ambulation with cane Psychiatric: Mental Status: active and alert, normal mood, normal affect Eyes: Lids and Conjunctivae: non-injected, no discharge, no pallor. Sclerae: non-icteric ENMT: Hearing: no hearing loss. Oropharynx: moist mucous membranes Neck: Neck: supple. Lymph Nodes: no cervical LAD, no supraclavicular LAD Lungs: Respiratory effort: no dyspnea. Auscultation: breath sounds normal, good air movement, no wheezing, no rales/crackles Cardiovascular: Heart Auscultation: RRR, murmur Abdomen: Bowel Sounds: normal. Inspection and Palpation: soft, non-distended, no tenderness, no guarding, no rebound tenderness; dressing in place on abdominal wall. wound not accessed.patient to be seen by surgeon this afternoon for same Musculoskeletal:: Joints, Bones, and Muscles: normal movement of all extremities. Extremities: no edema Neurologic: Gait and Station: normal gait Skin: Inspection and palpation: no rash
[2019-06-29] MEDS ORDERED: MORPHINE SULFATE 2 MG/ML SYR 1ML IV PRN (12:00)
[2019-06-29 12:02] LABS: BASOPHILS % 0.4 % (0.0-1.0); EOSINOPHILS # (AUTO) 0.1 (0.0-0.4); HEMATOCRIT 34.2 % (34.2-44.1); HEMOGLOBIN 10.3 g/dL (12.0-16.0); LYMPHOCYTES # (AUTO) 1.5 (1.0-3.2); LYMPHOCYTES % 20.5 % (18.0-39.1); MEAN CORPUSCULAR HEMOGLOBIN 24.8 pg (28-32); MEAN CORPUSCULAR HGB CONC 30.1 g/dL (31-35); MEAN CORPUSCULAR VOLUME 82.2 fL (81-99); MONOCYTES # (AUTO) 0.5 (0.2-0.8); MONOCYTES % 6.6 % (4.4-11.3); NEUTROPHILS % 70.2 % (38.7-80.0); PLATELET COUNT 296 x10e3/uL (140-360); RED BLOOD COUNT 4.16 x10e6/uL (3.6-5.1); RED CELL DISTRIBUTION WIDTH 18.3 % (11.7-14.4)
[2019-06-29] MEDS ORDERED: DIATRIZOATE MEGL/DIATRIZOA SOD 30 ML BTL PO ONE (12:04)
[2019-06-29 12:15] LABS: INR 1.13; PROTHROMBIN TIME 15.2 seconds (11.9-14.5)
[2019-06-29] MEDS ORDERED: MORPHINE SULFATE INJ 4 MG/ML INJ 1ML IV PRN (12:15)
[2019-06-29 12:16] LABS: PARTIAL THROMBOPLASTIN TIME 32.8 seconds (23.8-35.5)
[2019-06-29 12:23] LABS: ALANINE AMINOTRANSFERASE 11 IU/L (0-55); ALBUMIN 3.3 g/dL (3.5-5.0); ALBUMIN/GLOBULIN RATIO 0.9 (0.8-2.0); ALKALINE PHOSPHATASE 67 IU/L (40-150); ANION GAP 10.4 mmol/L (8-16); BLOOD UREA NITROGEN 11 mg/dL (7-26); BUN/CREATININE RATIO 16 (6-25); CALCIUM 9.3 mg/dL (8.4-10.2); CARBON DIOXIDE 24 mmol/L (22-29); CHLORIDE 112 mmol/L (98-107); CREATININE, SERUM 0.67 mg/dL (0.57-1.11); EST GLOMERULAR FILTRATION RATE > 60 ML/MIN (60-); GLUCOSE 84 mg/dL (74-118); POTASSIUM 3.4 mmol/L (3.5-5.1); SODIUM 143 mmol/L (136-145)
[2019-06-29] MEDS: METRONIDAZOLE 500MG/NS 100ML 100 ML IV SCH ×2 (13:24→21:55)
[2019-06-29] MEDS: SODIUM CHLORIDE 0.9% 1000ML 1,000 ML IV SCH (13:24)
[2019-06-29] MEDS: PIPER-TAZ 3.375 GM 50 ML IV SCH ×2 (13:24→19:46)
[2019-06-29 13:59] LABS: CLARITY,URINE CLEAR (CLEAR); COLOR,URINE YELLOW (YELLOW)
[2019-06-29 14:00] LABS: BILIRUBIN,URINE NEGATIVE (NEGATIVE); KETONES,URINE NEGATIVE (NEGATIVE); LEUKOCYTE ESTERASE ,URINE NEGATIVE (NEGATIVE); NITRITE,URINE NEGATIVE (NEGATIVE); PROTEIN,URINE DIPSTICK NEGATIVE (NEGATIVE); URINE UROBILINOGEN 0.2 mg/dL (0.2 - 1)
[2019-06-29 14:16] LABS: BACTERIA,URINE RARE /HPF; EPITHELIAL CELLS,URINE MODERATE /LPF; MUCUS,URINE RARE (RARE); RBC,URINE 0-5 /HPF (0-5)
[2019-06-29 14:17] LABS: YEAST,URINE FEW
[2019-06-29] MEDS ORDERED: HYDROCODONE/APAP 5MG-325MG TAB PO PRN (15:15)
[2019-06-29] MEDS ORDERED: ACETAMINOPHEN 325 MG TAB PO ONE (15:45)
--- NOTE | 2019-06-29 16:02 | Diagnostic Imaging Report ---
EXAM: CT Abdomen and Pelvis WITH intravenous contrast INDICATION: Abdominal pain COMPARISON: CT abdomen and pelvis of 06/08/2019 TECHNIQUE: Abdomen and pelvis were scanned utilizing a multidetector helical scanner from the lung base to the pubic symphysis after administration of IV contrast. Coronal and sagittal reformations were obtained. Routine protocol was performed. Scan was performed during portal venous phase. IV CONTRAST: 100mL of Isovue 370 ORAL CONTRAST: Gastrografin RADIATION DOSE: Total DLP: 598.7 mGy*cm Dose modulation, iterative reconstruction, and/or weight based adjustment of the mA/kV was utilized to reduce the radiation dose to as low as reasonably achievable. FINDINGS: LOWER THORAX: Tiny sliding hiatal hernia. HEPATOBILIARY: No focal liver lesion. Mild biliary ductal dilation, within expected range status post cholecystectomy. SPLEEN: No splenomegaly. PANCREAS: No focal masses or ductal dilatation. ADRENALS: Left adrenal gland not visualized with surgical clips in the area, possibly suggesting prior resection. Unchanged right adrenal nodule appears unchanged dating back to at least 12/14/2017 and is almost certainly benign given interval stability. KIDNEYS/URETERS: No hydronephrosis, stones, or solid mass lesions. PELVIC ORGANS/BLADDER: Prominent distended bladder. PERITONEUM / RETROPERITONEUM: No free air or fluid. LYMPH NODES: No lymphadenopathy. VESSELS: Mild scattered atherosclerotic calcifications of the nonaneurysmal abdominal aorta and major branches. GI TRACT: Status post prior hemicolectomy. No abnormal bowel thickening. No bowel obstruction. BONES AND SOFT TISSUES: 5.6 x 3.3 x 9.3 cm thick-walled fluid collection in the midline anterior abdominal subcutaneous soft tissues containing air, debris and fluid. It is unclear on this study whether there is intra-abdominal communication of this collection. IMPRESSION: 5.6 x 3.3 x 9.3 cm abscess in the midline anterior abdominal subcutaneous soft tissues. It is unclear on this study whether there is intra-abdominal communication of this collection. Signed by: Guanako Moreno MD on 06/29/2019 4:00 PM
[2019-06-29] MEDS ORDERED: SODIUM CHLORIDE 0.9% 50ML 50 ML ONE (17:18)
[2019-06-29] MEDS ORDERED: IOPAMIDOL 370 MG/ML 200 ML INFUS..BTL INJ ONE (17:19)
[2019-06-29 23:57] VITALS: BP 127/57
[2019-06-30] VITALS (8 sets, daily range): BP systolic 106–151; BP diastolic 54–74
[2019-06-30] MEDS ORDERED: MORPHINE SULFATE 2 MG/ML SYR 1ML IV PRN (00:15)
[2019-06-30] MEDS: METRONIDAZOLE 500MG/NS 100ML 100 ML IV SCH ×4 (00:43→17:24)
[2019-06-30] MEDS: SODIUM CHLORIDE 0.9% 1000ML 1,000 ML IV SCH ×4 (00:43→19:55)
[2019-06-30] MEDS: PIPER-TAZ 3.375 GM 50 ML IV SCH ×4 (00:43→17:24)
[2019-06-30 06:00] LABS: BASOPHILS % 0.7 % (0.0-1.0); EOSINOPHILS # (AUTO) 0.2 (0.0-0.4); EOSINOPHILS % 4.3 % (0.0-6.0); HEMATOCRIT 33.2 % (34.2-44.1); HEMOGLOBIN 9.6 g/dL (12.0-16.0); LYMPHOCYTES # (AUTO) 1.4 (1.0-3.2); LYMPHOCYTES % 34.1 % (18.0-39.1); MEAN CORPUSCULAR HEMOGLOBIN 24.5 pg (28-32); MEAN CORPUSCULAR HGB CONC 28.9 g/dL (31-35); MEAN CORPUSCULAR VOLUME 84.7 fL (81-99); MONOCYTES # (AUTO) 0.5 (0.2-0.8); NEUTROPHILS % 48.9 % (38.7-80.0); PLATELET COUNT 231 x10e3/uL (140-360); RED BLOOD COUNT 3.92 x10e6/uL (3.6-5.1); RED CELL DISTRIBUTION WIDTH 18.2 % (11.7-14.4)
[2019-06-30 06:31] LABS: ALANINE AMINOTRANSFERASE 10 IU/L (0-55); ALBUMIN 2.8 g/dL (3.5-5.0); ALKALINE PHOSPHATASE 48 IU/L (40-150); BLOOD UREA NITROGEN 6 mg/dL (7-26); BUN/CREATININE RATIO 10 (6-25); CALCIUM 8.4 mg/dL (8.4-10.2); CARBON DIOXIDE 23 mmol/L (22-29); CHLORIDE 113 mmol/L (98-107); CREATININE, SERUM 0.59 mg/dL (0.57-1.11); EST GLOMERULAR FILTRATION RATE > 60 ML/MIN (60-); GLUCOSE 80 mg/dL (74-118); SODIUM 142 mmol/L (136-145)
[2019-06-30 07:20] LABS: HYPOCHROMASIA SLIGHT; RBC MORPHOLOGY COMMENT ABNORMAL
[2019-06-30] MEDS: SALMETEROL/FLUTICASONE 250/50 INH SCH (19:25)
[2019-06-30 19:30] LABS: % IRON SATURATION 7 % (15-50); IRON 22 ug/dL (50-170); TOTAL IRON BINDING CAPACITY 323 ug/dL (261-478); TRANSFERRIN 231 mg/dL (180-382)
[2019-06-30 21:31] LABS: ABG PH 7.38 (7.31-7.41)
[2019-06-30 21:32] LABS: ABG HCO3 23 mmol/L (23-28); ABG PCO2 39 mmHg (41-51); ABG PO2 75 mmHg (80-105)
--- NOTE | 2019-06-30 22:58 | Consultation ---
DATE OF CONSULTATION: 06/30/[address] Nance, Dr. Chauhan, Dr. Cortes. HISTORY OF PRESENT ILLNESS: A charming 83-year-old woman with history of bronchial asthma, admitted with abdominal pain and increasing drainage from her known abdominal fistula. History of DVT in the remote past right lower extremity, remote carcinoma of the uterus, walks with a walker, history of hypertension and peripheral neuropathy. She is allergic to Cipro and Levaquin. Her medications include Advair and Eliquis. Also takes vitamin D, Flagyl, montelukast, potassium, losartan, hydrochlorothiazide. PHYSICAL EXAMINATION: GENERAL: This is a well-developed white female, appears to have lost quite a bit of weight since last seen in the office. At that time, she was walking with a walker. . VITAL SIGNS: Temperature 97.2, pulse 65, respirations 20, blood pressure 112/55. HEAD: Normocephalic, atraumatic. NECK: Trachea midline. LUNGS: Diminished breath sounds. HEART: Regular rhythm. ABDOMEN: Two fistulous tracts noted, which drained copiously after . The patient will require surgical correction and this has been discussed with them. She does represent increased risk, but acceptable if procedure can be done technically in view of her history of somewhat limited bowel. On CT, an abscess is described in the midline, which is apparently draining externally. TPN is also an option. Thank you for this kind referral. MD ERFAIN Charles/ANNITA /[id number]
[2019-07-01] VITALS (9 sets, daily range): BP systolic 104–157; BP diastolic 51–157
[2019-07-01] MEDS: SODIUM CHLORIDE 0.9% 1000ML 1,000 ML IV SCH (03:55)
[2019-07-01] MEDS: PIPER-TAZ 3.375 GM 50 ML IV SCH ×4 (05:07→21:00)
[2019-07-01 05:49] LABS: EOSINOPHILS # (AUTO) 0.1 (0.0-0.4); EOSINOPHILS % 2.7 % (0.0-6.0); HEMOGLOBIN 8.3 g/dL (12.0-16.0); LYMPHOCYTES # (AUTO) 1.5 (1.0-3.2); MEAN CORPUSCULAR HEMOGLOBIN 24.1 pg (28-32); MEAN CORPUSCULAR HGB CONC 29.6 g/dL (31-35); MEAN CORPUSCULAR VOLUME 81.4 fL (81-99); MONOCYTES # (AUTO) 0.5 (0.2-0.8); MONOCYTES % 11.4 % (4.4-11.3); NEUTROPHILS % 48.7 % (38.7-80.0); PLATELET COUNT 218 x10e3/uL (140-360); RED BLOOD COUNT 3.44 x10e6/uL (3.6-5.1); RED CELL DISTRIBUTION WIDTH 18.3 % (11.7-14.4)
[2019-07-01 06:01] LABS: INR 1.23; PROTHROMBIN TIME 16.3 seconds (11.9-14.5)
[2019-07-01 06:13] LABS: ALANINE AMINOTRANSFERASE 7 IU/L (0-55); ALBUMIN 2.5 g/dL (3.5-5.0); ALKALINE PHOSPHATASE 42 IU/L (40-150); ANION GAP 7.9 mmol/L (8-16); BLOOD UREA NITROGEN 5 mg/dL (7-26); BUN/CREATININE RATIO 9 (6-25); CALCIUM 7.9 mg/dL (8.4-10.2); CARBON DIOXIDE 22 mmol/L (22-29); CHLORIDE 114 mmol/L (98-107); CREATININE, SERUM 0.58 mg/dL (0.57-1.11); EST GLOMERULAR FILTRATION RATE > 60 ML/MIN (60-); GLUCOSE 73 mg/dL (74-118); SODIUM 141 mmol/L (136-145)
[2019-07-01 06:29] LABS: POTASSIUM 2.9 mmol/L (3.5-5.1)
[2019-07-01] MEDS: SALMETEROL/FLUTICASONE 250/50 INH SCH ×2 (07:25→21:55)
--- NOTE | 2019-07-01 08:19 | Diagnostic Imaging Report ---
Examination: Single AP view of the chest. COMPARISON: Portable chest 06/08/2019 INDICATION: Asthma, shortness of breath IMPRESSION: 1. Lines and Tubes: None 2. Lungs are hyperinflated. Patchy opacity in the left base/left retrocardiac region with obscuration of the left hemidiaphragm, likely represents small pleural effusion and associated atelectasis or pneumonia. Right lung is grossly clear. 3. Cardiomediastinal silhouette is normal. Pulmonary vasculature is normal. Tortuous aorta. 4. No acute bony abnormalities. Signed by: Dr. Lee Skinner M.D. on 07/01/2019 8:16 AM
[2019-07-01] MEDS: IRON SUCROSE 100 MG in SODIUM CHLORIDE 0.9% 100 ML 100 ML IV SCH (10:45)
[2019-07-01] MEDS: ACETAMINOPHEN 325 MG TAB PO SCH (10:45)
[2019-07-01] MEDS: METHYLPREDNISOLONE SOD SUCC 40 MG/ML VIAL 1ML IV SCH (10:45)
[2019-07-01] MEDS: POTASSIUM CHLORIDE 10MEQ EA PO SCH ×3 (11:13→17:37)
--- NOTE | 2019-07-01 14:05 | Diagnostic Imaging Report ---
EXAMINATION: CHEST X-RAY LINE PLACEMENT INDICATION: ^PICC line placement ^[id number] ^[id number] COMPARISON: None FINDINGS: AP view TUBES and LINES: The tip of a left upper extremity PICC projects over the expected location of the upper SVC. LUNGS: Lungs are well inflated. Lungs are grossly clear. There is no evidence of pneumonia or pulmonary edema. PLEURA: Mild blunting of the left lateral pleural surface is unchanged. No pneumothorax. HEART AND MEDIASTINUM: The cardiomediastinal silhouette is unremarkable. BONES AND SOFT TISSUES: No acute osseous lesion. Soft tissues are unremarkable. UPPER ABDOMEN: No free air under the diaphragm. IMPRESSION: The tip of the left upper extremity PICC projects over the expected location of the upper SVC. Signed by: Toby Moore MD on 07/01/2019 2:03 PM
--- NOTE | 2019-07-01 17:11 | Consultation ---
DATE OF CONSULTATION: 07/01/2019 Cardiology Consult HISTORY OF PRESENT ILLNESS: Deanna Odom is an 83-year-old with primary history of hypertension, asthma, colon diverticulitis, remote uterine cancer, and DVT on Eliquis, admitted for abdominal pain and fecal matter drainage from her known abdominal fistula. MEDICAL HISTORY: As mentioned above. PAST SURGICAL HISTORY: Hysterectomy and colon resection two years ago. HOME MEDICATIONS: She is takin. Losartan/hydrochlorothiazide 100 mg p.o. daily. 2. Potassium 10 mEq daily. 3. Continue Eliquis 5 mg b.i.d. PHYSICAL EXAMINATION: VITAL SIGNS: Temperature is 96.8, pulse is 60, blood pressure is 112/55, respirations 18, and SpO2 97% on room air. GENERAL: The patient is well developed and well nourished, in no acute distress. HEENT: Head is normocephalic and atraumatic. Eyes, pupils are equally round, reactive to light and accommodation. Sclerae anicteric. Ears are normal. Oral cavity, mucosa is moist. Throat is clear. NECK/THYROID: Neck is supple with full range of motion. No cervical lymphadenopathy. No thyromegaly. SKIN: Warm and dry. CARDIOVASCULAR: S1 and S2 normal with 2/6 diastolic murmur. LUNGS: Clear to auscultation bilaterally. ABDOMEN: Soft. Mildly tender. Nondistended. Bowel sounds are present. Fistula in the midabdominal area draining fecal matter. NEUROLOGIC: Nonfocal motor strength. Normal upper and lower extremities. Sensory exam is intact. IMPRESSION AND PLAN: The patient is an 83-year-old with abdominal fistula and abscess. No active cardiac issues. Blood pressure is well controlled. No acute changes on EKG. The patient is cleared for surgery from cardiac standpoint. Dictated by Sloane Mckay NP MD SAMI Willett/ANNITA /[id number]
[2019-07-01] MEDS ORDERED: POTASSIUM CHLORIDE 10MEQ EA PO ONE (17:30)
[2019-07-01] MEDS ORDERED: CENTRAL TPN FORMULA 1 BAG IV SCH (20:00)
[2019-07-01] MEDS ORDERED: VITAMIN A & D OINT 2 OZ TUBE TOP PRN (20:00)
[2019-07-02 03:52] VITALS: BP 135/63
[2019-07-02] MEDS: PIPER-TAZ 3.375 GM 50 ML IV SCH ×3 (05:27→22:39)
[2019-07-02 07:15] LABS: BASOPHILS % 0.4 % (0.0-1.0); EOSINOPHILS % 0.4 % (0.0-6.0); HEMATOCRIT 28.7 % (34.2-44.1); HEMOGLOBIN 8.4 g/dL (12.0-16.0); LYMPHOCYTES # (AUTO) 1.5 (1.0-3.2); LYMPHOCYTES % 27.2 % (18.0-39.1); MEAN CORPUSCULAR HEMOGLOBIN 24.1 pg (28-32); MEAN CORPUSCULAR HGB CONC 29.3 g/dL (31-35); MEAN CORPUSCULAR VOLUME 82.2 fL (81-99); MONOCYTES # (AUTO) 0.7 (0.2-0.8); MONOCYTES % 12.6 % (4.4-11.3); NEUTROPHILS # (AUTO) 3.2 (2.1-6.9); PLATELET COUNT 217 x10e3/uL (140-360); RED BLOOD COUNT 3.49 x10e6/uL (3.6-5.1); RED CELL DISTRIBUTION WIDTH 18.4 % (11.7-14.4)
[2019-07-02 07:18] VITALS: BP 131/59
[2019-07-02 07:20] VITALS: BP 131/59
[2019-07-02] MEDS: SALMETEROL/FLUTICASONE 250/50 INH SCH ×2 (07:37→19:45)
[2019-07-02 07:39] LABS: BLOOD UREA NITROGEN 6 mg/dL (7-26); BUN/CREATININE RATIO 11 (6-25); CALCIUM 8.4 mg/dL (8.4-10.2); CARBON DIOXIDE 24 mmol/L (22-29); CHLORIDE 113 mmol/L (98-107); CREATININE, SERUM 0.57 mg/dL (0.57-1.11); EST GLOMERULAR FILTRATION RATE > 60 ML/MIN (60-); GLUCOSE 197 mg/dL (74-118); POTASSIUM 4.1 mmol/L (3.5-5.1); SODIUM 138 mmol/L (136-145)
[2019-07-02 07:48] LABS: ANION GAP 5.1 mmol/L (8-16)
[2019-07-02 08:05] LABS: MAGNESIUM 1.9 MG/DL (1.3-2.1); PHOSPHORUS 1.9 MG/DL (2.3-4.7)
[2019-07-02] MEDS: METHYLPREDNISOLONE SOD SUCC 40 MG/ML VIAL 1ML IV SCH (09:05)
[2019-07-02] MEDS: ACETAMINOPHEN 325 MG TAB PO SCH (09:06)
[2019-07-02] MEDS ORDERED: SODIUM PHOSPHATE 3 MMOL/ML INJ IV SCH (09:30)
[2019-07-02] MEDS ORDERED: DEXTROSE 50% SYRINGE 50 ML IV PRN (09:30)
[2019-07-02] MEDS ORDERED: SODIUM PHOSPHATE 10 MMOL in SODIUM CHLORIDE 0.9% 250ML 250 ML IV ONE (10:00)
[2019-07-02] MEDS: IRON SUCROSE 100 MG in SODIUM CHLORIDE 0.9% 100 ML 100 ML IV SCH (10:05)
[2019-07-02 11:12] VITALS: BP 147/66
[2019-07-02] MEDS: INSULIN LISPRO 100 UNIT/1 ML 3ML VIAL SQ SCH ×3 (11:30→22:39)
[2019-07-02] MEDS: ALBUTEROL SULF 0.083% NEB SOLN 3 ML NEB NEB SCH ×2 (13:00→19:45)
[2019-07-02 15:03] VITALS: BP 120/56
[2019-07-02 19:15] VITALS: BP 131/60
[2019-07-02] MEDS ORDERED: CENTRAL TPN FORMULA 1 BAG IV SCH (20:00)
[2019-07-03] VITALS (7 sets, daily range): BP systolic 112–144; BP diastolic 56–67
[2019-07-03] MEDS: ALBUTEROL SULF 0.083% NEB SOLN 3 ML NEB NEB SCH ×4 (01:00→19:35)
[2019-07-03] MEDS: PIPER-TAZ 3.375 GM 50 ML IV SCH ×3 (05:40→21:55)
[2019-07-03] MEDS: INSULIN LISPRO 100 UNIT/1 ML 3ML VIAL SQ SCH ×4 (07:30→21:55)
[2019-07-03] MEDS: SALMETEROL/FLUTICASONE 250/50 INH SCH ×2 (07:50→19:35)
[2019-07-03] MEDS: METHYLPREDNISOLONE SOD SUCC 40 MG/ML VIAL 1ML IV SCH (08:52)
[2019-07-03] MEDS: ACETAMINOPHEN 325 MG TAB PO SCH (08:52)
[2019-07-03] MEDS: IRON SUCROSE 100 MG in SODIUM CHLORIDE 0.9% 100 ML 100 ML IV SCH (08:52)
[2019-07-03] MEDS: BENZONATATE 100 MG CAP PO SCH ×2 (14:17→21:54)
[2019-07-03] MEDS: CENTRAL TPN FORMULA 1 BAG IV SCH (21:54)
[2019-07-04] VITALS (7 sets, daily range): BP systolic 102–149; BP diastolic 47–66
[2019-07-04] MEDS: ALBUTEROL SULF 0.083% NEB SOLN 3 ML NEB NEB SCH ×5 (01:34→20:35)
[2019-07-04] MEDS: PIPER-TAZ 3.375 GM 50 ML IV SCH (05:11)
[2019-07-04 05:59] LABS: BASOPHILS % 0.2 % (0.0-1.0); HEMATOCRIT 29.9 % (34.2-44.1); HEMOGLOBIN 8.7 g/dL (12.0-16.0); LYMPHOCYTES # (AUTO) 1.6 (1.0-3.2); MEAN CORPUSCULAR HEMOGLOBIN 24.3 pg (28-32); MEAN CORPUSCULAR HGB CONC 29.1 g/dL (31-35); MEAN CORPUSCULAR VOLUME 83.5 fL (81-99); MONOCYTES % 9.6 % (4.4-11.3); NEUTROPHILS # (AUTO) 7.3 (2.1-6.9); NEUTROPHILS % 73.4 % (38.7-80.0); PLATELET COUNT 78 x10e3/uL (140-360); RED BLOOD COUNT 3.58 x10e6/uL (3.6-5.1); RED CELL DISTRIBUTION WIDTH 19.2 % (11.7-14.4)
[2019-07-04 06:18] LABS: ALANINE AMINOTRANSFERASE 9 IU/L (0-55); ALBUMIN 2.7 g/dL (3.5-5.0); ALKALINE PHOSPHATASE 44 IU/L (40-150); ANION GAP 7.9 mmol/L (8-16); BLOOD UREA NITROGEN 14 mg/dL (7-26); BUN/CREATININE RATIO 25 (6-25); CALCIUM 8.2 mg/dL (8.4-10.2); CARBON DIOXIDE 23 mmol/L (22-29); CHLORIDE 114 mmol/L (98-107); CREATININE, SERUM 0.56 mg/dL (0.57-1.11); EST GLOMERULAR FILTRATION RATE > 60 ML/MIN (60-); GLUCOSE 76 mg/dL (74-118); POTASSIUM 3.9 mmol/L (3.5-5.1); SODIUM 141 mmol/L (136-145)
[2019-07-04] MEDS: INSULIN LISPRO 100 UNIT/1 ML 3ML VIAL SQ SCH ×4 (07:30→21:35)
[2019-07-04] MEDS: SALMETEROL/FLUTICASONE 250/50 INH SCH ×2 (08:04→21:30)
[2019-07-04] MEDS: BENZONATATE 100 MG CAP PO SCH ×3 (09:04→21:12)
[2019-07-04] MEDS ORDERED: PHYTONADIONE 10 MG/ML AMP SC ONE (11:30)
--- NOTE | 2019-07-04 17:23 | Diagnostic Imaging Report ---
EXAMINATION: CHEST 2 VIEWS INDICATION: ^cough ^[id number] ^[id number] COMPARISON: 07/01/2019 FINDINGS: PA and lateral views TUBES and LINES: None. LUNGS: Lungs are well inflated. Persistent retrocardiac opacity with obscuration of the left hemidiaphragm, likely represents small pleural effusion and associated atelectasis, unchanged. There is no evidence of pneumonia or pulmonary edema. PLEURA: No pleural effusion or pneumothorax. HEART AND MEDIASTINUM: The cardiomediastinal silhouette is unremarkable. BONES AND SOFT TISSUES: There are degenerative changes in the thoracic spine. Soft tissues are unremarkable. UPPER ABDOMEN: No free air under the diaphragm. IMPRESSION: Persistent left basilar opacity likely due to effusion and/or atelectasis Signed by: Kyle Jackson MD on 07/04/2019 5:21 PM
[2019-07-04] MEDS: CENTRAL TPN FORMULA 1 BAG IV SCH (21:35)
[2019-07-05] VITALS (7 sets, daily range): BP systolic 123–155; BP diastolic 55–64
[2019-07-05] MEDS: ALBUTEROL SULF 0.083% NEB SOLN 3 ML NEB NEB SCH ×4 (01:00→19:00)
[2019-07-05 05:55] LABS: BASOPHILS % 0.6 % (0.0-1.0); EOSINOPHILS # (AUTO) 0.2 (0.0-0.4); EOSINOPHILS % 3.2 % (0.0-6.0); HEMATOCRIT 29.1 % (34.2-44.1); HEMOGLOBIN 8.5 g/dL (12.0-16.0); LYMPHOCYTES # (AUTO) 1.7 (1.0-3.2); LYMPHOCYTES % 27.3 % (18.0-39.1); MEAN CORPUSCULAR HEMOGLOBIN 24.4 pg (28-32); MEAN CORPUSCULAR HGB CONC 29.2 g/dL (31-35); MEAN CORPUSCULAR VOLUME 83.4 fL (81-99); MONOCYTES # (AUTO) 0.6 (0.2-0.8); NEUTROPHILS # (AUTO) 3.7 (2.1-6.9); NEUTROPHILS % 58.4 % (38.7-80.0); PLATELET COUNT 164 x10e3/uL (140-360); RED BLOOD COUNT 3.49 x10e6/uL (3.6-5.1); RED CELL DISTRIBUTION WIDTH 19.9 % (11.7-14.4)
[2019-07-05] MEDS: INSULIN LISPRO 100 UNIT/1 ML 3ML VIAL SQ SCH ×2 (07:30→11:30)
[2019-07-05] MEDS: SALMETEROL/FLUTICASONE 250/50 INH SCH ×2 (07:39→19:00)
[2019-07-05] MEDS: BENZONATATE 100 MG CAP PO SCH (09:00)
[2019-07-05] MEDS: VANCOMYCIN 1GM/NS 250 ML 250 ML IV SCH (09:20)
[2019-07-05] MEDS ORDERED: HEPARIN SOD/SOD CHLORIDE 1,000 ML ONE (10:45)
[2019-07-05] MEDS ORDERED: MEROPENEM 1GM 100 ML IV ONE (12:05)
[2019-07-05] MEDS ORDERED: HYDROMORPHONE 1MG/1ML INJ IV PRN (14:45)
[2019-07-05] MEDS ORDERED: METOCLOPRAMIDE HCL 10 MG/2ML VIAL ONE (14:51)
[2019-07-05] MEDS ORDERED: ONDANSETRON HCL INJ 2MG/ML 2ML 2 MG/ML VIAL ONE ×2 (14:51→18:31)
[2019-07-05] MEDS ORDERED: FENTANYL CITRATE/PF 100MCG/2 ML INJ ONE ×3 (14:56→18:10)
[2019-07-05] MEDS ORDERED: HYDROMORPHONE 1MG/1ML INJ ONE (15:16)
[2019-07-05] MEDS: ACETAMINOPHEN 1000 MG/100 ML IV PRN ×2 (15:35→22:28)
[2019-07-05] MEDS ORDERED: ACETAMINOPHEN 1000 MG/100 ML 100 ML IV ONE (15:38)
[2019-07-05] MEDS ORDERED: HYDROMORPHONE 2MG/ML 2 MG/ML ML ONE ×2 (16:00→17:31)
[2019-07-05] MEDS: PANTOPRAZOLE 40 MG 10ML VIAL IV SCH (17:58)
[2019-07-05] MEDS: INSULIN REGULAR, HUMAN 100 UNIT/1 ML 3ML VIAL SQ SCH (18:00)
[2019-07-05] MEDS ORDERED: PANTOPRAZOLE 40 MG 10ML VIAL ONE (18:01)
[2019-07-05] MEDS ORDERED: PROPOFOL IV EMULSION 10 MG/ML 20 ML VIAL ONE (18:31)
[2019-07-05] MEDS ORDERED: GLYCOPYRROLATE INJ 0.2 MG/ML VIAL ONE (18:31)
[2019-07-05] MEDS ORDERED: DEXAMETHASONE SOD PHOS INJ 4 MG/ML VIAL ONE (18:31)
[2019-07-05] MEDS ORDERED: NEOSTIGMINE 1 MG/ML 10ML VIAL ONE (18:31)
[2019-07-05] MEDS ORDERED: SEVOFLURANE INHAL SOLN 250 ML PEN BTL ONE (18:31)
[2019-07-05] MEDS ORDERED: LIDOCAINE HCL 2% LOCAL INJ 5 ML SDV VIAL INJ ONE (18:31)
[2019-07-05] MEDS ORDERED: ROCURONIUM BROMIDE 10 MG/ML 5ML VIAL ONE (18:31)
[2019-07-05] MEDS ORDERED: PHENYLEPHRINE HCL 1% 10 MG/ML VIAL ONE (18:31)
[2019-07-05] MEDS ORDERED: PROMETHAZINE HCL (IM) 25 MG/ML VIAL ONE (18:44)
[2019-07-05] MEDS ORDERED: SODIUM CHLORIDE 0.9% 250ML 250 ML IV ONE (18:45)
[2019-07-05] MEDS ORDERED: SODIUM CHLORIDE 0.9% 250ML 250 ML ONE (22:20)
[2019-07-05] MEDS: FUROSEMIDE INJ 10 MG/ML 2 ML VIAL IV PRN (22:27)
[2019-07-05] MEDS: CENTRAL TPN FORMULA 1 BAG IV SCH (22:41)
[2019-07-05] MEDS: MEROPENEM 1GM 100 ML IV SCH (22:52)
[2019-07-05] MEDS: HYDROMORPHONE 1MG/1ML INJ IV PRN (23:18)
[2019-07-06] VITALS (13 sets, daily range): BP systolic 113–150; BP diastolic 34–64
[2019-07-06] MEDS: INSULIN REGULAR, HUMAN 100 UNIT/1 ML 3ML VIAL SQ SCH ×4 (00:24→18:00)
[2019-07-06] MEDS: ALBUTEROL SULF 0.083% NEB SOLN 3 ML NEB NEB SCH ×4 (01:00→20:20)
[2019-07-06] MEDS: FUROSEMIDE INJ 10 MG/ML 2 ML VIAL IV PRN (01:20)
[2019-07-06] MEDS: HYDROMORPHONE 1MG/1ML INJ IV PRN ×5 (02:18→22:22)
[2019-07-06 04:59] LABS: BASOPHILS % 0.1 % (0.0-1.0); HEMATOCRIT 36.2 % (34.2-44.1); HEMOGLOBIN 11.3 g/dL (12.0-16.0); LYMPHOCYTES # (AUTO) 0.8 (1.0-3.2); LYMPHOCYTES % 5.7 % (18.0-39.1); MEAN CORPUSCULAR HEMOGLOBIN 25.3 pg (28-32); MEAN CORPUSCULAR HGB CONC 31.2 g/dL (31-35); MONOCYTES # (AUTO) 1.1 (0.2-0.8); MONOCYTES % 7.8 % (4.4-11.3); NEUTROPHILS # (AUTO) 12.5 (2.1-6.9); NEUTROPHILS % 85.9 % (38.7-80.0); PLATELET COUNT 159 x10e3/uL (140-360); RED BLOOD COUNT 4.47 x10e6/uL (3.6-5.1); RED CELL DISTRIBUTION WIDTH 19.9 % (11.7-14.4)
[2019-07-06] MEDS: MEROPENEM 1GM 100 ML IV SCH ×3 (05:13→21:45)
[2019-07-06 05:23] LABS: ALANINE AMINOTRANSFERASE 20 IU/L (0-55); ALBUMIN 2.7 g/dL (3.5-5.0); ALKALINE PHOSPHATASE 51 IU/L (40-150); ANION GAP 9.3 mmol/L (8-16); BLOOD UREA NITROGEN 21 mg/dL (7-26); BUN/CREATININE RATIO 34 (6-25); CARBON DIOXIDE 25 mmol/L (22-29); CHLORIDE 107 mmol/L (98-107); CREATININE, SERUM 0.61 mg/dL (0.57-1.11); EST GLOMERULAR FILTRATION RATE > 60 ML/MIN (60-); GLUCOSE 154 mg/dL (74-118); POTASSIUM 4.3 mmol/L (3.5-5.1); SODIUM 137 mmol/L (136-145)
[2019-07-06] MEDS: SALMETEROL/FLUTICASONE 250/50 INH SCH ×2 (07:00→19:00)
[2019-07-06] MEDS: VANCOMYCIN 1GM/NS 250 ML 250 ML IV SCH (09:57)
[2019-07-06] MEDS: PANTOPRAZOLE 40 MG 10ML VIAL IV SCH (16:00)
[2019-07-06] MEDS ORDERED: ACETAMINOPHEN 1000 MG/100 ML IV PRN (18:00)
[2019-07-06] MEDS: ONDANSETRON HCL INJ 2MG/ML 2ML 2 MG/ML VIAL IV PRN (18:05)
[2019-07-06] MEDS ORDERED: SODIUM CHLORIDE 0.9% 250ML 250 ML ONE (19:47)
[2019-07-06] MEDS: CENTRAL TPN FORMULA 1 BAG IV SCH (20:24)
[2019-07-07] VITALS (9 sets, daily range): BP systolic 120–152; BP diastolic 58–67
[2019-07-07] MEDS: ALBUTEROL SULF 0.083% NEB SOLN 3 ML NEB NEB SCH ×4 (02:20→20:15)
[2019-07-07] MEDS: HYDROMORPHONE 1MG/1ML INJ IV PRN ×3 (05:40→18:44)
[2019-07-07] MEDS: MEROPENEM 1GM 100 ML IV SCH ×3 (05:47→21:42)
[2019-07-07] MEDS: INSULIN REGULAR, HUMAN 100 UNIT/1 ML 3ML VIAL SQ SCH ×4 (05:47→18:00)
[2019-07-07 06:04] LABS: BASOPHILS % 0.2 % (0.0-1.0); EOSINOPHILS # (AUTO) 0.1 (0.0-0.4); EOSINOPHILS % 0.9 % (0.0-6.0); HEMATOCRIT 36.9 % (34.2-44.1); HEMOGLOBIN 11.6 g/dL (12.0-16.0); LYMPHOCYTES # (AUTO) 1.5 (1.0-3.2); LYMPHOCYTES % 13.1 % (18.0-39.1); MEAN CORPUSCULAR HEMOGLOBIN 25.8 pg (28-32); MEAN CORPUSCULAR HGB CONC 31.4 g/dL (31-35); MONOCYTES # (AUTO) 1.1 (0.2-0.8); MONOCYTES % 9.3 % (4.4-11.3); NEUTROPHILS # (AUTO) 8.8 (2.1-6.9); NEUTROPHILS % 76.1 % (38.7-80.0); PLATELET COUNT 148 x10e3/uL (140-360); RED CELL DISTRIBUTION WIDTH 20.7 % (11.7-14.4)
[2019-07-07 06:16] LABS: ALANINE AMINOTRANSFERASE 19 IU/L (0-55); ALBUMIN 2.7 g/dL (3.5-5.0); ALBUMIN/GLOBULIN RATIO 0.9 (0.8-2.0); ALKALINE PHOSPHATASE 57 IU/L (40-150); ANION GAP 10.5 mmol/L (8-16); BLOOD UREA NITROGEN 21 mg/dL (7-26); BUN/CREATININE RATIO 36 (6-25); CALCIUM 7.9 mg/dL (8.4-10.2); CARBON DIOXIDE 25 mmol/L (22-29); CHLORIDE 108 mmol/L (98-107); CREATININE, SERUM 0.58 mg/dL (0.57-1.11); EST GLOMERULAR FILTRATION RATE > 60 ML/MIN (60-); GLUCOSE 98 mg/dL (74-118); POTASSIUM 4.5 mmol/L (3.5-5.1); SODIUM 139 mmol/L (136-145)
[2019-07-07] MEDS: SALMETEROL/FLUTICASONE 250/50 INH SCH ×2 (08:15→20:15)
[2019-07-07] MEDS: VANCOMYCIN 1GM/NS 250 ML 250 ML IV SCH (09:00)
[2019-07-07] MEDS ORDERED: BISACODYL 10 MG SUPP PR ONE (11:15)
[2019-07-07] MEDS: PANTOPRAZOLE 40 MG 10ML VIAL IV SCH (16:56)
[2019-07-07] MEDS: CENTRAL TPN FORMULA 1 BAG IV SCH (19:56)
[2019-07-08] VITALS (8 sets, daily range): BP systolic 119–149; BP diastolic 57–73
[2019-07-08] MEDS: ALBUTEROL SULF 0.083% NEB SOLN 3 ML NEB NEB SCH ×4 (01:00→19:55)
[2019-07-08] MEDS: HYDROMORPHONE 1MG/1ML INJ IV PRN ×2 (03:48→10:10)
[2019-07-08] MEDS: ONDANSETRON HCL INJ 2MG/ML 2ML 2 MG/ML VIAL IV PRN (03:48)
[2019-07-08] MEDS: INSULIN REGULAR, HUMAN 100 UNIT/1 ML 3ML VIAL SQ SCH ×4 (05:48→18:00)
[2019-07-08] MEDS: MEROPENEM 1GM 100 ML IV SCH ×3 (05:48→22:01)
[2019-07-08 07:49] LABS: BASOPHILS % 0.3 % (0.0-1.0); EOSINOPHILS # (AUTO) 0.5 (0.0-0.4); EOSINOPHILS % 3.9 % (0.0-6.0); HEMATOCRIT 37.6 % (34.2-44.1); HEMOGLOBIN 11.4 g/dL (12.0-16.0); LYMPHOCYTES # (AUTO) 1.7 (1.0-3.2); LYMPHOCYTES % 13.8 % (18.0-39.1); MEAN CORPUSCULAR HEMOGLOBIN 25.4 pg (28-32); MEAN CORPUSCULAR HGB CONC 30.3 g/dL (31-35); MEAN CORPUSCULAR VOLUME 83.9 fL (81-99); MONOCYTES # (AUTO) 1.3 (0.2-0.8); MONOCYTES % 10.6 % (4.4-11.3); NEUTROPHILS # (AUTO) 8.5 (2.1-6.9); NEUTROPHILS % 71.1 % (38.7-80.0); PLATELET COUNT 143 x10e3/uL (140-360); RED BLOOD COUNT 4.48 x10e6/uL (3.6-5.1); RED CELL DISTRIBUTION WIDTH 20.5 % (11.7-14.4)
[2019-07-08] MEDS: SALMETEROL/FLUTICASONE 250/50 INH SCH ×2 (08:01→19:55)
[2019-07-08 08:14] LABS: ALANINE AMINOTRANSFERASE 18 IU/L (0-55); ALBUMIN 2.6 g/dL (3.5-5.0); ALBUMIN/GLOBULIN RATIO 0.8 (0.8-2.0); ALKALINE PHOSPHATASE 63 IU/L (40-150); ANION GAP 9.7 mmol/L (8-16); BLOOD UREA NITROGEN 25 mg/dL (7-26); BUN/CREATININE RATIO 44 (6-25); CALCIUM 8.5 mg/dL (8.4-10.2); CARBON DIOXIDE 21 mmol/L (22-29); CHLORIDE 109 mmol/L (98-107); CREATININE, SERUM 0.57 mg/dL (0.57-1.11); EST GLOMERULAR FILTRATION RATE > 60 ML/MIN (60-); GLUCOSE 120 mg/dL (74-118); POTASSIUM 4.7 mmol/L (3.5-5.1); SODIUM 135 mmol/L (136-145)
[2019-07-08] MEDS: VANCOMYCIN 1GM/NS 250 ML 250 ML IV SCH (09:00)
[2019-07-08] MEDS: PANTOPRAZOLE 40 MG 10ML VIAL IV SCH (16:30)
[2019-07-08] MEDS: CENTRAL TPN FORMULA 1 BAG IV SCH (20:17)
[2019-07-09] VITALS (8 sets, daily range): BP systolic 131–169; BP diastolic 63–79
[2019-07-09] MEDS: INSULIN REGULAR, HUMAN 100 UNIT/1 ML 3ML VIAL SQ SCH ×4 (06:00→18:00)
[2019-07-09] MEDS: MEROPENEM 1GM 100 ML IV SCH ×3 (06:16→21:02)
[2019-07-09] MEDS: ALBUTEROL SULF 0.083% NEB SOLN 3 ML NEB NEB SCH ×3 (07:25→20:08)
[2019-07-09] MEDS: SALMETEROL/FLUTICASONE 250/50 INH SCH ×2 (07:25→20:08)
[2019-07-09] MEDS: HYDROCODONE/APAP 7.5MG-325MG 1 EA TAB PO PRN (11:10)
[2019-07-09] MEDS: LORATADINE 10 MG TAB PO SCH (14:13)
[2019-07-09] MEDS: BENZONATATE 100 MG CAP PO SCH ×2 (15:00→21:02)
[2019-07-09] MEDS: PANTOPRAZOLE 40 MG 10ML VIAL IV SCH (16:00)
[2019-07-09] MEDS: CENTRAL TPN FORMULA 1 BAG IV SCH (20:51)
[2019-07-10] VITALS (8 sets, daily range): BP systolic 97–150; BP diastolic 54–70
[2019-07-10] MEDS: ALBUTEROL SULF 0.083% NEB SOLN 3 ML NEB NEB SCH ×4 (00:01→19:22)
[2019-07-10] MEDS: HYDROCODONE/APAP 7.5MG-325MG 1 EA TAB PO PRN ×2 (01:22→13:14)
[2019-07-10] MEDS: HYDROMORPHONE 1MG/1ML INJ IV PRN (01:25)
[2019-07-10] MEDS: INSULIN REGULAR, HUMAN 100 UNIT/1 ML 3ML VIAL SQ SCH ×5 (06:00→23:50)
[2019-07-10] MEDS: MEROPENEM 1GM 100 ML IV SCH ×3 (06:11→22:15)
[2019-07-10] MEDS: SALMETEROL/FLUTICASONE 250/50 INH SCH ×2 (07:40→19:32)
[2019-07-10] MEDS: LORATADINE 10 MG TAB PO SCH (09:21)
[2019-07-10] MEDS: LOSARTAN POTASSIUM 25 MG TAB PO SCH (09:21)
[2019-07-10] MEDS: BENZONATATE 100 MG CAP PO SCH ×3 (09:22→22:15)
[2019-07-10] MEDS ORDERED: SODIUM CHLORIDE 0.9% 250ML 250 ML ONE (14:41)
[2019-07-10] MEDS: PANTOPRAZOLE 40 MG 10ML VIAL IV SCH (16:00)
[2019-07-10] MEDS: CENTRAL TPN FORMULA 1 BAG IV SCH (20:34)
[2019-07-11] VITALS (8 sets, daily range): BP systolic 114–135; BP diastolic 55–71
[2019-07-11] MEDS: ALBUTEROL SULF 0.083% NEB SOLN 3 ML NEB NEB SCH ×4 (00:21→19:28)
[2019-07-11] MEDS: HYDROCODONE/APAP 7.5MG-325MG 1 EA TAB PO PRN ×2 (01:00→20:12)
[2019-07-11] MEDS: MEROPENEM 1GM 100 ML IV SCH ×3 (05:59→22:39)
[2019-07-11] MEDS: INSULIN REGULAR, HUMAN 100 UNIT/1 ML 3ML VIAL SQ SCH ×3 (06:00→18:00)
[2019-07-11] MEDS: SALMETEROL/FLUTICASONE 250/50 INH SCH ×2 (07:13→19:28)
[2019-07-11 07:18] LABS: BASOPHILS % 0.3 % (0.0-1.0); EOSINOPHILS # (AUTO) 0.5 (0.0-0.4); EOSINOPHILS % 8.4 % (0.0-6.0); HEMOGLOBIN 10.2 g/dL (12.0-16.0); LYMPHOCYTES # (AUTO) 1.2 (1.0-3.2); LYMPHOCYTES % 19.4 % (18.0-39.1); MEAN CORPUSCULAR HGB CONC 30.9 g/dL (31-35); MONOCYTES % 16.9 % (4.4-11.3); NEUTROPHILS # (AUTO) 3.3 (2.1-6.9); NEUTROPHILS % 54.7 % (38.7-80.0); PLATELET COUNT 141 x10e3/uL (140-360); RED BLOOD COUNT 3.93 x10e6/uL (3.6-5.1); RED CELL DISTRIBUTION WIDTH 19.9 % (11.7-14.4)
[2019-07-11 07:26] LABS: ANION GAP 9.5 mmol/L (8-16); BLOOD UREA NITROGEN 27 mg/dL (7-26); BUN/CREATININE RATIO 51 (6-25); CALCIUM 8.6 mg/dL (8.4-10.2); CARBON DIOXIDE 20 mmol/L (22-29); CHLORIDE 109 mmol/L (98-107); CREATININE, SERUM 0.53 mg/dL (0.57-1.11); EST GLOMERULAR FILTRATION RATE > 60 ML/MIN (60-); GLUCOSE 88 mg/dL (74-118); POTASSIUM 4.5 mmol/L (3.5-5.1); SODIUM 134 mmol/L (136-145)
[2019-07-11] MEDS: LORATADINE 10 MG TAB PO SCH (09:00)
[2019-07-11] MEDS: BENZONATATE 100 MG CAP PO SCH ×3 (09:00→21:00)
--- NOTE | 2019-07-11 09:12 | Diagnostic Imaging Report ---
EXAMINATION: PA and lateral views of the chest. COMPARISON: None CLINICAL HISTORY: Cough DISCUSSION: Lines/tubes: Left PICC line with tip overlying the SVC. Lungs: The lungs are well inflated and clear. There is no evidence of pneumonia or pulmonary edema. Pleura: No pleural effusion or pneumothorax. Heart and mediastinum: The cardiomediastinal silhouette is normal. Bones and soft tissues: No acute bony abnormalities. IMPRESSION: No acute cardiopulmonary abnormalities. Signed by: Dr. Chriss Waldrop M.D. on 07/11/2019 9:09 AM
[2019-07-11] MEDS: LOSARTAN POTASSIUM 25 MG TAB PO SCH (09:55)
[2019-07-11] MEDS: PANTOPRAZOLE 40 MG 10ML VIAL IV SCH (15:59)
[2019-07-11] MEDS: NYSTATIN 15 GM POWDER UD BTL TOP SCH (17:00)
[2019-07-11] MEDS ORDERED: CENTRAL TPN FORMULA 1 BAG IV SCH (19:30)
[2019-07-12] VITALS: BP 120/58
[2019-07-12 04:00] VITALS: BP 111/55
[2019-07-12] MEDS: INSULIN REGULAR, HUMAN 100 UNIT/1 ML 3ML VIAL SQ SCH ×3 (06:00→12:00)
[2019-07-12] MEDS ORDERED: SODIUM CHLORIDE 0.9% 250ML 250 ML ONE (06:11)
[2019-07-12] MEDS: MEROPENEM 1GM 100 ML IV SCH ×2 (06:20→14:05)
[2019-07-12] MEDS: ALBUTEROL SULF 0.083% NEB SOLN 3 ML NEB NEB SCH ×2 (07:35→13:50)
[2019-07-12] MEDS: SALMETEROL/FLUTICASONE 250/50 INH SCH (07:40)
[2019-07-12 07:56] VITALS: BP 128/61
[2019-07-12 08:06] VITALS: BP 128/61
[2019-07-12] MEDS: LORATADINE 10 MG TAB PO SCH (08:50)
[2019-07-12] MEDS: LOSARTAN POTASSIUM 25 MG TAB PO SCH (08:50)
[2019-07-12] MEDS: BENZONATATE 100 MG CAP PO SCH ×2 (08:50→15:18)
[2019-07-12] MEDS: NYSTATIN 15 GM POWDER UD BTL TOP SCH ×2 (08:50→17:19)
[2019-07-12 12:28] VITALS: BP 161/77
[2019-07-12] MEDS ORDERED: ONDANSETRON HCL 4 MG ORAL DISINTEGRATING TAB PO PRN (14:00)
[2019-07-12] MEDS: PANTOPRAZOLE 40 MG 10ML VIAL IV SCH (16:30)
[2019-07-12 16:35] VITALS: BP 139/66
[2019-07-12] MEDS ORDERED: NORCO 5-325 TA1 EACH PO (18:14)
[2019-07-12] MEDS ORDERED: KEFLEX500 MG PO (18:15)
--- NOTE | 2019-09-09 12:50 | Operative Report ---
DATE OF PROCEDURE: 07/05/2019 SURGEON: Tad Chauhan MD PREOPERATIVE DIAGNOSIS: Chronic enterocutaneous fistula. POSTOPERATIVE DIAGNOSIS: Chronic enterocutaneous fistula. OPERATION PERFORMED: Exploratory laparotomy, small-bowel resection. TIN WHIZ MACHINE OPERATOR: Dr. Shayne Chauhan and NUBIA Brunson. ANESTHESIA: General. COMPLICATIONS: None. ESTIMATED BLOOD LOSS: 200 mL. DESCRIPTION OF PROCEDURE: With the patient lying in bed in the supine position under good general endotracheal anesthesia, the abdomen was prepped with Betadine solution and draped in the usual manner. An elliptical incision was made to include the previous midline incision with the opening of the enterocutaneous fistula included. The incision was then deepened through the subcutaneous tissue all the way down to the fascia. The fascia was opened and the intraabdominal cavity was entered. The fistula tract could then be followed, it was just to the left of the midline and the fascia. There was a loop of small bowel that was stuck under there, presenting the obvious for enterocutaneous fistula. The small bowel was then from the anterior abdominal wall and lysis of adhesions were then performed to be able to free up the entire area. We were then able to visualize the fistula that was actually located at the blind loop of over previous [id number] small bowel anastomosis where there was lack of blood flow in the very corner of the staple line and it created the fistula. This was simply stapled off without any difficulty making sure that we did not impinge on the anastomosis itself. Once this was done, the whole thing was then oversewn with interrupted sutures of 3-0 silk. The abdomen was then copiously irrigated. Perfect hemostasis was ascertained. All of the inflamed fascia was then resected and the abdomen was then closed in layers. The peritoneum was closed with a running suture of #1 Vicryl. The midline fascia was closed with a running suture of #1 PDS. The subcutaneous tissue was then copiously irrigated and drained with a quarter-inch [place] drain and the skin was closed with clips. A dressing was applied. The sponge, lap, and needle count was correct. The patient tolerated the procedure well and returned to the recovery room in stable condition. MD INÉS ChavezR/MODL /[id number]
== END 2019-07-12 18:48 | disposition home or self-care (01) | DRG 330 ==
LOC: ER 11:31 → ERHOLD 12:36 → MED/SURG3 22:48 → OBSVTOIN 07-01 08:42 → ICU 07-05 22:04 → MED/SURG 07-06 16:15
PROVIDERS: ADMIT Internal Medicine; ATTEND Internal Medicine
PROC: 02HV33Z Insertion of Infusion Device into Superior Vena Cava, Percutaneous Approach (ICD-10-PCS; principal; 2019-07-01)
PROC: 0DB80ZZ Excision of Small Intestine, Open Approach (ICD-10-PCS; 2019-07-05)
PROC: 0WBF0ZZ Excision of Abdominal Wall, Open Approach (ICD-10-PCS; 2019-07-05)
PROC: 30243N1 Transfusion of Nonautologous Red Blood Cells into Central Vein, Percutaneous Approach (ICD-10-PCS; 2019-07-05)
DX: K63.2 Fistula of intestine (principal); E44.0 Moderate protein-calorie malnutrition; Z85.820 Personal history of malignant melanoma of skin; Z85.42 Personal history of malignant neoplasm of other parts of uterus; J45.909 Unspecified asthma, uncomplicated; R26.9 Unspecified abnormalities of gait and mobility; R26.2 Difficulty in walking, not elsewhere classified; Z68.24 Body mass index [BMI] 24.0-24.9, adult; Z86.718 Personal history of other venous thrombosis and embolism; G62.9 Polyneuropathy, unspecified; E11.9 Type 2 diabetes mellitus without complications; D64.9 Anemia, unspecified
CPT/HCPCS: 36415; 36569; 36600; 71045; 71046; 74177; 74470; 80048; 80053; 80202; 81001; 82805; 82948; 83540; 83605; 83735; 84100; 84466; 85025; 85610; 85730; 86850; 86900; 86920; 87040; 88304; 93005; 93306; 94640; 94664; 96365; 96366; 97139; 99251; 99284; G0378; J1100; J1170; J1756; J1817; J1940; J2001; J2270; J2370; J2405; J2543; J2550; J2710; J2765; J2920; J3010; J3370; J3430; J7030; J7050; P9016; Q9967

== ENCOUNTER 2024-05-13 06:41 | Emergency (ER) | payer MEDICARE ==
[~2024-05-13] VITALS: Ht 162.6 cm; Wt 64.0 kg
[~2024-05-13 06:41] MED LIST changes: +KEFLEX500 MG PO; +NORCO 5-325 TA1 EACH PO
[2024-05-13 06:50] VITALS: PULSE 80; RESP 17; TEMP 98.7
[2024-05-13 07:37] VITALS: PULSE 74; RESP 20; O2SAT 96
[2024-05-13] MEDS: ALBUTEROL/IPRATROPIUM 3 ML NEB NEB ONE (07:37)
[2024-05-13 07:52] LABS: CORONAVIRUS COVID-19 AG NEGATIVE (NEGATIVE); INFLUENZA A AG NEGATIVE (NEGATIVE); INFLUENZA B AG NEGATIVE (NEGATIVE)
[2024-05-13] MEDS: DEXAMETHASONE SOD PHOS 10 MG/1 ML VIAL IM ONE (07:57)
[2024-05-13] MEDS ORDERED: IPRAT-ALBUT 0.5-3 ML NEB (08:41)
[2024-05-13] MEDS ORDERED: ALBUTEROL0.63 MG/3 NEB (08:41)
[2024-05-13] MEDS ORDERED: VENTOLIN HFA18 GM INH (08:41)
[2024-05-13] MEDS ORDERED: GUAIFENESIN AC473 ML PO (08:41)
== END 2024-05-13 08:51 | disposition home or self-care (01) ==
LOC: ER 06:46
DX: R05.9 Cough, unspecified (principal); I10 Essential (primary) hypertension; J45.909 Unspecified asthma, uncomplicated; G62.9 Polyneuropathy, unspecified; Z11.52 Encounter for screening for COVID-19; Z87.19 Personal history of other diseases of the digestive system
CPT/HCPCS: 71045; 87428; 99283; J1100